=== PATIENT | female | born 1990 | race African-American/Black ===

== ENCOUNTER 2016-10-19 13:44 | Emergency (ER) | payer OTHER ==
[2016-10-19 14:02] VITALS: BP 137/83
--- NOTE | 2016-10-19 14:56 | ERNOTE ---
Time Seen by Provider: 10/19/16 14:39 Stated Complaint: URI,COUGH Presenting Symptoms:: cough Source: patient, RN notes reviewed Exam Limitations: no limitations Immunizations: IMMUNIZATION HX Immunizations Up to Date Yes History of Influenza Vaccine No Hx Pneumococcal Vaccination No Allergies/Adverse Reactions: Allergies benzonatate [From Mercdeez Sharma] Allergy (Verified 10/19/16 14:03) Hives guaifenesin Allergy (Verified 10/19/16 14:03) Anaphylaxis latex Allergy (Verified 10/19/16 14:03) Hives Home Medications: HOME MEDICATIONS Albuterol Sulfate [Albuterol Sulfate 2.5 MG/0.5ML] 1 vial IH Q4H PRN 05/30/16 [ Last Taken Unknown] Albuterol Sulfate [Ventolin Hfa] 2 puff IH Q4H PRN #1 inhaler 07/30/16 [Last Taken Unknown] Amox Tr/Potassium Clavulanate [Augmentin 875-125 Tablet] 875 mg PO Q12H #20 tab 10/19/16 [Last Taken Unknown] Promethazine HCl/Codeine [Prometh-Codein 6.25-10 mg/5 ml] 5 ml PO Q4H PRN #120 ml 10/19/16 [Last Taken Unknown] predniSONE [Prednisone] 2 tab PO DAILY #5 tab 10/19/16 [Last Taken Unknown] - History of Present Ilness Narrative: Oxana is a 26-year-old female ambulatory to the emergency department for upper respiratory symptoms and asthma that began a week ago. She has been taking ykrn-nzm-vqjdhhl cough and cold medications and using her nebulizer and inhalers without any improvement. She also reports nasal congestion and a headache that does not improve with ibuprofen. Her is here being seen with similar symptoms as well. Frequency/Possible Cause: Reports: illness exposure Associated Symptoms: Reports: cough, shortness of breath, wheezing, facial pain , nasal congestion, nasal drainage, dizziness, lightheadedness, earache, headache. Denies: sore throat, muscle aches Prior Treatment: Denies: recently seen Review of Systems - Review of Systems Constitutional: Present: See HPI EYE: Present: no symptoms reported ENT: Present: See HPI Respiratory: Present: See HPI Cardiology: Absent: chest pain, syncope Gastrointestinal/Abdominal: Absent: nausea, vomiting Genitourinary: Present: no symptoms reported Musculoskeletal: Present: See HPI Skin: Present: no symptoms reported Neurological: Present: See HPI Endocrine: Present: no symptoms reported Hematologic/Lymphatic: Present: no symptoms reported Psych: Present: no symptoms reported - Patient's Past Medical History Patient History - Medical: No pertinent hx Patient History - Cardiac/Respiratory: Asthma Patient History - Cancer: No Hx of Cancer Patient History - Surgical Procedures: T & A, Other LMP (females 10-50): now - Family History mom Family History - Medical: No pertinent hx dad Family History - Medical: No pertinent hx - Social History Living Situations: home Smoking Status: Never smoker Alcohol Use: rarely Drug Use: none Physical Exam - Physical Exam General Appearance: Present: wd/wn, alert, no apparent distress Ears, Nose, Throat: Present: hearing grossly normal, nasal congestion, sinus pain/drainage, normal pharynx. Absent: abnormal TM (R), abnormal TM (L) Neck: Present: normal inspection, nontender, supple Respiratory: Present: no respiratory distress, no accessory muscle use, lungs clear, expiration (prolonged) Cardiovascular/Chest: Present: regular rate, rhythm, no murmur Neurological Exam: Present: alert, oriented, normal mood/affect Skin Exam: Present: normal color, warm/dry ED Progress - Vital Signs Patient's Vital Signs:: I have reviewed the patient's vital signs. Vital Signs: Vital Signs 10/19/16 13:59 Temperature 35.8 C L Pulse Rate 79 Respiratory 16 Rate Blood Pressure 137/83 O2 Sat by Pulse 98 Oximetry - Progress/Reassessment Chief Complaint: Upper Respiratory Symptoms Progress:: Unchanged Departure - Departure Clinical Impression: Asthma exacerbation Sinusitis, acute Qualifiers: Sinusitis location: unspecified location Recurrence: non-recurrent Qualified Code(s): J01.90 - Acute sinusitis, unspecified Disposition: Home self-care Condition: Good Instructions: Sinusitis, Adult, Ehbd-ud-Jrus, Asthma, Adult, Xnuq-ql-Epht Prescriptions: Amox Tr/Potassium Clavulanate [Augmentin 875-125 Tablet] 875 mg PO Q12H #20 tab Promethazine HCl/Codeine [Prometh-Codein 6.25-10 mg/5 ml] 5 ml PO Q4H PRN #120 ml PRN Reason: Cough predniSONE [Prednisone] 2 tab PO DAILY #5 tab
== END 2016-10-19 14:59 | disposition home or self-care (01) ==
LOC: ER 13:44
DX: J45.901 Unspecified asthma with (acute) exacerbation (principal); J01.90 Acute sinusitis, unspecified

== ENCOUNTER 2016-11-29 22:00 | Emergency (ER) | payer OTHER ==
[2016-11-29 22:09] VITALS: BP 138/86
--- OUTSIDE RECORDS SUMMARY | 2016-11-29 22:34 | XMS REPORT | Continuity of Care Document ---
:1990 Author Organization [facility] [place] [address] Care Team Providers Name Role Phone Provider, None Per Patient Primary Care Provider Unavailable Source Comments This disclosure is being made pursuant to the [employer] program and maynot contain all information available regarding this patient.[facility] Active Allergies and Adverse Reactions Allergen Noted Date Severity Reactions Comments Latex 03/30/2014 High Hives Current Medications Be aware that medications may not be up to date as of this document. Alwaysverify current medications with the patient. Prescription Sig. Disp. Refills Start Date End Date Status Unclassified (NON Proair, albuterol Active FORMULARY) nebulizer Active Problems Not on file Immunizations Name Dates Previously Given Next Due Tdap 04/13/2014 Social History Tobacco Use Types Packs/Day Years Used Date Never Smoker Alcohol Use Drinks/Week oz/Week Comments No Last Filed Vital Signs Vital Sign Reading Time Taken Blood Pressure 119/69 04/13/2014 6:10 PM CDT Pulse 84 04/13/2014 6:10 PM CDT Temperature 37.1 C (98.8 F) 04/13/2014 6:10 PM CDT Respiratory Rate 16 04/13/2014 6:10 PM CDT Height 1.549 m (5' 1") 04/13/2014 6:10 PM CDT Weight 81.42 kg (179 lb 8 oz) 04/13/2014 6:10 PM CDT Body Mass Index 33.93 04/13/2014 6:10 PM CDT Oxygen Saturation 100% 03/30/2014 6:09 PM CDT Plan of Care Health Maintenance Due Date Last Done Comments HPV Vaccine (9-26YO) (1 of 3 - Female/Unknown 3 Dose 2002 Series) Chlamydia Screening 2007 Pap Smear 2012 Retired-INFLUENZA VACCINE 06/07/2015 Retired-Tetanus Vaccine Adult 04/13/2024 04/13/2014 Retired-Pertussis Vaccine Adult Completed 04/13/2014 Results from Last 3 Months Not on file
--- OUTSIDE RECORDS SUMMARY | 2016-11-29 22:35 | XMS REPORT | CCD ---
:1990 Author Name VEENA CRUZ Address [address] [facility] Unavailable [place], [place] [id number] Care Team Providers Name Role Phone MAURI NGO Attending Physician Unavailable Tab, RHONDA GAMBOA Registered Nurse Unavailable S., LINA Hammer Registered Nurse Unavailable C., NATHAN Registered Nurse Unavailable L., PRAVEEN Nursing Staff Unavailable C., SARAH Hirsch Registered Nurse Unavailable Vital Signs Vital Sign Value Unit Date/Time Recent/Initial? Weight Measured 191.8 lbs 09/10/2015 20:38 Initial VS Height 62 in 09/10/2015 20:38 Initial VS BMI (Body Mass Index) 35.08 kg/m^2 09/10/2015 20:38 Initial VS BSA (Body Surface Area) 1.95 m^2 09/10/2015 20:38 Initial VS BP Systolic 121 mmHg 09/10/2015 20:38 Initial VS BP Diastolic 71 mmHg 09/10/2015 20:38 Initial VS Respiratory Rate 21 bpm 09/10/2015 20:38 Initial VS Heart Rate 76 bpm 09/10/2015 20:38 Initial VS O2 % BldC Oximetry 96 % 09/10/2015 20:38 Initial VS Body Temperature 97.9 degrees 09/10/2015 20:38 Initial VS Weight Measured 192.9 lbs 09/12/2015 06:20 Most Recent VS Height 62 in 09/12/2015 06:20 Most Recent VS BMI (Body Mass Index) 35.28 kg/m^2 09/12/2015 06:20 Most Recent VS BSA (Body Surface Area) 1.96 m^2 09/12/2015 06:20 Most Recent VS O2 % BldC Oximetry 98 % 09/12/2015 07:30 Most Recent VS BP Systolic 133 mmHg 09/12/2015 11:10 Most Recent VS BP Diastolic 84 mmHg 09/12/2015 11:10 Most Recent VS Respiratory Rate 18 bpm 09/12/2015 11:10 Most Recent VS Heart Rate 116 bpm 09/12/2015 11:10 Most Recent VS Body Temperature 98.3 degrees 09/12/2015 11:10 Most Recent VS Allergies Allergy Code Allergy Type Reaction Status LATEX 0 Allergy to substance Active GUAFENESIN 0 Drug allergy RASH Active Procedures Procedure Code Procedure Type Date AEROSOL TREATMENT 09993393 SNOMED CT 09/11/2015 AEROSOL TREATMENT 23352960 SNOMED CT 09/11/2015 AEROSOL TREATMENT 87349952 SNOMED CT 09/11/2015 AEROSOL TREATMENT 31979625 SNOMED CT 09/12/2015 AEROSOL TREATMENT 39814103 SNOMED CT 09/12/2015 AEROSOL -BRONCHO INT 471622559 SNOMED CT 09/10/2015 PRE/POST PFT 943006420 SNOMED CT 09/12/2015 CT CHEST-ANGIO 092683263 SNOMED CT 09/10/2015 NECK SOFT TISSUE 231471167 SNOMED CT 09/10/2015 CHEST [address] 09/10/2015 PROTHROMBIN TIME, PLASMA 667354824 SNOMED CT 09/12/[address] 09/11/2015 PROTHROMBIN TIME, PLASMA 881121141 SNOMED CT 09/10/2015 History of Immunizations Immunization Code Date Tdap 115 04/13/2014 no vaccine administered 998 1991 Problems Problem Code Start Date Resolved Date Status BRONCHITIS 83240933 01/19/2012 Active HEADACHE 89994548 01/19/2012 Active PERS HX OF PULMONARY EMBOLISM V1255 02/23/2012 Active VIRAL INFECTION 50204526 03/15/2012 Active ASTHMA 498150136 03/15/2012 Active COUGH 98441801 11/11/2012 Active ASTHMA WITH EXACERBATION 545236862 02/13/2013 Active VAGINITIS 11815591 05/24/2013 Active LUMP OR MASS IN BREAST 83608142 05/28/2013 Active SOLITARY CYST OF BREAST 106683504 05/28/2013 Active Results BASIC METABOLIC PANEL - Collect Date/Time: 09/11/2015 06:57 Test Name Code Test Result Test Units Test Ref Range GLUCOSE 102 mg/dL L=74 H=106 SODIUM 142 mmol/L L=136 H=145 POTASSIUM 3.8 mmol/L L=3.5 H=5.1 CHLORIDE 102 mmol/L L=98 H=107 CO2 33 mmol/L L=21 H=32 BUN 13.0 mg/dL L=7.0 H=18.0 CREATININE 0.9 mg/dL L=0.6 H=1.0 BUN/CREAT 14.4 L=7.6 H=21.2 CALCIUM 8.3 mg/dL L=8.6 H=10.1 ANION GAP 10.7 mmol/L L=7.0 H=16.0 AGE 25 YEARS GFR 81.76 ml/min COMPREHENSIVE METABOLIC PANEL - Collect Date/Time: 09/10/2015 17:20 Test Name Code Test Result Test Units Test Ref Range GLUCOSE 97 mg/dL L=74 H=106 SODIUM 139 mmol/L L=136 H=145 POTASSIUM 3.4 mmol/L L=3.5 H=5.1 CHLORIDE 101 mmol/L L=98 H=107 CO2 33 mmol/L L=21 H=32 BUN 9.0 mg/dL L=7.0 H=18.0 CREATININE 0.9 mg/dL L=0.6 H=1.0 BUN/CREAT 10.0 L=7.6 H=21.2 CALCIUM 8.0 mg/dL L=8.6 H=10.1 TOTAL BILI 0.4 mg/dL L=0.2 H=1.0 TOTAL PROTEIN 6.6 g/dL L=6.4 H=8.2 ALBUMIN 3.2 g/dL L=3.4 H=5.0 A/G RATIO 0.9 ALKALINE PHOS 71 IU/L L=50 H=136 AST/SGOT 8 IU/L L=15 H=37 ALT/SGPT 10 IU/L L=12 H=78 ANION GAP 8.4 mmol/L L=7.0 H=16.0 AGE 25 YEARS GFR 81.76 ml/min D-DIMER, PLASMA - Collect Date/Time: 09/10/2015 17:20 Test Name Code Test Result Test Units Test Ref Range D-DIMER 1.66 mg/L L=0.00 H=0.50 IRON & IRON BINDING CAPACITY, SERUM - Collect Date/Time: 09/11/2015 07:43 Test Name Code Test Result Test Units Test Ref Range IRON SERUM 31 MCG/DL L=50 H=170 UIBC 272 MCG/DL L=110 H=370 TIBC 303 MCG/DL L=250 H=400 SATURATION 10 % L=14 H=50 TSH - Collect Date/Time: 09/11/2015 07:43 Test Name Code Test Result Test Units Test Ref Range TSH 3016-3 1.380 uIU/ml L=0.360 H=3.740 HEMOGRAM - Collect Date/Time: 09/10/2015 17:20 Test Name Code Test Result Test Units Test Ref Range WBC 6690-2 9.6 K/uL L=3.2 H=10.0 RBC 789-8 3.86 M/uL L=4.00 H=5.20 HEMOGLOBIN 718-7 10.6 g/dL L=12.1 H=15.6 HEMATOCRIT 32.8 % L=35.0 H=47.0 MCV 85.0 fL L=81.0 H=101 MCH 27.5 PG L=26.0 H=38.0 MCHC 32.3 G/DL L=31.0 H=37.0 PLATELETS 222 K/UL L=140 H=380 RDW-SD 39.3 FL L=37.0 H=54.0 RDW-CV 13.2 % L=11.0 H=16.0 MPV 9.5 FL L=9.0 H=13.0 SLIDE REVIEWED? NOT INDICATED N/A PROTHROMBIN TIME, PLASMA - Collect Date/Time: 09/12/2015 06:32 Test Name Code Test [place] [address]-41 11.6 Sec L=9.5 H=13.5 INR 84281-0 1.1 PROTHROMBIN TIME, PLASMA - Collect Date/Time: 09/10/2015 22:40 Test Name Code Test [place] [address]-16 11.6 Sec L=9.5 H=13.5 INR 53797-6 1.1 HCG QUALITATIVE, SERUM OR PLASMA - Collect Date/Time: 09/11/2015 07:45 Test Name Code Test Result Test Units Test Ref Range BHCG QUAL NEGATIVE N/A Active Medications Medication Code Dose Units Frequency Route Modification Start Date/Time Advair Diskus 995481 1 PUFF TWICE INHALED 09/12/2015 250/50 DAILY-RESPIRAT 09:18 0.25MG-0.05MG/1I NH Inhalation Disk Prescription Detail 1 PUFF INHALED TWICE DAILY-RESPIRAT Coumadin 5MG Oral 323283 7.5 MILLIGRAMS DAILY COUMADIN BY MOUTH 2014 09:18 Tablet Prescription Detail TAKE 7.5 MILLIGRAMS BY MOUTH DAILY COUMADIN Lexapro 10MG Oral Tablet 772355 10 MILLIGRAMS DAILY BY MOUTH 2014 09:18 Prescription Detail TAKE 10 MILLIGRAMS BY MOUTH DAILY LORazepam 0.5MG 0.5 MILLIGRAMS 2 x a day, as BY MOUTH 2014 09:18 Oral Tablet needed Prescription Detail TAKE 0.5 MILLIGRAMS BY MOUTH 2 x a day, as needed for anxiety Lovenox 100MG/ML 518246 80 MILLIGRAMS EVERY 12 SUBCUTANEOUSLY 2014 09:18 Injection HOURS Solution Prescription Detail INJECT 80 MILLIGRAMS SUBCUTANEOUSLY EVERY 12 HOURS. DX: Pulmonary embolism Naproxen 250MG 19791009 250 MILLIGRAMS 2 x a day, as BY MOUTH For pain 04/2015 09:18 Oral Tablet needed Prescription Detail TAKE 250 MILLIGRAMS BY MOUTH 2 x a day, as needed For pain ProAir HFA 0.09MG/1 INH 836833 1 EACH NEEDED INHALATION 09/12/2015 09:18 Inhalation Aerosol Powder Prescription Detail 1 EACH INHALATION NEEDED Slow Fe 160 MG Oral 777405 1 TABLET DAILY WITH FOOD BY MOUTH 2014 09:18 Tablet, Extended Release Prescription Detail TAKE 1 TABLET BY MOUTH DAILY WITH FOOD traMADol HCl 809193 50-100 MILLIGRAMS Every 6hr as BY MOUTH For pain 04/2015 09:18 50MG Oral needed Tablet Prescription Detail TAKE 50-100 MILLIGRAMS BY MOUTH Every 6hr as needed For pain Medications Administered During Visit Medication Dose Units Frequency Route Date/Time of Last Dose WARFARIN (COUMADIN) TAB 5 MG DAILY COUMADIN ORAL 09/11/2015 12:26 : 5MG WARFARIN (COUMADIN) TAB 5 MG X1 ORAL 09/10/2015 22:57 : 5MG ENOXAPARIN SOD 80 MG EVERY 12 HOURS SUBCUTANEOUS 09/12/2015 10:19 (LOVENOX) INJ: 100MG TRAMADOL (ULTRAM) TAB : 50 MG PRN Q4 HR ORAL 09/12/2015 08:15 50MG LORazepam (ATIVAN) TAB 0.5 MG PRN Q6 HR ORAL 09/12/2015 10:19 : 0.5MG IPRATROP/ALBU UD 3 ML PRN Q4 HR NEBULIZE 09/11/2015 06:16 NEBULIZER ART : 3ML MORPHINE INJ: 2MG 2 MG PRN Q2 HR IV PUSH 09/11/2015 08:13 CARPUJECT FLUTICASONE (ADVAIR) 1 PUFF TWICE INHALATION 09/12/2015 07:24 DISKUS 250/50MG DAILY-RESPIRAT ESCITALOPRAM 10 MG DAILY ORAL 09/12/2015 08:15 OXALATE(LEXAPRO) TAB : 10MG MORPHINE INJ: 2MG 2 MG PRN Q4 HR IV PUSH 09/12/2015 06:32 CARPUJECT IRON ELEMENTAL (SLOW 45 MG DAILY WITH FOOD ORAL 09/12/2015 08:15 FE) TAB : 45MG IPRATROP/ALBU UD 3 ML FOUR TIMES NEBULIZE 09/12/2015 10:27 NEBULIZER ART : 3ML DAILY-RES PHENOL (CEPASTAT) 1 SUZANNE PRN NEEDED ORAL 09/11/2015 17:22 LOZENGES:18 NAPROXEN (NAPROSYN) TAB 250 MG PRN BID ORAL 09/11/2015 19:17 : 250MG WARFARIN (COUMADIN) TAB 7.5 MG DAILY COUMADIN ORAL 09/12/2015 10:58 : 5MG Encounters Encounter Diagnosis Diagnosis Code Start Date Other pulmonary embolism without acute cor pulmonale I2699 09/10/2015 Social History Smoking Status Code Start Date End Date Never smoker [id number] Patient Decision Aids Patient Decision Aid [facility] Instructions Pulmonary Embolism Discharge Instructions You were admitted to [facility] on 09/10/2015 with a principal diagnosis of Other pulmonary embolism without acute cor pulmonale. You were discharged from [facility] on 09/12/2015. Should you have any questions prior to discharge, please contact a member of your healthcare team. If you have left the hospital and have any questions, please contact your primary care physician.DIET:Regular/Diet as Tolerated, Keep vitamin K diet consistennt- See attachedsheet.Medication Instructions:Patient/Family Verbalizes Understanding, Prescriptions given to patient.Prescriptions phoned to Pharmacy, Discharge med list created by physician.DO NOT DRIVE WHEN USING TRAMADOL OR LARAZEPAMActivityActivity as tolerated.Treatment instructions:USE INCENTIVE SPIROMETER HOURLYTreatment instructions (cont.)USE CONDOMS FOR CONTRACEPTION. DO NOT BECOME WHILE ON WARFARIN(COUMADIN)General Instructions/Notify Physician if:CALL DR PORTILLO IF INCREASED SHORTNESS OF BREATH, CHESP PAIN, FEVER, CHILLS.Home EquipmentNo equipment needed.Follow Up AppointmentAppointment with:_DR PORTILLO THIS Saturday09/14/2015 AT 11:00cOME TO [facility] PRIOR TO APPOINTMENT FOR INR. Chief Complaint and Reason For Visit Chief Complaint Date of Onset PE Function Status Unknown or Not Available. Plan of Care Unknown or Not Available. Referral/Transition of Care Reason for Referral: post hospital -PE Referring Provider: LINDSEY GLOVER Address: [address] [place] [address], [address] [place] [phone] Appointment Date: 09/14/2015 Additional Information: at 11:00
--- OUTSIDE RECORDS SUMMARY | 2016-11-29 22:35 | XMS REPORT | CCD ---
:1990 Author Name TANVI ROMERO Address [address] [facility] Unavailable [place], [place] [id number] Care Team Providers Name Role Phone SALEEM ALVARES Attending Physician Unavailable Vital Signs Unknown or Not Available. Allergies Allergy Code Allergy Type Reaction Status LATEX 0 Allergy to substance Active RX COUGH MED {Clinical monitoring 0 Allergy to substance THROAT SWELLING Active unavailable} Procedures Unknown or Not Available. History of Immunizations Immunization Code Date Tdap 115 04/13/2014 no vaccine administered 998 1991 Problems Problem Code Start Date Resolved Date Status BRONCHITIS 11925616 01/19/2012 Active HEADACHE 10422144 01/19/2012 Active PERS HX OF PULMONARY EMBOLISM V1255 02/23/2012 Active VIRAL INFECTION 21705378 03/15/2012 Active ASTHMA 796698596 03/15/2012 Active COUGH 77866994 11/11/2012 Active ASTHMA WITH EXACERBATION 332724602 02/13/2013 Active VAGINITIS 24474379 05/24/2013 Active LUMP OR MASS IN BREAST 52324162 05/28/2013 Active SOLITARY CYST OF BREAST 899530241 05/28/2013 Active Results Unknown or Not Available. Active Medications Medication Code Dose Units Frequency Route Modification Start Date/Time MEDROL DOSE PACK 0 DIRECTED 10/10/2014 17:07 Prescription Detail DIRECTED Albuterol HFA 0.09MG/Actuation 904383 1 EACH As needed INHALATION 06/06 18:38 Inhalation Aerosol Powder Prescription Detail 1 EACH INHALATION As needed Medications Administered During Visit Unknown or Not Available. Encounters Encounter Diagnosis Diagnosis Code Start Date Acute bronchitis, unspecified J209 07/26/2015 Social History Smoking Status Code Start Date End Date Never smoker [id number] Patient Decision Aids Unknown or Not Available. Discharge Instructions You were admitted to [facility] on 07/26/2015 with a principal diagnosis of Acute bronchitis, unspecified. You were discharged from [facility] on 07/26/2015. Should you have any questions prior to discharge, please contact a member of your healthcare team. If you have left the hospital and have any questions, please contact your primary care physician. Chief Complaint and Reason For Visit Chief Complaint Date of Onset COUGH AND CONGESTED Function Status Unknown or Not Available. Plan of Care Unknown or Not Available. Referral/Transition of Care Unknown or Not Available.
--- OUTSIDE RECORDS SUMMARY | 2016-11-29 22:35 | XMS REPORT | CCD ---
:1990 Author Name TANVI CABRERA Address [address] [facility] Unavailable [place], [place] [id number] Care Team Providers Name Role Phone MICHAEL ARAUJO Attending Physician Unavailable MICHAEL ARAUJO Er Physician 1 Unavailable Vital Signs Vital Sign Value Unit Weight Measured 165 lbs Height 61 in BMI (Body Mass Index) 31.18 kg/m^2 BSA (Body Surface Area) 1.79 m^2 Allergies Allergy Code Allergy Type Reaction Status LATEX 0 Allergy to substance (disorder) Active Procedures Unknown. History of Immunizations Unknown. Problems Problem Code Start Date Resolved Date Status BRONCHITIS 58802347 01/19/2012 Active HEADACHE 72727478 01/19/2012 Active HX PULMONARY EMBOLISM V1255 02/23/2012 Active VIRAL INFECTION 06747436 03/15/2012 Active ASTHMA 847040406 03/15/2012 Active COUGH 64929655 11/11/2012 Active ASTHMA WITH EXACERBATION 589459778 02/13/2013 Active VAGINITIS 74568589 05/24/2013 Active LUMP OR MASS IN BREAST 65461071 05/28/2013 Active SOLITARY CYST OF BREAST 353918850 05/28/2013 Active Results Unknown. Medications Medication Code Dose Units Frequency Route Modification Start Stop Date/Time Date/Time Albuterol 668104 1 EACH As needed INHALATION HFA 0.09MG/Actua tion Inhalation Aerosol Powder Albuterol 044656 1 EACH As needed INHALATION HFA 0.09MG/Actua tion Inhalation Aerosol Powder Medications Administered Unknown. Encounters Encounter Diagnosis Diagnosis Code Start Date BRONCHITIS NOS 490 01/19/2014 Social History Smoking Status Code Start Date End Date Never smoker [id number] Patient Decision Aids Patient Decision Aid [facility]-ED Patient Educational Materials [facility]Patient Portal Instructions Instructions You were admitted to [facility] on 01/19/2014 with a principle diagnosis of BRONCHITIS NOS. You were discharged from [facility] on 01/19/2014. Should you have any questions prior to discharge, please contact a member of your healthcare team. If you have left the hospital and have any questions, please contact your primary care physician. Chief Complaint and Reason For Visit Chief Complaint Date of Onset COUGH Function Status Unknown. Plan of Care Unknown. Referral/Transition of Care Unknown.
--- OUTSIDE RECORDS SUMMARY | 2016-11-29 22:35 | XMS REPORT | CCD ---
:1990 Author Name RENATO KENNY Address [address] [facility] Unavailable [place], [place] [id number] Care Team Providers Name Role Phone SALEEM ALVARES Attending Physician Unavailable Vital Signs Unknown or Not Available. Allergies Allergy Code Allergy Type Reaction Status LATEX 0 Allergy to substance Active GUAFENESIN 0 Drug allergy RASH Active Procedures Procedure Code Procedure Type Date CHEST [address] 10/28/2015 History of Immunizations Immunization Code Date Tdap 115 04/13/2014 no vaccine administered 998 1990 Problems Problem Code Start Date Resolved Date Status BRONCHITIS 62662455 01/19/2012 Active HEADACHE 21381202 01/19/2012 Active PERS HX OF PULMONARY EMBOLISM V1255 02/23/2012 Active VIRAL INFECTION 35617298 03/15/2012 Active ASTHMA 293802152 03/15/2012 Active COUGH 25310791 11/11/2012 Active ASTHMA WITH EXACERBATION 205097760 02/13/2013 Active VAGINITIS 43313542 05/24/2013 Active LUMP OR MASS IN BREAST 06423428 05/28/2013 Active SOLITARY CYST OF BREAST 940832236 05/28/2013 Active Results Unknown or Not Available. Active Medications Medication Code Dose Units Frequency Route Modification Start Date/Time Advair Diskus 876397 1 PUFF TWICE INHALED 09/12/2015 250/50 DAILY-RESPIRAT 09:18 0.25MG-0.05MG/1I [place] Inhalation Disk Prescription Detail 1 PUFF INHALED TWICE DAILY-RESPIRAT Coumadin 5MG Oral 695417 7.5 MILLIGRAMS DAILY COUMADIN BY MOUTH 2014 09:18 Tablet Prescription Detail TAKE 7.5 MILLIGRAMS BY MOUTH DAILY COUMADIN Lexapro 10MG Oral Tablet 249172 10 MILLIGRAMS DAILY BY MOUTH 2014 09:18 Prescription Detail TAKE 10 MILLIGRAMS BY MOUTH DAILY LORazepam 0.5MG 024983 0.5 MILLIGRAMS 2 x a day, as BY MOUTH 2014 09:18 Oral Tablet needed Prescription Detail TAKE 0.5 MILLIGRAMS BY MOUTH 2 x a day, as needed for anxiety Lovenox 100MG/ML 087100 80 MILLIGRAMS EVERY 12 SUBCUTANEOUSLY 2014 09:18 Injection HOURS Solution Prescription Detail INJECT 80 MILLIGRAMS SUBCUTANEOUSLY EVERY 12 HOURS. DX: Pulmonary embolism Naproxen 250MG 576995 250 MILLIGRAMS 2 x a day, as BY MOUTH For pain 04/2015 09:18 Oral Tablet needed Prescription Detail TAKE 250 MILLIGRAMS BY MOUTH 2 x a day, as needed For pain ProAir HFA 0.09MG/1 INH 860668 1 EACH NEEDED INHALATION 09/12/2015 09:18 Inhalation Aerosol Powder Prescription Detail 1 EACH INHALATION NEEDED Slow Fe 160 MG Oral 095683 1 TABLET DAILY WITH FOOD BY MOUTH 2014 09:18 Tablet, Extended Release Prescription Detail TAKE 1 TABLET BY MOUTH DAILY WITH FOOD traMADol HCl 830407 50-100 MILLIGRAMS Every 6hr as BY MOUTH For pain 04/2015 09:18 50MG Oral needed Tablet Prescription Detail TAKE 50-100 MILLIGRAMS BY MOUTH Every 6hr as needed For pain Medications Administered During Visit Unknown or Not Available. Encounters Encounter Diagnosis Diagnosis Code Start Date Acute bronchitis, unspecified J209 10/28/2015 Social History Smoking Status Code Start Date End Date Never smoker [id number] Patient Decision Aids Unknown or Not Available. Chief Complaint and Reason For Visit Chief Complaint Date of Onset COUGH NOT FEELING GOOD Function Status Unknown or Not Available. Plan of Care Unknown or Not Available. Referral/Transition of Care Unknown or Not Available.
--- OUTSIDE RECORDS SUMMARY | 2016-11-29 22:35 | XMS REPORT | CCD ---
:1990 Author Name RENATO KENNY Address [address] [facility] Unavailable [place], [place] [id number] Care Team Providers Name Role Phone CHEVY URBANO, OTF Post Attending Physician Unavailable Vital Signs Unknown or Not Available. Allergies Allergy Code Allergy Type Reaction Status LATEX 0 Allergy to substance Active Procedures Unknown or Not Available. History of Immunizations Immunization Code Date Tdap 115 04/13/2014 no vaccine administered 998 1990 Problems Problem Code Start Date Resolved Date Status BRONCHITIS 12816691 01/19/2012 Active HEADACHE 35590764 01/19/2012 Active PERS HX OF PULMONARY EMBOLISM V1255 02/23/2012 Active VIRAL INFECTION 58311985 03/15/2012 Active ASTHMA 574036118 03/15/2012 Active COUGH 44226970 11/11/2012 Active ASTHMA WITH EXACERBATION 297685857 02/13/2013 Active VAGINITIS 06868648 05/24/2013 Active LUMP OR MASS IN BREAST 56653993 05/28/2013 Active SOLITARY CYST OF BREAST 521651788 05/28/2013 Active Results Unknown or Not Available. Active Medications Medication Code Dose Units Frequency Route Modification Start Date/Time Advair Diskus 730760 1 PUFF TWICE INHALED 09/12/2015 250/50 DAILY-RESPIRAT 09:18 0.25MG-0.05MG/1I NH Inhalation Disk Prescription Detail 1 PUFF INHALED TWICE DAILY-RESPIRAT Coumadin 5MG Oral 383665 7.5 MILLIGRAMS DAILY COUMADIN BY MOUTH 2014 09:18 Tablet Prescription Detail TAKE 7.5 MILLIGRAMS BY MOUTH DAILY COUMADIN Lexapro 10MG Oral Tablet 697881 10 MILLIGRAMS DAILY BY MOUTH 2014 09:18 Prescription Detail TAKE 10 MILLIGRAMS BY MOUTH DAILY LORazepam 0.5MG 132064 0.5 MILLIGRAMS 2 x a day, as BY MOUTH 2014 09:18 Oral Tablet needed Prescription Detail TAKE 0.5 MILLIGRAMS BY MOUTH 2 x a day, as needed for anxiety Lovenox 100MG/ML 589428 80 MILLIGRAMS EVERY 12 SUBCUTANEOUSLY 2014 09:18 Injection HOURS Solution Prescription Detail INJECT 80 MILLIGRAMS SUBCUTANEOUSLY EVERY 12 HOURS. DX: Pulmonary embolism Naproxen 250MG 143911 250 MILLIGRAMS 2 x a day, as BY MOUTH For pain 04/2015 09:18 Oral Tablet needed Prescription Detail TAKE 250 MILLIGRAMS BY MOUTH 2 x a day, as needed For pain ProAir HFA 0.09MG/1 INH 181425 1 EACH NEEDED INHALATION 09/12/2015 09:18 Inhalation Aerosol Powder Prescription Detail 1 EACH INHALATION NEEDED Slow Fe 160 MG Oral 607309 1 TABLET DAILY WITH FOOD BY MOUTH 2014 09:18 Tablet, Extended Release Prescription Detail TAKE 1 TABLET BY MOUTH DAILY WITH FOOD traMADol HCl 520424 50-100 MILLIGRAMS Every 6hr as BY MOUTH For pain 04/2015 09:18 50MG Oral needed Tablet Prescription Detail TAKE 50-100 MILLIGRAMS BY MOUTH Every 6hr as needed For pain Medications Administered During Visit Unknown or Not Available. Encounters Encounter Diagnosis Diagnosis Code Start Date Acute bronchitis due to other specified organisms J208 08/28/2015 Social History Smoking Status Code Start Date End Date Never smoker [id number] Patient Decision Aids Unknown or Not Available. Discharge Instructions You were admitted to [facility] on 08/28/2015 with a principal diagnosis of Acute bronchitis due to other specified organisms. You were discharged from [facility] on 08/28/2015. Should you have any questions prior to discharge, please contact a member of your healthcare team. If you have left the hospital and have any questions, please contact your primary care physician. Chief Complaint and Reason For Visit Chief Complaint Date of Onset CHEST IS TIGHT AND BAD COUGH CAN NOT BREATHE Function Status Unknown or Not Available. Plan of Care Unknown or Not Available. Referral/Transition of Care Unknown or Not Available.
--- OUTSIDE RECORDS SUMMARY | 2016-11-29 22:35 | XMS REPORT | Continuity of Care Document ---
:1990 Author Organization [facility] ([facility]) Address [place] [address] Phone [phone] Care Team Providers Name Role Phone Provider, No-Primary Care Primary Care Provider Unavailable Source Comments This disclosure is being made pursuant to the Care Everywhere program, applicable federal and state laws, and may not contain all informaitonavailable regarding this patient.[facility] ([facility]) Active Allergies and Adverse Reactions Allergen Noted Date Severity Reactions Comments Latex, Natural Rubber Urticaria (Hives),Angioedema Current Medications Prescription Sig. Disp. Refills Start Date End Date Status multivitamin Take 1 tablet by Active with minerals 27-0.8 mouth daily. mg tablet albuterol 90 Use 2 Puffs by Active mcg/Actuation inhaler inhalation every 6 hours as needed. acetaminophen 500 mg Take 500 mg by Active tablet mouth every 6 hours as needed. acetaminophen 325 mg Take 325 mg by Active tablet mouth every 4 hours as needed. ferrous gluconate 325 Take 1 tablet (325 30 tablet 1 07/22/2016 Active mg (37 mg iron) mg total) by mouth tablet daily. ibuprofen 800 mg Take 1 tablet (800 90 tablet 3 07/22/2016 Active tablet mg total) by mouth every 8 hours as needed for Pain. docusate (COLACE) 100 Take 1 capsule (100 60 capsule 1 07/22/2016 Active mg capsule mg total) by mouth 2 times daily. enoxaparin 150 mg/mL Inject 150 mg 45 Syringe 0 07/22/2016 Active injection syringe subcutaneously daily. zolpiDEM 5 mg tablet Take 1 tablet (5 mg 15 tablet 0 07/22/2016 Active total) by mouth at bedtime as needed for Sleep. oxyCODONE 5 mg Take 1 tablet (5 mg 10 tablet 0 07/22/2016 Active immediate release total) by mouth tablet every 4 hours as needed. promethazine 12.5 mg Take 1 tablet (12.5 20 tablet 0 07/22/2016 Active tablet mg total) by mouth every 6 hours as needed. miscellaneous medical Breast pump use as 1 Each 0 07/22/2016 Active supply directed. escitalopram oxalate Take 1 tablet (10 30 tablet 0 07/22/2016 Active 10 mg tablet mg total) by mouth daily. oxyCODONE 5 mg Take 1 tablet (5 mg 20 tablet 0 07/27/2016 Active immediate release total) by mouth tablet every 4 hours as needed. promethazine 25 mg Take 1 tablet (25 30 tablet 0 07/27/2016 Active tablet mg total) by mouth every 6 hours as needed. cyclobenzaprine 10 mg Take 1 tablet (10 30 tablet 0 07/27/2016 Active tablet mg total) by mouth 3 times daily as needed. labetalol 200 mg Take 2 tablets (400 60 tablet 5 08/02/2016 Active tablet mg total) by mouth 3 times daily. labetalol 300 mg Take 2 tablets (600 180 tablet 0 08/06/2016 Active tablet mg total) by mouth every 8 hours. doxycycline hyclate Take 1 capsule (100 28 capsule 0 08/06/2016 Active 100 mg capsule mg total) by mouth 2 times daily. oxyCODONE-acetaminoph Take 1 tablet by 10 tablet 0 08/09/2016 Active en 5-325 mg per mouth every 4 hours tablet as needed. Do NOT exceed 4000 mg of acetaminophen per 24 hours. hydrocortisone 1 % Apply topically 2 28.35 g 11 08/13/2016 Active topical ointment times daily. HYDROcodone-acetamino Take 1 tablet by 20 tablet 0 08/13/2016 Active phen 5-325 mg per mouth every 6 hours tablet as needed for pain. metroNIDAZOLE 500 mg Take 1 tablet (500 14 tablet 0 09/07/2016 Active tablet mg total) by mouth 2 times daily. simethicone (BICARSIM Take 1 tablet (125 30 tablet 3 09/07/2016 Active FORTE) 125 mg tablet mg total) by mouth 4 times daily as needed. Active Problems Problem Noted Date Hypertension in , preeclampsia, delivered 09/07/2016 Lower abdominal pain 09/07/2016 Bacterial vaginosis 08/06/2016 Morbid obesity 07/11/2016 Chronic idiopathic constipation 04/06/2016 Depression 02/15/2016 History of pulmonary embolism 02/14/2016 Resolved Problems Problem Noted Date Resolved Date Headache 08/01/2016 09/07/2016 Preeclampsia in period 07/26/2016 09/07/2016 Dyspnea 07/25/2016 09/07/2016 eclampsia 07/25/2016 08/11/2016 Supervision of other high-risk 07/15/2016 09/07/2016 Headache in 06/28/2016 09/07/2016 Abdominal pain in , antepartum 04/06/2016 09/07/2016 Abdominal pain affecting , antepartum 03/29/2016 04/06/2016 Obesity complicating , childbirth, or the 02/15/2016 09/07/2016 puerperium, unspecified as to episode of care or not applicable(649.10) Depression affecting , antepartum 02/15/2016 09/07/2016 Pain in limb 10/06/2006 02/14/2016 Most Recent Encounters Date Type Specialty Providers Description 09/07/2016 Office Visit Gynecology Lucero Moreira DO Dx: Bacterial vaginosis Jenniffer Milton MD (Primary Dx) 09/07/2016 Telephone Gynecology Jenniffer Milton MD Chief Comp: Medication Question 09/03/2016 Office Visit Gynecology Tate Lockwood MD Chief Comp: Patient Reported Reason For Visit Social History Tobacco Use Types Packs/Day Years Used Date Never Smoker Smokeless Tobacco: Never Used Tobacco Cessation:Counseling Given: Yes Comments: Alcohol Use Drinks/Week oz/Week Comments No 0 Standard drinks or equivalent 0.0 Last Filed Vital Signs Vital Sign Reading Time Taken Blood Pressure 139/65 09/07/2016 10:19 AM HANDLE TURNER Pulse 80 09/07/2016 10:19 AM HANDLE TURNER Temperature 36.3 C (97.3 F) 09/07/2016 10:19 AM HANDLE TURNER Respiratory Rate 17 08/13/2016 3:40 PM HANDLE TURNER Height 1.549 m (5' 0.98") 07/19/2016 3:53 PM CDT Weight 88.2 kg (194 lb 7.1 oz) 09/07/2016 10:19 AM HANDLE TURNER Body Mass Index 36.76 09/07/2016 10:19 AM HANDLE TURNER Oxygen Saturation 100% 08/13/2016 3:40 PM HANDLE TURNER Plan of Care Health Maintenance Due Date Last Done Comments Hepatitis B Vaccine (1 of 3 - Primary Series) 1991 HPV Vaccine (1 of 3 - Female/Unknown 3 Dose Series) 2002 Tdap Vaccine 2002 Lipid Disorder Screening 2009 MMR Vaccine 2009 Td Vaccine 2009 Varicella Vaccine (1 of 2 - Adult - No Evidence of 2009 Immunity) Pneumococcal Vaccine (1 of 1 - PPSV23) 2010 Influenza Vaccine: Seasonal (#1) 05/07/2016 Cervical Cancer Screening 09/07/2019 09/07/2016 Results from Last 3 Months HUMAN PAPILLOMAVIRUS (HPV) HIGH RISK DNA (09/07/2016 11:57 AM) Component Value Range HPV Specimen Source Liquid Cyto HPV High Risk NegativeComment: Negative Test methodology: PCR amplification; Eliza HPV Test ([employer] ) The HPV PCR test detects all of the currently identified high risk HPV genotypes (16, 18, 31, 33, 35, 39, 45, 51, 52, 56, 58, 59, 66, and 68) that cause cancer of the cervix and other mucosal sites.HPV High Risk DNA testing of cytology specimens collected in [facility] and of tissue specimens was developed and the performance characteristics determined by the [facility]. This testing has not been cleared or approved by the US Food and Drug Administration. However, the FDA has determined that such approval is not necessary for this test. This test is for clinical purposes. The laboratory is certified under the Clinical Laboratory Improvement Amendments of 1988 as qualified to perform high complexity clinical laboratory testing. Specimen Ramsay, Liquid-Based PAP - Cervix (Endo/Ecto) CYTOLOGY MATHS TUTOR EXAM - PAP TEST (09/07/2016 11:57 AM) Component Value Range Case Report MATHS TUTOR Cytopathology Report Case: [id number] Authorizing Provider:Jenniffer Milton MD Collected: 09/07/2016 11:57 AM Ordering Location: [facility]: Received: 09/07/2016 03:52 PM Gynecology First Screen:Que Duenas CT(ASCP) Pathologist: Kal Marshall MD Specimen:Cytology Liquid Based PAP , Cervix (Endo/Ecto) Interpretation Atypical squamous cells of undetermined significance(A)Comment : . I have personally reviewed the slides and report for this case. Statement of Adequacy Satisfactory for interpretation. Endocervical component present. Specimen Description SurePath vial LMP 10/09/2015 Hormonal Status History of cancer No Previous abnormal No Education Note Pap tests are subject to both false negative and false positive results as evidenced by published data. Obtaining periodic Pap tests may minimize the consequence of false negatives. Your patient's res ults should be interpreted in this context, together with the patient's history and clinical findings. Specimen Ramsay, Liquid-Based PAP - Cervix (Endo/Ecto) WET MOUNT, POINT OF CARE (09/07/2016) Component Value Range POC MYCELIAL YEAST Absent Absent, Not Done, 3.0, 3.5, 4.0, 4.5, 5.0, 5.5 POC CLUE CELL Present(A) Absent, Not Done, 3.0, 3.5, 4.0, 4.5, 5.0, 5.5 POC WHIFF Positive(A) Negative POC TRICHOMONAS Absent Absent, Not Done, 3.0, 3.5, 4.0, 4.5, 5.0, 5.5 POC PH 5.0 POC WET [place] WBCS Normal POC WET [place] BUDS Absent POC WET [place] RODS Normal POC WET [place] RBC Absent POC WET [place] ARTIFACT Absent
--- NOTE | 2016-11-29 22:37 | ERNOTE ---
Time Seen by Provider: 11/29/16 22:27 Stated Complaint: COLD Presenting Symptoms:: cough Source: patient Exam Limitations: no limitations Immunizations: IMMUNIZATION HX Immunizations Up to Date Yes History of Influenza Vaccine No Hx Pneumococcal Vaccination No Allergies/Adverse Reactions: Allergies benzonatate [From Mercedez Sharma] Allergy (Verified 11/29/16 22:09) Hives guaifenesin Allergy (Verified 11/29/16 22:09) Anaphylaxis latex Allergy (Verified 11/29/16 22:09) Hives Home Medications: HOME MEDICATIONS Albuterol Sulfate [Albuterol Sulfate 2.5 MG/0.5ML] 1 vial IH Q4H PRN 05/30/16 [ Last Taken Unknown] Albuterol Sulfate [Ventolin Hfa] 2 puff IH Q4H PRN #1 inhaler 07/30/16 [Last Taken Unknown] hydrOXYzine PAMOATE [Hydroxyzine Pamoate] 25 mg PO QID PRN #30 capsule 11/29/16 [Last Taken Unknown] - History of Present Ilness Narrative: Pt states that approx 5 days ago she had rapid onset of fever, body aches and cough. This has progressed to fatigue and nasal drainage Timing: getting worse Severity: moderate Frequency/Possible Cause: Reports: no prior episodes Associated Symptoms: Reports: shortness of breath, nasal congestion, nasal drainage Review of Systems - Review of Systems Constitutional: Present: See HPI, fever, chills EYE: Present: no symptoms reported ENT: Present: See HPI. Absent: sore throat, throat swelling Respiratory: Present: See HPI, shortness of breath, cough Cardiology: Present: no symptoms reported Gastrointestinal/Abdominal: Present: no symptoms reported Genitourinary: Present: no symptoms reported Musculoskeletal: Present: muscle pain Skin: Present: no symptoms reported Neurological: Present: no symptoms reported Endocrine: Present: no symptoms reported Hematologic/Lymphatic: Present: no symptoms reported Psych: Present: no symptoms reported - Patient's Past Medical History Patient History - Medical: No pertinent hx Patient History - Cardiac/Respiratory: Asthma Patient History - Cancer: No Hx of Cancer Patient History - Surgical Procedures: T & A, Other Patient History - Other: None - Family History mom Family History - Medical: No pertinent hx dad Family History - Medical: No pertinent hx - Social History Living Situations: home Abuse History: No History of abuse Psych History: No pertinent hx Smoking Status: Never smoker Alcohol Use: rarely Drug Use: none - Immunizations Immunizations Up to Date: Yes Hx Pneumococcal Vaccination: No History of Influenza Vaccine: No Physical Exam - Physical Exam General Appearance: Present: wd/wn, alert, no apparent distress Eye Exam: Normal inspection: bilateral Ears, Nose, Throat: Present: nasal congestion - without erythema Neck: Present: normal inspection, nontender Respiratory: Present: no respiratory distress, wheezing - left lower lobe Cardiovascular/Chest: Present: regular rate, rhythm, no murmur, normal peripheral pulses Extremity Exam: Present: normal inspection Neurological Exam: Present: alert, oriented, normal mood/affect, no motor/ sensory deficits Skin Exam: Present: normal color, warm/dry Lymphatic Exam: Present: no adenopathy ED Progress - Results and Orders Patient's Lab Results:: I have reviewed the patient's lab results. Results and Orders: Laboratory Tests 11/29/16 22:12 Influenza Type A Ag Negative Influenza Type B Ag Negative - Vital Signs Patient's Vital Signs:: I have reviewed the patient's vital signs. Vital Signs: Vital Signs 11/29/16 22:06 Temperature 36 C L Pulse Rate 70 Respiratory 18 Rate Blood Pressure 138/86 O2 Sat by Pulse 98 Oximetry - Progress/Reassessment Chief Complaint: Upper Respiratory Symptoms Progress:: Unchanged Progress Note-Subjective: 11/29/16 23:20 Pt states that she has had something that "starts with a P" for cough since she is allergic to tessalon pearles. Checked with the WEB DEVELOPER PROGRAMMER and it appears that she frequently get promethazine with codeine from multiple providers. The most recent was 120 mL only 9 days ago. pt has not been forthcoming on her visits with other providers while here today. Initially when I suggested CXR she asked if she really needed one. I explained that if her influenza was negative I would like to make sure she does not have a pneumonia. She said okay at that point. When the diagnostic technician went into the room to get her for the CXR she refused the CXR. when she was asked why she didn't want one she stated that she had x-rays a few weeks ago and did not want more. When asked why she had previous x-rays she stated that she had surgery on her knee 3 weeks ago and had x-rays on her knee at that time. When nursing went to discharge her she became upset because I did not give her "what [she is] used to taking". I was busy with a patient just brought in by the ambulance and she did leave before I was finished with that patient. 11/30/16 00:10 Departure - Departure Clinical Impression: Bronchitis Disposition: Home self-care Condition: Good Instructions: Acute Bronchitis Additional Instructions: you may take hydroxyzine as needed for cough and may take 1-2 at bedtime to help you sleep Prescriptions: hydrOXYzine PAMOATE [Hydroxyzine Pamoate] 25 mg PO QID PRN #30 capsule PRN Reason: Cough
[2016-11-29 22:54] LABS: Hematocrit 35.8 % (37.0-47.0); Hemoglobin 11.4 gm/dL (12.5-16.0); Mean Corpuscular Hemoglobin 25.8 pg (27-31); Mean Corpuscular Hgb Conc 31.8 g/dl (32-36); Mean Platelet Volume 9.7 fl (6.0-9.5); Neutrophil # 3.1 K/mm3 (1.3-6.0); Neutrophil % 50.9 % (42-75.0); Platelet Count 243 K/mm3 (150-450); Red Blood Count 4.42 M/mm3 (4.2-5.4); Red Cell Distribution Width 13.5 % (11.5-14.0)
[2016-11-29] MEDS ORDERED: hydrOXYzine PAMOATE 25 MG CAPSULE PO ONE (23:22)
[2016-11-29] MEDS ORDERED: hydrOXYzine PAMOATE 25 MG CAPSULE ONE (23:25)
== END 2016-11-29 23:32 | disposition home or self-care (01) ==
LOC: ER 22:00
DX: J20.8 Acute bronchitis due to other specified organisms (principal)

== ENCOUNTER 2017-01-15 20:13 | Emergency (ER) | payer OTHER ==
[2017-01-15 20:28] VITALS: BP 116/69
--- OUTSIDE RECORDS SUMMARY | 2017-01-15 21:15 | XMS REPORT | Continuity of Care Document ---
:1990 Author Organization [facility] ([facility]) [place] [address] Phone [phone] Care Team Providers Name Role Phone Provider, No-Primary Care Primary Care Provider Unavailable Source Comments This disclosure is being made pursuant to the Care Everywhere program, applicable federal and state laws, and may not contain all informaitonavailable regarding this patient.[facility] ([facility]) Active Allergies and Adverse Reactions Allergen Noted [...] 02/15/2016 09/07/2016 Pain in limb 10/06/2006 02/14/2016 Social History Tobacco Use Types Packs/Day Years Used Date Never Smoker Smokeless Tobacco: Never Used Tobacco Cessation:Counseling Given: Yes Comments: Alcohol Use Drinks/Week oz/Week Comments No 0 Standard drinks or equivalent 0.0 Last Filed Vital Signs Vital Sign Reading Time Taken Blood Pressure 139/65 09/07/2016 10:19 AM VIAL GAUGER Pulse 80 09/07/2016 10:19 AM VIAL GAUGER Temperature 36.3 C (97.3 F) 09/07/2016 10:19 AM VIAL GAUGER Respiratory Rate 17 08/13/2016 3:40 PM VIAL GAUGER Height 1.549 m (5' 0.98") 07/19/2016 3:53 PM CDT Weight 88.2 kg (194 lb 7.1 oz) 09/07/2016 10:19 AM VIAL GAUGER Body Mass Index 36.76 09/07/2016 10:19 AM VIAL GAUGER Oxygen Saturation 100% 08/13/2016 3:40 PM VIAL GAUGER Plan of Care Health Maintenance Due Date [...] 09/07/2019 09/07/2016 Results from Last 3 Months Not on file
--- OUTSIDE RECORDS SUMMARY | 2017-01-15 21:15 | XMS REPORT | Continuity of Care Document ---
:1990 Author Organization [facility] [place] [address] Care Team Providers Name Role Phone Provider, None Per Patient Primary Care Provider Unavailable Source Comments This disclosure is being made pursuant to the [employer] program and maynot contain all information available regarding this patient.[facility] Active Allergies and Adverse Reactions Allergen Noted [...]
[2017-01-15] MEDS ORDERED: METOCLOPRAMIDE HCL 5 MG/ML VIAL IM ONE (21:42)
[2017-01-15] MEDS ORDERED: diphenhydrAMINE HCL 50 MG/ML VIAL IM ONE (21:42)
[2017-01-15] MEDS ORDERED: KETOROLAC TROMETHAMINE 60 MG/2 ML VIAL IM ONE ×2 (21:43→21:45)
[2017-01-15] MEDS ORDERED: METOCLOPRAMIDE HCL 5 MG/ML VIAL ONE (21:46)
[2017-01-15] MEDS ORDERED: diphenhydrAMINE HCL 50 MG/ML VIAL ONE (21:46)
--- NOTE | 2017-01-15 22:06 | ERNOTE ---
Date of Service: 01/15/17 Time Seen by Provider: 01/15/17 21:03 Stated Complaint: COUGH, SINUS PRESSURE Presenting Symptoms:: cough Source: patient Exam Limitations: no limitations Immunizations: IMMUNIZATION HX Immunizations Up to Date Yes History of Influenza Vaccine No Hx Pneumococcal Vaccination No Allergies/Adverse Reactions: Allergies amoxicillin Allergy (Verified 01/15/17 20:24) Hives benzonatate [From [facility]] Allergy (Verified 11/29/16 22:09) Hives guaifenesin Allergy (Verified 11/29/16 22:09) Anaphylaxis latex Allergy (Verified 11/29/16 22:09) Hives Home Medications: HOME MEDICATIONS Albuterol Sulfate [Albuterol Sulfate 2.5 MG/0.5ML] 1 vial IH Q4H PRN 05/30/16 [ Last Taken Unknown] Albuterol Sulfate [Ventolin Hfa] 2 puff IH Q4H PRN #1 inhaler 07/30/16 [Last Taken Unknown] Doxycycline Monohydrate 100 mg PO BID #20 tablet 01/15/17 [Last Taken Unknown] Promethazine HCl [Phenergan Syrup] 6.25 mg PO QID PRN #1 btl 01/15/17 [Last Taken Unknown] - History of Present Ilness Narrative: Pt. comes in with cough, headache, sinus pain and pressure for over a week. Pt. states that her headache is the worst today than it has been but it is not the worst headache that she has ever had. Pt. denies any SOB, CP, NVD, fever, or alleviating factors. Pt. denies any prehospital treatment, but does state that coughing worsens the headache. Review of Systems - Review of Systems Constitutional: Present: no symptoms reported. Absent: recent illness, fever, chills, weakness, fatigue, malaise EYE: Present: no symptoms reported ENT: Present: nose congestion, nasal drainage. Absent: sore throat Respiratory: Present: cough. Absent: shortness of breath, wheezing Cardiology: Present: no symptoms reported. Absent: chest pain Gastrointestinal/Abdominal: Present: no symptoms reported. Absent: nausea, vomiting, diarrhea Genitourinary: Present: no symptoms reported Musculoskeletal: Present: no symptoms reported. Absent: back pain, joint pain Skin: Present: no symptoms reported. Absent: rash Neurological: Present: headache. Absent: dizziness/light-headedness, numbness, tingling All Other Systems: All systems neg except as marked - Patient's Past Medical History Patient History - Medical: No pertinent hx Patient History - Cardiac/Respiratory: Asthma, Bronchitis Patient History - Cancer: No Hx of Cancer Patient History - Surgical Procedures: T & A, Other Patient History - Other: None - Family History mom Family History - Medical: No pertinent hx dad Family History - Medical: No pertinent hx - Social History Living Situations: home Abuse History: No History of abuse Psych History: No pertinent hx Smoking Status: Never smoker Have you smoked in the past 12 months: No Do you dip or chew tobacco: No Alcohol Use: rarely Drug Use: none - Immunizations Immunizations Up to Date: Yes Hx Pneumococcal Vaccination: No History of Influenza Vaccine: No Physical Exam - Physical Exam General Appearance: Present: wd/wn, alert, no apparent distress Eye Exam: Normal inspection: bilateral, PERRL: bilateral, EOMI: bilateral Ears, Nose, Throat: Present: nasal congestion, sinus pain/drainage - frontal and maxillary, normal pharynx, tonsillar exudate - clear Neck: Present: normal inspection, nontender. Absent: lymphadenopathy (R), lymphadenopathy (L) Respiratory: Present: no respiratory distress, normal breath sounds, no accessory muscle use, chest nontender, lungs clear Cardiovascular/Chest: Present: regular rate, rhythm, no murmur, normal peripheral pulses Gastrointestinal/Abdominal: Present: normal bowel sounds, nontender Back Exam: Present: normal inspection Extremity Exam: Present: normal inspection Neurological Exam: Present: alert, oriented, normal mood/affect, no motor/ sensory deficits, hand tier II-XII nml as tested, normal cerebellar test Skin Exam: Present: normal color, warm/dry. Absent: pallor, skin rash ED Progress - Date and Time Seen: Date and Time: 01/15/17 22:02 Pt. refused medication for headache - Vital Signs Patient's Vital Signs:: I have reviewed the patient's vital signs. Vital Signs: Vital Signs 01/15/17 20:13 Temperature 36.7 C Pulse Rate 87 Respiratory 14 Rate Blood Pressure 116/69 O2 Sat by Pulse 99 Oximetry - Progress/Reassessment Chief Complaint: Cough Departure - Departure Clinical Impression: Bronchitis Sinusitis, acute Qualifiers: Sinusitis location: frontal Recurrence: recurrent Qualified Code(s): J01.11 - Acute recurrent frontal sinusitis Disposition: Home self-care Condition: Good Instructions: Sinusitis, Adult, [id number], Sinus Headache, Acute Bronchitis Additional Instructions: Please follow up with primary provider in 2-3 days. Prescriptions: Doxycycline Monohydrate 100 mg PO BID #20 tablet Promethazine HCl [Phenergan Syrup] 6.25 mg PO QID PRN #1 btl PRN Reason: Cough
== END 2017-01-15 22:06 | disposition home or self-care (01) ==
LOC: ER 20:13
DX: J20.9 Acute bronchitis, unspecified (principal); J01.11 Acute recurrent frontal sinusitis

== ENCOUNTER 2017-05-20 15:24 | Emergency (ER) | payer OTHER ==
[2017-05-20 15:46] VITALS: BP 145/50
--- NOTE | 2017-05-20 16:09 | ERNOTE ---
Date of Service: 05/20/17 Time Seen by Provider: 05/20/17 16:03 Stated Complaint: URI SYMPTOMS Presenting Symptoms:: cough Source: patient, RN notes reviewed, other - [facility] Exam Limitations: no limitations Immunizations: IMMUNIZATION HX Immunizations Up to Date Yes History of Influenza Vaccine Yes Hx Pneumococcal Vaccination Yes Allergies/Adverse Reactions: Allergies amoxicillin Allergy (Verified 05/20/17 15:45) Hives benzonatate [From [facility]] Allergy (Verified 05/20/17 15:45) Hives guaifenesin Allergy (Verified 05/20/17 15:45) Anaphylaxis latex Allergy (Verified 05/20/17 15:45) Hives Home Medications: HOME MEDICATIONS Albuterol Sulfate [Ventolin Hfa] 2 puff IH Q4H PRN #1 inhaler 07/30/16 [Last Taken Unknown] - History of Present Ilness Narrative: 27 y/o female ambulatory to the ED for a URI that began a week ago. She reports taking OTC cold and cough medications without improvement. She denies any sick contacts. She denies fevers. She has a 10 month old and reports being unable to sleep d/t her cough. She is also allergic to guaifenesin and benzonatate. Her [facility] record shows that she filled prescriptions for phenergan with codeine cough syrup on May.09 and May 01. She has been prescribed nearly 1 liter of this over the past year by various prescribers. Frequency/Possible Cause: Reports: unknown cause Modifying Factors - Improves: Reports: nothing Modifying Factors - Worsens: Reports: nothing Associated Symptoms: Reports: cough, nasal congestion, nasal drainage, sore throat. Denies: chest pain/soreness, shortness of breath, wheezing, facial pain , dizziness, lightheadedness, earache, headache, muscle aches, fever/chills Prior Treatment: Reports: recently seen Review of Systems - Review of Systems Constitutional: Present: fatigue, malaise. Absent: fever, chills EYE: Present: no symptoms reported ENT: Present: nose congestion, nasal drainage, sore throat. Absent: ear pain Respiratory: Present: cough. Absent: shortness of breath, wheezing Cardiology: Absent: chest pain, syncope Gastrointestinal/Abdominal: Absent: nausea, abdominal pain Genitourinary: Present: no symptoms reported Musculoskeletal: Absent: muscle pain, joint pain Skin: Absent: rash, lesions Neurological: Absent: headache, dizziness/light-headedness Endocrine: Present: no symptoms reported Hematologic/Lymphatic: Present: no symptoms reported Psych: Present: no symptoms reported - Patient's Past Medical History Patient History - Medical: No pertinent hx Patient History - Cardiac/Respiratory: Asthma, Bronchitis Patient History - Cancer: No Hx of Cancer Patient History - Surgical Procedures: T & A, Other Patient History - Other: None LMP (females 10-50): 1 month - Family History mom Family History - Medical: No pertinent hx dad Family History - Medical: No pertinent hx - Social History Living Situations: home Abuse History: No History of abuse Psych History: No pertinent hx Smoking Status: Never smoker Alcohol Use: rarely Drug Use: none - Immunizations Immunizations Up to Date: Yes Hx Pneumococcal Vaccination: Yes History of Influenza Vaccine: Yes Physical Exam - Physical Exam General Appearance: Present: wd/wn, alert, no apparent distress, obese, other - somewhat disheveled Head Exam: Present: normal inspection Eye Exam: Normal inspection: bilateral Ears, Nose, Throat: Present: normal ENT inspection. Absent: abnormal TM (R), abnormal TM (L), nasal congestion, sinus pain/drainage, pharyngeal erythema Neck: Present: normal inspection, nontender, supple. Absent: lymphadenopathy (R ), lymphadenopathy (L) Respiratory: Present: no respiratory distress, normal breath sounds, no accessory muscle use, lungs clear Cardiovascular/Chest: Present: regular rate, rhythm, no murmur, normal peripheral pulses Extremity Exam: Present: normal inspection, normal range of motion Neurological Exam: Present: alert, oriented, normal mood/affect, no motor/ sensory deficits Skin Exam: Present: normal color, warm/dry ED Progress - Vital Signs Patient's Vital Signs:: I have reviewed the patient's vital signs. Vital Signs: Vital Signs 05/20/17 15:39 Temperature 36.9 C Pulse Rate 83 Respiratory 16 Rate Blood Pressure 145/50 O2 Sat by Pulse 97 Oximetry - Progress/Reassessment Chief Complaint: Cough Progress:: Unchanged Plan - Plan Plan: Physical exam is completely without abnormal findings r/t her complaints. She reports that OTC medications are not working and she just needs something so she can rest. Confronted regarding findings from [facility]. Patient tries to say that the record is inaccurate but does not become argumentative when informed she will not be given rx cough medication. Departure - Departure Clinical Impression: Drug-seeking behavior Upper respiratory infection Qualifiers: URI type: unspecified viral URI Qualified Code(s): J06.9 - Acute upper respiratory infection, unspecified Disposition: Home self-care Condition: Stable Instructions: Upper Respiratory Infection, Adult, [id number]
--- OUTSIDE RECORDS SUMMARY | 2017-05-20 16:09 | XMS REPORT | Clinical Summary ---
:1990 Author Organization [facility] [place] [address] Care Team Providers Name Role Phone Unavailable Primary Care Provider Unavailable Source Comments This disclosure is being made pursuant to the [employer] program and maynot contain all information available regarding this patient.[facility] Allergies Active Allergy Reactions Severity Noted Date Comments Latex Hives High 03/30/2014 Current Medications Be aware that medications may [...] Smoker Alcohol Use Drinks/Week oz/Week Comments No Sex Assigned at Date Recorded Not on file Last Filed Vital Signs Vital Sign Reading Time Taken Blood Pressure 119/69 04/13/2014 6:10 PM CDT Pulse 84 04/13/2014 6:10 PM CDT Temperature 37.1 C (98.8 F) 04/13/2014 6:10 PM CDT Respiratory Rate 16 04/13/2014 6:10 PM CDT Oxygen Saturation 100% 03/30/2014 6:09 PM CDT Inhaled Oxygen Concentration - - Weight 81.4 kg (179 lb 8 oz) 04/13/2014 6:10 PM CDT Height 154.9 cm (5' 1") 04/13/2014 6:10 PM CDT Body Mass Index 33.92 04/13/2014 6:10 PM CDT Plan of Treatment Health Maintenance Due Date Last Done Comments Pap Smear 2012 INFLUENZA IMMUNIZATION (#1) 2017 Tetanus/Pertussis (2 - Td) 04/13/2024 04/13/2014 Results Not on filefrom Last 3 Months
--- OUTSIDE RECORDS SUMMARY | 2017-05-20 16:10 | XMS REPORT | Summary of Care ---
:[address] [facility] Address [address] [place] [address] Care Team Providers Name Role Phone Elkin Anderson Primary Care Physician Physician, Primary Care Primary Care Physician Unavailable Encounter Date(s): 10/19/16 - 10/19/16 [facility], [address] [place] [address]- [facility] Discharge Disposition: 01 Discharged to Home or Self Care Attending Physician: Matt Simpson MD Vital Signs No data available for this section Problem List Condition Effective Dates Status Health Status Informant Acute sinusitis(Confirmed) Active Anemia(Confirmed) Active CHEST PAIN(Confirmed) Active Rhinitis NOS(Confirmed) Active Functional ovarian Active cysts(Confirmed) Anxiety(Confirmed) Active ASTHMA(Confirmed) Active preeclampsia in 2016 Active period(Confirmed) Bipolar disorder NOS(Confirmed) Active Depressive disorder NEC(Confirmed) Active (Confirmed) 10/14/15 - 07/20/16 Resolved Pulmonary embolism(Confirmed)1 Active Rathke's cleft cyst(Confirmed) 2015 Active Acute upper respiratory Active infection(Confirmed) 1while on nuva ring Allergies, Adverse Reactions, Alerts Substance Reaction Severity Status guaiFENesin hives Active Latex Active Tessalon Perles itching Active Medications Advair Diskus 250 mcg-50 mcg inhalation powder 1 puff(s), Inhale, BID, # 28 EA, 0 Refill(s), Start Date: 09/15/15 10:13:00 [employer] Start Date: 09/15/15 Stop Date: 12/24/15 Status: CompletedAfrin 0.05% nasal spray 2 spray(s), Nasal, BID, # 15 mL, 0 Refill(s), Start Date: 08/15/16 11:50:00 [employer] Start Date: 08/15/16 Stop Date: 08/16/16 Status: CompletedAfrin 0.05% nasal spray 2 spray(s), Nasal, BID, X 3 days, # 15 mL, 0 Refill(s), Start Date: 09/14/16 12: 50:00 [employer] Start Date: 09/14/16 Stop Date: 09/17/16 Status: CompletedAfrin 0.05% nasal spray 2 spray(s), Nasal, BID, # 15 mL, 0 Refill(s), Start Date: 12/24/15 13:11:00 CDT Start Date: 12/24/15 Stop Date: 12/25/15 Status: CompletedAfrin No Drip Sinus 0.05% nasal spray 2 spray(s), Nasal, BID, X 5 days, # 30 mL, 0 Refill(s), Start Date: 05/05/16 13: 02:00 CDT Start Date: 05/05/16 Stop Date: 05/10/16 Status: Completedalbuterol 90 mcg/inh inhalation powder 2 puff(s), Inhale, q4hr interval, # 1 cartridge(s), 0 Refill(s), Start Date: 13:03:00 CDT Start Date: 07/30/15 Status: Orderedalbuterol HFA 0 Refill(s), Start Date: 11/11/14 11:01:00 [employer] Start Date: 11/11/14 Stop Date: 09/05/15 Status: DiscontinuedALPRAZolam 1 mg oral tablet 1 tab(s), Oral, TID, PRN for anxiety, # 90 tab(s), 0 Refill(s), Start Date: 10/22 11:45:00 [employer] Start Date: 09/06/16 Stop Date: 10/04/16 Status: CompletedALPRAZolam 1 mg oral tablet 1 tab(s), Oral, TID, PRN for anxiety, 0 Refill(s), Start Date: 09/06/16 11:44: 00 [employer] Start Date: 09/06/16 Stop Date: 09/06/16 Status: DiscontinuedALPRAZolam 1 mg oral tablet 1 tab(s), Oral, TID, PRN for anxiety, # 90 tab(s), 0 Refill(s), Start Date: 10:33:00 [employer], Pharmacy: [id number] Start Date: 10/04/16 Status: OrderedAmbien 5 mg oral tablet 1 tab(s), Oral, HS, PRN for sleep, # 30 tab(s), 0 Refill(s), Start Date: 14:50:00 [employer], Pharmacy: [facility] [id number] Start Date: 09/27/16 Status: Orderedamoxicillin 875 mg oral tablet 1 tab(s), Oral, BID, # 20 tab(s), 0 Refill(s), Start Date: 09/28/15 11:23:00 [employer] , Pharmacy: [id number] Start Date: 09/28/15 Stop Date: 10/14/15 Status: Discontinuedamoxicillin-clavulanate 875 mg-125 mg oral tablet 1 tab(s), Oral, q12hr interval, X 10 days, # 20 tab(s), 0 Refill(s), Start Date : 08/29/16 23:25:00 [employer] Start Date: 08/29/16 Stop Date: 09/06/16 Status: CompletedAtivan 0.5 mg oral tablet 1 tab(s), Oral, HS, # 15 tab(s), 0 Refill(s), Start Date: 09/15/15 11:13:00 [employer] Start Date: 09/15/15 Stop Date: 09/23/15 Status: DiscontinuedAtivan 1 mg oral tablet 1 tab(s), Oral, TID, PRN for anxiety, # 15 tab(s), 0 Refill(s), Start Date: 1:43:00 [employer] Start Date: 09/04/15 Stop Date: 09/23/15 Status: DiscontinuedAtivan 1 mg oral tablet 1 tab(s), Oral, BID, # 60 tab(s), 2 Refill(s), Start Date: 09/23/15 14:08:00 [employer] , Pharmacy: [id number] Start Date: 09/23/15 Stop Date: 01/12/16 Status: CompletedAugmentin 875 mg-125 mg oral tablet 1 tab(s), Oral, q12hr, # 20 tab(s), 0 Refill(s), Start Date: 10/10/14 19:03:00 [employer] Start Date: 10/10/14 Stop Date: 11/11/14 Status: CompletedAugmentin 875 mg-125 mg oral tablet 1 tab(s), Oral, q12hr, # 20 tab(s), 0 Refill(s), Start Date: 10/10/14 18:50:00 [employer] Start Date: 10/10/14 Stop Date: 11/11/14 Status: CompletedAzithromycin 5 Day Dose Pack 250 mg oral tablet 1 packet(s), Oral, Per Package Label, as directed on package labeling, X 5 days , # 6 tab(s), 0 Refill(s), Start Date: 07/30/15 13:03:00 CDT Start Date: 07/30/15 Stop Date: 08/04/15 Status: CompletedAzithromycin 5 Day Dose Pack 250 mg oral tablet 1 packet(s), Oral, Per Package Label, as directed on package labeling, # 6 tab(s ), 0 Refill(s), Start Date: 02/03/16 21:27:00 CDT Start Date: 02/03/16 Stop Date: 05/05/16 Status: Completedazithromycin 500 mg oral tablet 1 tab(s), Oral, Daily, Start taking this medicine tomorrow (09/06/15), X 2 days, # 2 tab(s), 0 Refill(s), Start Date: 09/05/15 13:14:00 [employer] Start Date: 09/05/15 Stop Date: 09/07/15 Status: Completedcefdinir 300 mg oral capsule 1 cap(s), Oral, q12hr, # 20 cap(s), 0 Refill(s), Start Date: 11/08/15 10:04:00 [employer], Pharmacy: [id number] Start Date: 11/08/15 Stop Date: 11/27/15 Status: CompletedCodeine Phosphate-Promethazine HCl 10 mg-6.25 mg/5 mL oral syrup 5 mL, Oral, q4hr, PRN for cough, X 5 days, # 150 mL, 0 Refill(s), Start Date: 15:43:00 CDT Start Date: 12/26/15 Stop Date: 12/31/15 Status: CompletedCodeine Phosphate-Promethazine HCl 10 mg-6.25 mg/5 mL oral syrup 5 mL, Oral, q4hr, PRN for cough, # 60 mL, 0 Refill(s), Start Date: 05/05/16 13: 21:00 CDT Start Date: 05/05/16 Stop Date: 05/09/16 Status: Completedcodeine-brompheniramine 10 mg-2 mg/5 mL oral syrup 5 mL, Oral, q4hr, PRN for cough and congestion, # 120 mL, 0 Refill(s), Start Date: 10/05/16 16:12:00 [employer] Start Date: 10/05/16 Stop Date: 10/11/16 Status: CompletedCoumadin 5 mg oral tablet 1 tab(s), Oral, Daily, # 60 tab(s), 2 Refill(s), Start Date: 09/22/15 11:43:00 [employer], Pharmacy: [id number] Start Date: 09/22/15 Stop Date: 09/27/15 Status: CompletedCoumadin 5 mg oral tablet See Instructions, 3 tabs every Saturday, Saturday, 1.5 tabs every Saturday and 2 tablets every Saturday, , Saturday and Saturday, # 60 tab(s), 2 Refill(s), Start Date: 09/27/15 14:06:08 [employer], Pharmacy: [id number] Start Date: 09/27/15 Stop Date: 10/26/15 Status: CompletedCoumadin 7.5 mg oral tablet 1 tab(s), Oral, Daily, # 30 tab(s), 0 Refill(s), Start Date: 09/15/15 10:14:00 [employer] Start Date: 09/15/15 Stop Date: 09/22/15 Status: Discontinueddextromethorphan 15 mg oral capsule 1 cap(s), Oral, q4hr interval, # 180 cap(s), 0 Refill(s), Start Date: 08/29/16 14:44:00 [employer], Pharmacy: [facility] Start Date: 08/29/16 Stop Date: 09/27/16 Status: Completeddibucaine 1% topical ointment 1 mckinley, Topical, QID, PRN for itching, # 30 gm, 0 Refill(s), Start Date: 9:41:00 [employer], Pharmacy: [facility] [id number] Start Date: 09/24/16 Status: OrdereddiphenhydrAMINE 50 mg oral capsule 1 cap(s), Oral, QID, PRN for allergy symptoms, # 40 cap(s), 0 Refill(s), Start Date: 10/10/14 18:50:00 [employer] Start Date: 10/10/14 Stop Date: 11/11/14 Status: DiscontinuedFlagyl 500 mg oral tablet 1 tab(s), Oral, q12hr, X 7 days, # 14 tab(s), 0 Refill(s), Start Date: 10/21/15 12:49:00 [employer] Start Date: 10/21/15 Stop Date: 10/28/15 Status: CompletedFlonase 50 mcg/inh nasal spray 1 spray(s), Nasal, BID, # 1 EA, 0 Refill(s), Start Date: 04/22/16 15:42:00 CDT Start Date: 04/22/16 Stop Date: 08/15/16 Status: CompletedFlonase 50 mcg/inh nasal spray 2 spray(s), Nasal, BID, # 16 gm, 0 Refill(s), Start Date: 05/05/16 13:01:00 CDT Start Date: 05/05/16 Stop Date: 08/15/16 Status: CompletedGlycoLax oral powder for reconstitution 0 Refill(s), Start Date: 08/22/16 10:40:00 [employer] Start Date: 08/22/16 Status: Orderedibuprofen 800 mg oral tablet 1 tab(s), Oral, q6hr, # 40 tab(s), 0 Refill(s), Start Date: 08/21/16 13:04:00 [employer] Start Date: 08/21/16 Status: Orderedlabetalol 300 mg oral tablet 2 tab(s), BID, 0 Refill(s), Start Date: 08/21/16 13:04:00 [employer] Start Date: 08/21/16 Status: OrderedLexapro 10 mg oral tablet 1 tab(s), Oral, Daily, # 30 tab(s), 0 Refill(s), Start Date: 11/03/15 11:16:00 [employer], Pharmacy: [id number] Start Date: 11/03/15 Stop Date: 12/24/15 Status: CompletedLexapro 10 mg oral tablet 1 tab(s), Oral, Daily, # 30 tab(s), 0 Refill(s), Start Date: 09/15/15 10:13:00 [employer] Start Date: 09/15/15 Stop Date: 11/03/15 Status: DiscontinuedLexapro 20 mg oral tablet 1 tab(s), Oral, Daily, # 30 tab(s), 0 Refill(s), Start Date: 09/27/16 14:50:28 [employer], Pharmacy: [facility] [id number] Start Date: 09/27/16 Status: OrderedLexapro 20 mg oral tablet 1 tab(s), Oral, Daily, # 30 tab(s), 0 Refill(s), Start Date: 09/06/16 11:23:00 [employer], Pharmacy: [facility], [place], [place] Start Date: 09/06/16 Stop Date: 09/27/16 Status: Completedloratadine 10 mg oral tablet 1 tab(s), Oral, Daily, # 30 tab(s), 0 Refill(s), Start Date: 10/14/15 16:32:00 [employer], Pharmacy: [place] [id number] Start Date: 10/14/15 Stop Date: 11/08/15 Status: DiscontinuedLovenox 0 Refill(s), Start Date: 08/21/16 13:05:00 [employer] Start Date: 08/21/16 Stop Date: 08/21/16 Status: DiscontinuedLovenox 150 mg/mL injectable solution 1 mL, Subcutaneous, Daily, # 10 syringe(s), 0 Refill(s), Start Date: 08/21/16 13 :06:00 [employer] Start Date: 08/21/16 Status: OrderedLovenox 80 mg/0.8 mL injectable solution 0.8 mL, Subcutaneous, q12hr interval, # 8 EA, 0 Refill(s), Start Date: 09/16/15 15:35:00 [employer], Pharmacy: [id number] Start Date: 09/16/15 Stop Date: 09/27/15 Status: CompletedLovenox 80 mg/0.8 mL injectable solution 80 mg, Subcutaneous, q12hr interval, 0 Refill(s), Start Date: 09/15/15 10:17:00 [employer] Start Date: 09/15/15 Stop Date: 09/16/15 Status: DiscontinuedLovenox 80 mg/0.8 mL injectable solution 0.8 mL, Subcutaneous, q12hr interval, X 5 days, # 8 mL, 0 Refill(s), Start Date : 11/08/15 9:55:57 [employer], Pharmacy: [place] [id number] Start Date: 11/08/15 Stop Date: 11/08/15 Status: CompletedLovenox 80 mg/0.8 mL injectable solution 0.8 mL, Subcutaneous, q12hr interval, # 10 syringe(s), 0 Refill(s), Start Date: 11/08/15 11:24:16 [employer], Pharmacy: [place] [id number] Start Date: 11/08/15 Stop Date: 08/15/16 Status: CompletedLovenox 80 mg/0.8 mL injectable solution 0.8 mL, Subcutaneous, q12hr interval, # 14 EA, 0 Refill(s), Start Date: 14:03:25 [employer], Pharmacy: [place] [id number] Start Date: 09/27/15 Stop Date: 10/21/15 Status: CompletedMedrol Dosepak 4 mg oral tablet 1 packet(s), Oral, Per Package Label, Take full line each am, # 21 tab(s), 0 Refill(s), Start Date: 09/06/16 11:55:00 [employer], Pharmacy: [facility], [place], [place] Start Date: 09/06/16 Stop Date: 09/14/16 Status: Completedmetaxalone 800 mg oral tablet 1 tab(s), Oral, TID, # 42 tab(s), 1 Refill(s), Start Date: 09/23/15 14:15:00 [employer] , Pharmacy: [place] [id number] Start Date: 09/23/15 Stop Date: 11/27/15 Status: CompletedMucinex DM Maximum Strength 60 mg-1200 mg oral tablet, extended release 1 tab(s), Oral, BID, X 10 days, # 20 tab(s), 0 Refill(s), Start Date: 10/10/14 19:04:00 [employer] Start Date: 10/10/14 Stop Date: 10/20/14 Status: CompletedMucinex DM Maximum Strength 60 mg-1200 mg oral tablet, extended release 1 tab(s), Oral, BID, X 10 days, # 20 tab(s), 0 Refill(s), Start Date: 10/10/14 18:50:00 [employer] Start Date: 10/10/14 Stop Date: 10/20/14 Status: CompletedMucinex DM Maximum Strength 60 mg-1200 mg oral tablet, extended release 1 tab(s), Oral, BID, X 10 days, # 20 tab(s), 0 Refill(s), Start Date: 10/14/15 15:53:41 [employer] Start Date: 10/14/15 Stop Date: 10/14/15 Status: Discontinuedmultivitamin 1 tab(s), Oral, Daily, 0 Refill(s), Start Date: 11/27/15 14:20:00 [employer] Start Date: 11/27/15 Status: OrderedNorco 5 mg-325 mg oral tablet 1 tab(s), Oral, q4hr, PRN for pain, # 12 tab(s), 0 Refill(s), Start Date: 16:09:00 [employer] Start Date: 10/05/16 Stop Date: 10/08/16 Status: CompletedpredniSONE 20 mg oral tablet 2 tab(s), Oral, Daily, # 10 tab(s), 0 Refill(s), Start Date: 09/14/16 12:53:00 [employer] Start Date: 09/14/16 Stop Date: 09/27/16 Status: CompletedpredniSONE 20 mg oral tablet 1 tab(s), Oral, Daily, # 5 tab(s), 0 Refill(s), Start Date: 02/03/16 21:18:00 CDT Start Date: 02/03/16 Stop Date: 05/05/16 Status: CompletedpredniSONE 20 mg oral tablet 1 tab(s), Oral, Daily, # 10 tab(s), 0 Refill(s), Start Date: 10/02/16 15:09:00 [employer] Start Date: 10/02/16 Stop Date: 10/07/16 Status: OrderedpredniSONE 50 mg oral tablet 1 tab(s), Oral, Daily, # 5 tab(s), 0 Refill(s), Start Date: 12/26/15 15:42:00 CDT Start Date: 12/26/15 Stop Date: 01/12/16 Status: CompletedpredniSONE 50 mg oral tablet 1 tab(s), Oral, Daily, # 5 tab(s), 0 Refill(s), Start Date: 09/04/15 1:42:00 [employer] Start Date: 09/04/15 Stop Date: 09/15/15 Status: CompletedProAir HFA 90 mcg/inh inhalation aerosol 1 puff(s), Inhale, q4hr, PRN as needed for wheezing, # 9 gm, 0 Refill(s), Start Date: 03/15/16 22:22:00 CDT Start Date: 03/15/16 Stop Date: 08/15/16 Status: Completedpromethazine 12.5 mg oral tablet 1 tab(s), Oral, q6hr interval, PRN nausea, 0 Refill(s), Start Date: 08/21/16 15: 26:00 [employer] Start Date: 08/21/16 Stop Date: 08/21/16 Status: Discontinuedpromethazine 12.5 mg oral tablet 1 tab(s), Oral, q6hr interval, PRN nausea, # 30 tab(s), 0 Refill(s), Start Date : 08/21/16 15:33:00 [employer] Start Date: 08/21/16 Stop Date: 09/14/16 Status: Completedpromethazine 25 mg oral tablet 1 tab(s), Oral, q4hr, PRN cough and congestion, # 30 tab(s), 0 Refill(s), Start Date: 10/10/14 19:03:00 [employer] Start Date: 10/10/14 Stop Date: 11/11/14 Status: DiscontinuedPromethazine VC with Codeine 5 mL, Oral, HS, 0 Refill(s), Start Date: 09/06/16 11:46:00 [employer] Start Date: 09/06/16 Stop Date: 09/06/16 Status: DiscontinuedPromethazine VC with Codeine oral syrup 5 mL, Oral, q4hr, PRN for cough, X 10 days, # 240 mL, 0 Refill(s), Start Date: 09/14/16 13:07:00 [employer] Start Date: 09/14/16 Stop Date: 09/24/16 Status: CompletedPromethazine VC with Codeine oral syrup 5 mL, Oral, HS, # 60 mL, 0 Refill(s), Start Date: 09/06/16 11:46:00 [employer] Start Date: 09/06/16 Stop Date: 09/27/16 Status: CompletedPromethazine with Codeine 6.25 mg-10 mg/5 mL oral syrup 5 mL, Oral, q4hr, PRN for cough, X 5 days, # 150 mL, 0 Refill(s), Start Date: 13:03:00 CDT Start Date: 07/30/15 Stop Date: 08/04/15 Status: CompletedPromethazine with Codeine 6.25 mg-10 mg/5 mL oral syrup 5 mL, Oral, q4hr, PRN for cough, X 7 days, # 210 mL, 0 Refill(s), Start Date: 15:13:00 [employer] Start Date: 11/27/15 Stop Date: 12/04/15 Status: CompletedPromethazine with Codeine 6.25 mg-10 mg/5 mL oral syrup 5 mL, Oral, q4hr, PRN for cough, # 180 mL, 0 Refill(s), Start Date: 10/14/15 15: 56:23 [employer] Start Date: 10/14/15 Stop Date: 10/28/15 Status: CompletedPromethazine with Codeine 6.25 mg-10 mg/5 mL oral syrup 5 mL, Oral, q4hr, PRN for cough, X 7 days, # 210 mL, 0 Refill(s), Start Date: 17:18:00 [employer] Start Date: 10/26/15 Stop Date: 11/02/15 Status: CompletedPromethazine with Codeine 6.25 mg-10 mg/5 mL oral syrup 5 mL, Oral, q4hr, PRN for cough, # 180 mL, 0 Refill(s), Start Date: 11/08/15 10: 00:51 [employer] Start Date: 11/08/15 Stop Date: 11/22/15 Status: Completedpromethazine-codeine mL, Oral, q4hr interval, 0 Refill(s), Start Date: 09/28/15 11:22:00 [employer] Start Date: 09/28/15 Stop Date: 09/28/15 Status: Discontinuedpromethazine-codeine 6.25 mg-10 mg/5 mL oral syrup 5 mL, Oral, QID, X 14 days, # 180 mL, 0 Refill(s), Start Date: 09/28/15 11:23: 00 [employer] Start Date: 09/28/15 Stop Date: 10/12/15 Status: Completedpromethazine-codeine 6.25 mg-10 mg/5 mL oral syrup 5 mL, Oral, q4hr, PRN for cough, X 5 days, # 150 mL, 0 Refill(s), Start Date: 21:19:00 CDT Start Date: 02/03/16 Stop Date: 02/08/16 Status: Completedpromethazine-codeine 6.25 mg-10 mg/5 mL oral syrup 5 mL, Oral, q4hr, X 5 days, # 150 mL, 0 Refill(s), Start Date: 04/22/16 15:42: 00 CDT Start Date: 04/22/16 Stop Date: 04/27/16 Status: Completedpromethazine-codeine 6.25 mg-10 mg/5 mL oral syrup 5 mL, Oral, q4hr, PRN as needed for cough, Do not work or drive with this medication, X 7 days, # 10 mL, 0 Refill(s), Start Date: 03/15/16 22:23:00 CDT Start Date: 03/15/16 Stop Date: 03/22/16 Status: Completedpromethazine-codeine 6.25 mg-10 mg/5 mL oral syrup 5 mL, Oral, q4hr, PRN cough and congestion, Do not work or drive with this medication, X 7 days, # 120 mL, 0 Refill(s), Start Date: 03/15/16 22:22:00 CDT Start Date: 03/15/16 Stop Date: 03/22/16 Status: Completedpromethazine-codeine 6.25 mg-10 mg/5 mL oral syrup 5 mL, Oral, q4hr, PRN cough and congestion, Do not work or drive with this medication, X 7 days, # 90 mL, 0 Refill(s), Start Date: 01/22/16 18:22:00 CDT Start Date: 01/22/16 Stop Date: 01/29/16 Status: Completedpromethazine-codeine 6.25 mg-10 mg/5 mL oral syrup 5 mL, Oral, q6hr interval, PRN for cough, X 5 days, # 100 mL, 0 Refill(s), Start Date: 08/29/16 23:26:00 [employer] Start Date: 08/29/16 Stop Date: 09/03/16 Status: CompletedRoxicodone 5 mg oral tablet 1 tab(s), Oral, q6hr, PRN for pain, # 15 tab(s), 0 Refill(s), Start Date: 8:00:00 [employer], Earliest Fill Date: 09/20/16, Pharmacy: [facility], [place], [place] Start Date: 09/20/16 Stop Date: 09/27/16 Status: CompletedRoxicodone 5 mg oral tablet 1 tab(s), Oral, q6hr, PRN for pain, # 120 tab(s), 0 Refill(s), Start Date: 08/21 15:30:00 [employer] Start Date: 08/21/16 Stop Date: 09/18/16 Status: CompletedSkelaxin 800 mg oral tablet 1 tab(s), Oral, BID, # 10 tab(s), 0 Refill(s), Start Date: 09/06/15 13:50:00 [employer] , [place] Start Date: 09/06/15 Stop Date: 09/15/15 Status: CompletedTessalon 200 mg oral capsule 1 cap(s), Oral, TID, # 21 cap(s), 0 Refill(s), Start Date: 12/24/15 13:11:00 CDT Start Date: 12/24/15 Stop Date: 01/12/16 Status: CompletedTussionex PennKinetic 10 mg-8 mg/5 mL oral suspension, extended release 5 mL, Oral, q12hr, PRN for cold symptoms, # 50 mL, 0 Refill(s), Start Date: 04/21 15:42:00 CDT Start Date: 01/12/16 Stop Date: 01/16/16 Status: Completedwarfarin 5 mg oral tablet 2 tab(s), Oral, Daily, INR DUE, 0 Refill(s), Start Date: 10/26/15 17:13:00 [employer] Start Date: 10/26/15 Stop Date: 11/08/15 Status: Discontinuedwarfarin 5 mg oral tablet 2 tab(s), Oral, Daily, # 60 tab(s), 0 Refill(s), Start Date: 11/08/15 9:58:00 [employer], Pharmacy: [id number] Start Date: 11/08/15 Stop Date: 11/27/15 Status: CompletedWellbutrin SR 100 mg/12 hours oral tablet, extended release 1 tab(s), Oral, BID, # 60 tab(s), 0 Refill(s), Start Date: 10/05/16 16:00:00 [employer] Start Date: 10/05/16 Status: OrderedWellbutrin SR 100 mg/12 hours oral tablet, extended release See Instructions, Take 1 tab(s) Oral Qdaily for one week, then one tablet Oral BID, # 60 tab(s), 0 Refill(s), Start Date: 09/27/16 14:51:00 [employer], Pharmacy: [facility] [id number] Start Date: 09/27/16 Stop Date: 10/05/16 Status: CompletedXanax 0.5 mg oral tablet 1 tab(s), Oral, TID, PRN as needed for anxiety, # 90 tab(s), 0 Refill(s), Start Date: 08/21/16 15:36:00 [employer] Start Date: 08/21/16 Stop Date: 09/27/16 Status: CompletedZithromax Z-Juan C 250 mg oral tablet 1 packet(s), Oral, Per Package Label, as directed on package labeling, # 6 tab(s ), 0 Refill(s), Start Date: 10/05/16 16:09:00 [employer] Start Date: 10/05/16 Stop Date: 10/10/16 Status: OrderedZithromax Z-Juan C 250 mg oral tablet 1 packet(s), Oral, Per Package Label, as directed on package labeling, # 6 tab(s ), 0 Refill(s), Start Date: 01/22/16 18:21:00 CDT Start Date: 01/22/16 Stop Date: 05/05/16 Status: CompletedZyPREXA 10 mg oral tablet 1 tab(s), Oral, Daily, # 30 tab(s), 0 Refill(s), Start Date: 08/21/16 15:29:00 [employer] Start Date: 08/21/16 Stop Date: 09/06/16 Status: DiscontinuedZyrTEC-D 5 mg-120 mg oral tablet, extended release 1 tab(s), Oral, BID, X 15 days, # 30 tab(s), 0 Refill(s), Start Date: 11/27/15 15:13:00 [employer] Start Date: 11/27/15 Stop Date: 12/12/15 Status: Completed Results No data available for this section Immunizations No data available for this section Procedures Procedure Date Related Diagnosis Body Site Extraction of wisdom tooth 2009 Surgical procedure1 2008 Tonsillectomy 2002 1left knee surg. due to torn cartilage Social History No data available for this section Assessment and Plan No data available for this section
--- OUTSIDE RECORDS SUMMARY | 2017-05-20 16:10 | XMS REPORT | Summary of Care ---
:1990 Author Organization [facility] Care Team Providers Name Role Phone Elkin Anderson Primary Care Physician Physician, Primary Care Primary Care Physician Unavailable Encounter Date(s): 02/20/17 - 02/20/[address] [id number] Discharge Diagnosis: URTI (infection of the upper respiratory tract) Discharge Disposition: 01 Discharged to Home or Self Care Attending Physician: MARGARETH Landaverde Admitting Physician: MARGARETH Landaverde Vital Signs Most recent to oldest [Reference Range]: 1 Temperature Temporal Artery [36.0-38.0 DegC] 36.9 DegC (02/20/17 6:08 PM) Heart Rate Monitored [60-100 bpm] 82 bpm (02/20/17 6:08 PM) Respiratory Rate [12-20 br/min] 16 br/min (02/20/17 6:08 PM) SpO2 [90-100 %] 97 % (02/20/17 6:08 PM) Blood Pressure [90-130/60-90 mmHg] 103/69mmHg (02/20/17 6:08 PM) Most recent to oldest [Reference Range]: 1 Weight Estimated 87 kg (02/20/17 6:08 PM) Weight Dosing 87.00 kg1 (02/20/17 6:11 PM) 1Result Comment: This result was because the dosing weight was either not entered or it is>30 days old. This result is based off: Weight Estimated February 20, 2017 18:08:00 CDT by Christa Iraheta RN Problem List Condition Effective Dates Status Health Status Informant Acute sinusitis(Confirmed) Active Acute maxillary Active sinusitis(Confirmed) Anemia(Confirmed) Active CHEST PAIN(Confirmed) Active Rhinitis NOS(Confirmed) [...] EA, 0 Refill(s), Start Date: 09/15/15 10:13:00 LOSS PREVENTION ANALYST Start Date: 09/15/15 Stop Date: 12/24/15 Status: CompletedAfrin 0.05% nasal spray 2 spray(s), Nasal, BID, # 15 mL, 0 Refill(s), Start Date: 08/15/16 11:50:00 LOSS PREVENTION ANALYST Start Date: 08/15/16 Stop Date: 08/16/16 Status: CompletedAfrin 0.05% nasal spray 2 spray(s), Nasal, BID, X 3 days, # 15 mL, 0 Refill(s), Start Date: 09/14/16 12: 50:00 LOSS PREVENTION ANALYST Start Date: 09/14/16 Stop Date: 09/17/16 Status: CompletedAfrin 0.05% nasal spray 2 spray(s), Nasal, BID, X 3 days, # 15 mL, 0 Refill(s), Start Date: 12/27/16 11: 29:00 CDT Start Date: 12/27/16 Stop Date: 12/30/16 Status: CompletedAfrin 0.05% nasal spray 2 spray(s), Nasal, BID, # 15 mL, 0 Refill(s), Start Date: 12/24/15 13:11:00 CDT Start Date: 12/24/15 Stop Date: 12/25/15 Status: CompletedAfrin No Drip Sinus 0.05% nasal spray 2 spray(s), Nasal, BID, X 5 days, # 30 mL, 0 Refill(s), Start Date: 05/05/16 13: 02:00 CDT Start Date: 05/05/16 Stop Date: 05/10/16 Status: Completedalbuterol 90 mcg/inh inhalation aerosol 2 puff(s), Inhale, q4hr, PRN for wheezing, X 14 days, # 18 gm, 0 Refill(s), Start Date: 02/13/17 9:43:00 CDT Start Date: 02/13/17 Stop Date: 02/27/17 Status: Orderedalbuterol 90 mcg/inh inhalation powder 2 puff(s), Inhale, q4hr interval, # 1 cartridge(s), 0 Refill(s), Start Date: 13:03:00 CDT Start Date: 07/30/15 Status: Orderedalbuterol HFA 0 Refill(s), Start Date: 11/11/14 11:01:00 LOSS PREVENTION ANALYST Start Date: 11/11/14 Stop Date: 09/05/15 Status: DiscontinuedALPRAZolam 1 mg oral tablet 1 tab(s), Oral, TID, PRN for anxiety, # 90 tab(s), 1 Refill(s), Start Date: 11:46:18 CDT, Pharmacy: [facility] Start Date: 12/24/16 Status: OrderedALPRAZolam 1 mg oral tablet 1 tab(s), Oral, TID, PRN for anxiety, # 90 tab(s), 0 Refill(s), Start Date: 10/22 11:45:00 LOSS PREVENTION ANALYST Start Date: 09/06/16 Stop Date: 10/04/16 Status: CompletedALPRAZolam 1 mg oral tablet 1 tab(s), Oral, TID, PRN for anxiety, 0 Refill(s), Start Date: 09/06/16 11:44: 00 LOSS PREVENTION ANALYST Start Date: 09/06/16 Stop Date: 09/06/16 Status: DiscontinuedALPRAZolam 1 mg oral tablet 1 tab(s), Oral, TID, PRN for anxiety, # 90 tab(s), 0 Refill(s), Start Date: 13:28:00 LOSS PREVENTION ANALYST, Pharmacy: [facility] Start Date: 10/25/16 Stop Date: 11/26/16 Status: CompletedALPRAZolam 1 mg oral tablet 1 tab(s), Oral, TID, PRN for anxiety, # 90 tab(s), 0 Refill(s), Start Date: 10:33:00 LOSS PREVENTION ANALYST, Pharmacy: [id number] Start Date: 10/04/16 Stop Date: 10/25/16 Status: CompletedALPRAZolam 1 mg oral tablet 1 tab(s), Oral, TID, PRN for anxiety, # 90 tab(s), 0 Refill(s), Start Date: 13:19:09 LOSS PREVENTION ANALYST, Pharmacy: [facility] Start Date: 11/26/16 Stop Date: 12/24/16 Status: CompletedAmbien 5 mg oral tablet 1 tab(s), Oral, HS, PRN for sleep, # 30 tab(s), 0 Refill(s), Start Date: 14:50:00 LOSS PREVENTION ANALYST, Pharmacy: [facility] [id number] Start Date: 09/27/16 Stop Date: 10/24/16 Status: Discontinuedamoxicillin 875 mg oral tablet 1 tab(s), Oral, BID, # 20 tab(s), 0 Refill(s), Start Date: 09/28/15 11:23:00 LOSS PREVENTION ANALYST , Pharmacy: [id number] Start Date: 09/28/15 Stop Date: 10/14/15 Status: Discontinuedamoxicillin-clavulanate 875 mg-125 mg oral tablet 1 tab(s), Oral, q12hr interval, X 10 days, # 20 tab(s), 0 Refill(s), Start Date : 08/29/16 23:25:00 LOSS PREVENTION ANALYST Start Date: 08/29/16 Stop Date: 09/06/16 Status: CompletedAtivan 0.5 mg oral tablet 1 tab(s), Oral, HS, # 15 tab(s), 0 Refill(s), Start Date: 09/15/15 11:13:00 LOSS PREVENTION ANALYST Start Date: 09/15/15 Stop Date: 09/23/15 Status: DiscontinuedAtivan 1 mg oral tablet 1 tab(s), Oral, TID, PRN for anxiety, # 15 tab(s), 0 Refill(s), Start Date: 1:43:00 LOSS PREVENTION ANALYST Start Date: 09/04/15 Stop Date: 09/23/15 Status: DiscontinuedAtivan 1 mg oral tablet 1 tab(s), Oral, BID, # 60 tab(s), 2 Refill(s), Start Date: 09/23/15 14:08:00 LOSS PREVENTION ANALYST , Pharmacy: [facility] Start Date: 09/23/15 Stop Date: 01/12/16 Status: CompletedAugmentin 875 mg-125 mg oral tablet 1 tab(s), Oral, q12hr, # 20 tab(s), 0 Refill(s), Start Date: 10/10/14 19:03:00 LOSS PREVENTION ANALYST Start Date: 10/10/14 Stop Date: 11/11/14 Status: CompletedAugmentin 875 mg-125 mg oral tablet 1 tab(s), Oral, q12hr, # 20 tab(s), 0 Refill(s), Start Date: 10/10/14 18:50:00 LOSS PREVENTION ANALYST Start Date: 10/10/14 Stop Date: 11/11/14 Status: Completedazithromycin 250 mg oral tablet 1 packet(s), Oral, Daily, # 1 packet(s), 0 Refill(s), Start Date: 11/19/16 16:24 :00 LOSS PREVENTION ANALYST Start Date: 11/19/16 Stop Date: 11/26/16 Status: CompletedAzithromycin 5 Day Dose Pack 250 mg oral tablet 1 packet(s), Oral, Per Package Label, as directed on package labeling, X 5 days , # 6 tab(s), 0 Refill(s), Start Date: 07/30/15 13:03:00 CDT Special Instructions: as directed on package labeling Start Date: 07/30/15 Stop Date: 08/04/15 Status: CompletedAzithromycin 5 Day Dose Pack 250 mg oral tablet 1 packet(s), Oral, Per Package Label, as directed on package labeling, # 6 tab(s ), 0 Refill(s), Start Date: 02/03/16 21:27:00 CDT Special Instructions: as directed on package labeling Start Date: 02/03/16 Stop Date: 05/05/16 Status: Completedazithromycin 500 mg oral tablet 1 tab(s), Oral, Daily, Start taking this medicine tomorrow (09/06/15), X 2 days, # 2 tab(s), 0 Refill(s), Start Date: 09/05/15 13:14:00 LOSS PREVENTION ANALYST Special Instructions: Start taking this medicine tomorrow (09/06/15) Start Date: 09/05/15 Stop Date: 09/07/15 Status: CompletedbuPROPion 300 mg/24 hours (XL) oral tablet, extended release 1 tab(s), Oral, Daily, # 30 tab(s), 0 Refill(s), Start Date: 10/24/16 15:29:00 LOSS PREVENTION ANALYST, Pharmacy: [facility] [id number] Start Date: 10/24/16 Stop Date: 11/26/16 Status: CompletedbuPROPion 300 mg/24 hours (XL) oral tablet, extended release 1 tab(s), Oral, Daily, # 30 tab(s), 1 Refill(s), Start Date: 12/24/16 11:45:32 CDT, Pharmacy: [facility] [id number] Start Date: 12/24/16 Status: OrderedbuPROPion 300 mg/24 hours (XL) oral tablet, extended release 1 tab(s), Oral, Daily, # 30 tab(s), 0 Refill(s), Start Date: 11/26/16 13:19:29 LOSS PREVENTION ANALYST, Pharmacy: [facility] [id number] Start Date: 11/26/16 Stop Date: 12/24/16 Status: Completedcefdinir 300 mg oral capsule 1 cap(s), Oral, q12hr, # 20 cap(s), 0 Refill(s), Start Date: 11/08/15 10:04:00 LOSS PREVENTION ANALYST, Pharmacy: [facility] [id number] Start Date: 11/08/15 Stop Date: 11/27/15 Status: [...] mL, 0 Refill(s), Start Date: 10/05/16 16:12:00 LOSS PREVENTION ANALYST Start Date: 10/05/16 Stop Date: 10/11/16 Status: CompletedCoumadin 5 mg oral tablet 1 tab(s), Oral, Daily, # 60 tab(s), 2 Refill(s), Start Date: 09/22/15 11:43:00 LOSS PREVENTION ANALYST, [facility]: [email or web address] Start Date: 09/22/15 Stop Date: 09/27/15 Status: CompletedCoumadin 5 mg oral tablet See Instructions, 3 tabs every Saturday, Saturday, 1.5 tabs every Saturday and 2 tablets every Saturday, , Saturday and Saturday, # 60 tab(s), 2 Refill(s), Start Date: 09/27/15 14:06:08 LOSS PREVENTION ANALYST, Pharmacy: [email or web address] Special Instructions: 3 tabs every Saturday, Saturday, 1.5 tabs every Saturday and 2 tablets every Saturday, , Saturday and Saturday Start Date: 09/27/15 Stop Date: 10/26/15 Status: CompletedCoumadin 7.5 mg oral tablet 1 tab(s), Oral, Daily, # 30 tab(s), 0 Refill(s), Start Date: 09/15/15 10:14:00 LOSS PREVENTION ANALYST Start Date: 09/15/15 Stop Date: 09/22/15 Status: Discontinuedcyclobenzaprine 10 mg oral tablet 1 tab(s), Oral, TID, PRN for spasm, Start Date: 02/13/17 8:50:00 CDT Start Date: 02/13/17 Status: Ordereddextromethorphan 10 mg/5 mL oral syrup 10 mL, Oral, q4hr, PRN for cough, # 120 mL, 0 Refill(s), Start Date: 01/14/17 21 :48:00 CDT Start Date: 01/14/17 Stop Date: 02/13/17 Status: Completeddextromethorphan 15 mg oral capsule 1 cap(s), Oral, q4hr interval, # 180 cap(s), 0 Refill(s), Start Date: 08/29/16 14:44:00 LOSS PREVENTION ANALYST, [facility] [place] [place] Start Date: 08/29/16 Stop Date: 09/27/16 Status: Completeddibucaine 1% topical ointment 1 mckinley, Topical, QID, PRN for itching, # 30 gm, 0 Refill(s), Start Date: 9:41:00 LOSS PREVENTION ANALYST, Pharmacy: [email or web address] [id number] Start Date: 09/24/16 Stop Date: 12/27/16 Status: CompleteddiphenhydrAMINE 50 mg oral capsule 1 cap(s), Oral, QID, PRN for allergy symptoms, # 40 cap(s), 0 Refill(s), Start Date: 10/10/14 18:50:00 LOSS PREVENTION ANALYST Start Date: 10/10/14 Stop Date: 11/11/14 Status: DiscontinuedFlagyl 500 mg oral tablet 1 tab(s), Oral, q12hr, X 7 days, # 14 tab(s), 0 Refill(s), Start Date: 10/21/15 12:49:00 LOSS PREVENTION ANALYST Start Date: 10/21/15 Stop Date: 10/28/15 Status: CompletedFlonase 50 mcg/inh nasal spray 1 spray(s), Nasal, BID, # 1 EA, 0 Refill(s), Start Date: 04/22/16 15:42:00 CDT Start Date: 04/22/16 Stop Date: 08/15/16 Status: CompletedFlonase 50 mcg/inh nasal spray 2 spray(s), Nasal, BID, # 16 gm, 0 Refill(s), Start Date: 05/05/16 13:01:00 CDT Start Date: 05/05/16 Stop Date: 08/15/16 Status: Completedgabapentin 100 mg oral capsule 1 cap(s), Oral, TID, Start Date: 02/13/17 8:49:00 CDT Start Date: 02/13/17 Status: OrderedGlycoLax oral powder for reconstitution 0 Refill(s), Start Date: 08/22/16 10:40:00 LOSS PREVENTION ANALYST Start Date: 08/22/16 Stop Date: 11/19/16 Status: CompletedHYDROcodone-acetaminophen 5 mg-325 mg oral tablet 1 tab(s), Oral, TID, PRN pain moderate 4-7, 0 Refill(s), Start Date: 02/13/17 8: 50:00 CDT Start Date: 02/13/17 Status: OrderedhydrOXYzine pamoate 25 mg oral capsule 1 cap(s), Oral, TID, PRN anxiety, # 90 cap(s), 0 Refill(s), Start Date: 15:57:00 LOSS PREVENTION ANALYST, Pharmacy: [facility] Start Date: 10/24/16 Stop Date: 11/26/16 Status: CompletedhydrOXYzine pamoate 25 mg oral capsule 1 cap(s), Oral, QID, PRN anxiety, # 120 cap(s), 1 Refill(s), Start Date: 11:46:45 CDT, Pharmacy: [facility] Start Date: 12/24/16 Status: OrderedhydrOXYzine pamoate 25 mg oral capsule 1 cap(s), Oral, QID, PRN anxiety, # 120 cap(s), 0 Refill(s), Start Date: 13:18:45 LOSS PREVENTION ANALYST, Pharmacy: [facility] Start Date: 11/26/16 Stop Date: 12/24/16 Status: Completedibuprofen 800 mg oral tablet 1 tab(s), Oral, TID, PRN for pain, # 30 tab(s), 0 Refill(s), Start Date: 16:25:00 LOSS PREVENTION ANALYST Start Date: 11/19/16 Stop Date: 02/13/17 Status: Completedibuprofen 800 mg oral tablet 1 tab(s), Oral, q6hr, # 40 tab(s), 0 Refill(s), Start Date: 08/21/16 13:04:00 LOSS PREVENTION ANALYST Start Date: 08/21/16 Stop Date: 11/19/16 Status: Completedlabetalol 300 mg oral tablet 2 tab(s), BID, 0 Refill(s), Start Date: 08/21/16 13:04:00 LOSS PREVENTION ANALYST Start Date: 08/21/16 Stop Date: 12/27/16 Status: CompletedLexapro 10 mg oral tablet 1 tab(s), Oral, Daily, # 30 tab(s), 0 Refill(s), Start Date: 11/03/15 11:16:00 LOSS PREVENTION ANALYST, Pharmacy: [id number] Start Date: 11/03/15 Stop Date: 12/24/15 Status: CompletedLexapro 10 mg oral tablet 1 tab(s), Oral, Daily, # 30 tab(s), 0 Refill(s), Start Date: 09/15/15 10:13:00 LOSS PREVENTION ANALYST Start Date: 09/15/15 Stop Date: 11/03/15 Status: DiscontinuedLexapro 20 mg oral tablet 1 tab(s), Oral, Daily, # 30 tab(s), 0 Refill(s), Start Date: 10/24/16 15:30:09 LOSS PREVENTION ANALYST, Pharmacy: [id number] Start Date: 10/24/16 Stop Date: 11/26/16 Status: CompletedLexapro 20 mg oral tablet 1 tab(s), Oral, Daily, # 30 tab(s), 0 Refill(s), Start Date: 09/27/16 14:50:28 LOSS PREVENTION ANALYST, Pharmacy: [facility] [id number] Start Date: 09/27/16 Stop Date: 10/24/16 Status: CompletedLexapro 20 mg oral tablet 1 tab(s), Oral, Daily, # 30 tab(s), 0 Refill(s), Start Date: 09/06/16 11:23:00 LOSS PREVENTION ANALYST, Pharmacy: [facility], [place], [place] Start Date: 09/06/16 Stop Date: 09/27/16 Status: CompletedLexapro 20 mg oral tablet 1 tab(s), Oral, Daily, # 30 tab(s), 1 Refill(s), Start Date: 12/24/16 11:46:00 CDT, Pharmacy: [id number] Start Date: 12/24/16 Status: OrderedLexapro 20 mg oral tablet 1 tab(s), Oral, Daily, # 30 tab(s), 0 Refill(s), Start Date: 11/26/16 13:19:16 LOSS PREVENTION ANALYST, [facility] Start Date: 11/26/16 Stop Date: 12/24/16 Status: Completedloratadine 10 mg oral tablet 1 tab(s), Oral, Daily, # 30 tab(s), 0 Refill(s), Start Date: 10/14/15 16:32:00 LOSS PREVENTION ANALYST, [facility] Start Date: 10/14/15 Stop Date: 11/08/15 Status: DiscontinuedLovenox 0 Refill(s), Start Date: 08/21/16 13:05:00 LOSS PREVENTION ANALYST Start Date: 08/21/16 Stop Date: 08/21/16 Status: DiscontinuedLovenox 150 mg/mL injectable solution 1 mL, Subcutaneous, Daily, # 10 syringe(s), 0 Refill(s), Start Date: 08/21/16 13 :06:00 LOSS PREVENTION ANALYST Start Date: 08/21/16 Status: OrderedLovenox 80 mg/0.8 mL injectable solution 0.8 mL, Subcutaneous, q12hr interval, # 8 EA, 0 Refill(s), Start Date: 09/16/15 15:35:00 LOSS PREVENTION ANALYST, Pharmacy: [facility] Start Date: 09/16/15 Stop Date: 09/27/15 Status: CompletedLovenox 80 mg/0.8 mL injectable solution 80 mg, Subcutaneous, q12hr interval, 0 Refill(s), Start Date: 09/15/15 10:17:00 LOSS PREVENTION ANALYST Start Date: 09/15/15 Stop Date: 09/16/15 Status: DiscontinuedLovenox 80 mg/0.8 mL injectable solution 0.8 mL, Subcutaneous, q12hr interval, X 5 days, # 8 mL, 0 Refill(s), Start Date : 11/08/15 9:55:57 LOSS PREVENTION ANALYST, [facility] Start Date: 11/08/15 Stop Date: 11/08/15 Status: CompletedLovenox 80 mg/0.8 mL injectable solution 0.8 mL, Subcutaneous, q12hr interval, # 10 syringe(s), 0 Refill(s), Start Date: 11/08/15 11:24:16 LOSS PREVENTION ANALYST, Pharmacy: [id number] Start Date: 11/08/15 Stop Date: 08/15/16 Status: CompletedLovenox 80 mg/0.8 mL injectable solution 0.8 mL, Subcutaneous, q12hr interval, # 14 EA, 0 Refill(s), Start Date: 14:03:25 LOSS PREVENTION ANALYST, Pharmacy: [id number] Start Date: 09/27/15 Stop Date: 10/21/15 Status: CompletedMedrol Dosepak 4 mg oral tablet 1 packet(s), Oral, Per Package Label, Take full line each am, # 21 tab(s), 0 Refill(s), Start Date: 09/06/16 11:55:00 LOSS PREVENTION ANALYST, Pharmacy: [facility], [place] Special Instructions: Take full line each am Start Date: 09/06/16 Stop Date: 09/14/16 Status: Completedmeloxicam 15 mg oral tablet 1 tab(s), Oral, Daily, # 30 tab(s), 1 Refill(s), Start Date: 11/02/16 14:58:00 LOSS PREVENTION ANALYST, Pharmacy: [facility] Start Date: 11/02/16 Stop Date: 12/27/16 Status: Completedmetaxalone 800 mg oral tablet 1 tab(s), Oral, TID, # 42 tab(s), 1 Refill(s), Start Date: 09/23/15 14:15:00 LOSS PREVENTION ANALYST , Pharmacy: [id number] Start Date: 09/23/15 Stop Date: 11/27/15 Status: CompletedMucinex DM Maximum Strength 60 mg-1200 mg oral tablet, extended release 1 tab(s), Oral, BID, X 10 days, # 20 tab(s), 0 Refill(s), Start Date: 10/10/14 19:04:00 LOSS PREVENTION ANALYST Start Date: 10/10/14 Stop Date: 10/20/14 Status: CompletedMucinex DM Maximum Strength 60 mg-1200 mg oral tablet, extended release 1 tab(s), Oral, BID, X 10 days, # 20 tab(s), 0 Refill(s), Start Date: 10/10/14 18:50:00 LOSS PREVENTION ANALYST Start Date: 10/10/14 Stop Date: 10/20/14 Status: CompletedMucinex DM Maximum Strength 60 mg-1200 mg oral tablet, extended release 1 tab(s), Oral, BID, X 10 days, # 20 tab(s), 0 Refill(s), Start Date: 10/14/15 15:53:41 LOSS PREVENTION ANALYST Start Date: 10/14/15 Stop Date: 10/14/15 Status: Discontinuedmultivitamin 1 tab(s), Oral, Daily, 0 Refill(s), Start Date: 11/27/15 14:20:00 LOSS PREVENTION ANALYST Start Date: 11/27/15 Status: OrderedNorco 5 mg-325 mg oral tablet 1 tab(s), Oral, q4hr, PRN for pain, # 12 tab(s), 0 Refill(s), Start Date: 16:09:00 LOSS PREVENTION ANALYST Start Date: 10/05/16 Stop Date: 10/08/16 Status: Completedoxycodone-acetaminophen 5mg-325mg oral tablet 1 tab(s), Oral, BID, PRN pain moderate 4-7, 0 Refill(s), Start Date: 02/13/17 8: 51:00 CDT Start Date: 02/13/17 Status: OrderedpredniSONE 20 mg oral tablet 2 tab(s), Oral, Daily, X 5 days, # 10 tab(s), 0 Refill(s), Start Date: 02/13/17 9:43:00 CDT Start Date: 02/13/17 Stop Date: 02/18/17 Status: CompletedpredniSONE 20 mg oral tablet 2 tab(s), Oral, Daily, # 10 tab(s), 0 Refill(s), Start Date: 09/14/16 12:53:00 LOSS PREVENTION ANALYST Start Date: 09/14/16 Stop Date: 09/27/16 Status: CompletedpredniSONE 20 mg oral tablet 1 tab(s), Oral, Daily, # 5 tab(s), 0 Refill(s), Start Date: 02/03/16 21:18:00 CDT Start Date: 02/03/16 Stop Date: 05/05/16 Status: CompletedpredniSONE 20 mg oral tablet 3 tab(s), Oral, Daily, # 15 tab(s), 0 Refill(s), Start Date: 10/27/16 1:39:00 LOSS PREVENTION ANALYST Start Date: 10/27/16 Stop Date: 11/26/16 Status: CompletedpredniSONE 20 mg oral tablet 1 tab(s), Oral, Daily, # 10 tab(s), 0 Refill(s), Start Date: 10/02/16 15:09:00 LOSS PREVENTION ANALYST Start Date: 10/02/16 Stop Date: 10/23/16 Status: CompletedpredniSONE 50 mg oral tablet 1 tab(s), Oral, Daily, # 5 tab(s), 0 Refill(s), Start Date: 12/26/15 15:42:00 CDT Start Date: 12/26/15 Stop Date: 01/12/16 Status: CompletedpredniSONE 50 mg oral tablet 1 tab(s), Oral, Daily, # 5 tab(s), 0 Refill(s), Start Date: 09/04/15 1:42:00 LOSS PREVENTION ANALYST Start Date: 09/04/15 Stop Date: 09/15/15 Status: CompletedProAir HFA 90 mcg/inh inhalation aerosol 1 puff(s), Inhale, q4hr, PRN as needed for wheezing, # 9 gm, 0 Refill(s), Start Date: 03/15/16 22:22:00 CDT Start Date: 03/15/16 Stop Date: 08/15/16 Status: Completedpromethazine 12.5 mg oral tablet 1 tab(s), Oral, q6hr interval, PRN nausea, 0 Refill(s), Start Date: 08/21/16 15: 26:00 LOSS PREVENTION ANALYST Start Date: 08/21/16 Stop Date: 08/21/16 Status: Discontinuedpromethazine 12.5 mg oral tablet 1 tab(s), Oral, q6hr interval, PRN nausea, # 30 tab(s), 0 Refill(s), Start Date : 08/21/16 15:33:00 LOSS PREVENTION ANALYST Start Date: 08/21/16 Stop Date: 09/14/16 Status: Completedpromethazine 25 mg oral tablet 1 tab(s), Oral, q4hr, PRN cough and congestion, # 30 tab(s), 0 Refill(s), Start Date: 10/10/14 19:03:00 LOSS PREVENTION ANALYST Start Date: 10/10/14 Stop Date: 11/11/14 Status: Discontinuedpromethazine 6.25 mg/5 mL oral syrup 5 mL, Oral, BID, PRN for nausea/vomiting, Start Date: 02/13/17 8:50:00 CDT Start Date: 02/13/17 Status: OrderedPromethazine VC with Codeine 5 mL, Oral, HS, 0 Refill(s), Start Date: 09/06/16 11:46:00 LOSS PREVENTION ANALYST Start Date: 09/06/16 Stop Date: 09/06/16 Status: DiscontinuedPromethazine VC with Codeine oral syrup 5 mL, Oral, q4hr, PRN for cough, X 10 days, # 240 mL, 0 Refill(s), Start Date: 09/14/16 13:07:00 LOSS PREVENTION ANALYST Start Date: 09/14/16 Stop Date: 09/24/16 Status: CompletedPromethazine VC with Codeine oral syrup 5 mL, Oral, HS, # 60 mL, 0 Refill(s), Start Date: 09/06/16 11:46:00 LOSS PREVENTION ANALYST Start Date: 09/06/16 Stop Date: 09/27/16 Status: CompletedPromethazine VC with Codeine oral syrup 5 mL, Oral, q4hr, PRN for cough, X 5 days, # 150 mL, 0 Refill(s), Start Date: 11:30:00 CDT Start Date: 12/27/16 Stop Date: 01/01/17 Status: CompletedPromethazine with Codeine 6.25 mg-10 mg/5 mL oral syrup 5 mL, Oral, q4hr, PRN for cough, X 5 days, # 150 mL, 0 Refill(s), Start Date: 13:03:00 CDT Start Date: 07/30/15 Stop Date: 08/04/15 Status: CompletedPromethazine with Codeine 6.25 mg-10 mg/5 mL oral syrup 5 mL, Oral, q4hr, PRN for cough, X 7 days, # 210 mL, 0 Refill(s), Start Date: 15:13:00 LOSS PREVENTION ANALYST Start Date: 11/27/15 Stop Date: 12/04/15 Status: CompletedPromethazine with Codeine 6.25 mg-10 mg/5 mL oral syrup 5 mL, Oral, q4hr, PRN for cough, X 3 days, # 60 mL, 0 Refill(s), Start Date: 07/23 9:56:00 CDT Start Date: 02/13/17 Stop Date: 02/16/17 Status: CompletedPromethazine with Codeine 6.25 mg-10 mg/5 mL oral syrup 5 mL, Oral, q4hr, X 4 days, # 120 mL, 0 Refill(s), Start Date: 11/19/16 16:24: 00 LOSS PREVENTION ANALYST Start Date: 11/19/16 Stop Date: 11/23/16 Status: CompletedPromethazine with Codeine 6.25 mg-10 mg/5 mL oral syrup 5 mL, Oral, q4hr, PRN for cough, # 180 mL, 0 Refill(s), Start Date: 10/14/15 15: 56:23 LOSS PREVENTION ANALYST Start Date: 10/14/15 Stop Date: 10/28/15 Status: CompletedPromethazine with Codeine 6.25 mg-10 mg/5 mL oral syrup 5 mL, Oral, q4hr, PRN for cough, X 7 days, # 210 mL, 0 Refill(s), Start Date: 17:18:00 LOSS PREVENTION ANALYST Start Date: 10/26/15 Stop Date: 11/02/15 Status: CompletedPromethazine with Codeine 6.25 mg-10 mg/5 mL oral syrup 5 mL, Oral, q4hr, PRN for cough, # 180 mL, 0 Refill(s), Start Date: 11/08/15 10: 00:51 LOSS PREVENTION ANALYST Start Date: 11/08/15 Stop Date: 11/22/15 Status: Completedpromethazine-codeine mL, Oral, q4hr interval, 0 Refill(s), Start Date: 09/28/15 11:22:00 LOSS PREVENTION ANALYST Start Date: 09/28/15 Stop Date: 09/28/15 Status: Discontinuedpromethazine-codeine 6.25 mg-10 mg/5 mL oral syrup 5 mL, Oral, QID, X 14 days, # 180 mL, 0 Refill(s), Start Date: 09/28/15 11:23: 00 LOSS PREVENTION ANALYST Start Date: 09/28/15 Stop Date: 10/12/15 Status: Completedpromethazine-codeine 6.25 mg-10 mg/5 mL oral syrup 5 mL, Oral, q4hr, Do not work or drive with this medication, X 7 days, # 90 mL, 0 Refill(s), Start Date: 02/20/17 19:05:00 CDT Special Instructions: Do not work or drive with this medication Start Date: 02/20/17 Stop Date: 02/27/17 Status: Orderedpromethazine-codeine 6.25 mg-10 mg/5 mL oral syrup 5 [...] mL, Oral, q4hr, PRN for cough, X 3 days, # 90 mL, 0 Refill(s), Start Date: 1:39:00 [employer]ION ANALYST Start Date: 10/27/16 Stop Date: 10/30/16 Status: Completedpromethazine-codeine 6.25 mg-10 mg/5 mL oral syrup 5 mL, Oral, q4hr, PRN as needed for cough, Do not work or drive with this medication, X 7 days, # 10 mL, 0 Refill(s), Start Date: 03/15/16 22:23:00 CDT Special Instructions: Do not work or drive with this medication Start Date: 03/15/16 Stop Date: 03/22/16 Status: Completedpromethazine-codeine 6.25 mg-10 mg/5 mL oral syrup 5 mL, Oral, q4hr, PRN cough and congestion, Do not work or drive with this medication, X 7 days, # 120 mL, 0 Refill(s), Start Date: 03/15/16 22:22:00 CDT Special Instructions: Do not work or drive with this medication Start Date: 03/15/16 Stop Date: 03/22/16 Status: Completedpromethazine-codeine 6.25 mg-10 mg/5 mL oral syrup 5 mL, Oral, q4hr, PRN cough and congestion, Do not work or drive with this medication, X 7 days, # 90 mL, 0 Refill(s), Start Date: 01/22/16 18:22:00 CDT Special Instructions: Do not work or drive with this medication Start Date: 01/22/16 Stop Date: 01/29/16 Status: Completedpromethazine-codeine 6.25 mg-10 mg/5 mL oral syrup 5 mL, Oral, q6hr interval, PRN for cough, X 5 days, # 100 mL, 0 Refill(s), Start Date: 08/29/16 23:26:00 [employer]NALYST Start Date: 08/29/16 Stop Date: 09/03/16 Status: CompletedRestoril 15 mg oral capsule 1 cap(s), Oral, HS, # 30 cap(s), 0 Refill(s), Start Date: 10/24/16 15:30:00 LOSS PREVENTION ANALYST , Pharmacy: [id number] Start Date: 10/24/16 Stop Date: 11/26/16 Status: CompletedRestoril 15 mg oral capsule 1 cap(s), Oral, HS, # 30 cap(s), 1 Refill(s), Start Date: 12/24/16 11:45:42 CDT , Pharmacy: [id number] Start Date: 12/24/16 Status: OrderedRestoril 15 mg oral capsule 1 cap(s), Oral, HS, # 30 cap(s), 0 Refill(s), Start Date: 11/26/16 13:19:22 LOSS PREVENTION ANALYST , Pharmacy: [id number] Start Date: 11/26/16 Stop Date: 12/24/16 Status: CompletedRoxicodone 5 mg oral tablet 1 tab(s), Oral, q6hr, PRN for pain, # 15 tab(s), 0 Refill(s), Start Date: 8:00:00 LOSS PREVENTION ANALYST, Earliest Fill Date: 09/20/16, Pharmacy: [facility] [place] Start Date: 09/20/16 Stop Date: 09/27/16 Status: CompletedRoxicodone 5 mg oral tablet 1 tab(s), Oral, q6hr, PRN for pain, # 120 tab(s), 0 Refill(s), Start Date: 08/21 15:30:00 [employer]ION ANALYST Start Date: 08/21/16 Stop Date: 09/18/16 Status: CompletedSkelaxin 800 mg oral tablet 1 tab(s), Oral, BID, # 10 tab(s), 0 Refill(s), Start Date: 09/06/15 13:50:00 LOSS PRE[employer]ION ANALYST , [place] [facility] [place] [place] Start Date: 09/06/15 Stop Date: 09/15/15 Status: CompletedTessalon 200 mg oral capsule 1 cap(s), Oral, TID, # 21 cap(s), 0 Refill(s), Start Date: 12/24/15 13:11:00 CDT Start Date: 12/24/15 Stop Date: 01/12/16 Status: CompletedtraMADol 50 mg oral tablet 1 tab(s), Oral, q4hr, PRN for pain, # 4 tab(s), 0 Refill(s), Start Date: 16:25:00 [employer]ION ANALYST Start Date: 11/19/16 Stop Date: 11/26/16 Status: CompletedTussionex Penn[employer]etic 10 mg-8 mg/5 mL oral suspension, extended release 5 mL, Oral, q12hr, PRN for cold symptoms, # 50 mL, 0 Refill(s), Start Date: 04/21 15:42:00 CDT Start Date: 01/12/16 Stop Date: 01/16/16 Status: Completedwarfarin 5 mg oral tablet 2 tab(s), Oral, Daily, INR DUE, 0 Refill(s), Start Date: 10/26/15 17:13:00 [employer]ION ANALYST Special Instructions: INR DUE Start Date: 10/26/15 Stop Date: 11/08/15 Status: Discontinuedwarfarin 5 mg oral tablet 2 tab(s), Oral, Daily, # 60 tab(s), 0 Refill(s), Start Date: 11/08/15 9:58:00 LOSS PRE[employer]ION ANALYST, Pharmacy: [id number] Start Date: 11/08/15 Stop Date: 11/27/15 Status: CompletedWellbutrin SR 100 mg/12 hours oral tablet, extended release 1 tab(s), Oral, BID, # 60 tab(s), 0 Refill(s), Start Date: 10/05/16 16:00:00 [employer]ION ANALYST Start Date: 10/05/16 Stop Date: 10/24/16 Status: DiscontinuedWellbutrin SR 100 mg/12 hours oral tablet, extended release See Instructions, Take 1 tab(s) Oral Qdaily for one week, then one tablet Oral BID, # 60 tab(s), 0 Refill(s), Start Date: 09/27/16 14:51:00 LOSS PREVENTION ANALYST, Pharmacy: [facility] [id number] Special Instructions: Take 1 tab(s) Oral Qdaily for one week, then one tablet Oral BID Start Date: 09/27/16 Stop Date: 10/05/16 Status: CompletedXanax 0.5 mg oral tablet 1 tab(s), Oral, TID, PRN as needed for anxiety, # 90 tab(s), 0 Refill(s), Start Date: 08/21/16 15:36:00 [employer]ION ANALYST Start Date: 08/21/16 Stop Date: 09/27/16 Status: CompletedZithromax Z-Juan C 250 mg oral tablet 1 packet(s), Oral, Per Package Label, as directed on package labeling, # 6 tab(s ), 0 Refill(s), Start Date: 10/05/16 16:09:00 [employer]ION ANALYST Special Instructions: as directed on package labeling Start Date: 10/05/16 Stop Date: 10/23/16 Status: CompletedZithromax Z-Juan C 250 mg oral tablet 1 packet(s), Oral, Per Package Label, as directed on package labeling, # 6 tab(s ), 0 Refill(s), Start Date: 01/22/16 18:21:00 CDT Special Instructions: as directed on package labeling Start Date: 01/22/16 Stop Date: 05/05/16 Status: CompletedZyPREXA 10 mg oral tablet 1 tab(s), Oral, Daily, # 30 tab(s), 0 Refill(s), Start Date: 08/21/16 15:29:00 LOSS [employer]ION ANALYST Start Date: 08/21/16 Stop Date: 09/06/16 Status: DiscontinuedZyrTEC-D 5 mg-120 mg oral tablet, extended release 1 tab(s), Oral, BID, X 15 days, # 30 tab(s), 0 Refill(s), Start Date: 11/27/15 15:13:00 LOSS [employer]ION ANALYST Start Date: 11/27/15 Stop Date: 12/12/15 Status: Completed Results Patient Viewable Results Most recent to oldest [Reference Range]: 1 Estimated Creatinine Clearance 165.74 mL/min (02/20/17 6:11 PM) Immunizations No data available for this section Procedures Procedure Date Related Diagnosis Body Site Extraction of wisdom tooth 2009 Surgical procedure1 2008 Tonsillectomy 2002 1left knee surg. due to torn cartilage Social History No data available for this section Assessment and Plan No data available for this section
--- OUTSIDE RECORDS SUMMARY | 2017-05-20 16:10 | XMS REPORT | Summary of Care ---
:1990 Author Organization [facility] Address [facility] [place] [address]- Care Team Providers Name Role Phone Elkin Anderson Primary Care Physician Physician, Primary Care Primary Care Physician Unavailable Encounter Date(s): 10/27/16 - 10/27/[address] [address]- [facility] Discharge Diagnosis: Acute upper respiratory infection Discharge Disposition: Discharged to Home or Self Care Attending Physician: Judith Gonzalez MD Admitting Physician: Judith Gonzalez MD Vital Signs Most recent to oldest [Reference Range]: 1 Temperature Temporal Artery [36.0-38.0 DegC] 36.1 DegC (10/27/16 1:24 AM) Heart Rate Monitored [60-100 bpm] 80 bpm (10/27/16 1:24 AM) Respiratory Rate [12-20 br/min] 18 br/min (10/27/16 1:24 AM) SpO2 94 % (10/27/16 1:24 AM) Blood Pressure [90-130/60-90 mmHg] 110/66mmHg (10/27/16 1:24 AM) Weight Estimated 86 kg (10/27/16 1:24 AM) Weight Dosing 86.00 kg1 (10/27/16 1:26 AM) 1Result Comment: This result was because the dosing weight was either not entered or it is>30 days old. This result is based off: Weight Estimated October 27, 2016 01:24:00 [employer] by Ashleigh Beck RN Problem List Condition Effective Dates Status [...] EA, 0 Refill(s), Start Date: 09/15/15 10:13:00 [employer] Start Date: 09/15/15 Stop Date: 12/24/15 Status: CompletedAfrin 0.05% nasal spray 2 spray(s), Nasal, BID, # 15 mL, 0 Refill(s), Start Date: 08/15/16 11:50:00 [employer] Start Date: 08/15/16 Stop Date: 08/16/16 Status: CompletedAfrin 0.05% nasal spray 2 spray(s), Nasal, BID, X 3 days, # 15 mL, 0 Refill(s), Start Date: 09/14/16 12: 50:00 [employer] Start Date: 09/14/16 Stop Date: 09/17/16 Status: [...] HFA 0 Refill(s), Start Date: 11/11/14 11:01:00 [employer] Start Date: 11/11/14 Stop Date: 09/05/15 Status: DiscontinuedALPRAZolam 1 mg oral tablet 1 tab(s), Oral, TID, PRN for anxiety, # 90 tab(s), 0 Refill(s), Start Date: 10/22 11:45:00 [employer] Start Date: 09/06/16 Stop Date: 10/04/16 Status: CompletedALPRAZolam 1 mg oral tablet 1 tab(s), Oral, TID, PRN for anxiety, 0 Refill(s), Start Date: 09/06/16 11:44: 00 [employer] Start Date: 09/06/16 Stop Date: 09/06/16 Status: DiscontinuedALPRAZolam 1 mg oral tablet 1 tab(s), Oral, TID, PRN for anxiety, # 90 tab(s), 0 Refill(s), Start Date: 13:28:00 [employer], Pharmacy: [id number] Start Date: 10/25/16 Status: OrderedALPRAZolam 1 mg oral tablet 1 tab(s), Oral, TID, PRN for anxiety, # 90 tab(s), 0 Refill(s), Start Date: 10:33:00 [employer], Pharmacy: [facility] Start Date: 10/04/16 Stop Date: 10/25/16 Status: CompletedAmbien 5 mg oral tablet 1 tab(s), Oral, HS, PRN for sleep, # 30 tab(s), 0 Refill(s), Start Date: 14:50:00 [employer], Pharmacy: [facility] [id number] Start Date: 09/27/16 Stop Date: 10/24/16 Status: Discontinuedamoxicillin 875 mg oral tablet 1 tab(s), Oral, BID, # 20 tab(s), 0 Refill(s), Start Date: 09/28/15 11:23:00 [employer] , Pharmacy: [id number] Start Date: 09/28/15 Stop Date: 10/14/15 Status: Discontinuedamoxicillin-clavulanate 875 mg-125 mg oral tablet 1 tab(s), Oral, q12hr interval, X 10 days, # 20 tab(s), 0 Refill(s), Start Date : 08/29/16 23:25:00 [employer] Start Date: 08/29/16 Stop Date: 09/06/16 Status: CompletedAtivan 0.5 mg oral tablet 1 tab(s), Oral, HS, # 15 tab(s), 0 Refill(s), Start Date: 09/15/15 11:13:00 [employer] Start Date: 09/15/15 Stop Date: 09/23/15 Status: DiscontinuedAtivan 1 mg oral tablet 1 tab(s), Oral, TID, PRN for anxiety, # 15 tab(s), 0 Refill(s), Start Date: 1:43:00 [employer] Start Date: 09/04/15 Stop Date: 09/23/15 Status: DiscontinuedAtivan 1 mg oral tablet 1 tab(s), Oral, BID, # 60 tab(s), 2 Refill(s), Start Date: 09/23/15 14:08:00 [employer] , Pharmacy: [facility] Start Date: 09/23/15 Stop Date: 01/12/16 Status: CompletedAugmentin 875 mg-125 mg oral tablet 1 tab(s), Oral, q12hr, # 20 tab(s), 0 Refill(s), Start Date: 10/10/14 19:03:00 [employer] Start Date: 10/10/14 Stop Date: 11/11/14 Status: CompletedAugmentin 875 mg-125 mg oral tablet 1 tab(s), Oral, q12hr, # 20 tab(s), 0 Refill(s), Start Date: 10/10/14 18:50:00 [employer] Start Date: 10/10/14 Stop Date: 11/11/14 Status: [...] tab(s), 0 Refill(s), Start Date: 09/05/15 13:14:00 [employer] Start Date: 09/05/15 Stop Date: 09/07/15 Status: CompletedbuPROPion 300 mg/24 hours (XL) oral tablet, extended release 1 tab(s), Oral, Daily, # 30 tab(s), 0 Refill(s), Start Date: 10/24/16 15:29:00 [employer], Pharmacy: [facility] Start Date: 10/24/16 Status: Orderedcefdinir 300 mg oral capsule 1 cap(s), Oral, q12hr, # 20 cap(s), 0 Refill(s), Start Date: 11/08/15 10:04:00 [employer], Pharmacy: [facility] Start Date: 11/08/15 Stop Date: [...] mL, 0 Refill(s), Start Date: 10/05/16 16:12:00 [employer] Start Date: 10/05/16 Stop Date: 10/11/16 Status: CompletedCoumadin 5 mg oral tablet 1 tab(s), Oral, Daily, # 60 tab(s), 2 Refill(s), Start Date: 09/22/15 11:43:00 [employer], Pharmacy: [facility] Start Date: 09/22/15 Stop Date: 09/27/15 Status: CompletedCoumadin 5 mg oral tablet See Instructions, 3 tabs every Saturday, Saturday, 1.5 tabs every Saturday and 2 tablets every Saturday, , Saturday and Saturday, # 60 tab(s), 2 Refill(s), Start Date: 09/27/15 14:06:08 [employer], Pharmacy: [facility] Start Date: 09/27/15 Stop Date: 10/26/15 Status: CompletedCoumadin 7.5 mg oral tablet 1 tab(s), Oral, Daily, # 30 tab(s), 0 Refill(s), Start Date: 09/15/15 10:14:00 [employer] Start Date: 09/15/15 Stop Date: 09/22/15 Status: Discontinueddextromethorphan 15 mg oral capsule 1 cap(s), Oral, q4hr interval, # 180 cap(s), 0 Refill(s), Start Date: 08/29/16 14:44:00 [employer], Pharmacy: [facility], [place], [place] Start Date: 08/29/16 Stop Date: 09/27/16 Status: Completeddibucaine 1% topical ointment 1 mckinley, Topical, QID, PRN for itching, # 30 gm, 0 Refill(s), Start Date: 9:41:00 [employer], Pharmacy: [facility] [id number] Start Date: 09/24/16 Status: OrdereddiphenhydrAMINE 50 mg oral capsule 1 cap(s), Oral, QID, PRN for allergy symptoms, # 40 cap(s), 0 Refill(s), Start Date: 10/10/14 18:50:00 [employer] Start Date: 10/10/14 Stop Date: 11/11/14 Status: DiscontinuedFlagyl 500 mg oral tablet 1 tab(s), Oral, q12hr, X 7 days, # 14 tab(s), 0 Refill(s), Start Date: 10/21/15 12:49:00 [employer] Start Date: 10/21/15 Stop Date: 10/28/15 Status: [...] reconstitution 0 Refill(s), Start Date: 08/22/16 10:40:00 [employer] Start Date: 08/22/16 Status: OrderedhydrOXYzine pamoate 25 mg oral capsule 1 cap(s), Oral, TID, PRN anxiety, # 90 cap(s), 0 Refill(s), Start Date: 15:57:00 [employer], Pharmacy: [facility] Start Date: 10/24/16 Status: Orderedibuprofen 800 mg oral tablet 1 tab(s), Oral, q6hr, # 40 tab(s), 0 Refill(s), Start Date: 08/21/16 13:04:00 [employer] Start Date: 08/21/16 Status: Orderedlabetalol 300 mg oral tablet 2 tab(s), BID, 0 Refill(s), Start Date: 08/21/16 13:04:00 [employer] Start Date: 08/21/16 Status: OrderedLexapro 10 mg oral tablet 1 tab(s), Oral, Daily, # 30 tab(s), 0 Refill(s), Start Date: 11/03/15 11:16:00 [employer], Pharmacy: [facility] Start Date: 11/03/15 Stop Date: 12/24/15 Status: CompletedLexapro 10 mg oral tablet 1 tab(s), Oral, Daily, # 30 tab(s), 0 Refill(s), Start Date: 09/15/15 10:13:00 [employer] Start Date: 09/15/15 Stop Date: 11/03/15 Status: DiscontinuedLexapro 20 mg oral tablet 1 tab(s), Oral, Daily, # 30 tab(s), 0 Refill(s), Start Date: 10/24/16 15:30:09 [employer], Pharmacy: [facility] Start Date: 10/24/16 Status: OrderedLexapro 20 mg oral tablet 1 tab(s), Oral, Daily, # 30 tab(s), 0 Refill(s), Start Date: 09/27/16 14:50:28 [employer], Pharmacy: [facility] [id number] Start Date: 09/27/16 Stop Date: 10/24/16 Status: CompletedLexapro 20 mg oral tablet 1 tab(s), Oral, Daily, # 30 tab(s), 0 Refill(s), Start Date: 09/06/16 11:23:00 [employer], Pharmacy: [facility], [place], [place] Start Date: 09/06/16 Stop Date: 09/27/16 Status: Completedloratadine 10 mg oral tablet 1 tab(s), Oral, Daily, # 30 tab(s), 0 Refill(s), Start Date: 10/14/15 16:32:00 [employer], Pharmacy: [facility] Start Date: 10/14/15 Stop Date: 11/08/15 Status: DiscontinuedLovenox 0 Refill(s), Start Date: 08/21/16 13:05:00 [employer] Start Date: 08/21/16 Stop Date: 08/21/16 Status: DiscontinuedLovenox 150 mg/mL injectable solution 1 mL, Subcutaneous, Daily, # 10 syringe(s), 0 Refill(s), Start Date: 08/21/16 13 :06:00 [employer] Start Date: 08/21/16 Status: OrderedLovenox 80 mg/0.8 mL injectable solution 0.8 mL, Subcutaneous, q12hr interval, # 8 EA, 0 Refill(s), Start Date: 09/16/15 15:35:00 [employer], Pharmacy: [facility] Start Date: 09/16/15 Stop Date: 09/27/15 Status: CompletedLovenox 80 mg/0.8 mL injectable solution 80 mg, Subcutaneous, q12hr interval, 0 Refill(s), Start Date: 09/15/15 10:17:00 [employer] Start Date: 09/15/15 Stop Date: 09/16/15 Status: DiscontinuedLovenox 80 mg/0.8 mL injectable solution 0.8 mL, Subcutaneous, q12hr interval, X 5 days, # 8 mL, 0 Refill(s), Start Date : 11/08/15 9:55:57 [employer], Pharmacy: [place] [id number] Start Date: 11/08/15 Stop Date: 11/08/15 Status: CompletedLovenox 80 mg/0.8 mL injectable solution 0.8 mL, Subcutaneous, q12hr interval, # 10 syringe(s), 0 Refill(s), Start Date: 11/08/15 11:24:16 [employer], Pharmacy: [place] [address] Start Date: 11/08/15 Stop Date: 08/15/16 Status: CompletedLovenox 80 mg/0.8 mL injectable solution 0.8 mL, Subcutaneous, q12hr interval, # 14 EA, 0 Refill(s), Start Date: 14:03:25 [employer], Pharmacy: [place] [id number] Start Date: 09/27/15 Stop Date: 10/21/15 Status: CompletedMedrol Dosepak 4 mg oral tablet 1 packet(s), Oral, Per Package Label, Take full line each am, # 21 tab(s), 0 Refill(s), Start Date: 09/06/16 11:55:00 [employer], Pharmacy: [facility], [place] Start Date: 09/06/16 Stop Date: 09/14/16 Status: Completedmetaxalone 800 mg oral tablet 1 tab(s), Oral, TID, # 42 tab(s), 1 Refill(s), Start Date: 09/23/15 14:15:00 [employer] , Pharmacy: [place] [id number] Start Date: 09/23/15 Stop Date: 11/27/15 Status: CompletedMucinex DM Maximum Strength 60 mg-1200 mg oral tablet, extended release 1 tab(s), Oral, BID, X 10 days, # 20 tab(s), 0 Refill(s), Start Date: 10/10/14 19:04:00 [employer] Start Date: 10/10/14 Stop Date: 10/20/14 Status: CompletedMucinex DM Maximum Strength 60 mg-1200 mg oral tablet, extended release 1 tab(s), Oral, BID, X 10 days, # 20 tab(s), 0 Refill(s), Start Date: 10/10/14 18:50:00 [employer] Start Date: 10/10/14 Stop Date: 10/20/14 Status: CompletedMucinex DM Maximum Strength 60 mg-1200 mg oral tablet, extended release 1 tab(s), Oral, BID, X 10 days, # 20 tab(s), 0 Refill(s), Start Date: 10/14/15 15:53:41 [employer] Start Date: 10/14/15 Stop Date: 10/14/15 Status: Discontinuedmultivitamin 1 tab(s), Oral, Daily, 0 Refill(s), Start Date: 11/27/15 14:20:00 [employer] Start Date: 11/27/15 Status: OrderedNorco 5 mg-325 mg oral tablet 1 tab(s), Oral, q4hr, PRN for pain, # 12 tab(s), 0 Refill(s), Start Date: 16:09:00 [employer] Start Date: 10/05/16 Stop Date: 10/08/16 Status: CompletedpredniSONE 20 mg oral tablet 2 tab(s), Oral, Daily, # 10 tab(s), 0 Refill(s), Start Date: 09/14/16 12:53:00 [employer] Start Date: 09/14/16 Stop Date: 09/27/16 Status: CompletedpredniSONE 20 mg oral tablet 1 tab(s), Oral, Daily, # 5 tab(s), 0 Refill(s), Start Date: 02/03/16 21:18:00 CDT Start Date: 02/03/16 Stop Date: 05/05/16 Status: CompletedpredniSONE 20 mg oral tablet 3 tab(s), Oral, Daily, # 15 tab(s), 0 Refill(s), Start Date: 10/27/16 1:39:00 [employer] Start Date: 10/27/16 Stop Date: 11/01/16 Status: OrderedpredniSONE 20 mg oral tablet 1 tab(s), Oral, Daily, # 10 tab(s), 0 Refill(s), Start Date: 10/02/16 15:09:00 [employer] Start Date: 10/02/16 Stop Date: 10/23/16 Status: CompletedpredniSONE 50 mg oral tablet 1 tab(s), Oral, Daily, # 5 tab(s), 0 Refill(s), Start Date: 12/26/15 15:42:00 CDT Start Date: 12/26/15 Stop Date: 01/12/16 Status: CompletedpredniSONE 50 mg oral tablet 1 tab(s), Oral, Daily, # 5 tab(s), 0 Refill(s), Start Date: 09/04/15 1:42:00 [employer] Start Date: 09/04/15 Stop Date: 09/15/15 Status: CompletedProAir HFA 90 mcg/inh inhalation aerosol 1 puff(s), Inhale, q4hr, PRN as needed for wheezing, # 9 gm, 0 Refill(s), Start Date: 03/15/16 22:22:00 CDT Start Date: 03/15/16 Stop Date: 08/15/16 Status: Completedpromethazine 12.5 mg oral tablet 1 tab(s), Oral, q6hr interval, PRN nausea, 0 Refill(s), Start Date: 08/21/16 15: 26:00 [employer] Start Date: 08/21/16 Stop Date: 08/21/16 Status: Discontinuedpromethazine 12.5 mg oral tablet 1 tab(s), Oral, q6hr interval, PRN nausea, # 30 tab(s), 0 Refill(s), Start Date : 08/21/16 15:33:00 [employer] Start Date: 08/21/16 Stop Date: 09/14/16 Status: Completedpromethazine 25 mg oral tablet 1 tab(s), Oral, q4hr, PRN cough and congestion, # 30 tab(s), 0 Refill(s), Start Date: 10/10/14 19:03:00 [employer] Start Date: 10/10/14 Stop Date: 11/11/14 Status: DiscontinuedPromethazine VC with Codeine 5 mL, Oral, HS, 0 Refill(s), Start Date: 09/06/16 11:46:00 [employer] Start Date: 09/06/16 Stop Date: 09/06/16 Status: DiscontinuedPromethazine VC with Codeine oral syrup 5 mL, Oral, q4hr, PRN for cough, X 10 days, # 240 mL, 0 Refill(s), Start Date: 09/14/16 13:07:00 [employer] Start Date: 09/14/16 Stop Date: 09/24/16 Status: CompletedPromethazine VC with Codeine oral syrup 5 mL, Oral, HS, # 60 mL, 0 Refill(s), Start Date: 09/06/16 11:46:00 [employer] Start Date: 09/06/16 Stop Date: 09/27/16 Status: [...] 210 mL, 0 Refill(s), Start Date: 15:13:00 [employer] Start Date: 11/27/15 Stop Date: 12/04/15 Status: CompletedPromethazine with Codeine 6.25 mg-10 mg/5 mL oral syrup 5 mL, Oral, q4hr, PRN for cough, # 180 mL, 0 Refill(s), Start Date: 10/14/15 15: 56:23 [employer] Start Date: 10/14/15 Stop Date: 10/28/15 Status: CompletedPromethazine with Codeine 6.25 mg-10 mg/5 mL oral syrup 5 mL, Oral, q4hr, PRN for cough, X 7 days, # 210 mL, 0 Refill(s), Start Date: 17:18:00 [employer] Start Date: 10/26/15 Stop Date: 11/02/15 Status: CompletedPromethazine with Codeine 6.25 mg-10 mg/5 mL oral syrup 5 mL, Oral, q4hr, PRN for cough, # 180 mL, 0 Refill(s), Start Date: 11/08/15 10: 00:51 [employer] Start Date: 11/08/15 Stop Date: 11/22/15 Status: Completedpromethazine-codeine mL, Oral, q4hr interval, 0 Refill(s), Start Date: 09/28/15 11:22:00 [employer] Start Date: 09/28/15 Stop Date: 09/28/15 Status: Discontinuedpromethazine-codeine 6.25 mg-10 mg/5 mL oral syrup 5 mL, Oral, QID, X 14 days, # 180 mL, 0 Refill(s), Start Date: 09/28/15 11:23: 00 [employer] Start Date: 09/28/15 Stop Date: 10/12/15 Status: [...] 90 mL, 0 Refill(s), Start Date: 1:39:00 [employer] Start Date: 10/27/16 Stop Date: 10/30/16 Status: Orderedpromethazine-codeine 6.25 mg-10 mg/5 mL oral [...] mL, 0 Refill(s), Start Date: 08/29/16 23:26:00 [employer] Start Date: 08/29/16 Stop Date: 09/03/16 Status: CompletedRestoril 15 mg oral capsule 1 cap(s), Oral, HS, # 30 cap(s), 0 Refill(s), Start Date: 10/24/16 15:30:00 [employer] , Pharmacy: [facility] Start Date: 10/24/16 Status: OrderedRoxicodone 5 mg oral tablet 1 tab(s), Oral, q6hr, PRN for pain, # 15 tab(s), 0 Refill(s), Start Date: 8:00:00 [employer], Earliest Fill Date: 09/20/16, Pharmacy: [facility], [place], [place] Start Date: 09/20/16 Stop Date: 09/27/16 Status: CompletedRoxicodone 5 mg oral tablet 1 tab(s), Oral, q6hr, PRN for pain, # 120 tab(s), 0 Refill(s), Start Date: 08/21 15:30:00 [employer] Start Date: 08/21/16 Stop Date: 09/18/16 Status: CompletedSkelaxin 800 mg oral tablet 1 tab(s), Oral, BID, # 10 tab(s), 0 Refill(s), Start Date: 09/06/15 13:50:00 [employer] , [place] Start Date: 09/06/15 Stop Date: 09/15/15 [...] DUE, 0 Refill(s), Start Date: 10/26/15 17:13:00 [employer] Start Date: 10/26/15 Stop Date: 11/08/15 Status: Discontinuedwarfarin 5 mg oral tablet 2 tab(s), Oral, Daily, # 60 tab(s), 0 Refill(s), Start Date: 11/08/15 9:58:00 [employer], Pharmacy: [facility] Start Date: 11/08/15 Stop Date: 11/27/15 Status: CompletedWellbutrin SR 100 mg/12 hours oral tablet, extended release 1 tab(s), Oral, BID, # 60 tab(s), 0 Refill(s), Start Date: 10/05/16 16:00:00 [employer] Start Date: 10/05/16 Stop Date: 10/24/16 Status: DiscontinuedWellbutrin SR 100 mg/12 hours oral tablet, extended release See Instructions, Take 1 tab(s) Oral Qdaily for one week, then one tablet Oral BID, # 60 tab(s), 0 Refill(s), Start Date: 09/27/16 14:51:00 [employer], Pharmacy: [facility] [id number] Start Date: 09/27/16 Stop Date: 10/05/16 Status: CompletedXanax 0.5 mg oral tablet 1 tab(s), Oral, TID, PRN as needed for anxiety, # 90 tab(s), 0 Refill(s), Start Date: 08/21/16 15:36:00 [employer] Start Date: 08/21/16 Stop Date: 09/27/16 Status: CompletedZithromax Z-Juan C 250 mg oral tablet 1 packet(s), Oral, Per Package Label, as directed on package labeling, # 6 tab(s ), 0 Refill(s), Start Date: 10/05/16 16:09:00 [employer] Start Date: 10/05/16 Stop Date: 10/23/16 Status: CompletedZithromax Z-Juan C 250 mg oral tablet 1 packet(s), Oral, Per Package Label, as directed on package labeling, # 6 tab(s ), 0 Refill(s), Start Date: 01/22/16 18:21:00 CDT Start Date: 01/22/16 Stop Date: 05/05/16 Status: CompletedZyPREXA 10 mg oral tablet 1 tab(s), Oral, Daily, # 30 tab(s), 0 Refill(s), Start Date: 08/21/16 15:29:00 [employer] Start Date: 08/21/16 Stop Date: 09/06/16 Status: DiscontinuedZyrTEC-D 5 mg-120 mg oral tablet, extended release 1 tab(s), Oral, BID, X 15 days, # 30 tab(s), 0 Refill(s), Start Date: 11/27/15 15:13:00 [employer] Start Date: 11/27/15 Stop Date: 12/12/15 Status: Completed Results Patient Viewable Results Most recent to oldest [Reference Range]: 1 Estimated Creatinine Clearance 112.68 mL/min (10/27/16 1:26 AM) Immunizations No data available for this section Procedures Procedure Date Related Diagnosis Body Site Extraction of wisdom tooth 2009 Surgical procedure1 2008 Tonsillectomy 2002 1left knee surg. due to torn cartilage Social History No data available for this section Assessment and Plan No data available for this section
--- OUTSIDE RECORDS SUMMARY | 2017-05-20 16:10 | XMS REPORT | Summary of Care ---
:1990 Author Organization [facility] Address [facility] [place] [address]- Care Team Providers Name Role Phone Elkin Anderson Primary Care Physician Physician, Primary Care Primary Care Physician Unavailable Encounter Date(s): 12/27/16 - 12/27/[address] [address]- [facility] Discharge Diagnosis: Acute maxillary sinusitis Discharge Disposition: Discharged to Home or Self Care Attending Physician: King Hunter MD Admitting Physician: King Hunter MD Vital Signs Most recent to oldest [Reference Range]: 1 Temperature Temporal Artery [36.0-38.0 DegC] 36.0 DegC (12/27/16 10:58 AM) Heart Rate Monitored [60-100 bpm] 65 bpm (12/27/16 10:58 AM) Respiratory Rate [12-20 br/min] 20 br/min (12/27/16 10:58 AM) SpO2 [90-100 %] 100 % (12/27/16 10:58 AM) Blood Pressure [90-130/60-90 mmHg] 129/77mmHg (12/27/16 10:58 AM) Most recent to oldest [Reference Range]: 1 Weight Estimated 86.3 kg (12/27/16 10:58 AM) Weight Dosing 86.30 kg1 (12/27/16 11:01 AM) 1Result Comment: This result was because the dosing weight was either not entered or it is>30 days old. This result is based off: Weight Estimated December 27, 2016 10:58:00 CDT by Brigitte Oreilly RN Problem List Condition Effective Dates Status [...] EA, 0 Refill(s), Start Date: 09/15/15 10:13:00 [employer] Start Date: 09/15/15 Stop Date: 12/24/15 Status: CompletedAfrin 0.05% nasal spray 2 spray(s), Nasal, BID, # 15 mL, 0 Refill(s), Start Date: 08/15/16 11:50:00 [employer] Start Date: 08/15/16 Stop Date: 08/16/16 Status: CompletedAfrin 0.05% nasal spray 2 spray(s), Nasal, BID, X 3 days, # 15 mL, 0 Refill(s), Start Date: 09/14/16 12: 50:00 [employer] Start Date: 09/14/16 Stop Date: 09/17/16 Status: CompletedAfrin 0.05% nasal spray 2 spray(s), Nasal, BID, X 3 days, # 15 mL, 0 Refill(s), Start Date: 12/27/16 11: 29:00 CDT Start Date: 12/27/16 Stop Date: 12/30/16 Status: OrderedAfrin 0.05% nasal spray 2 spray(s), Nasal, BID, [...] HFA 0 Refill(s), Start Date: 11/11/14 11:01:00 [employer] Start Date: 11/11/14 Stop Date: 09/05/15 Status: DiscontinuedALPRAZolam 1 mg oral tablet 1 tab(s), Oral, TID, PRN for anxiety, # 90 tab(s), 1 Refill(s), Start Date: 11:46:18 CDT, Pharmacy: [facility]84 Start Date: 12/24/16 Status: OrderedALPRAZolam 1 mg oral tablet 1 tab(s), Oral, TID, PRN for anxiety, # 90 tab(s), 0 Refill(s), Start Date: 10/22 11:45:00 [employer] Start Date: 09/06/16 Stop Date: 10/04/16 Status: CompletedALPRAZolam 1 mg oral tablet 1 tab(s), Oral, TID, PRN for anxiety, 0 Refill(s), Start Date: 09/06/16 11:44: 00 [employer] Start Date: 09/06/16 Stop Date: 09/06/16 Status: DiscontinuedALPRAZolam 1 mg oral tablet 1 tab(s), Oral, TID, PRN for anxiety, # 90 tab(s), 0 Refill(s), Start Date: 13:28:00 [employer], Pharmacy: [id number] Start Date: 10/25/16 Stop Date: 11/26/16 Status: CompletedALPRAZolam 1 mg oral tablet 1 tab(s), Oral, TID, PRN for anxiety, # 90 tab(s), 0 Refill(s), Start Date: 10:33:00 [employer], Pharmacy: [id number] Start Date: 10/04/16 Stop Date: 10/25/16 Status: CompletedALPRAZolam 1 mg oral tablet 1 tab(s), Oral, TID, PRN for anxiety, # 90 tab(s), 0 Refill(s), Start Date: 13:19:09 [employer], Pharmacy: [id number] Start Date: 11/26/16 Stop Date: 12/24/16 Status: CompletedAmbien 5 mg oral tablet 1 tab(s), Oral, HS, PRN for sleep, # 30 tab(s), 0 Refill(s), Start Date: 14:50:00 [employer], Pharmacy: [facility] [id number] Start Date: 09/27/16 Stop Date: 10/24/16 Status: Discontinuedamoxicillin 875 mg oral tablet 1 tab(s), Oral, BID, # 20 tab(s), 0 Refill(s), Start Date: 09/28/15 11:23:00 [employer] , Pharmacy: [id number] Start Date: 09/28/15 Stop Date: 10/14/15 Status: Discontinuedamoxicillin-clavulanate 875 mg-125 mg oral tablet 1 tab(s), Oral, q12hr interval, X 10 days, # 20 tab(s), 0 Refill(s), Start Date : 08/29/16 23:25:00 [employer] Start Date: 08/29/16 Stop Date: 09/06/16 Status: CompletedAtivan 0.5 mg oral tablet 1 tab(s), Oral, HS, # 15 tab(s), 0 Refill(s), Start Date: 09/15/15 11:13:00 [employer] Start Date: 09/15/15 Stop Date: 09/23/15 Status: DiscontinuedAtivan 1 mg oral tablet 1 tab(s), Oral, TID, PRN for anxiety, # 15 tab(s), 0 Refill(s), Start Date: 1:43:00 [employer] Start Date: 09/04/15 Stop Date: 09/23/15 Status: DiscontinuedAtivan 1 mg oral tablet 1 tab(s), Oral, BID, # 60 tab(s), 2 Refill(s), Start Date: 09/23/15 14:08:00 [employer] , Pharmacy: [id number] Start Date: 09/23/15 Stop Date: 01/12/16 Status: CompletedAugmentin 875 mg-125 mg oral tablet 1 tab(s), Oral, q12hr, # 20 tab(s), 0 Refill(s), Start Date: 10/10/14 19:03:00 [employer] Start Date: 10/10/14 Stop Date: 11/11/14 Status: CompletedAugmentin 875 mg-125 mg oral tablet 1 tab(s), Oral, q12hr, # 20 tab(s), 0 Refill(s), Start Date: 10/10/14 18:50:00 [employer] Start Date: 10/10/14 Stop Date: 11/11/14 Status: Completedazithromycin 250 mg oral tablet 1 packet(s), Oral, Daily, # 1 packet(s), 0 Refill(s), Start Date: 11/19/16 16:24 :00 [employer] Start Date: 11/19/16 Stop Date: 11/26/16 Status: [...] tab(s), 0 Refill(s), Start Date: 09/05/15 13:14:00 [employer] Special Instructions: Start taking this medicine tomorrow (09/06/15) Start Date: 09/05/15 Stop Date: 09/07/15 Status: CompletedbuPROPion 300 mg/24 hours (XL) oral tablet, extended release 1 tab(s), Oral, Daily, # 30 tab(s), 0 Refill(s), Start Date: 10/24/16 15:29:00 [employer], Pharmacy: [place] [facility] [id number] Start Date: 10/24/16 Stop Date: 11/26/16 Status: CompletedbuPROPion 300 mg/24 hours (XL) oral tablet, extended release 1 tab(s), Oral, Daily, # 30 tab(s), 1 Refill(s), Start Date: 12/24/16 11:45:32 CDT, Pharmacy: [place] [id number] Start Date: 12/24/16 Status: OrderedbuPROPion 300 mg/24 hours (XL) oral tablet, extended release 1 tab(s), Oral, Daily, # 30 tab(s), 0 Refill(s), Start Date: 11/26/16 13:19:29 [employer], Pharmacy: [place] [id number] Start Date: 11/26/16 Stop Date: 12/24/16 Status: Completedcefdinir 300 mg oral capsule 1 cap(s), Oral, q12hr, # 20 cap(s), 0 Refill(s), Start Date: 11/08/15 10:04:00 [employer], Pharmacy: [place] [id number] Start Date: 11/08/15 Stop Date: 11/27/15 Status: [...] mL, 0 Refill(s), Start Date: 10/05/16 16:12:00 [employer] Start Date: 10/05/16 Stop Date: 10/11/16 Status: CompletedCoumadin 5 mg oral tablet 1 tab(s), Oral, Daily, # 60 tab(s), 2 Refill(s), Start Date: 09/22/15 11:43:00 [employer], Pharmacy: [id number] Start Date: 09/22/15 Stop Date: 09/27/15 Status: CompletedCoumadin 5 mg oral tablet See Instructions, 3 tabs every Saturday, Saturday, 1.5 tabs every Saturday and 2 tablets every Saturday, , Saturday and Saturday, # 60 tab(s), 2 Refill(s), Start Date: 09/27/15 14:06:08 [employer], Pharmacy: [facility] Special Instructions: 3 tabs every Saturday, Saturday, 1.5 tabs every Saturday and 2 tablets every Saturday, , Saturday and Saturday Start Date: 09/27/15 Stop Date: 10/26/15 Status: CompletedCoumadin 7.5 mg oral tablet 1 tab(s), Oral, Daily, # 30 tab(s), 0 Refill(s), Start Date: 09/15/15 10:14:00 [employer] Start Date: 09/15/15 Stop Date: 09/22/15 Status: Discontinueddextromethorphan 15 mg oral capsule 1 cap(s), Oral, q4hr interval, # 180 cap(s), 0 Refill(s), Start Date: 08/29/16 14:44:00 [employer], Pharmacy: [facility] [place], [place] Start Date: 08/29/16 Stop Date: 09/27/16 Status: Completeddibucaine 1% topical ointment 1 m[place]inley, Topical, QID, PRN for itching, # 30 gm, 0 Refill(s), Start Date: 9:41:00 [employer], Pharmacy: [facility] [id number] Start Date: 09/24/16 Stop Date: 12/27/16 Status: CompleteddiphenhydrAMINE 50 mg oral capsule 1 cap(s), Oral, QID, PRN for allergy symptoms, # 40 cap(s), 0 Refill(s), Start Date: 10/10/14 18:50:00 [employer] Start Date: 10/10/14 Stop Date: 11/11/14 Status: DiscontinuedFlagyl 500 mg oral tablet 1 tab(s), Oral, q12hr, X 7 days, # 14 tab(s), 0 Refill(s), Start Date: 10/21/15 12:49:00 [employer] Start Date: 10/21/15 Stop Date: 10/28/15 Status: [...] reconstitution 0 Refill(s), Start Date: 08/22/16 10:40:00 [employer] Start Date: 08/22/16 Stop Date: 11/19/16 Status: CompletedhydrOXYzine pamoate 25 mg oral capsule 1 cap(s), Oral, TID, PRN anxiety, # 90 cap(s), 0 Refill(s), Start Date: 15:57:00 [employer], Pharmacy: [facility] Start Date: 10/24/16 Stop Date: 11/26/16 Status: CompletedhydrOXYzine pamoate 25 mg oral capsule 1 cap(s), Oral, QID, PRN anxiety, # 120 cap(s), 1 Refill(s), Start Date: 11:46:45 CDT, Pharmacy: [facility] Start Date: 12/24/16 Status: OrderedhydrOXYzine pamoate 25 mg oral capsule 1 cap(s), Oral, QID, PRN anxiety, # 120 cap(s), 0 Refill(s), Start Date: 13:18:45 [employer], Pharmacy: [id number] Start Date: 11/26/16 Stop Date: 12/24/16 Status: Completedibuprofen 800 mg oral tablet 1 tab(s), Oral, TID, PRN for pain, # 30 tab(s), 0 Refill(s), Start Date: 16:25:00 [employer] Start Date: 11/19/16 Status: Orderedibuprofen 800 mg oral tablet 1 tab(s), Oral, q6hr, # 40 tab(s), 0 Refill(s), Start Date: 08/21/16 13:04:00 [employer] Start Date: 08/21/16 Stop Date: 11/19/16 Status: Completedlabetalol 300 mg oral tablet 2 tab(s), BID, 0 Refill(s), Start Date: 08/21/16 13:04:00 [employer] Start Date: 08/21/16 Stop Date: 12/27/16 Status: CompletedLexapro 10 mg oral tablet 1 tab(s), Oral, Daily, # 30 tab(s), 0 Refill(s), Start Date: 11/03/15 11:16:00 [employer], Pharmacy: [id number] Start Date: 11/03/15 Stop Date: 12/24/15 Status: CompletedLexapro 10 mg oral tablet 1 tab(s), Oral, Daily, # 30 tab(s), 0 Refill(s), Start Date: 09/15/15 10:13:00 [employer] Start Date: 09/15/15 Stop Date: 11/03/15 Status: DiscontinuedLexapro 20 mg oral tablet 1 tab(s), Oral, Daily, # 30 tab(s), 0 Refill(s), Start Date: 10/24/16 15:30:09 [employer], Pharmacy: [id number] Start Date: 10/24/16 Stop Date: 11/26/16 Status: CompletedLexapro 20 mg oral tablet 1 tab(s), Oral, Daily, # 30 tab(s), 0 Refill(s), Start Date: 09/27/16 14:50:28 [employer]OR, Pharmacy: [facility] [id number] Start Date: 09/27/16 Stop Date: 10/24/16 Status: CompletedLexapro 20 mg oral tablet 1 tab(s), Oral, Daily, # 30 tab(s), 0 Refill(s), Start Date: 09/06/16 11:23:00 [employer], Pharmacy: [facility] [place] Start Date: 09/06/16 Stop Date: 09/27/16 Status: CompletedLexapro 20 mg oral tablet 1 tab(s), Oral, Daily, # 30 tab(s), 1 Refill(s), Start Date: 12/24/16 11:46:00 CDT, Pharmacy: [id number] Start Date: 12/24/16 Status: OrderedLexapro 20 mg oral tablet 1 tab(s), Oral, Daily, # 30 tab(s), 0 Refill(s), Start Date: 11/26/16 13:19:16 [employer], Pharmacy: [id number] Start Date: 11/26/16 Stop Date: 12/24/16 Status: Completedloratadine 10 mg oral tablet 1 tab(s), Oral, Daily, # 30 tab(s), 0 Refill(s), Start Date: 10/14/15 16:32:00 [employer], Pharmacy: [id number] Start Date: 10/14/15 Stop Date: 11/08/15 Status: DiscontinuedLovenox 0 Refill(s), Start Date: 08/21/16 13:05:00 [employer] Start Date: 08/21/16 Stop Date: 08/21/16 Status: DiscontinuedLovenox 150 mg/mL injectable solution 1 mL, Subcutaneous, Daily, # 10 syringe(s), 0 Refill(s), Start Date: 08/21/16 13 :06:00 [employer] Start Date: 08/21/16 Status: OrderedLovenox 80 mg/0.8 mL injectable solution 0.8 mL, Subcutaneous, q12hr interval, # 8 EA, 0 Refill(s), Start Date: 09/16/15 15:35:00 [employer], Pharmacy: [id number] Start Date: 09/16/15 Stop Date: 09/27/15 Status: CompletedLovenox 80 mg/0.8 mL injectable solution 80 mg, Subcutaneous, q12hr interval, 0 Refill(s), Start Date: 09/15/15 10:17:00 [employer] Start Date: 09/15/15 Stop Date: 09/16/15 Status: DiscontinuedLovenox 80 mg/0.8 mL injectable solution 0.8 mL, Subcutaneous, q12hr interval, X 5 days, # 8 mL, 0 Refill(s), Start Date : 11/08/15 9:55:57 [employer], Pharmacy: [id number] Start Date: 11/08/15 Stop Date: 11/08/15 Status: CompletedLovenox 80 mg/0.8 mL injectable solution 0.8 mL, Subcutaneous, q12hr interval, # 10 syringe(s), 0 Refill(s), Start Date: 11/08/15 11:24:16 [employer], Pharmacy: [id number] Start Date: 11/08/15 Stop Date: 08/15/16 Status: CompletedLovenox 80 mg/0.8 mL injectable solution 0.8 mL, Subcutaneous, q12hr interval, # 14 EA, 0 Refill(s), Start Date: 14:03:25 [employer], Pharmacy: [id number] Start Date: 09/27/15 Stop Date: 10/21/15 Status: CompletedMedrol Dosepak 4 mg oral tablet 1 packet(s), Oral, Per Package Label, Take full line each am, # 21 tab(s), 0 Refill(s), Start Date: 09/06/16 11:55:00 [employer], Pharmacy: [facility], [place], [place] Special Instructions: Take full line each am Start Date: 09/06/16 Stop Date: 09/14/16 Status: Completedmeloxicam 15 mg oral tablet 1 tab(s), Oral, Daily, # 30 tab(s), 1 Refill(s), Start Date: 11/02/16 14:58:00 [employer], Pharmacy: [id number] Start Date: 11/02/16 Stop Date: 12/27/16 Status: Completedmetaxalone 800 mg oral tablet 1 tab(s), Oral, TID, # 42 tab(s), 1 Refill(s), Start Date: 09/23/15 14:15:00 [employer] , Pharmacy: [id number] Start Date: 09/23/15 Stop Date: 11/27/15 Status: CompletedMucinex DM Maximum Strength 60 mg-1200 mg oral tablet, extended release 1 tab(s), Oral, BID, X 10 days, # 20 tab(s), 0 Refill(s), Start Date: 10/10/14 19:04:00 [employer] Start Date: 10/10/14 Stop Date: 10/20/14 Status: CompletedMucinex DM Maximum Strength 60 mg-1200 mg oral tablet, extended release 1 tab(s), Oral, BID, X 10 days, # 20 tab(s), 0 Refill(s), Start Date: 10/10/14 18:50:00 [employer] Start Date: 10/10/14 Stop Date: 10/20/14 Status: CompletedMucinex DM Maximum Strength 60 mg-1200 mg oral tablet, extended release 1 tab(s), Oral, BID, X 10 days, # 20 tab(s), 0 Refill(s), Start Date: 10/14/15 15:53:41 [employer] Start Date: 10/14/15 Stop Date: 10/14/15 Status: Discontinuedmultivitamin 1 tab(s), Oral, Daily, 0 Refill(s), Start Date: 11/27/15 14:20:00 [employer] Start Date: 11/27/15 Status: OrderedNorco 5 mg-325 mg oral tablet 1 tab(s), Oral, q4hr, PRN for pain, # 12 tab(s), 0 Refill(s), Start Date: 16:09:00 [employer] Start Date: 10/05/16 Stop Date: 10/08/16 Status: CompletedpredniSONE 20 mg oral tablet 2 tab(s), Oral, Daily, # 10 tab(s), 0 Refill(s), Start Date: 09/14/16 12:53:00 [employer] Start Date: 09/14/16 Stop Date: 09/27/16 Status: CompletedpredniSONE 20 mg oral tablet 1 tab(s), Oral, Daily, # 5 tab(s), 0 Refill(s), Start Date: 02/03/16 21:18:00 CDT Start Date: 02/03/16 Stop Date: 05/05/16 Status: CompletedpredniSONE 20 mg oral tablet 3 tab(s), Oral, Daily, # 15 tab(s), 0 Refill(s), Start Date: 10/27/16 1:39:00 [employer] Start Date: 10/27/16 Stop Date: 11/26/16 Status: CompletedpredniSONE 20 mg oral tablet 1 tab(s), Oral, Daily, # 10 tab(s), 0 Refill(s), Start Date: 10/02/16 15:09:00 [employer] Start Date: 10/02/16 Stop Date: 10/23/16 Status: CompletedpredniSONE 50 mg oral tablet 1 tab(s), Oral, Daily, # 5 tab(s), 0 Refill(s), Start Date: 12/26/15 15:42:00 CDT Start Date: 12/26/15 Stop Date: 01/12/16 Status: CompletedpredniSONE 50 mg oral tablet 1 tab(s), Oral, Daily, # 5 tab(s), 0 Refill(s), Start Date: 09/04/15 1:42:00 [employer] Start Date: 09/04/15 Stop Date: 09/15/15 Status: CompletedProAir HFA 90 mcg/inh inhalation aerosol 1 puff(s), Inhale, q4hr, PRN as needed for wheezing, # 9 gm, 0 Refill(s), Start Date: 03/15/16 22:22:00 CDT Start Date: 03/15/16 Stop Date: 08/15/16 Status: Completedpromethazine 12.5 mg oral tablet 1 tab(s), Oral, q6hr interval, PRN nausea, 0 Refill(s), Start Date: 08/21/16 15: 26:00 [employer] Start Date: 08/21/16 Stop Date: 08/21/16 Status: Discontinuedpromethazine 12.5 mg oral tablet 1 tab(s), Oral, q6hr interval, PRN nausea, # 30 tab(s), 0 Refill(s), Start Date : 08/21/16 15:33:00 [employer] Start Date: 08/21/16 Stop Date: 09/14/16 Status: Completedpromethazine 25 mg oral tablet 1 tab(s), Oral, q4hr, PRN cough and congestion, # 30 tab(s), 0 Refill(s), Start Date: 10/10/14 19:03:00 [employer] Start Date: 10/10/14 Stop Date: 11/11/14 Status: DiscontinuedPromethazine VC with Codeine 5 mL, Oral, HS, 0 Refill(s), Start Date: 09/06/16 11:46:00 [employer] Start Date: 09/06/16 Stop Date: 09/06/16 Status: DiscontinuedPromethazine VC with Codeine oral syrup 5 mL, Oral, q4hr, PRN for cough, X 10 days, # 240 mL, 0 Refill(s), Start Date: 09/14/16 13:07:00 [employer] Start Date: 09/14/16 Stop Date: 09/24/16 Status: CompletedPromethazine VC with Codeine oral syrup 5 mL, Oral, HS, # 60 mL, 0 Refill(s), Start Date: 09/06/16 11:46:00 [employer] Start Date: 09/06/16 Stop Date: 09/27/16 Status: CompletedPromethazine VC with Codeine oral syrup 5 mL, Oral, q4hr, PRN for cough, X 5 days, # 150 mL, 0 Refill(s), Start Date: 11:30:00 CDT Start Date: 12/27/16 Stop Date: 01/01/17 Status: OrderedPromethazine with Codeine 6.25 mg-10 mg/5 mL oral syrup 5 mL, Oral, q4hr, PRN for cough, X 5 days, # 150 mL, 0 Refill(s), Start Date: 13:03:00 CDT Start Date: 07/30/15 Stop Date: 08/04/15 Status: CompletedPromethazine with Codeine 6.25 mg-10 mg/5 mL oral syrup 5 mL, Oral, q4hr, PRN for cough, X 7 days, # 210 mL, 0 Refill(s), Start Date: 15:13:00 [employer] Start Date: 11/27/15 Stop Date: 12/04/15 Status: CompletedPromethazine with Codeine 6.25 mg-10 mg/5 mL oral syrup 5 mL, Oral, q4hr, X 4 days, # 120 mL, 0 Refill(s), Start Date: 11/19/16 16:24: 00 [employer] Start Date: 11/19/16 Stop Date: 11/23/16 Status: CompletedPromethazine with Codeine 6.25 mg-10 mg/5 mL oral syrup 5 mL, Oral, q4hr, PRN for cough, # 180 mL, 0 Refill(s), Start Date: 10/14/15 15: 56:23 [employer] Start Date: 10/14/15 Stop Date: 10/28/15 Status: CompletedPromethazine with Codeine 6.25 mg-10 mg/5 mL oral syrup 5 mL, Oral, q4hr, PRN for cough, X 7 days, # 210 mL, 0 Refill(s), Start Date: 17:18:00 [employer] Start Date: 10/26/15 Stop Date: 11/02/15 Status: CompletedPromethazine with Codeine 6.25 mg-10 mg/5 mL oral syrup 5 mL, Oral, q4hr, PRN for cough, # 180 mL, 0 Refill(s), Start Date: 11/08/15 10: 00:51 [employer] Start Date: 11/08/15 Stop Date: 11/22/15 Status: Completedpromethazine-codeine mL, Oral, q4hr interval, 0 Refill(s), Start Date: 09/28/15 11:22:00 [employer] Start Date: 09/28/15 Stop Date: 09/28/15 Status: Discontinuedpromethazine-codeine 6.25 mg-10 mg/5 mL oral syrup 5 mL, Oral, QID, X 14 days, # 180 mL, 0 Refill(s), Start Date: 09/28/15 11:23: 00 [employer] Start Date: 09/28/15 Stop Date: 10/12/15 Status: [...] 90 mL, 0 Refill(s), Start Date: 1:39:00 [employer] Start Date: 10/27/16 Stop Date: 10/30/16 Status: [...] mL, 0 Refill(s), Start Date: 08/29/16 23:26:00 [employer] Start Date: 08/29/16 Stop Date: 09/03/16 Status: CompletedRestoril 15 mg oral capsule 1 cap(s), Oral, HS, # 30 cap(s), 0 Refill(s), Start Date: 10/24/16 15:30:00 [employer]OR , [facility]: [id number] Start Date: 10/24/16 Stop Date: 11/26/16 Status: CompletedRestoril 15 mg oral capsule 1 cap(s), Oral, HS, # 30 cap(s), 1 Refill(s), Start Date: 12/24/16 11:45:42 CDT , [facility]: [id number] Start Date: 12/24/16 Status: OrderedRestoril 15 mg oral capsule 1 cap(s), Oral, HS, # 30 cap(s), 0 Refill(s), Start Date: 11/26/16 13:19:22 [employer] SUPER[employer]OR , [facility] Start Date: 11/26/16 Stop Date: 12/24/16 Status: CompletedRoxicodone 5 mg oral tablet 1 tab(s), Oral, q6hr, PRN for pain, # 15 tab(s), 0 Refill(s), Start Date: 8:00:00 [employer], Earliest Fill Date: 09/20/16, Pharmacy: [facility] [place], [place] Start Date: 09/20/16 Stop Date: 09/27/16 Status: CompletedRoxicodone 5 mg oral tablet 1 tab(s), Oral, q6hr, PRN for pain, # 120 tab(s), 0 Refill(s), Start Date: 08/21 15:30:00 [employer] Start Date: 08/21/16 Stop Date: 09/18/16 Status: CompletedSkelaxin 800 mg oral tablet 1 tab(s), Oral, BID, # 10 tab(s), 0 Refill(s), Start Date: 09/06/15 13:50:00 [employer] SUPER[employer]OR , [place] Start Date: 09/06/15 Stop Date: 09/15/15 Status: CompletedTessalon 200 mg oral capsule 1 cap(s), Oral, TID, # 21 cap(s), 0 Refill(s), Start Date: 12/24/15 13:11:00 CDT Start Date: 12/24/15 Stop Date: 01/12/16 Status: CompletedtraMADol 50 mg oral tablet 1 tab(s), Oral, q4hr, PRN for pain, # 4 tab(s), 0 Refill(s), Start Date: 16:25:00 [employer] Start Date: 11/19/16 Stop Date: 11/26/16 Status: CompletedTussionex PennKinetic 10 mg-8 mg/5 mL oral suspension, extended release 5 mL, Oral, q12hr, PRN for cold symptoms, # 50 mL, 0 Refill(s), Start Date: 04/21 15:42:00 CDT Start Date: 01/12/16 Stop Date: 01/16/16 Status: Completedwarfarin 5 mg oral tablet 2 tab(s), Oral, Daily, INR DUE, 0 Refill(s), Start Date: 10/26/15 17:13:00 [employer] Special Instructions: INR DUE Start Date: 10/26/15 Stop Date: 11/08/15 Status: Discontinuedwarfarin 5 mg oral tablet 2 tab(s), Oral, Daily, # 60 tab(s), 0 Refill(s), Start Date: 11/08/15 9:58:00 [employer], Pharmacy: [id number] Start Date: 11/08/15 Stop Date: 11/27/15 Status: CompletedWellbutrin SR 100 mg/12 hours oral tablet, extended release 1 tab(s), Oral, BID, # 60 tab(s), 0 Refill(s), Start Date: 10/05/16 16:00:00 [employer] Start Date: 10/05/16 Stop Date: 10/24/16 Status: DiscontinuedWellbutrin SR 100 mg/12 hours oral tablet, extended release See Instructions, Take 1 tab(s) Oral Qdaily for one week, then one tablet Oral BID, # 60 tab(s), 0 Refill(s), Start Date: 09/27/16 14:51:00 [employer], Pharmacy: [facility] [id number] Special Instructions: Take 1 tab(s) Oral Qdaily for one week, then one tablet Oral BID Start Date: 09/27/16 Stop Date: 10/05/16 Status: CompletedXanax 0.5 mg oral tablet 1 tab(s), Oral, TID, PRN as needed for anxiety, # 90 tab(s), 0 Refill(s), Start Date: 08/21/16 15:36:00 [employer] Start Date: 08/21/16 Stop Date: 09/27/16 Status: CompletedZithromax Z-Juan C 250 mg oral tablet 1 packet(s), Oral, Per Package Label, as directed on package labeling, # 6 tab(s ), 0 Refill(s), Start Date: 10/05/16 16:09:00 [employer] Special Instructions: as directed on package labeling [...] tab(s), 0 Refill(s), Start Date: 08/21/16 15:29:00 [employer] Start Date: 08/21/16 Stop Date: 09/06/16 Status: DiscontinuedZyrTEC-D 5 mg-120 mg oral tablet, extended release 1 tab(s), Oral, BID, X 15 days, # 30 tab(s), 0 Refill(s), Start Date: 11/27/15 15:13:00 [employer] Start Date: 11/27/15 Stop Date: 12/12/15 Status: Completed Results Patient Viewable Results Most recent to oldest [Reference Range]: 1 Estimated Creatinine Clearance 112.90 mL/min (12/27/16 11:01 AM) Immunizations No data available for this section Procedures Procedure Date Related Diagnosis Body Site Extraction of wisdom tooth 2009 Surgical procedure1 2008 Tonsillectomy 2002 1left knee surg. due to torn cartilage Social History No data available for this section Assessment and Plan No data available for this section
--- OUTSIDE RECORDS SUMMARY | 2017-05-20 16:11 | XMS REPORT | Summary of Care ---
:1990 Author Organization [facility] Care Team Providers Name Role Phone Elkin Anderson Primary Care Physician Physician, Primary Care Primary Care Physician Unavailable Encounter Date(s): 01/14/17 - 01/14/[address] [id number] Discharge Diagnosis: Viral URI with cough Discharge Disposition: Discharged to Home or Self Care Attending Physician: Tom Shepard MD Admitting Physician: oTm Shepard MD Vital Signs Most recent to oldest [Reference Range]: 1 Temperature Temporal Artery [36.0-38.0 DegC] 36.0 DegC (01/14/17 8:44 PM) Heart Rate Monitored [60-100 bpm] 81 bpm (01/14/17 8:44 PM) Respiratory Rate [12-20 br/min] 18 br/min (01/14/17 8:44 PM) SpO2 [90-100 %] 100 % (01/14/17 8:44 PM) Blood Pressure [90-130/60-90 mmHg] 114/67mmHg (01/14/17 8:44 PM) Most recent to oldest [Reference Range]: 1 Weight Estimated 86.4 kg (01/14/17 8:44 PM) Weight Dosing 86.40 kg1 (01/14/17 8:46 PM) 1Result Comment: This result was because the dosing weight was either not entered or it is>30 days old. This result is based off: Weight Estimated January 14, 2017 20:44:00 CDT by Kala Jean-Baptiste RN Problem List Condition Effective Dates Status [...] EA, 0 Refill(s), Start Date: 09/15/15 10:13:00 GIS INSTRUCTOR Start Date: 09/15/15 Stop Date: 12/24/15 Status: CompletedAfrin 0.05% nasal spray 2 spray(s), Nasal, BID, # 15 mL, 0 Refill(s), Start Date: 08/15/16 11:50:00 GIS INSTRUCTOR Start Date: 08/15/16 Stop Date: 08/16/16 Status: CompletedAfrin 0.05% nasal spray 2 spray(s), Nasal, BID, X 3 days, # 15 mL, 0 Refill(s), Start Date: 09/14/16 12: 50:00 GIS INSTRUCTOR Start Date: 09/14/16 Stop Date: 09/17/16 Status: [...] HFA 0 Refill(s), Start Date: 11/11/14 11:01:00 GIS INSTRUCTOR Start Date: 11/11/14 Stop Date: 09/05/15 Status: DiscontinuedALPRAZolam 1 mg oral tablet 1 tab(s), Oral, TID, PRN for anxiety, # 90 tab(s), 1 Refill(s), Start Date: 11:46:18 CDT, Pharmacy: [id number] Start Date: 12/24/16 Status: OrderedALPRAZolam 1 mg oral tablet 1 tab(s), Oral, TID, PRN for anxiety, # 90 tab(s), 0 Refill(s), Start Date: 10/22 11:45:00 GIS INSTRUCTOR Start Date: 09/06/16 Stop Date: 10/04/16 Status: CompletedALPRAZolam 1 mg oral tablet 1 tab(s), Oral, TID, PRN for anxiety, 0 Refill(s), Start Date: 09/06/16 11:44: 00 GIS INSTRUCTOR Start Date: 09/06/16 Stop Date: 09/06/16 Status: DiscontinuedALPRAZolam 1 mg oral tablet 1 tab(s), Oral, TID, PRN for anxiety, # 90 tab(s), 0 Refill(s), Start Date: 13:28:00 GIS INSTRUCTOR, Pharmacy: [id number] Start Date: 10/25/16 Stop Date: 11/26/16 Status: CompletedALPRAZolam 1 mg oral tablet 1 tab(s), Oral, TID, PRN for anxiety, # 90 tab(s), 0 Refill(s), Start Date: 10:33:00 GIS INSTRUCTOR, Pharmacy: [id number] Start Date: 10/04/16 Stop Date: 10/25/16 Status: CompletedALPRAZolam 1 mg oral tablet 1 tab(s), Oral, TID, PRN for anxiety, # 90 tab(s), 0 Refill(s), Start Date: 13:19:09 GIS INSTRUCTOR, Pharmacy: [id number] Start Date: 11/26/16 Stop Date: 12/24/16 Status: CompletedAmbien 5 mg oral tablet 1 tab(s), Oral, HS, PRN for sleep, # 30 tab(s), 0 Refill(s), Start Date: 14:50:00 GIS INSTRUCTOR, Pharmacy: [facility] [id number] Start Date: 09/27/16 Stop Date: 10/24/16 Status: Discontinuedamoxicillin 875 mg oral tablet 1 tab(s), Oral, BID, # 20 tab(s), 0 Refill(s), Start Date: 09/28/15 11:23:00 GIS INSTRUCTOR , Pharmacy: [id number] Start Date: 09/28/15 Stop Date: 10/14/15 Status: Discontinuedamoxicillin-clavulanate 875 mg-125 mg oral tablet 1 tab(s), Oral, q12hr interval, X 10 days, # 20 tab(s), 0 Refill(s), Start Date : 08/29/16 23:25:00 GIS INSTRUCTOR Start Date: 08/29/16 Stop Date: 09/06/16 Status: CompletedAtivan 0.5 mg oral tablet 1 tab(s), Oral, HS, # 15 tab(s), 0 Refill(s), Start Date: 09/15/15 11:13:00 GIS INSTRUCTOR Start Date: 09/15/15 Stop Date: 09/23/15 Status: DiscontinuedAtivan 1 mg oral tablet 1 tab(s), Oral, TID, PRN for anxiety, # 15 tab(s), 0 Refill(s), Start Date: 1:43:00 GIS INSTRUCTOR Start Date: 09/04/15 Stop Date: 09/23/15 Status: DiscontinuedAtivan 1 mg oral tablet 1 tab(s), Oral, BID, # 60 tab(s), 2 Refill(s), Start Date: 09/23/15 14:08:00 GIS INSTRUCTOR , Pharmacy: [id number] Start Date: 09/23/15 Stop Date: 01/12/16 Status: CompletedAugmentin 875 mg-125 mg oral tablet 1 tab(s), Oral, q12hr, # 20 tab(s), 0 Refill(s), Start Date: 10/10/14 19:03:00 GIS INSTRUCTOR Start Date: 10/10/14 Stop Date: 11/11/14 Status: CompletedAugmentin 875 mg-125 mg oral tablet 1 tab(s), Oral, q12hr, # 20 tab(s), 0 Refill(s), Start Date: 10/10/14 18:50:00 GIS INSTRUCTOR Start Date: 10/10/14 Stop Date: 11/11/14 Status: Completedazithromycin 250 mg oral tablet 1 packet(s), Oral, Daily, # 1 packet(s), 0 Refill(s), Start Date: 11/19/16 16:24 :00 GIS INSTRUCTOR Start Date: 11/19/16 Stop Date: 11/26/16 Status: [...] tab(s), 0 Refill(s), Start Date: 09/05/15 13:14:00 GIS INSTRUCTOR Special Instructions: Start taking this medicine tomorrow (09/06/15) Start Date: 09/05/15 Stop Date: 09/07/15 Status: CompletedbuPROPion 300 mg/24 hours (XL) oral tablet, extended release 1 tab(s), Oral, Daily, # 30 tab(s), 0 Refill(s), Start Date: 10/24/16 15:29:00 GIS INSTRUCTOR, Pharmacy: [place] [id number] Start Date: 10/24/16 Stop Date: 11/26/16 Status: CompletedbuPROPion 300 mg/24 hours (XL) oral tablet, extended release 1 tab(s), Oral, Daily, # 30 tab(s), 1 Refill(s), Start Date: 12/24/16 11:45:32 CDT, Pharmacy: [place] [id number] Start Date: 12/24/16 Status: OrderedbuPROPion 300 mg/24 hours (XL) oral tablet, extended release 1 tab(s), Oral, Daily, # 30 tab(s), 0 Refill(s), Start Date: 11/26/16 13:19:29 GIS INSTRUCTOR, Pharmacy: [place] [id number] Start Date: 11/26/16 Stop Date: 12/24/16 Status: Completedcefdinir 300 mg oral capsule 1 cap(s), Oral, q12hr, # 20 cap(s), 0 Refill(s), Start Date: 11/08/15 10:04:00 GIS INSTRUCTOR, Pharmacy: [place] [id number] Start Date: 11/08/15 Stop Date: 11/27/15 Status: [...] mL, 0 Refill(s), Start Date: 10/05/16 16:12:00 GIS INSTRUCTOR Start Date: 10/05/16 Stop Date: 10/11/16 Status: CompletedCoumadin 5 mg oral tablet 1 tab(s), Oral, Daily, # 60 tab(s), 2 Refill(s), Start Date: 09/22/15 11:43:00 GIS INSTRUCTOR, Pharmacy: [id number] Start Date: 09/22/15 Stop Date: 09/27/15 Status: CompletedCoumadin 5 mg oral tablet See Instructions, 3 tabs every Saturday, Saturday, 1.5 tabs every Saturday and 2 tablets every Saturday, , Saturday and Saturday, # 60 tab(s), 2 Refill(s), Start Date: 09/27/15 14:06:08 GIS INSTRUCTOR, [email or web address] Special Instructions: 3 tabs every Saturday, Saturday, 1.5 tabs every Saturday and 2 tablets every Saturday, , Saturday and Saturday Start Date: 09/27/15 Stop Date: 10/26/15 Status: CompletedCoumadin 7.5 mg oral tablet 1 tab(s), Oral, Daily, # 30 tab(s), 0 Refill(s), Start Date: 09/15/15 10:14:00 GIS INSTRUCTOR Start Date: 09/15/15 Stop Date: 09/22/15 Status: Discontinueddextromethorphan 10 mg/5 mL oral syrup 10 mL, Oral, q4hr, PRN for cough, # 120 mL, 0 Refill(s), Start Date: 01/14/17 21 :48:00 CDT Start Date: 01/14/17 Stop Date: 01/18/17 Status: Ordereddextromethorphan 15 mg oral capsule 1 cap(s), Oral, q4hr interval, # 180 cap(s), 0 Refill(s), Start Date: 08/29/16 14:44:00 GIS INSTRUCTOR, Pharmacy: [facility] [place] [place] Start Date: 08/29/16 Stop Date: 09/27/16 Status: Completeddibucaine 1% topical ointment 1 mckinley, Topical, QID, PRN for itching, # 30 gm, 0 Refill(s), Start Date: 9:41:00 GIS INSTRUCTOR, [facility] [id number] Start Date: 09/24/16 Stop Date: 12/27/16 Status: CompleteddiphenhydrAMINE 50 mg oral capsule 1 cap(s), Oral, QID, PRN for allergy symptoms, # 40 cap(s), 0 Refill(s), Start Date: 10/10/14 18:50:00 GIS INSTRUCTOR Start Date: 10/10/14 Stop Date: 11/11/14 Status: DiscontinuedFlagyl 500 mg oral tablet 1 tab(s), Oral, q12hr, X 7 days, # 14 tab(s), 0 Refill(s), Start Date: 10/21/15 12:49:00 GIS INSTRUCTOR Start Date: 10/21/15 Stop Date: 10/28/15 Status: [...] reconstitution 0 Refill(s), Start Date: 08/22/16 10:40:00 GIS INSTRUCTOR Start Date: 08/22/16 Stop Date: 11/19/16 Status: CompletedhydrOXYzine pamoate 25 mg oral capsule 1 cap(s), Oral, TID, PRN anxiety, # 90 cap(s), 0 Refill(s), Start Date: 15:57:00 GIS INSTRUCTOR, Pharmacy: [id number] Start Date: 10/24/16 Stop Date: 11/26/16 Status: CompletedhydrOXYzine pamoate 25 mg oral capsule 1 cap(s), Oral, QID, PRN anxiety, # 120 cap(s), 1 Refill(s), Start Date: 11:46:45 CDT, Pharmacy: [id number] Start Date: 12/24/16 Status: OrderedhydrOXYzine pamoate 25 mg oral capsule 1 cap(s), Oral, QID, PRN anxiety, # 120 cap(s), 0 Refill(s), Start Date: 13:18:45 GIS INSTRUCTOR, Pharmacy: [id number] Start Date: 11/26/16 Stop Date: 12/24/16 Status: Completedibuprofen 800 mg oral tablet 1 tab(s), Oral, TID, PRN for pain, # 30 tab(s), 0 Refill(s), Start Date: 16:25:00 GIS INSTRUCTOR Start Date: 11/19/16 Status: Orderedibuprofen 800 mg oral tablet 1 tab(s), Oral, q6hr, # 40 tab(s), 0 Refill(s), Start Date: 08/21/16 13:04:00 GIS INSTRUCTOR Start Date: 08/21/16 Stop Date: 11/19/16 Status: Completedlabetalol 300 mg oral tablet 2 tab(s), BID, 0 Refill(s), Start Date: 08/21/16 13:04:00 GIS INSTRUCTOR Start Date: 08/21/16 Stop Date: 12/27/16 Status: CompletedLexapro 10 mg oral tablet 1 tab(s), Oral, Daily, # 30 tab(s), 0 Refill(s), Start Date: 11/03/15 11:16:00 GIS INSTRUCTOR, Pharmacy: [id number] Start Date: 11/03/15 Stop Date: 12/24/15 Status: CompletedLexapro 10 mg oral tablet 1 tab(s), Oral, Daily, # 30 tab(s), 0 Refill(s), Start Date: 09/15/15 10:13:00 GIS INSTRUCTOR Start Date: 09/15/15 Stop Date: 11/03/15 Status: DiscontinuedLexapro 20 mg oral tablet 1 tab(s), Oral, Daily, # 30 tab(s), 0 Refill(s), Start Date: 10/24/16 15:30:09 GIS INSTRUCTOR, Pharmacy: [facility] Start Date: 10/24/16 Stop Date: 11/26/16 Status: CompletedLexapro 20 mg oral tablet 1 tab(s), Oral, Daily, # 30 tab(s), 0 Refill(s), Start Date: 09/27/16 14:50:28 GIS INSTRUCTOR, Pharmacy: [facility] [id number] Start Date: 09/27/16 Stop Date: 10/24/16 Status: CompletedLexapro 20 mg oral tablet 1 tab(s), Oral, Daily, # 30 tab(s), 0 Refill(s), Start Date: 09/06/16 11:23:00 GIS INSTRUCTOR, Pharmacy: [facility], [place], [place] Start Date: 09/06/16 Stop Date: 09/27/16 Status: CompletedLexapro 20 mg oral tablet 1 tab(s), Oral, Daily, # 30 tab(s), 1 Refill(s), Start Date: 12/24/16 11:46:00 CDT, Pharmacy: [id number] Start Date: 12/24/16 Status: OrderedLexapro 20 mg oral tablet 1 tab(s), Oral, Daily, # 30 tab(s), 0 Refill(s), Start Date: 11/26/16 13:19:16 GIS INSTRUCTOR, Pharmacy: [id number] Start Date: 11/26/16 Stop Date: 12/24/16 Status: Completedloratadine 10 mg oral tablet 1 tab(s), Oral, Daily, # 30 tab(s), 0 Refill(s), Start Date: 10/14/15 16:32:00 GIS INSTRUCTOR, Pharmacy: [id number] Start Date: 10/14/15 Stop Date: 11/08/15 Status: DiscontinuedLovenox 0 Refill(s), Start Date: 08/21/16 13:05:00 GIS INSTRUCTOR Start Date: 08/21/16 Stop Date: 08/21/16 Status: DiscontinuedLovenox 150 mg/mL injectable solution 1 mL, Subcutaneous, Daily, # 10 syringe(s), 0 Refill(s), Start Date: 08/21/16 13 :06:00 GIS INSTRUCTOR Start Date: 08/21/16 Status: OrderedLovenox 80 mg/0.8 mL injectable solution 0.8 mL, Subcutaneous, q12hr interval, # 8 EA, 0 Refill(s), Start Date: 09/16/15 15:35:00 GIS INSTRUCTOR, Pharmacy: [facility] Start Date: 09/16/15 Stop Date: 09/27/15 Status: CompletedLovenox 80 mg/0.8 mL injectable solution 80 mg, Subcutaneous, q12hr interval, 0 Refill(s), Start Date: 09/15/15 10:17:00 GIS INSTRUCTOR Start Date: 09/15/15 Stop Date: 09/16/15 Status: DiscontinuedLovenox 80 mg/0.8 mL injectable solution 0.8 mL, Subcutaneous, q12hr interval, X 5 days, # 8 mL, 0 Refill(s), Start Date : 11/08/15 9:55:57 GIS INSTRUCTOR, Pharmacy: [place] [id number] Start Date: 11/08/15 Stop Date: 11/08/15 Status: CompletedLovenox 80 mg/0.8 mL injectable solution 0.8 mL, Subcutaneous, q12hr interval, # 10 syringe(s), 0 Refill(s), Start Date: 11/08/15 11:24:16 GIS INSTRUCTOR, Pharmacy: [place] [id number] Start Date: 11/08/15 Stop Date: 08/15/16 Status: CompletedLovenox 80 mg/0.8 mL injectable solution 0.8 mL, Subcutaneous, q12hr interval, # 14 EA, 0 Refill(s), Start Date: 14:03:25 GIS INSTRUCTOR, Pharmacy: [place] [id number] Start Date: 09/27/15 Stop Date: 10/21/15 Status: CompletedMedrol Dosepak 4 mg oral tablet 1 packet(s), Oral, Per Package Label, Take full line each am, # 21 tab(s), 0 Refill(s), Start Date: 09/06/16 11:55:00 GIS INSTRUCTOR, Pharmacy: [facility] [place] Special Instructions: Take full line each am Start Date: 09/06/16 Stop Date: 09/14/16 Status: Completedmeloxicam 15 mg oral tablet 1 tab(s), Oral, Daily, # 30 tab(s), 1 Refill(s), Start Date: 11/02/16 14:58:00 GIS INSTRUCTOR, Pharmacy: [place] [id number] Start Date: 11/02/16 Stop Date: 12/27/16 Status: Completedmetaxalone 800 mg oral tablet 1 tab(s), Oral, TID, # 42 tab(s), 1 Refill(s), Start Date: 09/23/15 14:15:00 GIS INSTRUCTOR , Pharmacy: [facility] Start Date: 09/23/15 Stop Date: 11/27/15 Status: CompletedMucinex DM Maximum Strength 60 mg-1200 mg oral tablet, extended release 1 tab(s), Oral, BID, X 10 days, # 20 tab(s), 0 Refill(s), Start Date: 10/10/14 19:04:00 GIS INSTRUCTOR Start Date: 10/10/14 Stop Date: 10/20/14 Status: CompletedMucinex DM Maximum Strength 60 mg-1200 mg oral tablet, extended release 1 tab(s), Oral, BID, X 10 days, # 20 tab(s), 0 Refill(s), Start Date: 10/10/14 18:50:00 GIS INSTRUCTOR Start Date: 10/10/14 Stop Date: 10/20/14 Status: CompletedMucinex DM Maximum Strength 60 mg-1200 mg oral tablet, extended release 1 tab(s), Oral, BID, X 10 days, # 20 tab(s), 0 Refill(s), Start Date: 10/14/15 15:53:41 GIS INSTRUCTOR Start Date: 10/14/15 Stop Date: 10/14/15 Status: Discontinuedmultivitamin 1 tab(s), Oral, Daily, 0 Refill(s), Start Date: 11/27/15 14:20:00 GIS INSTRUCTOR Start Date: 11/27/15 Status: OrderedNorco 5 mg-325 mg oral tablet 1 tab(s), Oral, q4hr, PRN for pain, # 12 tab(s), 0 Refill(s), Start Date: 16:09:00 GIS INSTRUCTOR Start Date: 10/05/16 Stop Date: 10/08/16 Status: CompletedpredniSONE 20 mg oral tablet 2 tab(s), Oral, Daily, # 10 tab(s), 0 Refill(s), Start Date: 09/14/16 12:53:00 GIS INSTRUCTOR Start Date: 09/14/16 Stop Date: 09/27/16 Status: CompletedpredniSONE 20 mg oral tablet 1 tab(s), Oral, Daily, # 5 tab(s), 0 Refill(s), Start Date: 02/03/16 21:18:00 CDT Start Date: 02/03/16 Stop Date: 05/05/16 Status: CompletedpredniSONE 20 mg oral tablet 3 tab(s), Oral, Daily, # 15 tab(s), 0 Refill(s), Start Date: 10/27/16 1:39:00 GIS INSTRUCTOR Start Date: 10/27/16 Stop Date: 11/26/16 Status: CompletedpredniSONE 20 mg oral tablet 1 tab(s), Oral, Daily, # 10 tab(s), 0 Refill(s), Start Date: 10/02/16 15:09:00 GIS INSTRUCTOR Start Date: 10/02/16 Stop Date: 10/23/16 Status: CompletedpredniSONE 50 mg oral tablet 1 tab(s), Oral, Daily, # 5 tab(s), 0 Refill(s), Start Date: 12/26/15 15:42:00 CDT Start Date: 12/26/15 Stop Date: 01/12/16 Status: CompletedpredniSONE 50 mg oral tablet 1 tab(s), Oral, Daily, # 5 tab(s), 0 Refill(s), Start Date: 09/04/15 1:42:00 GIS INSTRUCTOR Start Date: 09/04/15 Stop Date: 09/15/15 Status: CompletedProAir HFA 90 mcg/inh inhalation aerosol 1 puff(s), Inhale, q4hr, PRN as needed for wheezing, # 9 gm, 0 Refill(s), Start Date: 03/15/16 22:22:00 CDT Start Date: 03/15/16 Stop Date: 08/15/16 Status: Completedpromethazine 12.5 mg oral tablet 1 tab(s), Oral, q6hr interval, PRN nausea, 0 Refill(s), Start Date: 08/21/16 15: 26:00 GIS INSTRUCTOR Start Date: 08/21/16 Stop Date: 08/21/16 Status: Discontinuedpromethazine 12.5 mg oral tablet 1 tab(s), Oral, q6hr interval, PRN nausea, # 30 tab(s), 0 Refill(s), Start Date : 08/21/16 15:33:00 GIS INSTRUCTOR Start Date: 08/21/16 Stop Date: 09/14/16 Status: Completedpromethazine 25 mg oral tablet 1 tab(s), Oral, q4hr, PRN cough and congestion, # 30 tab(s), 0 Refill(s), Start Date: 10/10/14 19:03:00 GIS INSTRUCTOR Start Date: 10/10/14 Stop Date: 11/11/14 Status: DiscontinuedPromethazine VC with Codeine 5 mL, Oral, HS, 0 Refill(s), Start Date: 09/06/16 11:46:00 GIS INSTRUCTOR Start Date: 09/06/16 Stop Date: 09/06/16 Status: DiscontinuedPromethazine VC with Codeine oral syrup 5 mL, Oral, q4hr, PRN for cough, X 10 days, # 240 mL, 0 Refill(s), Start Date: 09/14/16 13:07:00 GIS INSTRUCTOR Start Date: 09/14/16 Stop Date: 09/24/16 Status: CompletedPromethazine VC with Codeine oral syrup 5 mL, Oral, HS, # 60 mL, 0 Refill(s), Start Date: 09/06/16 11:46:00 GIS INSTRUCTOR Start Date: 09/06/16 Stop Date: 09/27/16 Status: [...] 210 mL, 0 Refill(s), Start Date: 15:13:00 GIS INSTRUCTOR Start Date: 11/27/15 Stop Date: 12/04/15 Status: CompletedPromethazine with Codeine 6.25 mg-10 mg/5 mL oral syrup 5 mL, Oral, q4hr, X 4 days, # 120 mL, 0 Refill(s), Start Date: 11/19/16 16:24: 00 GIS INSTRUCTOR Start Date: 11/19/16 Stop Date: 11/23/16 Status: CompletedPromethazine with Codeine 6.25 mg-10 mg/5 mL oral syrup 5 mL, Oral, q4hr, PRN for cough, # 180 mL, 0 Refill(s), Start Date: 10/14/15 15: 56:23 GIS INSTRUCTOR Start Date: 10/14/15 Stop Date: 10/28/15 Status: CompletedPromethazine with Codeine 6.25 mg-10 mg/5 mL oral syrup 5 mL, Oral, q4hr, PRN for cough, X 7 days, # 210 mL, 0 Refill(s), Start Date: 17:18:00 GIS INSTRUCTOR Start Date: 10/26/15 Stop Date: 11/02/15 Status: CompletedPromethazine with Codeine 6.25 mg-10 mg/5 mL oral syrup 5 mL, Oral, q4hr, PRN for cough, # 180 mL, 0 Refill(s), Start Date: 11/08/15 10: 00:51 GIS INSTRUCTOR Start Date: 11/08/15 Stop Date: 11/22/15 Status: Completedpromethazine-codeine mL, Oral, q4hr interval, 0 Refill(s), Start Date: 09/28/15 11:22:00 GIS INSTRUCTOR Start Date: 09/28/15 Stop Date: 09/28/15 Status: Discontinuedpromethazine-codeine 6.25 mg-10 mg/5 mL oral syrup 5 mL, Oral, QID, X 14 days, # 180 mL, 0 Refill(s), Start Date: 09/28/15 11:23: 00 GIS INSTRUCTOR Start Date: 09/28/15 Stop Date: 10/12/15 Status: [...] 90 mL, 0 Refill(s), Start Date: 1:39:00 GIS INSTRUCTOR Start Date: 10/27/16 Stop Date: 10/30/16 Status: [...] mL, 0 Refill(s), Start Date: 08/29/16 23:26:00 GIS INSTRUCTOR Start Date: 08/29/16 Stop Date: 09/03/16 Status: CompletedRestoril 15 mg oral capsule 1 cap(s), Oral, HS, # 30 cap(s), 0 Refill(s), Start Date: 10/24/16 15:30:00 GIS INSTRUCTOR , [email or web address] Start Date: 10/24/16 Stop Date: 11/26/16 Status: CompletedRestoril 15 mg oral capsule 1 cap(s), Oral, HS, # 30 cap(s), 1 Refill(s), Start Date: 12/24/16 11:45:42 CDT , [email or web address] Start Date: 12/24/16 Status: OrderedRestoril 15 mg oral capsule 1 cap(s), Oral, HS, # 30 cap(s), 0 Refill(s), Start Date: 11/26/16 13:19:22 GIS INSTRUCTOR , Pharmacy: [facility] Start Date: 11/26/16 Stop Date: 12/24/16 Status: CompletedRoxicodone 5 mg oral tablet 1 tab(s), Oral, q6hr, PRN for pain, # 15 tab(s), 0 Refill(s), Start Date: 8:00:00 GIS INSTRUCTOR, Earliest Fill Date: 09/20/16, Pharmacy: [facility] [place], [place] Start Date: 09/20/16 Stop Date: 09/27/16 Status: CompletedRoxicodone 5 mg oral tablet 1 tab(s), Oral, q6hr, PRN for pain, # 120 tab(s), 0 Refill(s), Start Date: 08/21 15:30:00 GIS INSTRUCTOR Start Date: 08/21/16 Stop Date: 09/18/16 Status: CompletedSkelaxin 800 mg oral tablet 1 tab(s), Oral, BID, # 10 tab(s), 0 Refill(s), Start Date: 09/06/15 13:50:00 GIS INSTRUCTOR , [place] Start Date: 09/06/15 Stop Date: 09/15/15 Status: CompletedTessalon 200 mg oral capsule 1 cap(s), Oral, TID, # 21 cap(s), 0 Refill(s), Start Date: 12/24/15 13:11:00 CDT Start Date: 12/24/15 Stop Date: 01/12/16 Status: CompletedtraMADol 50 mg oral tablet 1 tab(s), Oral, q4hr, PRN for pain, # 4 tab(s), 0 Refill(s), Start Date: 16:25:00 GIS INSTRUCTOR Start Date: 11/19/16 Stop Date: 11/26/16 Status: CompletedTussionex PennKinetic 10 mg-8 mg/5 mL oral suspension, extended release 5 mL, Oral, q12hr, PRN for cold symptoms, # 50 mL, 0 Refill(s), Start Date: 04/21 15:42:00 CDT Start Date: 01/12/16 Stop Date: 01/16/16 Status: Completedwarfarin 5 mg oral tablet 2 tab(s), Oral, Daily, INR DUE, 0 Refill(s), Start Date: 10/26/15 17:13:00 GIS INSTRUCTOR Special Instructions: INR DUE Start Date: 10/26/15 Stop Date: 11/08/15 Status: Discontinuedwarfarin 5 mg oral tablet 2 tab(s), Oral, Daily, # 60 tab(s), 0 Refill(s), Start Date: 11/08/15 9:58:00 GIS INSTRUCTOR, Pharmacy: [id number] Start Date: 11/08/15 Stop Date: 11/27/15 Status: CompletedWellbutrin SR 100 mg/12 hours oral tablet, extended release 1 tab(s), Oral, BID, # 60 tab(s), 0 Refill(s), Start Date: 10/05/16 16:00:00 GIS INSTRUCTOR Start Date: 10/05/16 Stop Date: 10/24/16 Status: DiscontinuedWellbutrin SR 100 mg/12 hours oral tablet, extended release See Instructions, Take 1 tab(s) Oral Qdaily for one week, then one tablet Oral BID, # 60 tab(s), 0 Refill(s), Start Date: 09/27/16 14:51:00 GIS INSTRUCTOR, Pharmacy: [facility] [id number] Special Instructions: Take 1 tab(s) Oral Qdaily for one week, then one tablet Oral BID Start Date: 09/27/16 Stop Date: 10/05/16 Status: CompletedXanax 0.5 mg oral tablet 1 tab(s), Oral, TID, PRN as needed for anxiety, # 90 tab(s), 0 Refill(s), Start Date: 08/21/16 15:36:00 GIS INSTRUCTOR Start Date: 08/21/16 Stop Date: 09/27/16 Status: CompletedZithromax Z-Juan C 250 mg oral tablet 1 packet(s), Oral, Per Package Label, as directed on package labeling, # 6 tab(s ), 0 Refill(s), Start Date: 10/05/16 16:09:00 GIS INSTRUCTOR Special Instructions: as directed on package labeling [...] tab(s), 0 Refill(s), Start Date: 08/21/16 15:29:00 GIS INSTRUCTOR Start Date: 08/21/16 Stop Date: 09/06/16 Status: DiscontinuedZyrTEC-D 5 mg-120 mg oral tablet, extended release 1 tab(s), Oral, BID, X 15 days, # 30 tab(s), 0 Refill(s), Start Date: 11/27/15 15:13:00 GIS INSTRUCTOR Start Date: 11/27/15 Stop Date: 12/12/15 Status: Completed Results Patient Viewable Results Most recent to oldest [Reference Range]: 1 Estimated Creatinine Clearance 112.97 mL/min (01/14/17 8:46 PM) Immunizations No data available for this section Procedures Procedure Date Related Diagnosis Body Site Extraction of wisdom tooth 2009 Surgical procedure1 2008 Tonsillectomy 2002 1left knee surg. due to torn cartilage Social History No data available for this section Assessment and Plan No data available for this section
--- OUTSIDE RECORDS SUMMARY | 2017-05-20 16:11 | XMS REPORT | Summary of Care ---
:1990 Author Organization [facility] Address [address] [place] [address] Care Team Providers Name Role Phone Elkin Anderson Primary Care Physician Physician, Primary Care Primary Care Physician Unavailable Encounter Date(s): 11/02/16 - 11/02/16 [facility] Kamilah Grimaldo, [address] [place], [place] [address] Discharge Diagnosis: Bilateral leg pain Discharge Disposition: 01 Discharged to Home or Self Care Attending Physician: ROXANNA Woodard Referring Physician: ROXANNA Woodard Vital Signs Most recent to oldest [Reference Range]: 1 Peripheral Pulse Rate [60-100 bpm] 78 bpm (11/02/16 2:21 PM) Blood Pressure [90-130/60-90 mmHg] 125/81mmHg (11/02/16 2:21 PM) Mean Arterial Pressure, Cuff 96 mmHg (11/02/16 2:21 PM) Height/Length Measured 155 cm (11/02/16 2:21 PM) Weight Dosing 90.80 kg1 (11/02/16 2:27 PM) Weight Measured 90.8 kg (11/02/16 2:21 PM) BSA Measured 1.89 m2 (11/02/16 2:21 PM) Body Mass Index Measured 37.79 kg/m2 (11/02/16 2:21 PM) 1Result Comment: This result was because the dosing weight was either not entered or it is>30 days old. This result is based off: Weight Measured November 02, 2016 14:21:00 PICKLE MAKER by Smaira Naidu CMA Problem List Condition Effective Dates Status Health [...] EA, 0 Refill(s), Start Date: 09/15/15 10:13:00 PICKLE MAKER Start Date: 09/15/15 Stop Date: 12/24/15 Status: CompletedAfrin 0.05% nasal spray 2 spray(s), Nasal, BID, # 15 mL, 0 Refill(s), Start Date: 08/15/16 11:50:00 PICKLE MAKER Start Date: 08/15/16 Stop Date: 08/16/16 Status: CompletedAfrin 0.05% nasal spray 2 spray(s), Nasal, BID, X 3 days, # 15 mL, 0 Refill(s), Start Date: 09/14/16 12: 50:00 PICKLE MAKER Start Date: 09/14/16 Stop Date: 09/17/16 Status: [...] HFA 0 Refill(s), Start Date: 11/11/14 11:01:00 PICKLE MAKER Start Date: 11/11/14 Stop Date: 09/05/15 Status: DiscontinuedALPRAZolam 1 mg oral tablet 1 tab(s), Oral, TID, PRN for anxiety, # 90 tab(s), 0 Refill(s), Start Date: 10/22 11:45:00 PICKLE MAKER Start Date: 09/06/16 Stop Date: 10/04/16 Status: CompletedALPRAZolam 1 mg oral tablet 1 tab(s), Oral, TID, PRN for anxiety, 0 Refill(s), Start Date: 09/06/16 11:44: 00 PICKLE MAKER Start Date: 09/06/16 Stop Date: 09/06/16 Status: DiscontinuedALPRAZolam 1 mg oral tablet 1 tab(s), Oral, TID, PRN for anxiety, # 90 tab(s), 0 Refill(s), Start Date: 13:28:00 PICKLE MAKER, Pharmacy: [id number] Start Date: 10/25/16 Status: OrderedALPRAZolam 1 mg oral tablet 1 tab(s), Oral, TID, PRN for anxiety, # 90 tab(s), 0 Refill(s), Start Date: 10:33:00 PICKLE MAKER, Pharmacy: [facility] Start Date: 10/04/16 Stop Date: 10/25/16 Status: CompletedAmbien 5 mg oral tablet 1 tab(s), Oral, HS, PRN for sleep, # 30 tab(s), 0 Refill(s), Start Date: 14:50:00 PICKLE MAKER, Pharmacy: [facility] [id number] Start Date: 09/27/16 Stop Date: 10/24/16 Status: Discontinuedamoxicillin 875 mg oral tablet 1 tab(s), Oral, BID, # 20 tab(s), 0 Refill(s), Start Date: 09/28/15 11:23:00 PICKLE MAKER , Pharmacy: [id number] Start Date: 09/28/15 Stop Date: 10/14/15 Status: Discontinuedamoxicillin-clavulanate 875 mg-125 mg oral tablet 1 tab(s), Oral, q12hr interval, X 10 days, # 20 tab(s), 0 Refill(s), Start Date : 08/29/16 23:25:00 PICKLE MAKER Start Date: 08/29/16 Stop Date: 09/06/16 Status: CompletedAtivan 0.5 mg oral tablet 1 tab(s), Oral, HS, # 15 tab(s), 0 Refill(s), Start Date: 09/15/15 11:13:00 PICKLE MAKER Start Date: 09/15/15 Stop Date: 09/23/15 Status: DiscontinuedAtivan 1 mg oral tablet 1 tab(s), Oral, TID, PRN for anxiety, # 15 tab(s), 0 Refill(s), Start Date: 1:43:00 PICKLE MAKER Start Date: 09/04/15 Stop Date: 09/23/15 Status: DiscontinuedAtivan 1 mg oral tablet 1 tab(s), Oral, BID, # 60 tab(s), 2 Refill(s), Start Date: 09/23/15 14:08:00 PICKLE MAKER , Pharmacy: [facility] Start Date: 09/23/15 Stop Date: 01/12/16 Status: CompletedAugmentin 875 mg-125 mg oral tablet 1 tab(s), Oral, q12hr, # 20 tab(s), 0 Refill(s), Start Date: 10/10/14 19:03:00 PICKLE MAKER Start Date: 10/10/14 Stop Date: 11/11/14 Status: CompletedAugmentin 875 mg-125 mg oral tablet 1 tab(s), Oral, q12hr, # 20 tab(s), 0 Refill(s), Start Date: 10/10/14 18:50:00 PICKLE MAKER Start Date: 10/10/14 Stop Date: 11/11/14 Status: [...] tab(s), 0 Refill(s), Start Date: 09/05/15 13:14:00 PICKLE MAKER Start Date: 09/05/15 Stop Date: 09/07/15 Status: CompletedbuPROPion 300 mg/24 hours (XL) oral tablet, extended release 1 tab(s), Oral, Daily, # 30 tab(s), 0 Refill(s), Start Date: 10/24/16 15:29:00 PICKLE MAKER, Pharmacy: [facility] Start Date: 10/24/16 Status: Orderedcefdinir 300 mg oral capsule 1 cap(s), Oral, q12hr, # 20 cap(s), 0 Refill(s), Start Date: 11/08/15 10:04:00 PICKLE MAKER, Pharmacy: [facility] Start Date: 11/08/15 Stop Date: [...] mL, 0 Refill(s), Start Date: 10/05/16 16:12:00 PICKLE MAKER Start Date: 10/05/16 Stop Date: 10/11/16 Status: CompletedCoumadin 5 mg oral tablet 1 tab(s), Oral, Daily, # 60 tab(s), 2 Refill(s), Start Date: 09/22/15 11:43:00 PICKLE MAKER, [facility] Start Date: 09/22/15 Stop Date: 09/27/15 Status: CompletedCoumadin 5 mg oral tablet See Instructions, 3 tabs every Saturday, Saturday, 1.5 tabs every Saturday and 2 tablets every Saturday, , Saturday and Saturday, # 60 tab(s), 2 Refill(s), Start Date: 09/27/15 14:06:08 PICKLE MAKER, Pharmacy: [facility] Start Date: 09/27/15 Stop Date: 10/26/15 Status: CompletedCoumadin 7.5 mg oral tablet 1 tab(s), Oral, Daily, # 30 tab(s), 0 Refill(s), Start Date: 09/15/15 10:14:00 PICKLE MAKER Start Date: 09/15/15 Stop Date: 09/22/15 Status: Discontinueddextromethorphan 15 mg oral capsule 1 cap(s), Oral, q4hr interval, # 180 cap(s), 0 Refill(s), Start Date: 08/29/16 14:44:00 PICKLE MAKER, Pharmacy: [facility], [place], [place] Start Date: 08/29/16 Stop Date: 09/27/16 Status: Completeddibucaine 1% topical ointment 1 mckinley, Topical, QID, PRN for itching, # 30 gm, 0 Refill(s), Start Date: 9:41:00 PICKLE MAKER, Pharmacy: [facility] [id number] Start Date: 09/24/16 Status: OrdereddiphenhydrAMINE 50 mg oral capsule 1 cap(s), Oral, QID, PRN for allergy symptoms, # 40 cap(s), 0 Refill(s), Start Date: 10/10/14 18:50:00 PICKLE MAKER Start Date: 10/10/14 Stop Date: 11/11/14 Status: DiscontinuedFlagyl 500 mg oral tablet 1 tab(s), Oral, q12hr, X 7 days, # 14 tab(s), 0 Refill(s), Start Date: 10/21/15 12:49:00 PICKLE MAKER Start Date: 10/21/15 Stop Date: 10/28/15 Status: [...] reconstitution 0 Refill(s), Start Date: 08/22/16 10:40:00 PICKLE MAKER Start Date: 08/22/16 Status: OrderedhydrOXYzine pamoate 25 mg oral capsule 1 cap(s), Oral, TID, PRN anxiety, # 90 cap(s), 0 Refill(s), Start Date: 15:57:00 PICKLE MAKER, Pharmacy: [facility] Start Date: 10/24/16 Status: Orderedibuprofen 800 mg oral tablet 1 tab(s), Oral, q6hr, # 40 tab(s), 0 Refill(s), Start Date: 08/21/16 13:04:00 PICKLE MAKER Start Date: 08/21/16 Status: Orderedlabetalol 300 mg oral tablet 2 tab(s), BID, 0 Refill(s), Start Date: 08/21/16 13:04:00 PICKLE MAKER Start Date: 08/21/16 Status: OrderedLexapro 10 mg oral tablet 1 tab(s), Oral, Daily, # 30 tab(s), 0 Refill(s), Start Date: 11/03/15 11:16:00 PICKLE MAKER, Pharmacy: [facility] Start Date: 11/03/15 Stop Date: 12/24/15 Status: CompletedLexapro 10 mg oral tablet 1 tab(s), Oral, Daily, # 30 tab(s), 0 Refill(s), Start Date: 09/15/15 10:13:00 PICKLE MAKER Start Date: 09/15/15 Stop Date: 11/03/15 Status: DiscontinuedLexapro 20 mg oral tablet 1 tab(s), Oral, Daily, # 30 tab(s), 0 Refill(s), Start Date: 10/24/16 15:30:09 PICKLE MAKER, Pharmacy: [facility] Start Date: 10/24/16 Status: OrderedLexapro 20 mg oral tablet 1 tab(s), Oral, Daily, # 30 tab(s), 0 Refill(s), Start Date: 09/27/16 14:50:28 PICKLE MAKER, Pharmacy: [facility] [id number] Start Date: 09/27/16 Stop Date: 10/24/16 Status: CompletedLexapro 20 mg oral tablet 1 tab(s), Oral, Daily, # 30 tab(s), 0 Refill(s), Start Date: 09/06/16 11:23:00 PICKLE MAKER, Pharmacy: [facility], [place], [place] Start Date: 09/06/16 Stop Date: 09/27/16 Status: Completedloratadine 10 mg oral tablet 1 tab(s), Oral, Daily, # 30 tab(s), 0 Refill(s), Start Date: 10/14/15 16:32:00 PICKLE MAKER, Pharmacy: [facility] Start Date: 10/14/15 Stop Date: 11/08/15 Status: DiscontinuedLovenox 0 Refill(s), Start Date: 08/21/16 13:05:00 PICKLE MAKER Start Date: 08/21/16 Stop Date: 08/21/16 Status: DiscontinuedLovenox 150 mg/mL injectable solution 1 mL, Subcutaneous, Daily, # 10 syringe(s), 0 Refill(s), Start Date: 08/21/16 13 :06:00 PICKLE MAKER Start Date: 08/21/16 Status: OrderedLovenox 80 mg/0.8 mL injectable solution 0.8 mL, Subcutaneous, q12hr interval, # 8 EA, 0 Refill(s), Start Date: 09/16/15 15:35:00 PICKLE MAKER, Pharmacy: [facility]97 Start Date: 09/16/15 Stop Date: 09/27/15 Status: CompletedLovenox 80 mg/0.8 mL injectable solution 80 mg, Subcutaneous, q12hr interval, 0 Refill(s), Start Date: 09/15/15 10:17:00 PICKLE MAKER Start Date: 09/15/15 Stop Date: 09/16/15 Status: DiscontinuedLovenox 80 mg/0.8 mL injectable solution 0.8 mL, Subcutaneous, q12hr interval, X 5 days, # 8 mL, 0 Refill(s), Start Date : 11/08/15 9:55:57 PICKLE MAKER, Pharmacy: [place] [id number] Start Date: 11/08/15 Stop Date: 11/08/15 Status: CompletedLovenox 80 mg/0.8 mL injectable solution 0.8 mL, Subcutaneous, q12hr interval, # 10 syringe(s), 0 Refill(s), Start Date: 11/08/15 11:24:16 PICKLE MAKER, Pharmacy: [place] [address] Start Date: 11/08/15 Stop Date: 08/15/16 Status: CompletedLovenox 80 mg/0.8 mL injectable solution 0.8 mL, Subcutaneous, q12hr interval, # 14 EA, 0 Refill(s), Start Date: 14:03:25 PICKLE MAKER, Pharmacy: [place] [address] Start Date: 09/27/15 Stop Date: 10/21/15 Status: CompletedMedrol Dosepak 4 mg oral tablet 1 packet(s), Oral, Per Package Label, Take full line each am, # 21 tab(s), 0 Refill(s), Start Date: 09/06/16 11:55:00 PICKLE MAKER, [place] [facility] [place] [place] Start Date: 09/06/16 Stop Date: 09/14/16 Status: Completedmeloxicam 15 mg oral tablet 1 tab(s), Oral, Daily, # 30 tab(s), 1 Refill(s), Start Date: 11/02/16 14:58:00 PICKLE MAKER, Pharmacy: [place] [address] Start Date: 11/02/16 Status: Orderedmetaxalone 800 mg oral tablet 1 tab(s), Oral, TID, # 42 tab(s), 1 Refill(s), Start Date: 09/23/15 14:15:00 PICKLE MAKER , Pharmacy: [facility] 797 Start Date: 09/23/15 Stop Date: 11/27/15 Status: CompletedMucinex DM Maximum Strength 60 mg-1200 mg oral tablet, extended release 1 tab(s), Oral, BID, X 10 days, # 20 tab(s), 0 Refill(s), Start Date: 10/10/14 19:04:00 PICKLE MAKER Start Date: 10/10/14 Stop Date: 10/20/14 Status: CompletedMucinex DM Maximum Strength 60 mg-1200 mg oral tablet, extended release 1 tab(s), Oral, BID, X 10 days, # 20 tab(s), 0 Refill(s), Start Date: 10/10/14 18:50:00 PICKLE MAKER Start Date: 10/10/14 Stop Date: 10/20/14 Status: CompletedMucinex DM Maximum Strength 60 mg-1200 mg oral tablet, extended release 1 tab(s), Oral, BID, X 10 days, # 20 tab(s), 0 Refill(s), Start Date: 10/14/15 15:53:41 PICKLE MAKER Start Date: 10/14/15 Stop Date: 10/14/15 Status: Discontinuedmultivitamin 1 tab(s), Oral, Daily, 0 Refill(s), Start Date: 11/27/15 14:20:00 PICKLE MAKER Start Date: 11/27/15 Status: OrderedNorco 5 mg-325 mg oral tablet 1 tab(s), Oral, q4hr, PRN for pain, # 12 tab(s), 0 Refill(s), Start Date: 16:09:00 PICKLE MAKER Start Date: 10/05/16 Stop Date: 10/08/16 Status: CompletedpredniSONE 20 mg oral tablet 2 tab(s), Oral, Daily, # 10 tab(s), 0 Refill(s), Start Date: 09/14/16 12:53:00 PICKLE MAKER Start Date: 09/14/16 Stop Date: 09/27/16 Status: CompletedpredniSONE 20 mg oral tablet 1 tab(s), Oral, Daily, # 5 tab(s), 0 Refill(s), Start Date: 02/03/16 21:18:00 CDT Start Date: 02/03/16 Stop Date: 05/05/16 Status: CompletedpredniSONE 20 mg oral tablet 3 tab(s), Oral, Daily, # 15 tab(s), 0 Refill(s), Start Date: 10/27/16 1:39:00 PICKLE MAKER Start Date: 10/27/16 Stop Date: 11/01/16 Status: OrderedpredniSONE 20 mg oral tablet 1 tab(s), Oral, Daily, # 10 tab(s), 0 Refill(s), Start Date: 10/02/16 15:09:00 PICKLE MAKER Start Date: 10/02/16 Stop Date: 10/23/16 Status: CompletedpredniSONE 50 mg oral tablet 1 tab(s), Oral, Daily, # 5 tab(s), 0 Refill(s), Start Date: 12/26/15 15:42:00 CDT Start Date: 12/26/15 Stop Date: 01/12/16 Status: CompletedpredniSONE 50 mg oral tablet 1 tab(s), Oral, Daily, # 5 tab(s), 0 Refill(s), Start Date: 09/04/15 1:42:00 PICKLE MAKER Start Date: 09/04/15 Stop Date: 09/15/15 Status: CompletedProAir HFA 90 mcg/inh inhalation aerosol 1 puff(s), Inhale, q4hr, PRN as needed for wheezing, # 9 gm, 0 Refill(s), Start Date: 03/15/16 22:22:00 CDT Start Date: 03/15/16 Stop Date: 08/15/16 Status: Completedpromethazine 12.5 mg oral tablet 1 tab(s), Oral, q6hr interval, PRN nausea, 0 Refill(s), Start Date: 08/21/16 15: 26:00 PICKLE MAKER Start Date: 08/21/16 Stop Date: 08/21/16 Status: Discontinuedpromethazine 12.5 mg oral tablet 1 tab(s), Oral, q6hr interval, PRN nausea, # 30 tab(s), 0 Refill(s), Start Date : 08/21/16 15:33:00 PICKLE MAKER Start Date: 08/21/16 Stop Date: 09/14/16 Status: Completedpromethazine 25 mg oral tablet 1 tab(s), Oral, q4hr, PRN cough and congestion, # 30 tab(s), 0 Refill(s), Start Date: 10/10/14 19:03:00 PICKLE MAKER Start Date: 10/10/14 Stop Date: 11/11/14 Status: DiscontinuedPromethazine VC with Codeine 5 mL, Oral, HS, 0 Refill(s), Start Date: 09/06/16 11:46:00 PICKLE MAKER Start Date: 09/06/16 Stop Date: 09/06/16 Status: DiscontinuedPromethazine VC with Codeine oral syrup 5 mL, Oral, q4hr, PRN for cough, X 10 days, # 240 mL, 0 Refill(s), Start Date: 09/14/16 13:07:00 PICKLE MAKER Start Date: 09/14/16 Stop Date: 09/24/16 Status: CompletedPromethazine VC with Codeine oral syrup 5 mL, Oral, HS, # 60 mL, 0 Refill(s), Start Date: 09/06/16 11:46:00 PICKLE MAKER Start Date: 09/06/16 Stop Date: 09/27/16 Status: [...] 210 mL, 0 Refill(s), Start Date: 15:13:00 PICKLE MAKER Start Date: 11/27/15 Stop Date: 12/04/15 Status: CompletedPromethazine with Codeine 6.25 mg-10 mg/5 mL oral syrup 5 mL, Oral, q4hr, PRN for cough, # 180 mL, 0 Refill(s), Start Date: 10/14/15 15: 56:23 PICKLE MAKER Start Date: 10/14/15 Stop Date: 10/28/15 Status: CompletedPromethazine with Codeine 6.25 mg-10 mg/5 mL oral syrup 5 mL, Oral, q4hr, PRN for cough, X 7 days, # 210 mL, 0 Refill(s), Start Date: 17:18:00 PICKLE MAKER Start Date: 10/26/15 Stop Date: 11/02/15 Status: CompletedPromethazine with Codeine 6.25 mg-10 mg/5 mL oral syrup 5 mL, Oral, q4hr, PRN for cough, # 180 mL, 0 Refill(s), Start Date: 11/08/15 10: 00:51 PICKLE MAKER Start Date: 11/08/15 Stop Date: 11/22/15 Status: Completedpromethazine-codeine mL, Oral, q4hr interval, 0 Refill(s), Start Date: 09/28/15 11:22:00 PICKLE MAKER Start Date: 09/28/15 Stop Date: 09/28/15 Status: Discontinuedpromethazine-codeine 6.25 mg-10 mg/5 mL oral syrup 5 mL, Oral, QID, X 14 days, # 180 mL, 0 Refill(s), Start Date: 09/28/15 11:23: 00 PICKLE MAKER Start Date: 09/28/15 Stop Date: 10/12/15 Status: [...] 90 mL, 0 Refill(s), Start Date: 1:39:00 PICKLE MAKER Start Date: 10/27/16 Stop Date: 10/30/16 Status: [...] mL, 0 Refill(s), Start Date: 08/29/16 23:26:00 PICKLE MAKER Start Date: 08/29/16 Stop Date: 09/03/16 Status: CompletedRestoril 15 mg oral capsule 1 cap(s), Oral, HS, # 30 cap(s), 0 Refill(s), Start Date: 10/24/16 15:30:00 PICKLE MAKER , Pharmacy: [facility] Start Date: 10/24/16 Status: OrderedRoxicodone 5 mg oral tablet 1 tab(s), Oral, q6hr, PRN for pain, # 15 tab(s), 0 Refill(s), Start Date: 8:00:00 PICKLE MAKER, Earliest Fill Date: 09/20/16, Pharmacy: [facility], [place], [place] Start Date: 09/20/16 Stop Date: 09/27/16 Status: CompletedRoxicodone 5 mg oral tablet 1 tab(s), Oral, q6hr, PRN for pain, # 120 tab(s), 0 Refill(s), Start Date: 08/21 15:30:00 PICKLE MAKER Start Date: 08/21/16 Stop Date: 09/18/16 Status: CompletedSkelaxin 800 mg oral tablet 1 tab(s), Oral, BID, # 10 tab(s), 0 Refill(s), Start Date: 09/06/15 13:50:00 PICKLE MAKER , [place] Start Date: 09/06/15 Stop Date: 09/15/15 [...] DUE, 0 Refill(s), Start Date: 10/26/15 17:13:00 PICKLE MAKER Start Date: 10/26/15 Stop Date: 11/08/15 Status: Discontinuedwarfarin 5 mg oral tablet 2 tab(s), Oral, Daily, # 60 tab(s), 0 Refill(s), Start Date: 11/08/15 9:58:00 PICKLE MAKER, Pharmacy: [facility] Start Date: 11/08/15 Stop Date: 11/27/15 Status: CompletedWellbutrin SR 100 mg/12 hours oral tablet, extended release 1 tab(s), Oral, BID, # 60 tab(s), 0 Refill(s), Start Date: 10/05/16 16:00:00 PICKLE MAKER Start Date: 10/05/16 Stop Date: 10/24/16 Status: DiscontinuedWellbutrin SR 100 mg/12 hours oral tablet, extended release See Instructions, Take 1 tab(s) Oral Qdaily for one week, then one tablet Oral BID, # 60 tab(s), 0 Refill(s), Start Date: 09/27/16 14:51:00 PICKLE MAKER, Pharmacy: [facility] [id number] Start Date: 09/27/16 Stop Date: 10/05/16 Status: CompletedXanax 0.5 mg oral tablet 1 tab(s), Oral, TID, PRN as needed for anxiety, # 90 tab(s), 0 Refill(s), Start Date: 08/21/16 15:36:00 PICKLE MAKER Start Date: 08/21/16 Stop Date: 09/27/16 Status: CompletedZithromax Z-Juan C 250 mg oral tablet 1 packet(s), Oral, Per Package Label, as directed on package labeling, # 6 tab(s ), 0 Refill(s), Start Date: 10/05/16 16:09:00 PICKLE MAKER Start Date: 10/05/16 Stop Date: 10/23/16 Status: CompletedZithromax Z-Juan C 250 mg oral tablet 1 packet(s), Oral, Per Package Label, as directed on package labeling, # 6 tab(s ), 0 Refill(s), Start Date: 01/22/16 18:21:00 CDT Start Date: 01/22/16 Stop Date: 05/05/16 Status: CompletedZyPREXA 10 mg oral tablet 1 tab(s), Oral, Daily, # 30 tab(s), 0 Refill(s), Start Date: 08/21/16 15:29:00 PICKLE MAKER Start Date: 08/21/16 Stop Date: 09/06/16 Status: DiscontinuedZyrTEC-D 5 mg-120 mg oral tablet, extended release 1 tab(s), Oral, BID, X 15 days, # 30 tab(s), 0 Refill(s), Start Date: 11/27/15 15:13:00 PICKLE MAKER Start Date: 11/27/15 Stop Date: 12/12/15 Status: [...]
--- OUTSIDE RECORDS SUMMARY | 2017-05-20 16:11 | XMS REPORT | Summary of Care ---
:1990 Author Organization [facility] Care Team Providers Name Role Phone Elkin Anderson Primary Care Physician Physician, Primary Care Primary Care Physician Unavailable Encounter Date(s): 02/13/17 - 02/13/17 [facility] [address] [place], [place] [id number] Discharge Diagnosis: Pleuritic chest pain Discharge Diagnosis: Acute bronchitis Discharge Disposition: 01 Discharged to Home or Self Care Attending Physician: MARGARETH Hayes Admitting Physician: MARGARETH Hayes Vital Signs Most recent to oldest 1 2 3 [Reference Range]: Temperature Temporal Artery 36.8 DegC [36.0-38.0 DegC] (02/13/17 7:42 AM) Heart Rate Monitored [60-100 75 bpm 73 bpm 75 bpm bpm] (02/13/17 10:00 AM) (02/13/17 9:30 AM) (02/13/17 9:00 AM) Respiratory Rate [12-20 18 br/min 18 br/min 18 br/min br/min] (02/13/17 10:00 AM) (02/13/17 9:30 AM) (02/13/17 9:00 AM) SpO2 [90-100 %] 98 % 96 % 99 % (02/13/17 10:00 AM) (02/13/17 9:30 AM) (02/13/17 9:00 AM) Blood Pressure [90-130/60-90 109/70mmHg 131/65mmHg 117/61mmHg mmHg] (02/13/17 10:00 AM) *HI* (02/13/17 9:00 AM) (02/13/17 9:30 AM) Mean Arterial Pressure Monitor 80 mmHg 75 mmHg 72 mmHg Measure (02/13/17 10:00 AM) (02/13/17 9:30 AM) (02/13/17 9:00 AM) Most recent to oldest [Reference Range]: 1 2 3 Weight Estimated 88.63 kg (02/13/17 7:42 AM) Weight Dosing 88.63 kg1 (02/13/17 7:49 AM) 1Result Comment: This result was because the dosing weight was either not entered or it is>30 days old. This result is based off: Weight Estimated February 13, 2017 07:42:00 CDT by Naomi Pineda RN Problem List Condition Effective Dates Status [...] EA, 0 Refill(s), Start Date: 09/15/15 10:13:00 FINAL ASSEMBLY INSPECTOR Start Date: 09/15/15 Stop Date: 12/24/15 Status: CompletedAfrin 0.05% nasal spray 2 spray(s), Nasal, BID, # 15 mL, 0 Refill(s), Start Date: 08/15/16 11:50:00 FINAL ASSEMBLY INSPECTOR Start Date: 08/15/16 Stop Date: 08/16/16 Status: CompletedAfrin 0.05% nasal spray 2 spray(s), Nasal, BID, X 3 days, # 15 mL, 0 Refill(s), Start Date: 09/14/16 12: 50:00 FINAL ASSEMBLY INSPECTOR Start Date: 09/14/16 Stop Date: 09/17/16 Status: [...] HFA 0 Refill(s), Start Date: 11/11/14 11:01:00 FINAL ASSEMBLY INSPECTOR Start Date: 11/11/14 Stop Date: 09/05/15 Status: DiscontinuedALPRAZolam 1 mg oral tablet 1 tab(s), Oral, TID, PRN for anxiety, # 90 tab(s), 1 Refill(s), Start Date: 11:46:18 CDT, Pharmacy: [id number] Start Date: 12/24/16 Status: OrderedALPRAZolam 1 mg oral tablet 1 tab(s), Oral, TID, PRN for anxiety, # 90 tab(s), 0 Refill(s), Start Date: 10/22 11:45:00 FINAL ASSEMBLY INSPECTOR Start Date: 09/06/16 Stop Date: 10/04/16 Status: CompletedALPRAZolam 1 mg oral tablet 1 tab(s), Oral, TID, PRN for anxiety, 0 Refill(s), Start Date: 09/06/16 11:44: 00 FINAL ASSEMBLY INSPECTOR Start Date: 09/06/16 Stop Date: 09/06/16 Status: DiscontinuedALPRAZolam 1 mg oral tablet 1 tab(s), Oral, TID, PRN for anxiety, # 90 tab(s), 0 Refill(s), Start Date: 13:28:00 FINAL ASSEMBLY INSPECTOR, Pharmacy: [id number] Start Date: 10/25/16 Stop Date: 11/26/16 Status: CompletedALPRAZolam 1 mg oral tablet 1 tab(s), Oral, TID, PRN for anxiety, # 90 tab(s), 0 Refill(s), Start Date: 10:33:00 FINAL ASSEMBLY INSPECTOR, Pharmacy: [id number] Start Date: 10/04/16 Stop Date: 10/25/16 Status: CompletedALPRAZolam 1 mg oral tablet 1 tab(s), Oral, TID, PRN for anxiety, # 90 tab(s), 0 Refill(s), Start Date: 13:19:09 FINAL ASSEMBLY INSPECTOR, Pharmacy: [id number] Start Date: 11/26/16 Stop Date: 12/24/16 Status: CompletedAmbien 5 mg oral tablet 1 tab(s), Oral, HS, PRN for sleep, # 30 tab(s), 0 Refill(s), Start Date: 14:50:00 FINAL ASSEMBLY INSPECTOR, Pharmacy: [facility] [id number] Start Date: 09/27/16 Stop Date: 10/24/16 Status: Discontinuedamoxicillin 875 mg oral tablet 1 tab(s), Oral, BID, # 20 tab(s), 0 Refill(s), Start Date: 09/28/15 11:23:00 FINAL ASSEMBLY INSPECTOR , Pharmacy: [id number] Start Date: 09/28/15 Stop Date: 10/14/15 Status: Discontinuedamoxicillin-clavulanate 875 mg-125 mg oral tablet 1 tab(s), Oral, q12hr interval, X 10 days, # 20 tab(s), 0 Refill(s), Start Date : 08/29/16 23:25:00 FINAL ASSEMBLY INSPECTOR Start Date: 08/29/16 Stop Date: 09/06/16 Status: CompletedAtivan 0.5 mg oral tablet 1 tab(s), Oral, HS, # 15 tab(s), 0 Refill(s), Start Date: 09/15/15 11:13:00 FINAL ASSEMBLY INSPECTOR Start Date: 09/15/15 Stop Date: 09/23/15 Status: DiscontinuedAtivan 1 mg oral tablet 1 tab(s), Oral, TID, PRN for anxiety, # 15 tab(s), 0 Refill(s), Start Date: 1:43:00 FINAL ASSEMBLY INSPECTOR Start Date: 09/04/15 Stop Date: 09/23/15 Status: DiscontinuedAtivan 1 mg oral tablet 1 tab(s), Oral, BID, # 60 tab(s), 2 Refill(s), Start Date: 09/23/15 14:08:00 FINAL ASSEMBLY INSPECTOR , Pharmacy: [id number] Start Date: 09/23/15 Stop Date: 01/12/16 Status: CompletedAugmentin 875 mg-125 mg oral tablet 1 tab(s), Oral, q12hr, # 20 tab(s), 0 Refill(s), Start Date: 10/10/14 19:03:00 FINAL ASSEMBLY INSPECTOR Start Date: 10/10/14 Stop Date: 11/11/14 Status: CompletedAugmentin 875 mg-125 mg oral tablet 1 tab(s), Oral, q12hr, # 20 tab(s), 0 Refill(s), Start Date: 10/10/14 18:50:00 FINAL ASSEMBLY INSPECTOR Start Date: 10/10/14 Stop Date: 11/11/14 Status: Completedazithromycin 250 mg oral tablet 1 packet(s), Oral, Daily, # 1 packet(s), 0 Refill(s), Start Date: 11/19/16 16:24 :00 FINAL ASSEMBLY INSPECTOR Start Date: 11/19/16 Stop Date: 11/26/16 Status: [...] tab(s), 0 Refill(s), Start Date: 09/05/15 13:14:00 FINAL ASSEMBLY INSPECTOR Special Instructions: Start taking this medicine tomorrow (09/06/15) Start Date: 09/05/15 Stop Date: 09/07/15 Status: CompletedbuPROPion 300 mg/24 hours (XL) oral tablet, extended release 1 tab(s), Oral, Daily, # 30 tab(s), 0 Refill(s), Start Date: 10/24/16 15:29:00 FINAL ASSEMBLY INSPECTOR, Pharmacy: [facility] Start Date: 10/24/16 Stop Date: 11/26/16 Status: CompletedbuPROPion 300 mg/24 hours (XL) oral tablet, extended release 1 tab(s), Oral, Daily, # 30 tab(s), 1 Refill(s), Start Date: 12/24/16 11:45:32 CDT, Pharmacy: [facility] Start Date: 12/24/16 Status: OrderedbuPROPion 300 mg/24 hours (XL) oral tablet, extended release 1 tab(s), Oral, Daily, # 30 tab(s), 0 Refill(s), Start Date: 11/26/16 13:19:29 FINAL ASSEMBLY INSPECTOR, Pharmacy: [id number] Start Date: 11/26/16 Stop Date: 12/24/16 Status: Completedcefdinir 300 mg oral capsule 1 cap(s), Oral, q12hr, # 20 cap(s), 0 Refill(s), Start Date: 11/08/15 10:04:00 FINAL ASSEMBLY INSPECTOR, Pharmacy: [id number] Start Date: 11/08/15 [...] mL, 0 Refill(s), Start Date: 10/05/16 16:12:00 FINAL ASSEMBLY INSPECTOR Start Date: 10/05/16 Stop Date: 10/11/16 Status: CompletedCoumadin 5 mg oral tablet 1 tab(s), Oral, Daily, # 60 tab(s), 2 Refill(s), Start Date: 09/22/15 11:43:00 FINAL ASSEMBLY INSPECTOR, Pharmacy: [id number] Start Date: 09/22/15 Stop Date: 09/27/15 Status: CompletedCoumadin 5 mg oral tablet See Instructions, 3 tabs every Saturday, Saturday, 1.5 tabs every Saturday and 2 tablets every Saturday, , Saturday and Saturday, # 60 tab(s), 2 Refill(s), Start Date: 09/27/15 14:06:08 FINAL ASSEMBLY INSPECTOR, Pharmacy: [facility] Special Instructions: 3 tabs every Saturday, Saturday, 1.5 tabs every Saturday and 2 tablets every Saturday, , Saturday and Saturday Start Date: 09/27/15 Stop Date: 10/26/15 Status: CompletedCoumadin 7.5 mg oral tablet 1 tab(s), Oral, Daily, # 30 tab(s), 0 Refill(s), Start Date: 09/15/15 10:14:00 FINAL ASSEMBLY INSPECTOR Start Date: 09/15/15 Stop Date: 09/22/15 Status: [...] cap(s), 0 Refill(s), Start Date: 08/29/16 14:44:00 FINAL ASSEMBLY INSPECTOR, [facility] [facility] [place] [place] Start Date: 08/29/16 Stop Date: 09/27/16 Status: Completeddibucaine 1% topical ointment 1 mckinley, Topical, QID, PRN for itching, # 30 gm, 0 Refill(s), Start Date: 9:41:00 FINAL ASSEMBLY INSPECTOR, Pharmacy: [id number] Start Date: 09/24/16 Stop Date: 12/27/16 Status: CompleteddiphenhydrAMINE 50 mg oral capsule 1 cap(s), Oral, QID, PRN for allergy symptoms, # 40 cap(s), 0 Refill(s), Start Date: 10/10/14 18:50:00 FINAL ASSEMBLY INSPECTOR Start Date: 10/10/14 Stop Date: 11/11/14 Status: DiscontinuedFlagyl 500 mg oral tablet 1 tab(s), Oral, q12hr, X 7 days, # 14 tab(s), 0 Refill(s), Start Date: 10/21/15 12:49:00 FINAL ASSEMBLY INSPECTOR Start Date: 10/21/15 Stop Date: 10/28/15 Status: [...] reconstitution 0 Refill(s), Start Date: 08/22/16 10:40:00 FINAL ASSEMBLY INSPECTOR Start Date: 08/22/16 Stop Date: 11/19/16 Status: CompletedHYDROcodone-acetaminophen 5 mg-325 mg oral tablet 1 tab(s), Oral, TID, PRN pain moderate 4-7, 0 Refill(s), Start Date: 02/13/17 8: 50:00 CDT Start Date: 02/13/17 Status: OrderedhydrOXYzine pamoate 25 mg oral capsule 1 cap(s), Oral, TID, PRN anxiety, # 90 cap(s), 0 Refill(s), Start Date: 15:57:00 FINAL ASSEMBLY INSPECTOR, Pharmacy: [facility] Start Date: 10/24/16 Stop Date: 11/26/16 Status: CompletedhydrOXYzine pamoate 25 mg oral capsule 1 cap(s), Oral, QID, PRN anxiety, # 120 cap(s), 1 Refill(s), Start Date: 11:46:45 CDT, Pharmacy: [id number] Start Date: 12/24/16 Status: OrderedhydrOXYzine pamoate 25 mg oral capsule 1 cap(s), Oral, QID, PRN anxiety, # 120 cap(s), 0 Refill(s), Start Date: 13:18:45 FINAL ASSEMBLY INSPECTOR, Pharmacy: [facility] Start Date: 11/26/16 Stop Date: 12/24/16 Status: Completedibuprofen 800 mg oral tablet 1 tab(s), Oral, TID, PRN for pain, # 30 tab(s), 0 Refill(s), Start Date: 16:25:00 FINAL ASSEMBLY INSPECTOR Start Date: 11/19/16 Stop Date: 02/13/17 Status: Completedibuprofen 800 mg oral tablet 1 tab(s), Oral, q6hr, # 40 tab(s), 0 Refill(s), Start Date: 08/21/16 13:04:00 FINAL ASSEMBLY INSPECTOR Start Date: 08/21/16 Stop Date: 11/19/16 Status: Completedlabetalol 300 mg oral tablet 2 tab(s), BID, 0 Refill(s), Start Date: 08/21/16 13:04:00 FINAL ASSEMBLY INSPECTOR Start Date: 08/21/16 Stop Date: 12/27/16 Status: CompletedLexapro 10 mg oral tablet 1 tab(s), Oral, Daily, # 30 tab(s), 0 Refill(s), Start Date: 11/03/15 11:16:00 FINAL ASSEMBLY INSPECTOR, Pharmacy: [id number] Start Date: 11/03/15 Stop Date: 12/24/15 Status: CompletedLexapro 10 mg oral tablet 1 tab(s), Oral, Daily, # 30 tab(s), 0 Refill(s), Start Date: 09/15/15 10:13:00 FINAL ASSEMBLY INSPECTOR Start Date: 09/15/15 Stop Date: 11/03/15 Status: DiscontinuedLexapro 20 mg oral tablet 1 tab(s), Oral, Daily, # 30 tab(s), 0 Refill(s), Start Date: 10/24/16 15:30:09 FINAL ASSEMBLY INSPECTOR, Pharmacy: [id number] Start Date: 10/24/16 Stop Date: 11/26/16 Status: CompletedLexapro 20 mg oral tablet 1 tab(s), Oral, Daily, # 30 tab(s), 0 Refill(s), Start Date: 09/27/16 14:50:28 FINAL ASSEMBLY INSPECTOR, [facility] [id number] Start Date: 09/27/16 Stop Date: 10/24/16 Status: CompletedLexapro 20 mg oral tablet 1 tab(s), Oral, Daily, # 30 tab(s), 0 Refill(s), Start Date: 09/06/16 11:23:00 FINAL ASSEMBLY INSPECTOR, [place] Start Date: 09/06/16 Stop Date: 09/27/16 Status: CompletedLexapro 20 mg oral tablet 1 tab(s), Oral, Daily, # 30 tab(s), 1 Refill(s), Start Date: 12/24/16 11:46:00 CDT, Pharmacy: [id number] Start Date: 12/24/16 Status: OrderedLexapro 20 mg oral tablet 1 tab(s), Oral, Daily, # 30 tab(s), 0 Refill(s), Start Date: 11/26/16 13:19:16 FINAL ASSEMBLY INSPECTOR, Pharmacy: [id number] Start Date: 11/26/16 Stop Date: 12/24/16 Status: Completedloratadine 10 mg oral tablet 1 tab(s), Oral, Daily, # 30 tab(s), 0 Refill(s), Start Date: 10/14/15 16:32:00 FINAL ASSEMBLY INSPECTOR, Pharmacy: [id number] Start Date: 10/14/15 Stop Date: 11/08/15 Status: DiscontinuedLovenox 0 Refill(s), Start Date: 08/21/16 13:05:00 FINAL ASSEMBLY INSPECTOR Start Date: 08/21/16 Stop Date: 08/21/16 Status: DiscontinuedLovenox 150 mg/mL injectable solution 1 mL, Subcutaneous, Daily, # 10 syringe(s), 0 Refill(s), Start Date: 08/21/16 13 :06:00 FINAL ASSEMBLY INSPECTOR Start Date: 08/21/16 Status: OrderedLovenox 80 mg/0.8 mL injectable solution 0.8 mL, Subcutaneous, q12hr interval, # 8 EA, 0 Refill(s), Start Date: 09/16/15 15:35:00 FINAL ASSEMBLY INSPECTOR, Pharmacy: [id number] Start Date: 09/16/15 Stop Date: 09/27/15 Status: CompletedLovenox 80 mg/0.8 mL injectable solution 80 mg, Subcutaneous, q12hr interval, 0 Refill(s), Start Date: 09/15/15 10:17:00 FINAL ASSEMBLY INSPECTOR Start Date: 09/15/15 Stop Date: 09/16/15 Status: DiscontinuedLovenox 80 mg/0.8 mL injectable solution 0.8 mL, Subcutaneous, q12hr interval, X 5 days, # 8 mL, 0 Refill(s), Start Date : 11/08/15 9:55:57 FINAL ASSEMBLY INSPECTOR, Pharmacy: [facility] Start Date: 11/08/15 Stop Date: 11/08/15 Status: CompletedLovenox 80 mg/0.8 mL injectable solution 0.8 mL, Subcutaneous, q12hr interval, # 10 syringe(s), 0 Refill(s), Start Date: 11/08/15 11:24:16 FINAL ASSEMBLY INSPECTOR, Pharmacy: [facility] Start Date: 11/08/15 Stop Date: 08/15/16 Status: CompletedLovenox 80 mg/0.8 mL injectable solution 0.8 mL, Subcutaneous, q12hr interval, # 14 EA, 0 Refill(s), Start Date: 14:03:25 FINAL ASSEMBLY INSPECTOR, Pharmacy: [facility] Start Date: 09/27/15 Stop Date: 10/21/15 Status: CompletedMedrol Dosepak 4 mg oral tablet 1 packet(s), Oral, Per Package Label, Take full line each am, # 21 tab(s), 0 Refill(s), Start Date: 09/06/16 11:55:00 FINAL ASSEMBLY INSPECTOR, Pharmacy: [facility] [place], [place] Special Instructions: Take full line each am Start Date: 09/06/16 Stop Date: 09/14/16 Status: Completedmeloxicam 15 mg oral tablet 1 tab(s), Oral, Daily, # 30 tab(s), 1 Refill(s), Start Date: 11/02/16 14:58:00 FINAL ASSEMBLY INSPECTOR, Pharmacy: [id number] Start Date: 11/02/16 Stop Date: 12/27/16 Status: Completedmetaxalone 800 mg oral tablet 1 tab(s), Oral, TID, # 42 tab(s), 1 Refill(s), Start Date: 09/23/15 14:15:00 FINAL ASSEMBLY INSPECTOR , Pharmacy: [id number] Start Date: 09/23/15 Stop Date: 11/27/15 Status: CompletedMucinex DM Maximum Strength 60 mg-1200 mg oral tablet, extended release 1 tab(s), Oral, BID, X 10 days, # 20 tab(s), 0 Refill(s), Start Date: 10/10/14 19:04:00 FINAL ASSEMBLY INSPECTOR Start Date: 10/10/14 Stop Date: 10/20/14 Status: CompletedMucinex DM Maximum Strength 60 mg-1200 mg oral tablet, extended release 1 tab(s), Oral, BID, X 10 days, # 20 tab(s), 0 Refill(s), Start Date: 10/10/14 18:50:00 FINAL ASSEMBLY INSPECTOR Start Date: 10/10/14 Stop Date: 10/20/14 Status: CompletedMucinex DM Maximum Strength 60 mg-1200 mg oral tablet, extended release 1 tab(s), Oral, BID, X 10 days, # 20 tab(s), 0 Refill(s), Start Date: 10/14/15 15:53:41 FINAL ASSEMBLY INSPECTOR Start Date: 10/14/15 Stop Date: 10/14/15 Status: Discontinuedmultivitamin 1 tab(s), Oral, Daily, 0 Refill(s), Start Date: 11/27/15 14:20:00 FINAL ASSEMBLY INSPECTOR Start Date: 11/27/15 Status: OrderedNorco 5 mg-325 mg oral tablet 1 tab(s), Oral, q4hr, PRN for pain, # 12 tab(s), 0 Refill(s), Start Date: 16:09:00 FINAL ASSEMBLY INSPECTOR Start Date: 10/05/16 Stop Date: 10/08/16 Status: Completedoxycodone-acetaminophen 5mg-325mg oral tablet 1 tab(s), Oral, BID, PRN pain moderate 4-7, 0 Refill(s), Start Date: 02/13/17 8: 51:00 CDT Start Date: 02/13/17 Status: OrderedpredniSONE 20 mg oral tablet 2 tab(s), Oral, Daily, X 5 days, # 10 tab(s), 0 Refill(s), Start Date: 02/13/17 9:43:00 CDT Start Date: 02/13/17 Stop Date: 02/18/17 Status: OrderedpredniSONE 20 mg oral tablet 2 tab(s), Oral, Daily, # 10 tab(s), 0 Refill(s), Start Date: 09/14/16 12:53:00 FINAL ASSEMBLY INSPECTOR Start Date: 09/14/16 Stop Date: 09/27/16 Status: CompletedpredniSONE 20 mg oral tablet 1 tab(s), Oral, Daily, # 5 tab(s), 0 Refill(s), Start Date: 02/03/16 21:18:00 CDT Start Date: 02/03/16 Stop Date: 05/05/16 Status: CompletedpredniSONE 20 mg oral tablet 3 tab(s), Oral, Daily, # 15 tab(s), 0 Refill(s), Start Date: 10/27/16 1:39:00 FINAL ASSEMBLY INSPECTOR Start Date: 10/27/16 Stop Date: 11/26/16 Status: CompletedpredniSONE 20 mg oral tablet 1 tab(s), Oral, Daily, # 10 tab(s), 0 Refill(s), Start Date: 10/02/16 15:09:00 FINAL ASSEMBLY INSPECTOR Start Date: 10/02/16 Stop Date: 10/23/16 Status: CompletedpredniSONE 50 mg oral tablet 1 tab(s), Oral, Daily, # 5 tab(s), 0 Refill(s), Start Date: 12/26/15 15:42:00 CDT Start Date: 12/26/15 Stop Date: 01/12/16 Status: CompletedpredniSONE 50 mg oral tablet 1 tab(s), Oral, Daily, # 5 tab(s), 0 Refill(s), Start Date: 09/04/15 1:42:00 FINAL ASSEMBLY INSPECTOR Start Date: 09/04/15 Stop Date: 09/15/15 Status: CompletedProAir HFA 90 mcg/inh inhalation aerosol 1 puff(s), Inhale, q4hr, PRN as needed for wheezing, # 9 gm, 0 Refill(s), Start Date: 03/15/16 22:22:00 CDT Start Date: 03/15/16 Stop Date: 08/15/16 Status: Completedpromethazine 12.5 mg oral tablet 1 tab(s), Oral, q6hr interval, PRN nausea, 0 Refill(s), Start Date: 08/21/16 15: 26:00 FINAL ASSEMBLY INSPECTOR Start Date: 08/21/16 Stop Date: 08/21/16 Status: Discontinuedpromethazine 12.5 mg oral tablet 1 tab(s), Oral, q6hr interval, PRN nausea, # 30 tab(s), 0 Refill(s), Start Date : 08/21/16 15:33:00 FINAL ASSEMBLY INSPECTOR Start Date: 08/21/16 Stop Date: 09/14/16 Status: Completedpromethazine 25 mg oral tablet 1 tab(s), Oral, q4hr, PRN cough and congestion, # 30 tab(s), 0 Refill(s), Start Date: 10/10/14 19:03:00 FINAL ASSEMBLY INSPECTOR Start Date: 10/10/14 Stop Date: 11/11/14 Status: Discontinuedpromethazine 6.25 mg/5 mL oral syrup 5 mL, Oral, BID, PRN for nausea/vomiting, Start Date: 02/13/17 8:50:00 CDT Start Date: 02/13/17 Status: OrderedPromethazine VC with Codeine 5 mL, Oral, HS, 0 Refill(s), Start Date: 09/06/16 11:46:00 FINAL ASSEMBLY INSPECTOR Start Date: 09/06/16 Stop Date: 09/06/16 Status: DiscontinuedPromethazine VC with Codeine oral syrup 5 mL, Oral, q4hr, PRN for cough, X 10 days, # 240 mL, 0 Refill(s), Start Date: 09/14/16 13:07:00 FINAL ASSEMBLY INSPECTOR Start Date: 09/14/16 Stop Date: 09/24/16 Status: CompletedPromethazine VC with Codeine oral syrup 5 mL, Oral, HS, # 60 mL, 0 Refill(s), Start Date: 09/06/16 11:46:00 FINAL ASSEMBLY INSPECTOR Start Date: 09/06/16 Stop Date: 09/27/16 Status: [...] 210 mL, 0 Refill(s), Start Date: 15:13:00 FINAL ASSEMBLY INSPECTOR Start Date: 11/27/15 Stop Date: 12/04/15 Status: CompletedPromethazine with Codeine 6.25 mg-10 mg/5 mL oral syrup 5 mL, Oral, q4hr, PRN for cough, X 3 days, # 60 mL, 0 Refill(s), Start Date: 07/23 9:56:00 CDT Start Date: 02/13/17 Stop Date: 02/16/17 Status: OrderedPromethazine with Codeine 6.25 mg-10 mg/5 mL oral syrup 5 mL, Oral, q4hr, X 4 days, # 120 mL, 0 Refill(s), Start Date: 11/19/16 16:24: 00 FINAL ASSEMBLY INSPECTOR Start Date: 11/19/16 Stop Date: 11/23/16 Status: CompletedPromethazine with Codeine 6.25 mg-10 mg/5 mL oral syrup 5 mL, Oral, q4hr, PRN for cough, # 180 mL, 0 Refill(s), Start Date: 10/14/15 15: 56:23 FINAL ASSEMBLY INSPECTOR Start Date: 10/14/15 Stop Date: 10/28/15 Status: CompletedPromethazine with Codeine 6.25 mg-10 mg/5 mL oral syrup 5 mL, Oral, q4hr, PRN for cough, X 7 days, # 210 mL, 0 Refill(s), Start Date: 17:18:00 FINAL ASSEMBLY INSPECTOR Start Date: 10/26/15 Stop Date: 11/02/15 Status: CompletedPromethazine with Codeine 6.25 mg-10 mg/5 mL oral syrup 5 mL, Oral, q4hr, PRN for cough, # 180 mL, 0 Refill(s), Start Date: 11/08/15 10: 00:51 FINAL ASSEMBLY INSPECTOR Start Date: 11/08/15 Stop Date: 11/22/15 Status: Completedpromethazine-codeine mL, Oral, q4hr interval, 0 Refill(s), Start Date: 09/28/15 11:22:00 FINAL ASSEMBLY INSPECTOR Start Date: 09/28/15 Stop Date: 09/28/15 Status: Discontinuedpromethazine-codeine 6.25 mg-10 mg/5 mL oral syrup 5 mL, Oral, QID, X 14 days, # 180 mL, 0 Refill(s), Start Date: 09/28/15 11:23: 00 FINAL ASSEMBLY INSPECTOR Start Date: 09/28/15 Stop Date: 10/12/15 Status: [...] 90 mL, 0 Refill(s), Start Date: 1:39:00 FINAL ASSEMBLY INSPECTOR Start Date: 10/27/16 Stop Date: 10/30/16 Status: [...] mL, 0 Refill(s), Start Date: 08/29/16 23:26:00 FINAL ASSEMBLY INSPECTOR Start Date: 08/29/16 Stop Date: 09/03/16 Status: CompletedRestoril 15 mg oral capsule 1 cap(s), Oral, HS, # 30 cap(s), 0 Refill(s), Start Date: 10/24/16 15:30:00 FINAL ASSEMBLY INSPECTOR , Pharmacy: [id number] Start Date: 10/24/16 Stop Date: 11/26/16 Status: CompletedRestoril 15 mg oral capsule 1 cap(s), Oral, HS, # 30 cap(s), 1 Refill(s), Start Date: 12/24/16 11:45:42 CDT , Pharmacy: [id number] Start Date: 12/24/16 Status: OrderedRestoril 15 mg oral capsule 1 cap(s), Oral, HS, # 30 cap(s), 0 Refill(s), Start Date: 11/26/16 13:19:22 FINAL ASSEMBLY INSPECTOR , Pharmacy: [id number] Start Date: 11/26/16 Stop Date: 12/24/16 Status: CompletedRoxicodone 5 mg oral tablet 1 tab(s), Oral, q6hr, PRN for pain, # 15 tab(s), 0 Refill(s), Start Date: 8:00:00 FINAL ASSEMBLY INSPECTOR, Earliest Fill Date: 09/20/16, Pharmacy: [facility], [place], [place] Start Date: 09/20/16 Stop Date: 09/27/16 Status: CompletedRoxicodone 5 mg oral tablet 1 tab(s), Oral, q6hr, PRN for pain, # 120 tab(s), 0 Refill(s), Start Date: 08/21 15:30:00 FINAL ASSEMBLY INSPECTOR Start Date: 08/21/16 Stop Date: 09/18/16 Status: CompletedSkelaxin 800 mg oral tablet 1 tab(s), Oral, BID, # 10 tab(s), 0 Refill(s), Start Date: 09/06/15 13:50:00 FINAL ASSEMBLY INSPECTOR , [place] Start Date: 09/06/15 Stop Date: 09/15/15 Status: CompletedTessalon 200 mg oral capsule 1 cap(s), Oral, TID, # 21 cap(s), 0 Refill(s), Start Date: 12/24/15 13:11:00 CDT Start Date: 12/24/15 Stop Date: 01/12/16 Status: CompletedtraMADol 50 mg oral tablet 1 tab(s), Oral, q4hr, PRN for pain, # 4 tab(s), 0 Refill(s), Start Date: 16:25:00 FINAL ASSEMBLY INSPECTOR Start Date: 11/19/16 Stop Date: 11/26/16 Status: CompletedTussionex PennKinetic 10 mg-8 mg/5 mL oral suspension, extended release 5 mL, Oral, q12hr, PRN for cold symptoms, # 50 mL, 0 Refill(s), Start Date: 04/21 15:42:00 CDT Start Date: 01/12/16 Stop Date: 01/16/16 Status: Completedwarfarin 5 mg oral tablet 2 tab(s), Oral, Daily, INR DUE, 0 Refill(s), Start Date: 10/26/15 17:13:00 FINAL ASSEMBLY INSPECTOR Special Instructions: INR DUE Start Date: 10/26/15 Stop Date: 11/08/15 Status: Discontinuedwarfarin 5 mg oral tablet 2 tab(s), Oral, Daily, # 60 tab(s), 0 Refill(s), Start Date: 11/08/15 9:58:00 [employer], Pharmacy: [id number] Start Date: 11/08/15 Stop Date: 11/27/15 Status: CompletedWellbutrin SR 100 mg/12 hours oral tablet, extended release 1 tab(s), Oral, BID, # 60 tab(s), 0 Refill(s), Start Date: 10/05/16 16:00:00 [employer] Start Date: 10/05/16 Stop Date: 10/24/16 Status: DiscontinuedWellbutrin SR 100 mg/12 hours oral tablet, extended release See Instructions, Take 1 tab(s) Oral Qdaily for one week, then one tablet Oral BID, # 60 tab(s), 0 Refill(s), Start Date: 09/27/16 14:51:00 [employer], Pharmacy: [facility] [id number] Special Instructions: Take 1 tab(s) Oral Qdaily for one week, then one tablet Oral BID Start Date: 09/27/16 Stop Date: 10/05/16 Status: CompletedXanax 0.5 mg oral tablet 1 tab(s), Oral, TID, PRN as needed for anxiety, # 90 tab(s), 0 Refill(s), Start Date: 08/21/16 15:36:00 [employer] Start Date: 08/21/16 Stop Date: 09/27/16 Status: CompletedZithromax Z-Juan C 250 mg oral tablet 1 packet(s), Oral, Per Package Label, as directed on package labeling, # 6 tab(s ), 0 Refill(s), Start Date: 10/05/16 16:09:00 [employer] INS[employer] Special Instructions: as directed on package labeling [...] tab(s), 0 Refill(s), Start Date: 08/21/16 15:29:00 [employer] Start Date: 08/21/16 Stop Date: 09/06/16 Status: DiscontinuedZyrTEC-D 5 mg-120 mg oral tablet, extended release 1 tab(s), Oral, BID, X 15 days, # 30 tab(s), 0 Refill(s), Start Date: 11/27/15 15:13:00 [employer] Start Date: 11/27/15 Stop Date: 12/12/15 Status: Completed Results Patient Viewable Results Most recent to oldest [Reference Range]: 1 2 WBC [4.8-10.8 thou/mm3] 4.8 thou/mm3 (02/13/17 8:08 AM) RBC [4.20-5.40 Mil/mm3] 4.27 Mil/mm3 (02/13/17 8:08 AM) Hgb [12.0-16.0 g/dL] 11.3 g/dL *LOW* (02/13/17 8:08 AM) Hct [37.0-47.0 %] 35.1 % *LOW* (02/13/17 8:08 AM) MCV [80.0-94.0 fL] 82.2 fL (02/13/17 8:08 AM) MCH [25.0-38.0 pg/cell] 26.5 pg/cell (02/13/17 8:08 AM) MCHC [31.0-37.0 g/dL] 32.2 g/dL (02/13/17 8:08 AM) RDW [1.0-48.0 fL] 40.1 fL (02/13/17 8:08 AM) Platelet [130-400 thou/mm3] 217 thou/mm3 (02/13/17 8:08 AM) Neutrophils % Auto [50.0-75.0 %] 54.7 % (02/13/17 8:08 AM) Immature Granulocyte Auto [0.1-2.0 %] 0.2 % (02/13/17 8:08 AM) Lymphocytes % Auto [15.0-41.0 %] 35.9 % (02/13/17 8:08 AM) Monocytes % Auto [2.0-10.0 %] 6.7 % (02/13/17 8:08 AM) Eosinophils % Auto [0.0-6.0 %] 2.1 % (02/13/17:08 AM) Basophil % Auto [0.0-1.0 %] 0.4 % (02/13/17:08 AM) Neutrophils Absolute [1.5-5.9 thou/mm3] 2.6 thou/mm3 (02/13/17 8:08 AM) Immature Gran Absolute [0.01-0.03 thou/mm3] 0.01 thou/mm3 (02/13/17:08 AM) Lymphocytes Absolute [1.5-4.0 thou/mm3] 1.7 thou/mm3 (02/13/17:08 AM) Monocytes Absolute [0.0-0.9 thou/mm3] 0.3 thou/mm3 (02/13/17 8:08 AM) Eosinophil Absolute [0.0-0.7 thou/mm3] 0.1 thou/mm3 (02/13/17 8:08 AM) Basophil Absolute [0.0-0.2 thou/mm3] 0.0 thou/mm3 (02/13/17 8:08 AM) INR [0.9-1.1 INR] 1.0 INR (02/13/17:08 AM) PTT [22.7-35.2 seconds] 28.6 seconds (02/13/17 8:08 AM) D-Dimer [0.00-0.49 mcgFEU/mL] 0.46 mcgFEU/mL1 (02/13/17 8:08 AM) Sodium Lvl [135-144 mEq/L] 143 mEq/L (02/13/17 8:08 AM) Potassium Lvl [3.3-4.8 mEq/L] 3.5 mEq/L (02/13/17 8:08 AM) Chloride Lvl [98-107 mEq/L] 106 mEq/L (02/13/17 8:08 AM) Bicarbonate Lvl [22-30 mmol/L] 25 mmol/L (02/13/17 8:08 AM) Anion Gap [10.0-20.0] 15.5 (02/13/17 8:08 AM) Glucose Lvl [70-108 mg/dL] 96 mg/dL (02/13/17 8:08 AM) BUN [7-21 mg/dL] 9 mg/dL (02/13/17 8:08 AM) Creatinine Lvl [0.50-1.20 mg/dL] 0.52 mg/dL (02/13/17 8:08 AM) BUN/Creat Ratio 17.3 *NA* (02/13/17 8:08 AM) eGFR AA [>=60] >60 (02/13/17 8:08 AM) eGFR ALIS [>=60] >60 (02/13/17:08 AM) Calcium Lvl [8.6-10.2 mg/dL] 8.9 mg/dL (02/13/17 8:08 AM) Total Protein [6.4-8.3 g/dL] 6.9 g/dL (02/13/17 8:08 AM) Albumin Lvl [3.5-5.2 g/dL] 4.4 g/dL (02/13/17 8:08 AM) Globulin 2.5 *NA* (02/13/17 8:08 AM) A/G Ratio [0.9-1.8] 1.8 (02/13/17 8:08 AM) Bilirubin Total [0.1-1.0 mg/dL] 0.5 mg/dL (02/13/17 8:08 AM) Alkaline Phosphatase [39-129 unit/L] 103 unit/L (02/13/17 8:08 AM) AST [0-39 unit/L] 13 unit/L (02/13/17 8:08 AM) ALT [0-40 unit/L] 9 unit/L (02/13/17 8:08 AM) Troponin-I [0.00-0.04 ng/mL] <0.01 ng/mL (02/13/17 8:08 AM) Estimated Creatinine Clearance 167.44 mL/min 114.56 mL/min (02/13/17 8:35 AM) (02/13/17 7:49 AM) 1Result Comment: In low risk patients, normal D-Dimer test results (< 0.50 ug FEU/mL) indicate a low probability for deep venous thrombosis/pulmonary embolism. Immunizations No data available for this section Procedures Procedure Date Related Diagnosis Body Site Extraction of wisdom tooth 2009 Surgical procedure1 2008 Tonsillectomy 2002 1left knee surg. due to torn cartilage Social History No data available for this section Assessment and Plan No data available for this section
--- OUTSIDE RECORDS SUMMARY | 2017-05-20 16:12 | XMS REPORT | Summary of Care ---
:1990 Author Organization [facility] Care Team Providers Name Role Phone Elkin Anderson Primary Care Physician Physician, Primary Care Primary Care Physician Unavailable Encounter Date(s): 03/20/17 - 03/20/[address] [id number] Discharge Diagnosis: Allergic rhinitis Discharge Disposition: 01 Discharged to Home or Self Care Attending Physician: ROXANNA Campbell Admitting Physician: ROXANNA Campbell Vital Signs Most recent to oldest [Reference Range]: 1 Temperature Temporal Artery [36.0-38.0 DegC] 36.6 DegC (03/20/17 10:32 AM) Heart Rate Monitored [60-100 bpm] 82 bpm (03/20/17 10:32 AM) Respiratory Rate [12-20 br/min] 20 br/min (03/20/17 10:32 AM) SpO2 [90-100 %] 98 % (03/20/17 10:32 AM) Blood Pressure [90-130/60-90 mmHg] 120/70mmHg (03/20/17 10:32 AM) Most recent to oldest [Reference Range]: 1 Weight Estimated 88.63 kg (03/20/17 10:32 AM) Weight Dosing 88.63 kg1 (03/20/17 10:36 AM) 1Result Comment: This result was because the dosing weight was either not entered or it is>30 days old. This result is based off: Weight Estimated March 20, 2017 10:32:00 CDT by Naomi Pineda RN Problem List [...] EA, 0 Refill(s), Start Date: 09/15/15 10:13:00 MANAGER DOCUMENTATION Start Date: 09/15/15 Stop Date: 12/24/15 Status: CompletedAfrin 0.05% nasal spray 2 spray(s), Nasal, BID, # 15 mL, 0 Refill(s), Start Date: 08/15/16 11:50:00 MANAGER DOCUMENTATION Start Date: 08/15/16 Stop Date: 08/16/16 Status: CompletedAfrin 0.05% nasal spray 2 spray(s), Nasal, BID, X 3 days, # 15 mL, 0 Refill(s), Start Date: 09/14/16 12: 50:00 MANAGER DOCUMENTATION Start Date: 09/14/16 Stop Date: 09/17/16 Status: [...] 02:00 CDT Start Date: 05/05/16 Stop Date: 8/4/16 Status: Completedalbuterol 90 mcg/inh inhalation aerosol 2 puff(s), Inhale, q4hr, PRN for wheezing, X 14 days, # 18 gm, 0 Refill(s), Start Date: 02/13/17 9:43:00 CDT Start Date: 02/13/17 Stop Date: 02/27/17 Status: Completedalbuterol 90 mcg/inh inhalation powder 2 puff(s), Inhale, q4hr interval, # 1 cartridge(s), 0 Refill(s), Start Date: 13:03:00 CDT Start Date: 07/30/15 Status: Orderedalbuterol HFA 0 Refill(s), Start Date: 11/11/14 11:01:00 MANAGER DOCUMENTATION Start Date: 11/11/14 Stop Date: 09/05/15 Status: DiscontinuedALPRAZolam 1 mg oral tablet 1 tab(s), Oral, TID, PRN for anxiety, # 90 tab(s), 1 Refill(s), Start Date: 11:46:18 CDT, Pharmacy: [id number] Start Date: 12/24/16 Stop Date: 02/25/17 Status: CompletedALPRAZolam 1 mg oral tablet 1 tab(s), Oral, TID, PRN for anxiety, # 90 tab(s), 0 Refill(s), Start Date: 10/22 11:45:00 MANAGER DOCUMENTATION Start Date: 09/06/16 Stop Date: 10/04/16 Status: CompletedALPRAZolam 1 mg oral tablet 1 tab(s), Oral, TID, PRN for anxiety, 0 Refill(s), Start Date: 09/06/16 11:44: 00 MANAGER DOCUMENTATION Start Date: 09/06/16 Stop Date: 09/06/16 Status: DiscontinuedALPRAZolam 1 mg oral tablet 1 tab(s), Oral, TID, PRN for anxiety, # 90 tab(s), 0 Refill(s), Start Date: 13:28:00 MANAGER DOCUMENTATION, Pharmacy: [id number] Start Date: 10/25/16 Stop Date: 11/26/16 Status: CompletedALPRAZolam 1 mg oral tablet 1 tab(s), Oral, TID, PRN for anxiety, # 90 tab(s), 0 Refill(s), Start Date: 10:33:00 MANAGER DOCUMENTATION, Pharmacy: [facility] Start Date: 10/04/16 Stop Date: 10/25/16 Status: CompletedALPRAZolam 1 mg oral tablet 1 tab(s), Oral, TID, PRN for anxiety, # 90 tab(s), 0 Refill(s), Start Date: 15:10:00 CDT, Pharmacy: [place] [id number] Start Date: 02/25/17 Status: OrderedALPRAZolam 1 mg oral tablet 1 tab(s), Oral, TID, PRN for anxiety, # 90 tab(s), 0 Refill(s), Start Date: 13:19:09 MANAGER DOCUMENTATION, Pharmacy: [place] [id number] Start Date: 11/26/16 Stop Date: 12/24/16 Status: CompletedAmbien 5 mg oral tablet 1 tab(s), Oral, HS, PRN for sleep, # 30 tab(s), 0 Refill(s), Start Date: 14:50:00 MANAGER DOCUMENTATION, Pharmacy: [facility] [id number] Start Date: 09/27/16 Stop Date: 10/24/16 Status: Discontinuedamoxicillin 875 mg oral tablet 1 tab(s), Oral, BID, # 20 tab(s), 0 Refill(s), Start Date: 09/28/15 11:23:00 MANAGER DOCUMENTATION , Pharmacy: [id number] Start Date: 09/28/15 Stop Date: 10/14/15 Status: Discontinuedamoxicillin-clavulanate 875 mg-125 mg oral tablet 1 tab(s), Oral, q12hr interval, X 10 days, # 20 tab(s), 0 Refill(s), Start Date : 08/29/16 23:25:00 MANAGER DOCUMENTATION Start Date: 08/29/16 Stop Date: 09/06/16 Status: CompletedAtivan 0.5 mg oral tablet 1 tab(s), Oral, HS, # 15 tab(s), 0 Refill(s), Start Date: 09/15/15 11:13:00 MANAGER DOCUMENTATION Start Date: 09/15/15 Stop Date: 09/23/15 Status: DiscontinuedAtivan 1 mg oral tablet 1 tab(s), Oral, TID, PRN for anxiety, # 15 tab(s), 0 Refill(s), Start Date: 1:43:00 MANAGER DOCUMENTATION Start Date: 09/04/15 Stop Date: 09/23/15 Status: DiscontinuedAtivan 1 mg oral tablet 1 tab(s), Oral, BID, # 60 tab(s), 2 Refill(s), Start Date: 09/23/15 14:08:00 MANAGER DOCUMENTATION , Pharmacy: [id number] Start Date: 09/23/15 Stop Date: 01/12/16 Status: CompletedAugmentin 875 mg-125 mg oral tablet 1 tab(s), Oral, q12hr, # 20 tab(s), 0 Refill(s), Start Date: 10/10/14 19:03:00 MANAGER DOCUMENTATION Start Date: 10/10/14 Stop Date: 11/11/14 Status: CompletedAugmentin 875 mg-125 mg oral tablet 1 tab(s), Oral, q12hr, # 20 tab(s), 0 Refill(s), Start Date: 10/10/14 18:50:00 MANAGER DOCUMENTATION Start Date: 10/10/14 Stop Date: 11/11/14 Status: Completedazithromycin 250 mg oral tablet 1 packet(s), Oral, Daily, # 1 packet(s), 0 Refill(s), Start Date: 11/19/16 16:24 :00 MANAGER DOCUMENTATION Start Date: 11/19/16 Stop Date: 11/26/16 Status: [...] tab(s), 0 Refill(s), Start Date: 09/05/15 13:14:00 MANAGER DOCUMENTATION Special Instructions: Start taking this medicine tomorrow (09/06/15) Start Date: 09/05/15 Stop Date: 09/07/15 Status: CompletedbuPROPion 300 mg/24 hours (XL) oral tablet, extended release 1 tab(s), Oral, Daily, # 30 tab(s), 0 Refill(s), Start Date: 10/24/16 15:29:00 MANAGER DOCUMENTATION, Pharmacy: [place] [id number] Start Date: 10/24/16 Stop Date: 11/26/16 Status: CompletedbuPROPion 300 mg/24 hours (XL) oral tablet, extended release 1 tab(s), Oral, Daily, # 30 tab(s), 1 Refill(s), Start Date: 12/24/16 11:45:32 CDT, Pharmacy: [place] [id number] Start Date: 12/24/16 Stop Date: 02/25/17 Status: CompletedbuPROPion 300 mg/24 hours (XL) oral tablet, extended release 1 tab(s), Oral, Daily, # 30 tab(s), 0 Refill(s), Start Date: 02/25/17 15:10:00 CDT, Pharmacy: [place] [id number] Start Date: 02/25/17 Status: OrderedbuPROPion 300 mg/24 hours (XL) oral tablet, extended release 1 tab(s), Oral, Daily, # 30 tab(s), 0 Refill(s), Start Date: 11/26/16 13:19:29 MANAGER DOCUMENTATION, Pharmacy: [place] [id number] Start Date: 11/26/16 Stop Date: 12/24/16 Status: Completedcefdinir 300 mg oral capsule 1 cap(s), Oral, q12hr, # 20 cap(s), 0 Refill(s), Start Date: 11/08/15 10:04:00 MANAGER DOCUMENTATION, Pharmacy: [facility] Start Date: 11/08/15 Stop Date: [...] mL, 0 Refill(s), Start Date: 10/05/16 16:12:00 MANAGER DOCUMENTATION Start Date: 10/05/16 Stop Date: 10/11/16 Status: CompletedCoumadin 5 mg oral tablet 1 tab(s), Oral, Daily, # 60 tab(s), 2 Refill(s), Start Date: 09/22/15 11:43:00 MANAGER DOCUMENTATION, Pharmacy: [facility] Start Date: 09/22/15 Stop Date: 09/27/15 Status: CompletedCoumadin 5 mg oral tablet See Instructions, 3 tabs every Saturday, Saturday, 1.5 tabs every Saturday and 2 tablets every Saturday, , Saturday and Saturday, # 60 tab(s), 2 Refill(s), Start Date: 09/27/15 14:06:08 MANAGER DOCUMENTATION, [facility] Special Instructions: 3 tabs every Saturday, Saturday, 1.5 tabs every Saturday and 2 tablets every Saturday, , Saturday and Saturday Start Date: 09/27/15 Stop Date: 10/26/15 Status: CompletedCoumadin 7.5 mg oral tablet 1 tab(s), Oral, Daily, # 30 tab(s), 0 Refill(s), Start Date: 09/15/15 10:14:00 MANAGER DOCUMENTATION Start Date: 09/15/15 Stop Date: 09/22/15 Status: [...] cap(s), 0 Refill(s), Start Date: 08/29/16 14:44:00 MANAGER DOCUMENTATION, Pharmacy: [facility] [place], [place] Start Date: 08/29/16 Stop Date: 09/27/16 Status: Completeddibucaine 1% topical ointment 1 mckinley, Topical, QID, PRN for itching, # 30 gm, 0 Refill(s), Start Date: 9:41:00 MANAGER DOCUMENTATION, Pharmacy: [facility] [id number] Start Date: 09/24/16 Stop Date: 12/27/16 Status: CompleteddiphenhydrAMINE 50 mg oral capsule 1 cap(s), Oral, QID, PRN for allergy symptoms, # 40 cap(s), 0 Refill(s), Start Date: 10/10/14 18:50:00 MANAGER DOCUMENTATION Start Date: 10/10/14 Stop Date: 11/11/14 Status: DiscontinuedFlagyl 500 mg oral tablet 1 tab(s), Oral, q12hr, X 7 days, # 14 tab(s), 0 Refill(s), Start Date: 10/21/15 12:49:00 MANAGER DOCUMENTATION Start Date: 10/21/15 Stop Date: 10/28/15 Status: [...] reconstitution 0 Refill(s), Start Date: 08/22/16 10:40:00 MANAGER DOCUMENTATION Start Date: 08/22/16 Stop Date: 11/19/16 Status: CompletedHYDROcodone-acetaminophen 5 mg-325 mg oral tablet 1 tab(s), Oral, TID, PRN pain moderate 4-7, 0 Refill(s), Start Date: 02/13/17 8: 50:00 CDT Start Date: 02/13/17 Status: OrderedhydrOXYzine pamoate 25 mg oral capsule 1 cap(s), Oral, TID, PRN anxiety, # 90 cap(s), 0 Refill(s), Start Date: 15:57:00 MANAGER DOCUMENTATION, [facility] Start Date: 10/24/16 Stop Date: 11/26/16 Status: CompletedhydrOXYzine pamoate 25 mg oral capsule 1 cap(s), Oral, QID, PRN anxiety, # 120 cap(s), 1 Refill(s), Start Date: 11:46:45 CDT, [facility] Start Date: 12/24/16 Status: OrderedhydrOXYzine pamoate 25 mg oral capsule 1 cap(s), Oral, QID, PRN anxiety, # 120 cap(s), 0 Refill(s), Start Date: 13:18:45 MANAGER DOCUMENTATION, Pharmacy: [id number] Start Date: 11/26/16 Stop Date: 12/24/16 Status: Completedibuprofen 800 mg oral tablet 1 tab(s), Oral, TID, PRN for pain, # 30 tab(s), 0 Refill(s), Start Date: 16:25:00 MANAGER DOCUMENTATION Start Date: 11/19/16 Stop Date: 02/13/17 Status: Completedibuprofen 800 mg oral tablet 1 tab(s), Oral, q6hr, # 40 tab(s), 0 Refill(s), Start Date: 08/21/16 13:04:00 MANAGER DOCUMENTATION Start Date: 08/21/16 Stop Date: 11/19/16 Status: Completedlabetalol 300 mg oral tablet 2 tab(s), BID, 0 Refill(s), Start Date: 08/21/16 13:04:00 MANAGER DOCUMENTATION Start Date: 08/21/16 Stop Date: 12/27/16 Status: CompletedLexapro 10 mg oral tablet 1 tab(s), Oral, Daily, # 30 tab(s), 0 Refill(s), Start Date: 11/03/15 11:16:00 MANAGER DOCUMENTATION, Pharmacy: [facility] Start Date: 11/03/15 Stop Date: 12/24/15 Status: CompletedLexapro 10 mg oral tablet 1 tab(s), Oral, Daily, # 30 tab(s), 0 Refill(s), Start Date: 09/15/15 10:13:00 MANAGER DOCUMENTATION Start Date: 09/15/15 Stop Date: 11/03/15 Status: DiscontinuedLexapro 20 mg oral tablet 1 tab(s), Oral, Daily, # 30 tab(s), 0 Refill(s), Start Date: 10/24/16 15:30:09 MANAGER DOCUMENTATION, Pharmacy: [facility] Start Date: 10/24/16 Stop Date: 11/26/16 Status: CompletedLexapro 20 mg oral tablet 1 tab(s), Oral, Daily, # 30 tab(s), 0 Refill(s), Start Date: 09/27/16 14:50:28 MANAGER DOCUMENTATION, Pharmacy: [facility] [id number] Start Date: 09/27/16 Stop Date: 10/24/16 Status: CompletedLexapro 20 mg oral tablet 1 tab(s), Oral, Daily, # 30 tab(s), 0 Refill(s), Start Date: 09/06/16 11:23:00 MANAGER DOCUMENTATION, [place] [facility] [place] Start Date: 09/06/16 Stop Date: 09/27/16 Status: CompletedLexapro 20 mg oral tablet 1 tab(s), Oral, Daily, # 30 tab(s), 1 Refill(s), Start Date: 12/24/16 11:46:00 CDT, Pharmacy: [place] [id number] Start Date: 12/24/16 Stop Date: 02/25/17 Status: CompletedLexapro 20 mg oral tablet 1 tab(s), Oral, Daily, # 30 tab(s), 0 Refill(s), Start Date: 02/25/17 15:10:00 CDT, Pharmacy: [place] [id number] Start Date: 02/25/17 Status: OrderedLexapro 20 mg oral tablet 1 tab(s), Oral, Daily, # 30 tab(s), 0 Refill(s), Start Date: 11/26/16 13:19:16 MANAGER DOCUMENTATION, Pharmacy: [place] [id number] Start Date: 11/26/16 Stop Date: 12/24/16 Status: Completedloratadine 10 mg oral tablet 1 tab(s), Oral, Daily, # 30 tab(s), 0 Refill(s), Start Date: 10/14/15 16:32:00 MANAGER DOCUMENTATION, Pharmacy: [facility] Start Date: 10/14/15 Stop Date: 11/08/15 Status: DiscontinuedLovenox 0 Refill(s), Start Date: 08/21/16 13:05:00 MANAGER DOCUMENTATION Start Date: 08/21/16 Stop Date: 08/21/16 Status: DiscontinuedLovenox 150 mg/mL injectable solution 1 mL, Subcutaneous, Daily, # 10 syringe(s), 0 Refill(s), Start Date: 08/21/16 13 :06:00 MANAGER DOCUMENTATION Start Date: 08/21/16 Status: OrderedLovenox 80 mg/0.8 mL injectable solution 0.8 mL, Subcutaneous, q12hr interval, # 8 EA, 0 Refill(s), Start Date: 09/16/15 15:35:00 MANAGER DOCUMENTATION, Pharmacy: [place] [id number] Start Date: 09/16/15 Stop Date: 09/27/15 Status: CompletedLovenox 80 mg/0.8 mL injectable solution 80 mg, Subcutaneous, q12hr interval, 0 Refill(s), Start Date: 09/15/15 10:17:00 MANAGER DOCUMENTATION Start Date: 09/15/15 Stop Date: 09/16/15 Status: DiscontinuedLovenox 80 mg/0.8 mL injectable solution 0.8 mL, Subcutaneous, q12hr interval, X 5 days, # 8 mL, 0 Refill(s), Start Date : 11/08/15 9:55:57 MANAGER DOCUMENTATION, Pharmacy: [facility] Start Date: 11/08/15 Stop Date: 11/08/15 Status: CompletedLovenox 80 mg/0.8 mL injectable solution 0.8 mL, Subcutaneous, q12hr interval, # 10 syringe(s), 0 Refill(s), Start Date: 11/08/15 11:24:16 MANAGER DOCUMENTATION, Pharmacy: [facility] Start Date: 11/08/15 Stop Date: 08/15/16 Status: CompletedLovenox 80 mg/0.8 mL injectable solution 0.8 mL, Subcutaneous, q12hr interval, # 14 EA, 0 Refill(s), Start Date: 14:03:25 MANAGER DOCUMENTATION, Pharmacy: [facility] Start Date: 09/27/15 Stop Date: 10/21/15 Status: CompletedMedrol Dosepak 4 mg oral tablet 1 packet(s), Oral, Per Package Label, Take full line each am, # 21 tab(s), 0 Refill(s), Start Date: 09/06/16 11:55:00 MANAGER DOCUMENTATION, Pharmacy: [facility] Special Instructions: Take full line each am Start Date: 09/06/16 Stop Date: 09/14/16 Status: CompletedMedrol Dosepak 4 mg oral tablet 1 packet(s), Oral, Per Package Label, as directed on package labeling, X 6 days , # 21 tab(s), 0 Refill(s), Start Date: 03/20/17 11:26:00 CDT Special Instructions: as directed on package labeling Start Date: 03/20/17 Stop Date: 03/26/17 Status: Orderedmeloxicam 15 mg oral tablet 1 tab(s), Oral, Daily, # 30 tab(s), 1 Refill(s), Start Date: 11/02/16 14:58:00 MANAGER DOCUMENTATION, Pharmacy: [facility] Start Date: 11/02/16 Stop Date: 12/27/16 Status: Completedmetaxalone 800 mg oral tablet 1 tab(s), Oral, TID, # 42 tab(s), 1 Refill(s), Start Date: 09/23/15 14:15:00 MANAGER DOCUMENTATION , Pharmacy: [facility] Start Date: 09/23/15 Stop Date: 11/27/15 Status: CompletedMucinex DM Maximum Strength 60 mg-1200 mg oral tablet, extended release 1 tab(s), Oral, BID, X 10 days, # 20 tab(s), 0 Refill(s), Start Date: 10/10/14 19:04:00 MANAGER DOCUMENTATION Start Date: 10/10/14 Stop Date: 10/20/14 Status: CompletedMucinex DM Maximum Strength 60 mg-1200 mg oral tablet, extended release 1 tab(s), Oral, BID, X 10 days, # 20 tab(s), 0 Refill(s), Start Date: 10/10/14 18:50:00 MANAGER DOCUMENTATION Start Date: 10/10/14 Stop Date: 10/20/14 Status: CompletedMucinex DM Maximum Strength 60 mg-1200 mg oral tablet, extended release 1 tab(s), Oral, BID, X 10 days, # 20 tab(s), 0 Refill(s), Start Date: 10/14/15 15:53:41 MANAGER DOCUMENTATION Start Date: 10/14/15 Stop Date: 10/14/15 Status: Discontinuedmultivitamin 1 tab(s), Oral, Daily, 0 Refill(s), Start Date: 11/27/15 14:20:00 MANAGER DOCUMENTATION Start Date: 11/27/15 Status: OrderedNasacort Allergy 24HR 55 mcg/inh nasal spray 2 spray(s), Nasal, Daily, X 30 days, # 1 EA, 0 Refill(s), Start Date: 03/20/17 11:26:00 CDT Start Date: 03/20/17 Stop Date: 04/19/17 Status: OrderedNorco 5 mg-325 mg oral tablet 1 tab(s), Oral, q4hr, PRN for pain, # 12 tab(s), 0 Refill(s), Start Date: 16:09:00 MANAGER DOCUMENTATION Start Date: 10/05/16 Stop Date: 10/08/16 Status: [...] tab(s), 0 Refill(s), Start Date: 09/14/16 12:53:00 MANAGER DOCUMENTATION Start Date: 09/14/16 Stop Date: 09/27/16 Status: CompletedpredniSONE 20 mg oral tablet 1 tab(s), Oral, Daily, # 5 tab(s), 0 Refill(s), Start Date: 02/03/16 21:18:00 CDT Start Date: 02/03/16 Stop Date: 05/05/16 Status: CompletedpredniSONE 20 mg oral tablet 3 tab(s), Oral, Daily, # 15 tab(s), 0 Refill(s), Start Date: 10/27/16 1:39:00 MANAGER DOCUMENTATION Start Date: 10/27/16 Stop Date: 11/26/16 Status: CompletedpredniSONE 20 mg oral tablet 1 tab(s), Oral, Daily, # 10 tab(s), 0 Refill(s), Start Date: 10/02/16 15:09:00 MANAGER DOCUMENTATION Start Date: 10/02/16 Stop Date: 10/23/16 Status: CompletedpredniSONE 50 mg oral tablet 1 tab(s), Oral, Daily, # 5 tab(s), 0 Refill(s), Start Date: 12/26/15 15:42:00 CDT Start Date: 12/26/15 Stop Date: 01/12/16 Status: CompletedpredniSONE 50 mg oral tablet 1 tab(s), Oral, Daily, # 5 tab(s), 0 Refill(s), Start Date: 09/04/15 1:42:00 MANAGER DOCUMENTATION Start Date: 09/04/15 Stop Date: 09/15/15 Status: CompletedProAir HFA 90 mcg/inh inhalation aerosol 1 puff(s), Inhale, q4hr, PRN as needed for wheezing, # 9 gm, 0 Refill(s), Start Date: 03/15/16 22:22:00 CDT Start Date: 03/15/16 Stop Date: 08/15/16 Status: Completedpromethazine 12.5 mg oral tablet 1 tab(s), Oral, q6hr interval, PRN nausea, 0 Refill(s), Start Date: 08/21/16 15: 26:00 MANAGER DOCUMENTATION Start Date: 08/21/16 Stop Date: 08/21/16 Status: Discontinuedpromethazine 12.5 mg oral tablet 1 tab(s), Oral, q6hr interval, PRN nausea, # 30 tab(s), 0 Refill(s), Start Date : 08/21/16 15:33:00 MANAGER DOCUMENTATION Start Date: 08/21/16 Stop Date: 09/14/16 Status: Completedpromethazine 25 mg oral tablet 1 tab(s), Oral, q4hr, PRN cough and congestion, # 30 tab(s), 0 Refill(s), Start Date: 10/10/14 19:03:00 MANAGER DOCUMENTATION Start Date: 10/10/14 Stop Date: 11/11/14 Status: Discontinuedpromethazine 6.25 mg/5 mL oral syrup 5 mL, Oral, BID, PRN for nausea/vomiting, Start Date: 02/13/17 8:50:00 CDT Start Date: 02/13/17 Status: OrderedPromethazine VC with Codeine 5 mL, Oral, HS, 0 Refill(s), Start Date: 09/06/16 11:46:00 MANAGER DOCUMENTATION Start Date: 09/06/16 Stop Date: 09/06/16 Status: DiscontinuedPromethazine VC with Codeine oral syrup 5 mL, Oral, q4hr, PRN for cough, X 10 days, # 240 mL, 0 Refill(s), Start Date: 09/14/16 13:07:00 MANAGER DOCUMENTATION Start Date: 09/14/16 Stop Date: 09/24/16 Status: CompletedPromethazine VC with Codeine oral syrup 5 mL, Oral, HS, # 60 mL, 0 Refill(s), Start Date: 09/06/16 11:46:00 MANAGER DOCUMENTATION Start Date: 09/06/16 Stop Date: 09/27/16 Status: [...] 210 mL, 0 Refill(s), Start Date: 15:13:00 MANAGER DOCUMENTATION Start Date: 11/27/15 Stop Date: 12/04/15 Status: [...] 0 Refill(s), Start Date: 11/19/16 16:24: 00 MANAGER DOCUMENTATION Start Date: 11/19/16 Stop Date: 11/23/16 Status: CompletedPromethazine with Codeine 6.25 mg-10 mg/5 mL oral syrup 5 mL, Oral, q4hr, PRN for cough, # 180 mL, 0 Refill(s), Start Date: 10/14/15 15: 56:23 MANAGER DOCUMENTATION Start Date: 10/14/15 Stop Date: 10/28/15 Status: CompletedPromethazine with Codeine 6.25 mg-10 mg/5 mL oral syrup 5 mL, Oral, q4hr, PRN for cough, X 7 days, # 210 mL, 0 Refill(s), Start Date: 17:18:00 MANAGER DOCUMENTATION Start Date: 10/26/15 Stop Date: 11/02/15 Status: CompletedPromethazine with Codeine 6.25 mg-10 mg/5 mL oral syrup 5 mL, Oral, q4hr, PRN for cough, # 180 mL, 0 Refill(s), Start Date: 11/08/15 10: 00:51 MANAGER DOCUMENTATION Start Date: 11/08/15 Stop Date: 11/22/15 Status: Completedpromethazine-codeine mL, Oral, q4hr interval, 0 Refill(s), Start Date: 09/28/15 11:22:00 MANAGER DOCUMENTATION Start Date: 09/28/15 Stop Date: 09/28/15 Status: Discontinuedpromethazine-codeine 6.25 mg-10 mg/5 mL oral syrup 5 mL, Oral, QID, X 14 days, # 180 mL, 0 Refill(s), Start Date: 09/28/15 11:23: 00 MANAGER DOCUMENTATION Start Date: 09/28/15 Stop Date: 10/12/15 Status: Completedpromethazine-codeine 6.25 mg-10 mg/5 mL oral syrup 5 mL, Oral, q4hr, Do not work or drive with this medication, X 7 days, # 90 mL, 0 Refill(s), Start Date: 02/20/17 19:05:00 CDT Special Instructions: Do not work or drive with this medication Start Date: 02/20/17 Stop Date: 02/27/17 Status: Completedpromethazine-codeine 6.25 mg-10 mg/5 mL oral [...] 90 mL, 0 Refill(s), Start Date: 1:39:00 MANAGER DOCUMENTATION Start Date: 10/27/16 Stop Date: 10/30/16 Status: [...] mL, 0 Refill(s), Start Date: 08/29/16 23:26:00 MANAGER DOCUMENTATION Start Date: 08/29/16 Stop Date: 09/03/16 Status: CompletedRestoril 15 mg oral capsule 1 cap(s), Oral, HS, # 30 cap(s), 0 Refill(s), Start Date: 10/24/16 15:30:00 MANAGER DOCUMENTATION , Pharmacy: [place] [id number] Start Date: 10/24/16 Stop Date: 11/26/16 Status: CompletedRestoril 15 mg oral capsule 1 cap(s), Oral, HS, # 30 cap(s), 1 Refill(s), Start Date: 12/24/16 11:45:42 CDT , Pharmacy: [place] [id number] Start Date: 12/24/16 Stop Date: 02/25/17 Status: CompletedRestoril 15 mg oral capsule 1 cap(s), Oral, HS, # 30 cap(s), 1 Refill(s), Start Date: 02/25/17 15:10:00 CDT , Pharmacy: [facility] Start Date: 02/25/17 Status: OrderedRestoril 15 mg oral capsule 1 cap(s), Oral, HS, # 30 cap(s), 0 Refill(s), Start Date: 11/26/16 13:19:22 MANAGER DOCUMENTATION , Pharmacy: [facility] Start Date: 11/26/16 Stop Date: 12/24/16 Status: CompletedRoxicodone 5 mg oral tablet 1 tab(s), Oral, q6hr, PRN for pain, # 15 tab(s), 0 Refill(s), Start Date: 8:00:00 MANAGER DOCUMENTATION, Earliest Fill Date: 09/20/16, Pharmacy: [facility] [place] Start Date: 09/20/16 Stop Date: 09/27/16 Status: CompletedRoxicodone 5 mg oral tablet 1 tab(s), Oral, q6hr, PRN for pain, # 120 tab(s), 0 Refill(s), Start Date: 08/21 15:30:00 MANAGER DOCUMENTATION Start Date: 08/21/16 Stop Date: 09/18/16 Status: CompletedSkelaxin 800 mg oral tablet 1 tab(s), Oral, BID, # 10 tab(s), 0 Refill(s), Start Date: 09/06/15 13:50:00 MANAGER DOCUMENTATION , [place] Start Date: 09/06/15 Stop Date: 09/15/15 Status: CompletedTessalon 200 mg oral capsule 1 cap(s), Oral, TID, # 21 cap(s), 0 Refill(s), Start Date: 12/24/15 13:11:00 CDT Start Date: 12/24/15 Stop Date: 01/12/16 Status: CompletedtraMADol 50 mg oral tablet 1 tab(s), Oral, q4hr, PRN for pain, # 4 tab(s), 0 Refill(s), Start Date: 16:25:00 MANAGER DOCUMENTATION Start Date: 11/19/16 Stop Date: 11/26/16 Status: CompletedTussionex PennKinetic 10 mg-8 mg/5 mL oral suspension, extended release 5 mL, Oral, q12hr, PRN for cold symptoms, # 50 mL, 0 Refill(s), Start Date: 04/21 15:42:00 CDT Start Date: 01/12/16 Stop Date: 01/16/16 Status: Completedwarfarin 5 mg oral tablet 2 tab(s), Oral, Daily, INR DUE, 0 Refill(s), Start Date: 10/26/15 17:13:00 MANAGER DOCUMENTATION Special Instructions: INR DUE Start Date: 10/26/15 Stop Date: 11/08/15 Status: Discontinuedwarfarin 5 mg oral tablet 2 tab(s), Oral, Daily, # 60 tab(s), 0 Refill(s), Start Date: 11/08/15 9:58:00 MANAGER DOCUMENTATION, Pharmacy: [id number] Start Date: 11/08/15 Stop Date: 11/27/15 Status: CompletedWellbutrin SR 100 mg/12 hours oral tablet, extended release 1 tab(s), Oral, BID, # 60 tab(s), 0 Refill(s), Start Date: 10/05/16 16:00:00 MANAGER DOCUMENTATION Start Date: 10/05/16 Stop Date: 10/24/16 Status: DiscontinuedWellbutrin SR 100 mg/12 hours oral tablet, extended release See Instructions, Take 1 tab(s) Oral Qdaily for one week, then one tablet Oral BID, # 60 tab(s), 0 Refill(s), Start Date: 09/27/16 14:51:00 MANAGER DOCUMENTATION, Pharmacy: [facility] [id number] Special Instructions: Take 1 tab(s) Oral Qdaily for one week, then one tablet Oral BID Start Date: 09/27/16 Stop Date: 10/05/16 Status: CompletedXanax 0.5 mg oral tablet 1 tab(s), Oral, TID, PRN as needed for anxiety, # 90 tab(s), 0 Refill(s), Start Date: 08/21/16 15:36:00 MANAGER DOCUMENTATION Start Date: 08/21/16 Stop Date: 09/27/16 Status: CompletedZithromax Z-Juan C 250 mg oral tablet 1 packet(s), Oral, Per Package Label, as directed on package labeling, # 6 tab(s ), 0 Refill(s), Start Date: 10/05/16 16:09:00 MANAGER DOCUMENTATION Special Instructions: as directed on package labeling [...] tab(s), 0 Refill(s), Start Date: 08/21/16 15:29:00 MANAGER DOCUMENTATION Start Date: 08/21/16 Stop Date: 09/06/16 Status: DiscontinuedZyrTEC 10 mg oral tablet 1 tab(s), Oral, Daily, X 30 days, # 30 tab(s), 0 Refill(s), Start Date: 11:25:00 CDT Start Date: 03/20/17 Stop Date: 04/19/17 Status: OrderedZyrTEC-D 5 mg-120 mg oral tablet, extended release 1 tab(s), Oral, BID, X 15 days, # 30 tab(s), 0 Refill(s), Start Date: 11/27/15 15:13:00 MANAGER DOCUMENTATION Start Date: 11/27/15 Stop Date: 12/12/15 Status: Completed Results Patient Viewable Results Most recent to oldest [Reference Range]: 1 Estimated Creatinine Clearance 167.44 mL/min (03/20/17 10:36 AM) InfluA EIA Naso [Negative] Negative1 (03/20/17 10:56 AM) InfluB EIA Naso [Negative] Negative2 (03/20/17 10:56 AM) Rapid Strep Screen [Negative] Negative (03/20/17 10:56 AM) 1Result Comment: Presumptive Negative for Influenza "A" protein antigen. Infection due to Influenza "A" cannot be ruled out. Influenza "A" antigen in the sample may be below the detection limit of thetest.2Result Comment: Presumptive Negative for Influenza "B" protein antigen. Infection due to Influenza "B" cannot be ruled out. Influenza "B" antigen in the sample may be below the detection limit of thetest. Immunizations No data available for this section Procedures Procedure Date Related Diagnosis Body Site Extraction of wisdom tooth 2009 Surgical procedure1 2008 Tonsillectomy 2002 1left knee surg. due to torn cartilage Social History No data available for this section Assessment and Plan No data available for this section
--- OUTSIDE RECORDS SUMMARY | 2017-05-20 16:12 | XMS REPORT | Summary of Care ---
:1990 Author Organization [facility] Address [facility] [place] [address]- Care Team Providers Name Role Phone Elkin Anderson Primary Care Physician Physician, Primary Care Primary Care Physician Unavailable Encounter Date(s): 11/19/16 - 11/19/[address] [id number]- [facility] Discharge Diagnosis: Acute maxillary sinusitis Discharge Disposition: Discharged to Home or Self Care Attending Physician: MARGARETH Joyce Admitting Physician: MARGARETH Joyce Vital Signs Most recent to oldest [Reference Range]: 1 Temperature Temporal Artery [36.0-38.0 DegC] 37.1 DegC (11/19/16 3:51 PM) Heart Rate Monitored [60-100 bpm] 76 bpm (11/19/16 3:51 PM) Respiratory Rate [12-20 br/min] 16 br/min (11/19/16 3:51 PM) SpO2 100 % (11/19/16 3:51 PM) Blood Pressure [90-130/60-90 mmHg] 133/77mmHg *HI* (11/19/16 3:51 PM) Most recent to oldest [Reference Range]: 1 Weight Estimated 86 kg (11/19/16 3:51 PM) Weight Dosing 86.00 kg1 (11/19/16 3:53 PM) 1Result Comment: This result was because the dosing weight was either not entered or it is>30 days old. This result is based off: Weight Estimated November 19, 2016 15:51:00 MEAT STOCK CLERK by Christa Iraheta RN Problem List Condition [...] EA, 0 Refill(s), Start Date: 09/15/15 10:13:00 MEAT STOCK CLERK Start Date: 09/15/15 Stop Date: 12/24/15 Status: CompletedAfrin 0.05% nasal spray 2 spray(s), Nasal, BID, # 15 mL, 0 Refill(s), Start Date: 08/15/16 11:50:00 MEAT STOCK CLERK Start Date: 08/15/16 Stop Date: 08/16/16 Status: CompletedAfrin 0.05% nasal spray 2 spray(s), Nasal, BID, X 3 days, # 15 mL, 0 Refill(s), Start Date: 09/14/16 12: 50:00 MEAT STOCK CLERK Start Date: 09/14/16 Stop Date: 09/17/16 Status: [...] Refill(s), Start Date: 13:03:00 CDT Start Date: 10/24/15 Status: Orderedalbuterol HFA 0 Refill(s), Start Date: 11/11/14 11:01:00 MEAT STOCK CLERK Start Date: 11/11/14 Stop Date: 09/05/15 Status: DiscontinuedALPRAZolam 1 mg oral tablet 1 tab(s), Oral, TID, PRN for anxiety, # 90 tab(s), 0 Refill(s), Start Date: 10/22 11:45:00 MEAT STOCK CLERK Start Date: 09/06/16 Stop Date: 10/04/16 Status: CompletedALPRAZolam 1 mg oral tablet 1 tab(s), Oral, TID, PRN for anxiety, 0 Refill(s), Start Date: 09/06/16 11:44: 00 MEAT STOCK CLERK Start Date: 09/06/16 Stop Date: 09/06/16 Status: DiscontinuedALPRAZolam 1 mg oral tablet 1 tab(s), Oral, TID, PRN for anxiety, # 90 tab(s), 0 Refill(s), Start Date: 13:28:00 MEAT STOCK CLERK, Pharmacy: [id number] Start Date: 10/25/16 Status: OrderedALPRAZolam 1 mg oral tablet 1 tab(s), Oral, TID, PRN for anxiety, # 90 tab(s), 0 Refill(s), Start Date: 10:33:00 MEAT STOCK CLERK, Pharmacy: [id number] Start Date: 10/04/16 Stop Date: 10/25/16 Status: CompletedAmbien 5 mg oral tablet 1 tab(s), Oral, HS, PRN for sleep, # 30 tab(s), 0 Refill(s), Start Date: 14:50:00 MEAT STOCK CLERK, Pharmacy: [facility] [id number] Start Date: 09/27/16 Stop Date: 10/24/16 Status: Discontinuedamoxicillin 875 mg oral tablet 1 tab(s), Oral, BID, # 20 tab(s), 0 Refill(s), Start Date: 09/28/15 11:23:00 MEAT STOCK CLERK , Pharmacy: [id number] Start Date: 09/28/15 Stop Date: 10/14/15 Status: Discontinuedamoxicillin-clavulanate 875 mg-125 mg oral tablet 1 tab(s), Oral, q12hr interval, X 10 days, # 20 tab(s), 0 Refill(s), Start Date : 08/29/16 23:25:00 MEAT STOCK CLERK Start Date: 08/29/16 Stop Date: 09/06/16 Status: CompletedAtivan 0.5 mg oral tablet 1 tab(s), Oral, HS, # 15 tab(s), 0 Refill(s), Start Date: 09/15/15 11:13:00 MEAT STOCK CLERK Start Date: 09/15/15 Stop Date: 09/23/15 Status: DiscontinuedAtivan 1 mg oral tablet 1 tab(s), Oral, TID, PRN for anxiety, # 15 tab(s), 0 Refill(s), Start Date: 1:43:00 MEAT STOCK CLERK Start Date: 09/04/15 Stop Date: 09/23/15 Status: DiscontinuedAtivan 1 mg oral tablet 1 tab(s), Oral, BID, # 60 tab(s), 2 Refill(s), Start Date: 09/23/15 14:08:00 MEAT STOCK CLERK , Pharmacy: [id number] Start Date: 09/23/15 Stop Date: 01/12/16 Status: CompletedAugmentin 875 mg-125 mg oral tablet 1 tab(s), Oral, q12hr, # 20 tab(s), 0 Refill(s), Start Date: 10/10/14 19:03:00 MEAT STOCK CLERK Start Date: 10/10/14 Stop Date: 11/11/14 Status: CompletedAugmentin 875 mg-125 mg oral tablet 1 tab(s), Oral, q12hr, # 20 tab(s), 0 Refill(s), Start Date: 10/10/14 18:50:00 MEAT STOCK CLERK Start Date: 10/10/14 Stop Date: 11/11/14 Status: Completedazithromycin 250 mg oral tablet 1 packet(s), Oral, Daily, # 1 packet(s), 0 Refill(s), Start Date: 11/19/16 16:24 :00 MEAT STOCK CLERK Start Date: 11/19/16 Stop Date: 11/24/16 Status: OrderedAzithromycin 5 Day Dose Pack 250 mg oral [...] tab(s), 0 Refill(s), Start Date: 09/05/15 13:14:00 MEAT STOCK CLERK Special Instructions: Start taking this medicine tomorrow (09/06/15) Start Date: 09/05/15 Stop Date: 09/07/15 Status: CompletedbuPROPion 300 mg/24 hours (XL) oral tablet, extended release 1 tab(s), Oral, Daily, # 30 tab(s), 0 Refill(s), Start Date: 10/24/16 15:29:00 MEAT STOCK CLERK, Pharmacy: [id number] Start Date: 10/24/16 Status: Orderedcefdinir 300 mg oral capsule 1 cap(s), Oral, q12hr, # 20 cap(s), 0 Refill(s), Start Date: 11/08/15 10:04:00 MEAT STOCK CLERK, Pharmacy: [id number] Start Date: 11/08/15 Stop Date: [...] mL, 0 Refill(s), Start Date: 10/05/16 16:12:00 MEAT STOCK CLERK Start Date: 10/05/16 Stop Date: 10/11/16 Status: CompletedCoumadin 5 mg oral tablet 1 tab(s), Oral, Daily, # 60 tab(s), 2 Refill(s), Start Date: 09/22/15 11:43:00 MEAT STOCK CLERK, Pharmacy: [id number] Start Date: 09/22/15 Stop Date: 09/27/15 Status: CompletedCoumadin 5 mg oral tablet See Instructions, 3 tabs every Saturday, Saturday, 1.5 tabs every Saturday and 2 tablets every Saturday, , Saturday and Saturday, # 60 tab(s), 2 Refill(s), Start Date: 09/27/15 14:06:08 MEAT STOCK CLERK, Pharmacy: [facility] Special Instructions: 3 tabs every Saturday, Saturday, 1.5 tabs every Saturday and 2 tablets every Saturday, , Saturday and Saturday Start Date: 09/27/15 Stop Date: 10/26/15 Status: CompletedCoumadin 7.5 mg oral tablet 1 tab(s), Oral, Daily, # 30 tab(s), 0 Refill(s), Start Date: 09/15/15 10:14:00 MEAT STOCK CLERK Start Date: 09/15/15 Stop Date: 09/22/15 Status: Discontinueddextromethorphan 15 mg oral capsule 1 cap(s), Oral, q4hr interval, # 180 cap(s), 0 Refill(s), Start Date: 08/29/16 14:44:00 MEAT STOCK CLERK, Pharmacy: [facility], [place], [place] Start Date: 08/29/16 Stop Date: 09/27/16 Status: Completeddibucaine 1% topical ointment 1 mckinley, Topical, QID, PRN for itching, # 30 gm, 0 Refill(s), Start Date: 9:41:00 MEAT STOCK CLERK, Pharmacy: [id number] Start Date: 09/24/16 Status: OrdereddiphenhydrAMINE 50 mg oral capsule 1 cap(s), Oral, QID, PRN for allergy symptoms, # 40 cap(s), 0 Refill(s), Start Date: 10/10/14 18:50:00 MEAT STOCK CLERK Start Date: 10/10/14 Stop Date: 11/11/14 Status: DiscontinuedFlagyl 500 mg oral tablet 1 tab(s), Oral, q12hr, X 7 days, # 14 tab(s), 0 Refill(s), Start Date: 10/21/15 12:49:00 MEAT STOCK CLERK Start Date: 10/21/15 Stop Date: 10/28/15 Status: [...] reconstitution 0 Refill(s), Start Date: 08/22/16 10:40:00 MEAT STOCK CLERK Start Date: 08/22/16 Stop Date: 11/19/16 Status: CompletedhydrOXYzine pamoate 25 mg oral capsule 1 cap(s), Oral, TID, PRN anxiety, # 90 cap(s), 0 Refill(s), Start Date: 15:57:00 MEAT STOCK CLERK, Pharmacy: [facility] Start Date: 10/24/16 Status: Orderedibuprofen 800 mg oral tablet 1 tab(s), Oral, TID, PRN for pain, # 30 tab(s), 0 Refill(s), Start Date: 16:25:00 MEAT STOCK CLERK Start Date: 11/19/16 Status: Orderedibuprofen 800 mg oral tablet 1 tab(s), Oral, q6hr, # 40 tab(s), 0 Refill(s), Start Date: 08/21/16 13:04:00 MEAT STOCK CLERK Start Date: 08/21/16 Stop Date: 11/19/16 Status: Completedlabetalol 300 mg oral tablet 2 tab(s), BID, 0 Refill(s), Start Date: 08/21/16 13:04:00 MEAT STOCK CLERK Start Date: 08/21/16 Status: OrderedLexapro 10 mg oral tablet 1 tab(s), Oral, Daily, # 30 tab(s), 0 Refill(s), Start Date: 11/03/15 11:16:00 MEAT STOCK CLERK, Pharmacy: [id number] Start Date: 11/03/15 Stop Date: 12/24/15 Status: CompletedLexapro 10 mg oral tablet 1 tab(s), Oral, Daily, # 30 tab(s), 0 Refill(s), Start Date: 09/15/15 10:13:00 MEAT STOCK CLERK Start Date: 09/15/15 Stop Date: 11/03/15 Status: DiscontinuedLexapro 20 mg oral tablet 1 tab(s), Oral, Daily, # 30 tab(s), 0 Refill(s), Start Date: 10/24/16 15:30:09 MEAT STOCK CLERK, Pharmacy: [id number] Start Date: 10/24/16 Status: OrderedLexapro 20 mg oral tablet 1 tab(s), Oral, Daily, # 30 tab(s), 0 Refill(s), Start Date: 09/27/16 14:50:28 MEAT STOCK CLERK, Pharmacy: [facility] [id number] Start Date: 09/27/16 Stop Date: 10/24/16 Status: CompletedLexapro 20 mg oral tablet 1 tab(s), Oral, Daily, # 30 tab(s), 0 Refill(s), Start Date: 09/06/16 11:23:00 MEAT STOCK CLERK, Pharmacy: [facility] [place] Start Date: 09/06/16 Stop Date: 09/27/16 Status: Completedloratadine 10 mg oral tablet 1 tab(s), Oral, Daily, # 30 tab(s), 0 Refill(s), Start Date: 10/14/15 16:32:00 MEAT STOCK CLERK, Pharmacy: [id number] Start Date: 10/14/15 Stop Date: 11/08/15 Status: DiscontinuedLovenox 0 Refill(s), Start Date: 08/21/16 13:05:00 MEAT STOCK CLERK Start Date: 08/21/16 Stop Date: 08/21/16 Status: DiscontinuedLovenox 150 mg/mL injectable solution 1 mL, Subcutaneous, Daily, # 10 syringe(s), 0 Refill(s), Start Date: 08/21/16 13 :06:00 MEAT STOCK CLERK Start Date: 08/21/16 Status: OrderedLovenox 80 mg/0.8 mL injectable solution 0.8 mL, Subcutaneous, q12hr interval, # 8 EA, 0 Refill(s), Start Date: 09/16/15 15:35:00 MEAT STOCK CLERK, Pharmacy: [id number] Start Date: 09/16/15 Stop Date: 09/27/15 Status: CompletedLovenox 80 mg/0.8 mL injectable solution 80 mg, Subcutaneous, q12hr interval, 0 Refill(s), Start Date: 09/15/15 10:17:00 MEAT STOCK CLERK Start Date: 09/15/15 Stop Date: 09/16/15 Status: DiscontinuedLovenox 80 mg/0.8 mL injectable solution 0.8 mL, Subcutaneous, q12hr interval, X 5 days, # 8 mL, 0 Refill(s), Start Date : 11/08/15 9:55:57 MEAT STOCK CLERK, Pharmacy: [id number] Start Date: 11/08/15 Stop Date: 11/08/15 Status: CompletedLovenox 80 mg/0.8 mL injectable solution 0.8 mL, Subcutaneous, q12hr interval, # 10 syringe(s), 0 Refill(s), Start Date: 11/08/15 11:24:16 MEAT STOCK CLERK, Pharmacy: [facility] Start Date: 11/08/15 Stop Date: 08/15/16 Status: CompletedLovenox 80 mg/0.8 mL injectable solution 0.8 mL, Subcutaneous, q12hr interval, # 14 EA, 0 Refill(s), Start Date: 14:03:25 MEAT STOCK CLERK, Pharmacy: [facility] Start Date: 09/27/15 Stop Date: 10/21/15 Status: CompletedMedrol Dosepak 4 mg oral tablet 1 packet(s), Oral, Per Package Label, Take full line each am, # 21 tab(s), 0 Refill(s), Start Date: 09/06/16 11:55:00 MEAT STOCK CLERK, Pharmacy: [facility] [place] Special Instructions: Take full line each am Start Date: 09/06/16 Stop Date: 09/14/16 Status: Completedmeloxicam 15 mg oral tablet 1 tab(s), Oral, Daily, # 30 tab(s), 1 Refill(s), Start Date: 11/02/16 14:58:00 MEAT STOCK CLERK, Pharmacy: [facility] Start Date: 11/02/16 Status: Orderedmetaxalone 800 mg oral tablet 1 tab(s), Oral, TID, # 42 tab(s), 1 Refill(s), Start Date: 09/23/15 14:15:00 MEAT STOCK CLERK , Pharmacy: [id number] Start Date: 09/23/15 Stop Date: 11/27/15 Status: CompletedMucinex DM Maximum Strength 60 mg-1200 mg oral tablet, extended release 1 tab(s), Oral, BID, X 10 days, # 20 tab(s), 0 Refill(s), Start Date: 10/10/14 19:04:00 MEAT STOCK CLERK Start Date: 10/10/14 Stop Date: 10/20/14 Status: CompletedMucinex DM Maximum Strength 60 mg-1200 mg oral tablet, extended release 1 tab(s), Oral, BID, X 10 days, # 20 tab(s), 0 Refill(s), Start Date: 10/10/14 18:50:00 MEAT STOCK CLERK Start Date: 10/10/14 Stop Date: 10/20/14 Status: CompletedMucinex DM Maximum Strength 60 mg-1200 mg oral tablet, extended release 1 tab(s), Oral, BID, X 10 days, # 20 tab(s), 0 Refill(s), Start Date: 10/14/15 15:53:41 MEAT STOCK CLERK Start Date: 10/14/15 Stop Date: 10/14/15 Status: Discontinuedmultivitamin 1 tab(s), Oral, Daily, 0 Refill(s), Start Date: 11/27/15 14:20:00 MEAT STOCK CLERK Start Date: 11/27/15 Status: OrderedNorco 5 mg-325 mg oral tablet 1 tab(s), Oral, q4hr, PRN for pain, # 12 tab(s), 0 Refill(s), Start Date: 16:09:00 MEAT STOCK CLERK Start Date: 10/05/16 Stop Date: 10/08/16 Status: CompletedpredniSONE 20 mg oral tablet 2 tab(s), Oral, Daily, # 10 tab(s), 0 Refill(s), Start Date: 09/14/16 12:53:00 MEAT STOCK CLERK Start Date: 09/14/16 Stop Date: 09/27/16 Status: CompletedpredniSONE 20 mg oral tablet 1 tab(s), Oral, Daily, # 5 tab(s), 0 Refill(s), Start Date: 02/03/16 21:18:00 CDT Start Date: 02/03/16 Stop Date: 05/05/16 Status: CompletedpredniSONE 20 mg oral tablet 3 tab(s), Oral, Daily, # 15 tab(s), 0 Refill(s), Start Date: 10/27/16 1:39:00 MEAT STOCK CLERK Start Date: 10/27/16 Stop Date: 11/01/16 Status: OrderedpredniSONE 20 mg oral tablet 1 tab(s), Oral, Daily, # 10 tab(s), 0 Refill(s), Start Date: 10/02/16 15:09:00 MEAT STOCK CLERK Start Date: 10/02/16 Stop Date: 10/23/16 Status: CompletedpredniSONE 50 mg oral tablet 1 tab(s), Oral, Daily, # 5 tab(s), 0 Refill(s), Start Date: 12/26/15 15:42:00 CDT Start Date: 12/26/15 Stop Date: 01/12/16 Status: CompletedpredniSONE 50 mg oral tablet 1 tab(s), Oral, Daily, # 5 tab(s), 0 Refill(s), Start Date: 09/04/15 1:42:00 MEAT STOCK CLERK Start Date: 09/04/15 Stop Date: 09/15/15 Status: CompletedProAir HFA 90 mcg/inh inhalation aerosol 1 puff(s), Inhale, q4hr, PRN as needed for wheezing, # 9 gm, 0 Refill(s), Start Date: 03/15/16 22:22:00 CDT Start Date: 03/15/16 Stop Date: 08/15/16 Status: Completedpromethazine 12.5 mg oral tablet 1 tab(s), Oral, q6hr interval, PRN nausea, 0 Refill(s), Start Date: 08/21/16 15: 26:00 MEAT STOCK CLERK Start Date: 08/21/16 Stop Date: 08/21/16 Status: Discontinuedpromethazine 12.5 mg oral tablet 1 tab(s), Oral, q6hr interval, PRN nausea, # 30 tab(s), 0 Refill(s), Start Date : 08/21/16 15:33:00 MEAT STOCK CLERK Start Date: 08/21/16 Stop Date: 09/14/16 Status: Completedpromethazine 25 mg oral tablet 1 tab(s), Oral, q4hr, PRN cough and congestion, # 30 tab(s), 0 Refill(s), Start Date: 10/10/14 19:03:00 MEAT STOCK CLERK Start Date: 10/10/14 Stop Date: 11/11/14 Status: DiscontinuedPromethazine VC with Codeine 5 mL, Oral, HS, 0 Refill(s), Start Date: 09/06/16 11:46:00 MEAT STOCK CLERK Start Date: 09/06/16 Stop Date: 09/06/16 Status: DiscontinuedPromethazine VC with Codeine oral syrup 5 mL, Oral, q4hr, PRN for cough, X 10 days, # 240 mL, 0 Refill(s), Start Date: 09/14/16 13:07:00 MEAT STOCK CLERK Start Date: 09/14/16 Stop Date: 09/24/16 Status: CompletedPromethazine VC with Codeine oral syrup 5 mL, Oral, HS, # 60 mL, 0 Refill(s), Start Date: 09/06/16 11:46:00 MEAT STOCK CLERK Start Date: 09/06/16 Stop Date: 09/27/16 Status: [...] 210 mL, 0 Refill(s), Start Date: 15:13:00 MEAT STOCK CLERK Start Date: 11/27/15 Stop Date: 12/04/15 Status: CompletedPromethazine with Codeine 6.25 mg-10 mg/5 mL oral syrup 5 mL, Oral, q4hr, X 4 days, # 120 mL, 0 Refill(s), Start Date: 11/19/16 16:24: 00 MEAT STOCK CLERK Start Date: 11/19/16 Stop Date: 11/23/16 Status: OrderedPromethazine with Codeine 6.25 mg-10 mg/5 mL oral syrup 5 mL, Oral, q4hr, PRN for cough, # 180 mL, 0 Refill(s), Start Date: 10/14/15 15: 56:23 MEAT STOCK CLERK Start Date: 10/14/15 Stop Date: 10/28/15 Status: CompletedPromethazine with Codeine 6.25 mg-10 mg/5 mL oral syrup 5 mL, Oral, q4hr, PRN for cough, X 7 days, # 210 mL, 0 Refill(s), Start Date: 17:18:00 MEAT STOCK CLERK Start Date: 10/26/15 Stop Date: 11/02/15 Status: CompletedPromethazine with Codeine 6.25 mg-10 mg/5 mL oral syrup 5 mL, Oral, q4hr, PRN for cough, # 180 mL, 0 Refill(s), Start Date: 11/08/15 10: 00:51 MEAT STOCK CLERK Start Date: 11/08/15 Stop Date: 11/22/15 Status: Completedpromethazine-codeine mL, Oral, q4hr interval, 0 Refill(s), Start Date: 09/28/15 11:22:00 MEAT STOCK CLERK Start Date: 09/28/15 Stop Date: 09/28/15 Status: Discontinuedpromethazine-codeine 6.25 mg-10 mg/5 mL oral syrup 5 mL, Oral, QID, X 14 days, # 180 mL, 0 Refill(s), Start Date: 09/28/15 11:23: 00 MEAT STOCK CLERK Start Date: 09/28/15 Stop Date: 10/12/15 Status: [...] 90 mL, 0 Refill(s), Start Date: 1:39:00 MEAT STOCK CLERK Start Date: 10/27/16 Stop Date: 10/30/16 Status: [...] mL, 0 Refill(s), Start Date: 08/29/16 23:26:00 MEAT STOCK CLERK Start Date: 08/29/16 Stop Date: 09/03/16 Status: CompletedRestoril 15 mg oral capsule 1 cap(s), Oral, HS, # 30 cap(s), 0 Refill(s), Start Date: 10/24/16 15:30:00 MEAT STOCK CLERK , Pharmacy: [id number] Start Date: 10/24/16 Status: OrderedRoxicodone 5 mg oral tablet 1 tab(s), Oral, q6hr, PRN for pain, # 15 tab(s), 0 Refill(s), Start Date: 8:00:00 MEAT STOCK CLERK, Earliest Fill Date: 09/20/16, Pharmacy: [facility] [place] Start Date: 09/20/16 Stop Date: 09/27/16 Status: CompletedRoxicodone 5 mg oral tablet 1 tab(s), Oral, q6hr, PRN for pain, # 120 tab(s), 0 Refill(s), Start Date: 08/21 15:30:00 MEAT STOCK CLERK Start Date: 08/21/16 Stop Date: 09/18/16 Status: CompletedSkelaxin 800 mg oral tablet 1 tab(s), Oral, BID, # 10 tab(s), 0 Refill(s), Start Date: 09/06/15 13:50:00 MEAT STOCK CLERK , [place] [facility] [place] Start Date: 09/06/15 Stop Date: 09/15/15 Status: CompletedTessalon 200 mg oral capsule 1 cap(s), Oral, TID, # 21 cap(s), 0 Refill(s), Start Date: 12/24/15 13:11:00 CDT Start Date: 12/24/15 Stop Date: 01/12/16 Status: CompletedtraMADol 50 mg oral tablet 1 tab(s), Oral, q4hr, PRN for pain, # 4 tab(s), 0 Refill(s), Start Date: 16:25:00 MEAT STOCK CLERK Start Date: 11/19/16 Status: OrderedTussionex PennKinetic 10 mg-8 mg/5 mL oral suspension, extended release 5 mL, Oral, q12hr, PRN for cold symptoms, # 50 mL, 0 Refill(s), Start Date: 04/21 15:42:00 CDT Start Date: 01/12/16 Stop Date: 01/16/16 Status: Completedwarfarin 5 mg oral tablet 2 tab(s), Oral, Daily, INR DUE, 0 Refill(s), Start Date: 10/26/15 17:13:00 MEAT STOCK CLERK Special Instructions: INR DUE Start Date: 10/26/15 Stop Date: 11/08/15 Status: Discontinuedwarfarin 5 mg oral tablet 2 tab(s), Oral, Daily, # 60 tab(s), 0 Refill(s), Start Date: 11/08/15 9:58:00 MEAT STOCK CLERK, Pharmacy: [id number] Start Date: 11/08/15 Stop Date: 11/27/15 Status: CompletedWellbutrin SR 100 mg/12 hours oral tablet, extended release 1 tab(s), Oral, BID, # 60 tab(s), 0 Refill(s), Start Date: 10/05/16 16:00:00 MEAT STOCK CLERK Start Date: 10/05/16 Stop Date: 10/24/16 Status: DiscontinuedWellbutrin SR 100 mg/12 hours oral tablet, extended release See Instructions, Take 1 tab(s) Oral Qdaily for one week, then one tablet Oral BID, # 60 tab(s), 0 Refill(s), Start Date: 09/27/16 14:51:00 MEAT STOCK CLERK, Pharmacy: [facility] [id number] Special Instructions: Take 1 tab(s) Oral Qdaily for one week, then one tablet Oral BID Start Date: 09/27/16 Stop Date: 10/05/16 Status: CompletedXanax 0.5 mg oral tablet 1 tab(s), Oral, TID, PRN as needed for anxiety, # 90 tab(s), 0 Refill(s), Start Date: 08/21/16 15:36:00 MEAT STOCK CLERK Start Date: 08/21/16 Stop Date: 09/27/16 Status: CompletedZithromax Z-Juan C 250 mg oral tablet 1 packet(s), Oral, Per Package Label, as directed on package labeling, # 6 tab(s ), 0 Refill(s), Start Date: 10/05/16 16:09:00 MEAT STOCK CLERK Special Instructions: as directed on package labeling [...] tab(s), 0 Refill(s), Start Date: 08/21/16 15:29:00 MEAT STOCK CLERK Start Date: 08/21/16 Stop Date: 09/06/16 Status: DiscontinuedZyrTEC-D 5 mg-120 mg oral tablet, extended release 1 tab(s), Oral, BID, X 15 days, # 30 tab(s), 0 Refill(s), Start Date: 11/27/15 15:13:00 MEAT STOCK CLERK Start Date: 11/27/15 Stop Date: 12/12/15 Status: Completed Results Patient Viewable Results Most recent to oldest [Reference Range]: 1 Estimated Creatinine Clearance 112.74 mL/min (11/19/16 3:53 PM) Immunizations No data available for this section Procedures Procedure Date Related Diagnosis Body Site Extraction of wisdom tooth 2009 Surgical procedure1 2008 Tonsillectomy 2002 1left knee surg. due to torn cartilage Social History No data available for this section Assessment and Plan No data available for this section
--- OUTSIDE RECORDS SUMMARY | 2017-05-20 16:12 | XMS REPORT | Summary of Care ---
:1990 Author Organization [facility] Address [address] [place] [address] Care Team Providers Name Role Phone Elkin Anderson Primary Care Physician Physician, Primary Care Primary Care Physician Unavailable Encounter Date(s): 10/19/16 - 10/19/16 [facility], [address] [place] [address]- [facility] Discharge Disposition: 01 Discharged to Home or Self Care Vital Signs No data available for this [...] EA, 0 Refill(s), Start Date: 09/15/15 10:13:00 DEVELOPMENT PROFESSIONAL Start Date: 09/15/15 Stop Date: 12/24/15 Status: CompletedAfrin 0.05% nasal spray 2 spray(s), Nasal, BID, # 15 mL, 0 Refill(s), Start Date: 08/15/16 11:50:00 DEVELOPMENT PROFESSIONAL Start Date: 08/15/16 Stop Date: 08/16/16 Status: CompletedAfrin 0.05% nasal spray 2 spray(s), Nasal, BID, X 3 days, # 15 mL, 0 Refill(s), Start Date: 09/14/16 12: 50:00 DEVELOPMENT PROFESSIONAL Start Date: 09/14/16 Stop Date: 09/17/16 [...] HFA 0 Refill(s), Start Date: 11/11/14 11:01:00 DEVELOPMENT PROFESSIONAL Start Date: 11/11/14 Stop Date: 09/05/15 Status: DiscontinuedALPRAZolam 1 mg oral tablet 1 tab(s), Oral, TID, PRN for anxiety, # 90 tab(s), 0 Refill(s), Start Date: 10/22 11:45:00 DEVELOPMENT PROFESSIONAL Start Date: 09/06/16 Stop Date: 10/04/16 Status: CompletedALPRAZolam 1 mg oral tablet 1 tab(s), Oral, TID, PRN for anxiety, 0 Refill(s), Start Date: 09/06/16 11:44: 00 DEVELOPMENT PROFESSIONAL Start Date: 09/06/16 Stop Date: 09/06/16 Status: DiscontinuedALPRAZolam 1 mg oral tablet 1 tab(s), Oral, TID, PRN for anxiety, # 90 tab(s), 0 Refill(s), Start Date: 10:33:00 DEVELOPMENT PROFESSIONAL, Pharmacy: [id number] Start Date: 10/04/16 Status: OrderedAmbien 5 mg oral tablet 1 tab(s), Oral, HS, PRN for sleep, # 30 tab(s), 0 Refill(s), Start Date: 14:50:00 DEVELOPMENT PROFESSIONAL, Pharmacy: [facility] [id number] Start Date: 09/27/16 Status: Orderedamoxicillin 875 mg oral tablet 1 tab(s), Oral, BID, # 20 tab(s), 0 Refill(s), Start Date: 09/28/15 11:23:00 DEVELOPMENT PROFESSIONAL , Pharmacy: [id number] Start Date: 09/28/15 Stop Date: 10/14/15 Status: Discontinuedamoxicillin-clavulanate 875 mg-125 mg oral tablet 1 tab(s), Oral, q12hr interval, X 10 days, # 20 tab(s), 0 Refill(s), Start Date : 08/29/16 23:25:00 DEVELOPMENT PROFESSIONAL Start Date: 08/29/16 Stop Date: 09/06/16 Status: CompletedAtivan 0.5 mg oral tablet 1 tab(s), Oral, HS, # 15 tab(s), 0 Refill(s), Start Date: 09/15/15 11:13:00 DEVELOPMENT PROFESSIONAL Start Date: 09/15/15 Stop Date: 09/23/15 Status: DiscontinuedAtivan 1 mg oral tablet 1 tab(s), Oral, TID, PRN for anxiety, # 15 tab(s), 0 Refill(s), Start Date: 1:43:00 DEVELOPMENT PROFESSIONAL Start Date: 09/04/15 Stop Date: 09/23/15 Status: DiscontinuedAtivan 1 mg oral tablet 1 tab(s), Oral, BID, # 60 tab(s), 2 Refill(s), Start Date: 09/23/15 14:08:00 DEVELOPMENT PROFESSIONAL , Pharmacy: [id number] Start Date: 09/23/15 Stop Date: 01/12/16 Status: CompletedAugmentin 875 mg-125 mg oral tablet 1 tab(s), Oral, q12hr, # 20 tab(s), 0 Refill(s), Start Date: 10/10/14 19:03:00 DEVELOPMENT PROFESSIONAL Start Date: 10/10/14 Stop Date: 11/11/14 Status: CompletedAugmentin 875 mg-125 mg oral tablet 1 tab(s), Oral, q12hr, # 20 tab(s), 0 Refill(s), Start Date: 10/10/14 18:50:00 DEVELOPMENT PROFESSIONAL Start Date: 10/10/14 Stop Date: 11/11/14 [...] tab(s), 0 Refill(s), Start Date: 09/05/15 13:14:00 DEVELOPMENT PROFESSIONAL Start Date: 09/05/15 Stop Date: 09/07/15 Status: Completedcefdinir 300 mg oral capsule 1 cap(s), Oral, q12hr, # 20 cap(s), 0 Refill(s), Start Date: 11/08/15 10:04:00 DEVELOPMENT PROFESSIONAL, Pharmacy: [id number] Start Date: [...] mL, 0 Refill(s), Start Date: 10/05/16 16:12:00 DEVELOPMENT PROFESSIONAL Start Date: 10/05/16 Stop Date: 10/11/16 Status: CompletedCoumadin 5 mg oral tablet 1 tab(s), Oral, Daily, # 60 tab(s), 2 Refill(s), Start Date: 09/22/15 11:43:00 DEVELOPMENT PROFESSIONAL, Pharmacy: [facility] Start Date: 09/22/15 Stop Date: 09/27/15 Status: CompletedCoumadin 5 mg oral tablet See Instructions, 3 tabs every Saturday, Saturday, 1.5 tabs every Saturday and 2 tablets every Saturday, , Saturday and Saturday, # 60 tab(s), 2 Refill(s), Start Date: 09/27/15 14:06:08 DEVELOPMENT PROFESSIONAL, Pharmacy: [facility] Start Date: 09/27/15 Stop Date: 10/26/15 Status: CompletedCoumadin 7.5 mg oral tablet 1 tab(s), Oral, Daily, # 30 tab(s), 0 Refill(s), Start Date: 09/15/15 10:14:00 DEVELOPMENT PROFESSIONAL Start Date: 09/15/15 Stop Date: 09/22/15 Status: Discontinueddextromethorphan 15 mg oral capsule 1 cap(s), Oral, q4hr interval, # 180 cap(s), 0 Refill(s), Start Date: 08/29/16 14:44:00 DEVELOPMENT PROFESSIONAL, Pharmacy: [facility] [place], [place] Start Date: 08/29/16 Stop Date: 09/27/16 Status: Completeddibucaine 1% topical ointment 1 mckinley, Topical, QID, PRN for itching, # 30 gm, 0 Refill(s), Start Date: 9:41:00 DEVELOPMENT PROFESSIONAL, Pharmacy: [facility] [id number] Start Date: 09/24/16 Status: OrdereddiphenhydrAMINE 50 mg oral capsule 1 cap(s), Oral, QID, PRN for allergy symptoms, # 40 cap(s), 0 Refill(s), Start Date: 10/10/14 18:50:00 DEVELOPMENT PROFESSIONAL Start Date: 10/10/14 Stop Date: 11/11/14 Status: DiscontinuedFlagyl 500 mg oral tablet 1 tab(s), Oral, q12hr, X 7 days, # 14 tab(s), 0 Refill(s), Start Date: 10/21/15 12:49:00 DEVELOPMENT PROFESSIONAL Start Date: 10/21/15 Stop Date: 10/28/15 [...] reconstitution 0 Refill(s), Start Date: 08/22/16 10:40:00 DEVELOPMENT PROFESSIONAL Start Date: 08/22/16 Status: Orderedibuprofen 800 mg oral tablet 1 tab(s), Oral, q6hr, # 40 tab(s), 0 Refill(s), Start Date: 08/21/16 13:04:00 DEVELOPMENT PROFESSIONAL Start Date: 08/21/16 Status: Orderedlabetalol 300 mg oral tablet 2 tab(s), BID, 0 Refill(s), Start Date: 08/21/16 13:04:00 DEVELOPMENT PROFESSIONAL Start Date: 08/21/16 Status: OrderedLexapro 10 mg oral tablet 1 tab(s), Oral, Daily, # 30 tab(s), 0 Refill(s), Start Date: 11/03/15 11:16:00 DEVELOPMENT PROFESSIONAL, Pharmacy: [id number] Start Date: 11/03/15 Stop Date: 12/24/15 Status: CompletedLexapro 10 mg oral tablet 1 tab(s), Oral, Daily, # 30 tab(s), 0 Refill(s), Start Date: 09/15/15 10:13:00 DEVELOPMENT PROFESSIONAL Start Date: 09/15/15 Stop Date: 11/03/15 Status: DiscontinuedLexapro 20 mg oral tablet 1 tab(s), Oral, Daily, # 30 tab(s), 0 Refill(s), Start Date: 09/27/16 14:50:28 DEVELOPMENT PROFESSIONAL, Pharmacy: [facility] [id number] Start Date: 09/27/16 Status: OrderedLexapro 20 mg oral tablet 1 tab(s), Oral, Daily, # 30 tab(s), 0 Refill(s), Start Date: 09/06/16 11:23:00 DEVELOPMENT PROFESSIONAL, Pharmacy: [facility] [place] Start Date: 09/06/16 Stop Date: 09/27/16 Status: Completedloratadine 10 mg oral tablet 1 tab(s), Oral, Daily, # 30 tab(s), 0 Refill(s), Start Date: 10/14/15 16:32:00 DEVELOPMENT PROFESSIONAL, Pharmacy: [id number] Start Date: 10/14/15 Stop Date: 11/08/15 Status: DiscontinuedLovenox 0 Refill(s), Start Date: 08/21/16 13:05:00 DEVELOPMENT PROFESSIONAL Start Date: 08/21/16 Stop Date: 08/21/16 Status: DiscontinuedLovenox 150 mg/mL injectable solution 1 mL, Subcutaneous, Daily, # 10 syringe(s), 0 Refill(s), Start Date: 08/21/16 13 :06:00 DEVELOPMENT PROFESSIONAL Start Date: 08/21/16 Status: OrderedLovenox 80 mg/0.8 mL injectable solution 0.8 mL, Subcutaneous, q12hr interval, # 8 EA, 0 Refill(s), Start Date: 09/16/15 15:35:00 DEVELOPMENT PROFESSIONAL, Pharmacy: [id number] Start Date: 09/16/15 Stop Date: 09/27/15 Status: CompletedLovenox 80 mg/0.8 mL injectable solution 80 mg, Subcutaneous, q12hr interval, 0 Refill(s), Start Date: 09/15/15 10:17:00 DEVELOPMENT PROFESSIONAL Start Date: 09/15/15 Stop Date: 09/16/15 Status: DiscontinuedLovenox 80 mg/0.8 mL injectable solution 0.8 mL, Subcutaneous, q12hr interval, X 5 days, # 8 mL, 0 Refill(s), Start Date : 11/08/15 9:55:57 DEVELOPMENT PROFESSIONAL, Pharmacy: [id number] Start Date: 11/08/15 Stop Date: 11/08/15 Status: CompletedLovenox 80 mg/0.8 mL injectable solution 0.8 mL, Subcutaneous, q12hr interval, # 10 syringe(s), 0 Refill(s), Start Date: 11/08/15 11:24:16 DEVELOPMENT PROFESSIONAL, Pharmacy: [id number] Start Date: 11/08/15 Stop Date: 08/15/16 Status: CompletedLovenox 80 mg/0.8 mL injectable solution 0.8 mL, Subcutaneous, q12hr interval, # 14 EA, 0 Refill(s), Start Date: 14:03:25 DEVELOPMENT PROFESSIONAL, [facility]acy: [facility] Start Date: 09/27/15 Stop Date: 10/21/15 Status: CompletedMedrol Dosepak 4 mg oral tablet 1 packet(s), Oral, Per Package Label, Take full line each am, # 21 tab(s), 0 Refill(s), Start Date: 09/06/16 11:55:00 DEVELOPMENT PROFESSIONAL, Pharmacy: [facility], [place], [place] Start Date: 09/06/16 Stop Date: 09/14/16 Status: Completedmetaxalone 800 mg oral tablet 1 tab(s), Oral, TID, # 42 tab(s), 1 Refill(s), Start Date: 09/23/15 14:15:00 DEVELOPMENT PROFESSIONAL , Pharmacy: [id number] Start Date: 09/23/15 Stop Date: 11/27/15 Status: CompletedMucinex DM Maximum Strength 60 mg-1200 mg oral tablet, extended release 1 tab(s), Oral, BID, X 10 days, # 20 tab(s), 0 Refill(s), Start Date: 10/10/14 19:04:00 DEVELOPMENT PROFESSIONAL Start Date: 10/10/14 Stop Date: 10/20/14 Status: CompletedMucinex DM Maximum Strength 60 mg-1200 mg oral tablet, extended release 1 tab(s), Oral, BID, X 10 days, # 20 tab(s), 0 Refill(s), Start Date: 10/10/14 18:50:00 DEVELOPMENT PROFESSIONAL Start Date: 10/10/14 Stop Date: 10/20/14 Status: CompletedMucinex DM Maximum Strength 60 mg-1200 mg oral tablet, extended release 1 tab(s), Oral, BID, X 10 days, # 20 tab(s), 0 Refill(s), Start Date: 10/14/15 15:53:41 DEVELOPMENT PROFESSIONAL Start Date: 10/14/15 Stop Date: 10/14/15 Status: Discontinuedmultivitamin 1 tab(s), Oral, Daily, 0 Refill(s), Start Date: 11/27/15 14:20:00 DEVELOPMENT PROFESSIONAL Start Date: 11/27/15 Status: OrderedNorco 5 mg-325 mg oral tablet 1 tab(s), Oral, q4hr, PRN for pain, # 12 tab(s), 0 Refill(s), Start Date: 16:09:00 DEVELOPMENT PROFESSIONAL Start Date: 10/05/16 Stop Date: 10/08/16 Status: CompletedpredniSONE 20 mg oral tablet 2 tab(s), Oral, Daily, # 10 tab(s), 0 Refill(s), Start Date: 09/14/16 12:53:00 DEVELOPMENT PROFESSIONAL Start Date: 09/14/16 Stop Date: 09/27/16 Status: CompletedpredniSONE 20 mg oral tablet 1 tab(s), Oral, Daily, # 5 tab(s), 0 Refill(s), Start Date: 02/03/16 21:18:00 CDT Start Date: 02/03/16 Stop Date: 05/05/16 Status: CompletedpredniSONE 20 mg oral tablet 1 tab(s), Oral, Daily, # 10 tab(s), 0 Refill(s), Start Date: 10/02/16 15:09:00 DEVELOPMENT PROFESSIONAL Start Date: 10/02/16 Stop Date: 10/07/16 Status: OrderedpredniSONE 50 mg oral tablet 1 tab(s), Oral, Daily, # 5 tab(s), 0 Refill(s), Start Date: 12/26/15 15:42:00 CDT Start Date: 12/26/15 Stop Date: 01/12/16 Status: CompletedpredniSONE 50 mg oral tablet 1 tab(s), Oral, Daily, # 5 tab(s), 0 Refill(s), Start Date: 09/04/15 1:42:00 DEVELOPMENT PROFESSIONAL Start Date: 09/04/15 Stop Date: 09/15/15 Status: CompletedProAir HFA 90 mcg/inh inhalation aerosol 1 puff(s), Inhale, q4hr, PRN as needed for wheezing, # 9 gm, 0 Refill(s), Start Date: 03/15/16 22:22:00 CDT Start Date: 03/15/16 Stop Date: 08/15/16 Status: Completedpromethazine 12.5 mg oral tablet 1 tab(s), Oral, q6hr interval, PRN nausea, 0 Refill(s), Start Date: 08/21/16 15: 26:00 DEVELOPMENT PROFESSIONAL Start Date: 08/21/16 Stop Date: 08/21/16 Status: Discontinuedpromethazine 12.5 mg oral tablet 1 tab(s), Oral, q6hr interval, PRN nausea, # 30 tab(s), 0 Refill(s), Start Date : 08/21/16 15:33:00 DEVELOPMENT PROFESSIONAL Start Date: 08/21/16 Stop Date: 09/14/16 Status: Completedpromethazine 25 mg oral tablet 1 tab(s), Oral, q4hr, PRN cough and congestion, # 30 tab(s), 0 Refill(s), Start Date: 10/10/14 19:03:00 DEVELOPMENT PROFESSIONAL Start Date: 10/10/14 Stop Date: 11/11/14 Status: DiscontinuedPromethazine VC with Codeine 5 mL, Oral, HS, 0 Refill(s), Start Date: 09/06/16 11:46:00 DEVELOPMENT PROFESSIONAL Start Date: 09/06/16 Stop Date: 09/06/16 Status: DiscontinuedPromethazine VC with Codeine oral syrup 5 mL, Oral, q4hr, PRN for cough, X 10 days, # 240 mL, 0 Refill(s), Start Date: 09/14/16 13:07:00 DEVELOPMENT PROFESSIONAL Start Date: 09/14/16 Stop Date: 09/24/16 Status: CompletedPromethazine VC with Codeine oral syrup 5 mL, Oral, HS, # 60 mL, 0 Refill(s), Start Date: 09/06/16 11:46:00 DEVELOPMENT PROFESSIONAL Start Date: 09/06/16 Stop Date: 09/27/16 [...] 210 mL, 0 Refill(s), Start Date: 15:13:00 DEVELOPMENT PROFESSIONAL Start Date: 11/27/15 Stop Date: 12/04/15 Status: CompletedPromethazine with Codeine 6.25 mg-10 mg/5 mL oral syrup 5 mL, Oral, q4hr, PRN for cough, # 180 mL, 0 Refill(s), Start Date: 10/14/15 15: 56:23 DEVELOPMENT PROFESSIONAL Start Date: 10/14/15 Stop Date: 10/28/15 Status: CompletedPromethazine with Codeine 6.25 mg-10 mg/5 mL oral syrup 5 mL, Oral, q4hr, PRN for cough, X 7 days, # 210 mL, 0 Refill(s), Start Date: 17:18:00 DEVELOPMENT PROFESSIONAL Start Date: 10/26/15 Stop Date: 11/02/15 Status: CompletedPromethazine with Codeine 6.25 mg-10 mg/5 mL oral syrup 5 mL, Oral, q4hr, PRN for cough, # 180 mL, 0 Refill(s), Start Date: 11/08/15 10: 00:51 DEVELOPMENT PROFESSIONAL Start Date: 11/08/15 Stop Date: 11/22/15 Status: Completedpromethazine-codeine mL, Oral, q4hr interval, 0 Refill(s), Start Date: 09/28/15 11:22:00 DEVELOPMENT PROFESSIONAL Start Date: 09/28/15 Stop Date: 09/28/15 Status: Discontinuedpromethazine-codeine 6.25 mg-10 mg/5 mL oral syrup 5 mL, Oral, QID, X 14 days, # 180 mL, 0 Refill(s), Start Date: 09/28/15 11:23: 00 DEVELOPMENT PROFESSIONAL Start Date: 09/28/15 Stop Date: 10/12/15 [...] mL, 0 Refill(s), Start Date: 08/29/16 23:26:00 DEVELOPMENT PROFESSIONAL Start Date: 08/29/16 Stop Date: 09/03/16 Status: CompletedRoxicodone 5 mg oral tablet 1 tab(s), Oral, q6hr, PRN for pain, # 15 tab(s), 0 Refill(s), Start Date: 8:00:00 DEVELOPMENT PROFESSIONAL, Earliest Fill Date: 09/20/16, Pharmacy: [facility] [place], [place] Start Date: 09/20/16 Stop Date: 09/27/16 Status: CompletedRoxicodone 5 mg oral tablet 1 tab(s), Oral, q6hr, PRN for pain, # 120 tab(s), 0 Refill(s), Start Date: 08/21 15:30:00 DEVELOPMENT PROFESSIONAL Start Date: 08/21/16 Stop Date: 09/18/16 Status: CompletedSkelaxin 800 mg oral tablet 1 tab(s), Oral, BID, # 10 tab(s), 0 Refill(s), Start Date: 09/06/15 13:50:00 DEVELOPMENT PROFESSIONAL , [place] [place] Start Date: 09/06/15 Stop Date: 09/15/15 [...] DUE, 0 Refill(s), Start Date: 10/26/15 17:13:00 DEVELOPMENT PROFESSIONAL Start Date: 10/26/15 Stop Date: 11/08/15 Status: Discontinuedwarfarin 5 mg oral tablet 2 tab(s), Oral, Daily, # 60 tab(s), 0 Refill(s), Start Date: 11/08/15 9:58:00 DEVELOPMENT PROFESSIONAL, Pharmacy: [id number] Start Date: 11/08/15 Stop Date: 11/27/15 Status: CompletedWellbutrin SR 100 mg/12 hours oral tablet, extended release 1 tab(s), Oral, BID, # 60 tab(s), 0 Refill(s), Start Date: 10/05/16 16:00:00 DEVELOPMENT PROFESSIONAL Start Date: 10/05/16 Status: OrderedWellbutrin SR 100 mg/12 hours oral tablet, extended release See Instructions, Take 1 tab(s) Oral Qdaily for one week, then one tablet Oral BID, # 60 tab(s), 0 Refill(s), Start Date: 09/27/16 14:51:00 DEVELOPMENT PROFESSIONAL, Pharmacy: [facility] [id number] Start Date: 09/27/16 Stop Date: 10/05/16 Status: CompletedXanax 0.5 mg oral tablet 1 tab(s), Oral, TID, PRN as needed for anxiety, # 90 tab(s), 0 Refill(s), Start Date: 08/21/16 15:36:00 DEVELOPMENT PROFESSIONAL Start Date: 08/21/16 Stop Date: 09/27/16 Status: CompletedZithromax Z-Juan C 250 mg oral tablet 1 packet(s), Oral, Per Package Label, as directed on package labeling, # 6 tab(s ), 0 Refill(s), Start Date: 10/05/16 16:09:00 DEVELOPMENT PROFESSIONAL Start Date: 10/05/16 Stop Date: 10/10/16 Status: OrderedZithromax Z-Juan C 250 mg oral tablet 1 packet(s), Oral, Per Package Label, as directed on package labeling, # 6 tab(s ), 0 Refill(s), Start Date: 01/22/16 18:21:00 CDT Start Date: 01/22/16 Stop Date: 05/05/16 Status: CompletedZyPREXA 10 mg oral tablet 1 tab(s), Oral, Daily, # 30 tab(s), 0 Refill(s), Start Date: 08/21/16 15:29:00 DEVELOPMENT PROFESSIONAL Start Date: 08/21/16 Stop Date: 09/06/16 Status: DiscontinuedZyrTEC-D 5 mg-120 mg oral tablet, extended release 1 tab(s), Oral, BID, X 15 days, # 30 tab(s), 0 Refill(s), Start Date: 11/27/15 15:13:00 DEVELOPMENT PROFESSIONAL Start Date: 11/27/15 Stop Date: 12/12/15 [...]
--- OUTSIDE RECORDS SUMMARY | 2017-05-20 16:12 | XMS REPORT | Summary of Care ---
:[address] [facility] Address [facility] [place] [address]- Care Team Providers Name Role Phone Elkin Anderson Primary Care Physician Physician, Primary Care Primary Care Physician Unavailable Encounter Date(s): 03/15/16 - 03/15/[address] [address]- [facility] Discharge Diagnosis: Acute URI Final: Acute upper respiratory infection, unspecified Discharge Disposition: 01 Discharged to Home or Self Care Attending Physician: MARGARETH Landaverde Admitting Physician: MARGARETH Landaverde Vital Signs Most recent to oldest [Reference Range]: 1 2 Temperature Temporal Artery [36.0-38.0 DegC] 36.5 DegC (03/15/16 9:25 PM) Heart Rate Monitored [60-100 bpm] 94 bpm 93 bpm (03/15/16 9:52 PM) (03/15/16 9:25 PM) Respiratory Rate [12-20 br/min] 16 br/min 18 br/min (03/15/16 9:52 PM) (03/15/16 9:25 PM) SpO2 100 % (03/15/16 9:25 PM) Blood Pressure [90-130/60-90 mmHg] 100/67mmHg (03/15/16 9:25 PM) Most recent to oldest [Reference Range]: 1 2 Weight Dosing 92.00 kg1 (03/15/16 9:28 PM) Weight Measured 92.0 kg (03/15/16 9:25 PM) 1Result Comment: This result was because the dosing weight was either not entered or it is>30 days old. This result is based off: Weight Measured March 15, 2016 21:25:00 CDT by Ashleigh Beck RN Problem List Condition Effective Dates Status Health Status Informant Anxiety(Confirmed) Active CHEST PAIN(Confirmed) Active Bipolar disorder NOS(Confirmed) Active Rhinitis NOS(Confirmed) Active Depressive disorder NEC(Confirmed) Active ASTHMA(Confirmed) Active Pulmonary embolism(Confirmed)1 Active 1while on nuva ring Allergies, Adverse Reactions, Alerts Substance Reaction Severity Status guaiFENesin hives Active Latex Active Tessalon Perles itching Active Medications Advair Diskus 250 mcg-50 mcg inhalation powder 1 puff(s), Inhale, BID, # 28 EA, 0 Refill(s), Start Date: 09/15/15 10:13:00 [employer]OP[employer] SPECIALIST MANAGER Start Date: 09/15/15 Stop Date: 12/24/15 Status: CompletedAfrin 0.05% nasal spray 2 spray(s), Nasal, BID, # 15 mL, 0 Refill(s), Start Date: 12/24/15 13:11:00 CDT Start Date: 12/24/15 Stop Date: 12/25/15 Status: Completedalbuterol 90 mcg/inh inhalation powder 2 puff(s), Inhale, q4hr interval, # 1 cartridge(s), 0 Refill(s), Start Date: 13:03:00 CDT Start Date: 07/30/15 Status: Orderedalbuterol HFA 0 Refill(s), Start Date: 11/11/14 11:01:00 [employer]POWER DEVELOPMENT SPECIALIST MANAGER Start Date: 11/11/14 Stop Date: 09/05/15 Status: Discontinuedamoxicillin 875 mg oral tablet 1 tab(s), Oral, BID, # 20 tab(s), 0 Refill(s), Start Date: 09/28/15 11:23:00 MANPOWER DEVELOPMENT SPECIALIST MANAGER , Pharmacy: [facility] Start Date: 09/28/15 Stop Date: 10/14/15 Status: DiscontinuedAtivan 0.5 mg oral tablet 1 tab(s), Oral, HS, # 15 tab(s), 0 Refill(s), Start Date: 09/15/15 11:13:00 [employer]POWER DEVELOPMENT SPECIALIST MANAGER Start Date: 09/15/15 Stop Date: 09/23/15 Status: DiscontinuedAtivan 1 mg oral tablet 1 tab(s), Oral, TID, PRN for anxiety, # 15 tab(s), 0 Refill(s), Start Date: 1:43:00 [employer]POWER DEVELOPMENT SPECIALIST MANAGER Start Date: 09/04/15 Stop Date: 09/23/15 Status: DiscontinuedAtivan 1 mg oral tablet 1 tab(s), Oral, BID, # 60 tab(s), 2 Refill(s), Start Date: 09/23/15 14:08:00 MANPOWER DEVELOPMENT SPECIALIST MANAGER , Pharmacy: [facility] Start Date: 09/23/15 Stop Date: 01/12/16 Status: CompletedAugmentin 875 mg-125 mg oral tablet 1 tab(s), Oral, q12hr, # 20 tab(s), 0 Refill(s), Start Date: 10/10/14 19:03:00 [employer] DEVELOPMENT SPECIALIST MANAGER Start Date: 10/10/14 Stop Date: 11/11/14 Status: CompletedAugmentin 875 mg-125 mg oral tablet 1 tab(s), Oral, q12hr, # 20 tab(s), 0 Refill(s), Start Date: 10/10/14 18:50:00 [employer]POWER DEVELOPMENT SPECIALIST MANAGER Start Date: 10/10/14 Stop Date: 11/11/14 Status: [...] package labeling Start Date: 02/03/16 Stop Date: 02/08/16 Status: Orderedazithromycin 500 mg oral tablet 1 tab(s), Oral, Daily, Start taking this medicine tomorrow (09/06/15), X 2 days, # 2 tab(s), 0 Refill(s), Start Date: 09/05/15 13:14:00 [employer] DEVELOPMENT SPECIALIST MANAGER Special Instructions: Start taking this medicine tomorrow (15) Start Date: 09/05/15 Stop Date: 09/07/15 Status: Completedcefdinir 300 mg oral capsule 1 cap(s), Oral, q12hr, # 20 cap(s), 0 Refill(s), Start Date: 11/08/15 10:04:00 [employer]POWER DEVELOPMENT SPECIALIST MANAGER, Pharmacy: [facility] Start Date: 11/08/15 Stop Date: 11/27/15 Status: CompletedCodeine Phosphate-Promethazine HCl 10 mg-6.25 mg/5 mL oral syrup 5 mL, Oral, q4hr, PRN for cough, X 5 days, # 150 mL, 0 Refill(s), Start Date: 15:43:00 CDT Start Date: 12/26/15 Stop Date: 12/31/15 Status: CompletedCoumadin 5 mg oral tablet 1 tab(s), Oral, Daily, # 60 tab(s), 2 Refill(s), Start Date: 09/22/15 11:43:00 [employer]POWER DEVELOPMENT SPECIALIST MANAGER, Pharmacy: [facility] Start Date: 09/22/15 Stop Date: 09/27/15 Status: CompletedCoumadin 5 mg oral tablet See Instructions, 3 tabs every Saturday, Saturday, 1.5 tabs every Saturday and 2 tablets every Saturday, , Saturday and Saturday, # 60 tab(s), 2 Refill(s), Start Date: 09/27/15 14:06:08 [employer]POWER DEVELOPMENT SPECIALIST MANAGER, Pharmacy: [facility] Special Instructions: 3 tabs every Saturday, Saturday, 1.5 tabs every Saturday and 2 tablets every Saturday, , Saturday and Saturday Start Date: 09/27/15 Stop Date: 10/26/15 Status: CompletedCoumadin 7.5 mg oral tablet 1 tab(s), Oral, Daily, # 30 tab(s), 0 Refill(s), Start Date: 09/15/15 10:14:00 MANPOWER DEVELOPMENT SPECIALIST MANAGER Start Date: 09/15/15 Stop Date: 09/22/15 Status: DiscontinueddiphenhydrAMINE 50 mg oral capsule 1 cap(s), Oral, QID, PRN for allergy symptoms, # 40 cap(s), 0 Refill(s), Start Date: 10/10/14 18:50:00 MANPOWER DEVELOPMENT SPECIALIST MANAGER Start Date: 10/10/14 Stop Date: 11/11/14 Status: DiscontinuedFlagyl 500 mg oral tablet 1 tab(s), Oral, q12hr, X 7 days, # 14 tab(s), 0 Refill(s), Start Date: 10/21/15 12:49:00 MANPOWER DEVELOPMENT SPECIALIST MANAGER Start Date: 10/21/15 Stop Date: 10/28/15 Status: CompletedLexapro 10 mg oral tablet 1 tab(s), Oral, Daily, # 30 tab(s), 0 Refill(s), Start Date: 11/03/15 11:16:00 MANPOWER DEVELOPMENT SPECIALIST MANAGER, Pharmacy: [facility] Start Date: 11/03/15 Stop Date: 12/24/15 Status: CompletedLexapro 10 mg oral tablet 1 tab(s), Oral, Daily, # 30 tab(s), 0 Refill(s), Start Date: 09/15/15 10:13:00 MANPOWER DEVELOPMENT SPECIALIST MANAGER Start Date: 09/15/15 Stop Date: 11/03/15 Status: Discontinuedloratadine 10 mg oral tablet 1 tab(s), Oral, Daily, # 30 tab(s), 0 Refill(s), Start Date: 10/14/15 16:32:00 MANPOWER DEVELOPMENT SPECIALIST MANAGER, Pharmacy: [facility] Start Date: 10/14/15 Stop Date: 11/08/15 Status: DiscontinuedLovenox 80 mg/0.8 mL injectable solution 0.8 mL, Subcutaneous, q12hr interval, # 8 EA, 0 Refill(s), Start Date: 09/16/15 15:35:00 MANPOWER DEVELOPMENT SPECIALIST MANAGER, Pharmacy: [facility] Start Date: 09/16/15 Stop Date: 09/27/15 Status: CompletedLovenox 80 mg/0.8 mL injectable solution 80 mg, Subcutaneous, q12hr interval, 0 Refill(s), Start Date: 09/15/15 10:17:00 MANPOWER DEVELOPMENT SPECIALIST MANAGER Start Date: 09/15/15 Stop Date: 09/16/15 Status: DiscontinuedLovenox 80 mg/0.8 mL injectable solution 0.8 mL, Subcutaneous, q12hr interval, X 5 days, # 8 mL, 0 Refill(s), Start Date : 11/08/15 9:55:57 MANPOWER DEVELOPMENT SPECIALIST MANAGER, Pharmacy: [facility] Start Date: 11/08/15 Stop Date: 11/08/15 Status: CompletedLovenox 80 mg/0.8 mL injectable solution 0.8 mL, Subcutaneous, q12hr interval, # 10 syringe(s), 0 Refill(s), Start Date: 11/08/15 11:24:16 MANPOWER DEVELOPMENT SPECIALIST MANAGER, Pharmacy: [facility] Start Date: 11/08/15 Stop Date: 11/13/15 Status: OrderedLovenox 80 mg/0.8 mL injectable solution 0.8 mL, Subcutaneous, q12hr interval, # 14 EA, 0 Refill(s), Start Date: 14:03:25 MANPOWER DEVELOPMENT SPECIALIST MANAGER, Pharmacy: [facility] Start Date: 09/27/15 Stop Date: 10/21/15 Status: Completedmetaxalone 800 mg oral tablet 1 tab(s), Oral, TID, # 42 tab(s), 1 Refill(s), Start Date: 09/23/15 14:15:00 MANPOWER DEVELOPMENT SPECIALIST MANAGER , Pharmacy: [facility] Start Date: 09/23/15 Stop Date: 11/27/15 Status: CompletedMucinex DM Maximum Strength 60 mg-1200 mg oral tablet, extended release 1 tab(s), Oral, BID, X 10 days, # 20 tab(s), 0 Refill(s), Start Date: 10/10/14 19:04:00 MANPOWER DEVELOPMENT SPECIALIST MANAGER Start Date: 10/10/14 Stop Date: 10/20/14 Status: CompletedMucinex DM Maximum Strength 60 mg-1200 mg oral tablet, extended release 1 tab(s), Oral, BID, X 10 days, # 20 tab(s), 0 Refill(s), Start Date: 10/10/14 18:50:00 MANPOWER DEVELOPMENT SPECIALIST MANAGER Start Date: 10/10/14 Stop Date: 10/20/14 Status: CompletedMucinex DM Maximum Strength 60 mg-1200 mg oral tablet, extended release 1 tab(s), Oral, BID, X 10 days, # 20 tab(s), 0 Refill(s), Start Date: 10/14/15 15:53:41 MANPOWER DEVELOPMENT SPECIALIST MANAGER Start Date: 10/14/15 Stop Date: 10/14/15 Status: Discontinuedmultivitamin 1 tab(s), Oral, Daily, 0 Refill(s), Start Date: 11/27/15 14:20:00 MANPOWER DEVELOPMENT SPECIALIST MANAGER Start Date: 11/27/15 Status: OrderedpredniSONE 20 mg oral tablet 1 tab(s), Oral, Daily, # 5 tab(s), 0 Refill(s), Start Date: 02/03/16 21:18:00 CDT Start Date: 02/03/16 Stop Date: 02/08/16 Status: OrderedpredniSONE 50 mg oral tablet 1 tab(s), Oral, Daily, # 5 tab(s), 0 Refill(s), Start Date: 12/26/15 15:42:00 CDT Start Date: 12/26/15 Stop Date: 01/12/16 Status: CompletedpredniSONE 50 mg oral tablet 1 tab(s), Oral, Daily, # 5 tab(s), 0 Refill(s), Start Date: 09/04/15 1:42:00 MANPOWER DEVELOPMENT SPECIALIST MANAGER Start Date: 09/04/15 Stop Date: 09/15/15 Status: CompletedProAir HFA 90 mcg/inh inhalation aerosol 1 puff(s), Inhale, q4hr, PRN as needed for wheezing, # 9 gm, 0 Refill(s), Start Date: 03/15/16 22:22:00 CDT Start Date: 03/15/16 Status: Orderedpromethazine 25 mg oral tablet 1 tab(s), Oral, q4hr, PRN cough and congestion, # 30 tab(s), 0 Refill(s), Start Date: 10/10/14 19:03:00 MANPOWER DEVELOPMENT SPECIALIST MANAGER Start Date: 10/10/14 Stop Date: 11/11/14 Status: DiscontinuedPromethazine with Codeine 6.25 mg-10 mg/5 mL oral syrup 5 mL, Oral, q4hr, PRN for cough, X 5 days, # 150 mL, 0 Refill(s), Start Date: 13:03:00 CDT Start Date: 07/30/15 Stop Date: 08/04/15 Status: CompletedPromethazine with Codeine 6.25 mg-10 mg/5 mL oral syrup 5 mL, Oral, q4hr, PRN for cough, X 7 days, # 210 mL, 0 Refill(s), Start Date: 15:13:00 MANPOWER DEVELOPMENT SPECIALIST MANAGER Start Date: 11/27/15 Stop Date: 12/04/15 Status: CompletedPromethazine with Codeine 6.25 mg-10 mg/5 mL oral syrup 5 mL, Oral, q4hr, PRN for cough, # 180 mL, 0 Refill(s), Start Date: 10/14/15 15: 56:23 MANPOWER DEVELOPMENT SPECIALIST MANAGER Start Date: 10/14/15 Stop Date: 10/28/15 Status: CompletedPromethazine with Codeine 6.25 mg-10 mg/5 mL oral syrup 5 mL, Oral, q4hr, PRN for cough, X 7 days, # 210 mL, 0 Refill(s), Start Date: 17:18:00 MANPOWER DEVELOPMENT SPECIALIST MANAGER Start Date: 10/26/15 Stop Date: 11/02/15 Status: CompletedPromethazine with Codeine 6.25 mg-10 mg/5 mL oral syrup 5 mL, Oral, q4hr, PRN for cough, # 180 mL, 0 Refill(s), Start Date: 11/08/15 10: 00:51 MANPOWER DEVELOPMENT SPECIALIST MANAGER Start Date: 11/08/15 Stop Date: 11/22/15 Status: Completedpromethazine-codeine mL, Oral, q4hr interval, 0 Refill(s), Start Date: 09/28/15 11:22:00 MANPOWER DEVELOPMENT SPECIALIST MANAGER Start Date: 09/28/15 Stop Date: 09/28/15 Status: Discontinuedpromethazine-codeine 6.25 mg-10 mg/5 mL oral syrup 5 mL, Oral, QID, X 14 days, # 180 mL, 0 Refill(s), Start Date: 09/28/15 11:23: 00 MANPOWER DEVELOPMENT SPECIALIST MANAGER Start Date: 09/28/15 Stop Date: 10/12/15 Status: [...] Start Date: 01/22/16 Stop Date: 01/29/16 Status: CompletedSkelaxin 800 mg oral tablet 1 tab(s), Oral, BID, # 10 tab(s), 0 Refill(s), Start Date: 09/06/15 13:50:00 MANPOWER DEVELOPMENT SPECIALIST MANAGER , [facility] [place] Start Date: 09/06/15 Stop Date: 09/15/15 [...] DUE, 0 Refill(s), Start Date: 10/26/15 17:13:00 MANPOWER DEVELOPMENT SPECIALIST MANAGER Special Instructions: INR DUE Start Date: 10/26/15 Stop Date: 11/08/15 Status: Discontinuedwarfarin 5 mg oral tablet 2 tab(s), Oral, Daily, # 60 tab(s), 0 Refill(s), Start Date: 11/08/15 9:58:00 MANPOWER DEVELOPMENT SPECIALIST MANAGER, Pharmacy: [facility]84 Start Date: 11/08/15 Stop Date: 11/27/15 Status: CompletedZithromax Z-Juan C 250 mg oral tablet 1 packet(s), Oral, Per Package Label, as directed on package labeling, # 6 tab(s ), 0 Refill(s), Start Date: 01/22/16 18:21:00 CDT Special Instructions: as directed on package labeling Start Date: 01/22/16 Stop Date: 01/27/16 Status: OrderedZyrTEC-D 5 mg-120 mg oral tablet, extended release 1 tab(s), Oral, BID, X 15 days, # 30 tab(s), 0 Refill(s), Start Date: 11/27/15 15:13:00 MANPOWER DEVELOPMENT SPECIALIST MANAGER Start Date: 11/27/15 Stop Date: 12/12/15 Status: [...]
--- OUTSIDE RECORDS SUMMARY | 2017-05-20 16:13 | XMS REPORT | CCD ---
:1990 Author Name RENATO KENNY Address [address] [facility] [place] [address] Care Team Providers Name Role Phone ENZO ARIZA Attending Physician Unavailable Allergies Allergy Code Allergy Type Reaction Status TECHNETIUM TC 99M BESILESOMAB 0 Drug allergy Active LATEX 0 Allergy to substance Active GUAFENESIN 0 Drug allergy RASH Active Active Medications Medication Code Dose Units Frequency Route Modification Start Date/Time Advair Diskus 634807 1 PUFF TWICE INHALED 09/12/2015 250/50 DAILY-RESPIRAT 09:18 0.25MG-0.05MG/1I NH Inhalation Disk Prescription Detail 1 PUFF INHALED TWICE DAILY-RESPIRAT Coumadin 5MG Oral 454193 7.5 MILLIGRAMS DAILY COUMADIN BY MOUTH 2014 09:18 Tablet Prescription Detail TAKE 7.5 MILLIGRAMS BY MOUTH DAILY COUMADIN Lexapro 10MG Oral Tablet 561694 10 MILLIGRAMS DAILY BY MOUTH 2014 09:18 Prescription Detail TAKE 10 MILLIGRAMS BY MOUTH DAILY LORazepam 0.5MG 925950 0.5 MILLIGRAMS 2 x a day, as BY MOUTH 2014 09:18 Oral Tablet needed Prescription Detail TAKE 0.5 MILLIGRAMS BY MOUTH 2 x a day, as needed for anxiety Lovenox 100MG/ML 722896 80 MILLIGRAMS EVERY 12 SUBCUTANEOUSLY 2014 09:18 Injection HOURS Solution Prescription Detail INJECT 80 MILLIGRAMS SUBCUTANEOUSLY EVERY 12 HOURS. DX: Pulmonary embolism Naproxen 250MG 19791009 250 MILLIGRAMS 2 x a day, as BY MOUTH For pain 04/2015 09:18 Oral Tablet needed Prescription Detail TAKE 250 MILLIGRAMS BY MOUTH 2 x a day, as needed For pain ProAir HFA 0.09MG/1 INH 851546 1 EACH NEEDED INHALATION 09/12/2015 09:18 Inhalation Aerosol Powder Prescription Detail 1 EACH INHALATION NEEDED Slow Fe 160 MG Oral 778470 1 TABLET DAILY WITH FOOD BY MOUTH 2014 09:18 Tablet, Extended Release Prescription Detail TAKE 1 TABLET BY MOUTH DAILY WITH FOOD traMADol HCl 260934 50-100 MILLIGRAMS Every 6hr as BY MOUTH For pain 04/2015 09:18 50MG Oral needed Tablet Prescription Detail TAKE 50-100 MILLIGRAMS BY MOUTH Every 6hr as needed For pain Problems Problem Code Start Date Resolved Date Status BRONCHITIS 16806055 01/19/2012 Active HEADACHE 20800961 01/19/2012 Active PERS HX OF PULMONARY EMBOLISM V1255 02/23/2012 Active VIRAL INFECTION 11848371 03/15/2012 Active ASTHMA 254034882 03/15/2012 Active COUGH 90141429 11/11/2012 Active ASTHMA WITH EXACERBATION 672045286 02/13/2013 Active VAGINITIS 15972734 05/24/2013 Active LUMP OR MASS IN BREAST 37680148 05/28/2013 Active SOLITARY CYST OF BREAST 753276380 05/28/2013 Active Procedures Unknown or Not Available. Results Unknown or Not Available. Encounters Encounter Diagnosis Diagnosis Code Start Date Acute pharyngitis 559991367 05/09/2017 Function Status Unknown or Not Available. History of Immunizations Immunization Code Date DTP 1991 DTP 01 1991 DTP 01 1991 DTP 01 12/15/1992 OPV 02 04/26/1995 OPV 02 12/15/1992 OPV 02 1991 OPV 02 1991 MMR 03 04/26/1995 MMR 03 08/10/1992 Td (adult), adsorbed 09 08/02/2005 Hep B, unspecified formulation 45 08/02/2005 Hep B, unspecified formulation 45 05/13/2003 Hib (HbOC) 47 08/10/1992 Hib (HbOC) 47 1991 Hib (HbOC) 47 1991 Hib (HbOC) 47 1991 DTaP, unspecified formulation 107 04/26/1995 Tdap 115 04/13/2014 no vaccine administered 998 1991 Plan of Treatment Diagnostic Test Pending Plan of Care Pending Diagnostic Test CULTURE ANTIGEN BACKUP, [LOINC: 585-0], 05/09/2017 Social History Smoking Status Code Start Date End Date Never smoker 260974912 Vital Signs Unknown or Not Available. Function Status Unknown or Not Available. Goals Unknown or Not Available. ASSESSMENTS Unknown or Not Available. Health Concerns Section Unknown or Not Available.
--- OUTSIDE RECORDS SUMMARY | 2017-05-20 16:13 | XMS REPORT | CCD ---
:1990 Author Name RENATO KENNY Address [address] [facility] [place] [place] [address] Care Team Providers Name Role Phone JHONY SY Attending Physician Unavailable Allergies Allergy Code Allergy Type Reaction Status TECHNETIUM TC 99M BESILESOMAB 0 Drug allergy Active LATEX 0 Allergy to substance Active GUAFENESIN 0 Drug allergy RASH Active Active Medications Medication Code Dose Units Frequency Route Modification Start Date/Time Advair Diskus 896896 1 PUFF TWICE INHALED 09/12/2015 250/50 DAILY-RESPIRAT 09:18 0.25MG-0.05MG/1I NH Inhalation Disk Prescription Detail 1 PUFF INHALED TWICE DAILY-RESPIRAT Coumadin 5MG Oral 694987 7.5 MILLIGRAMS DAILY COUMADIN BY MOUTH 2014 09:18 Tablet Prescription Detail TAKE 7.5 MILLIGRAMS BY MOUTH DAILY COUMADIN Lexapro 10MG Oral Tablet 571862 10 MILLIGRAMS DAILY BY MOUTH 2014 09:18 Prescription Detail TAKE 10 MILLIGRAMS BY MOUTH DAILY LORazepam 0.5MG 528831 0.5 MILLIGRAMS 2 x a day, as BY MOUTH 2014 09:18 Oral Tablet needed Prescription Detail TAKE 0.5 MILLIGRAMS BY MOUTH 2 x a day, as needed for anxiety Lovenox 100MG/ML 998574 80 MILLIGRAMS EVERY 12 SUBCUTANEOUSLY 2014 09:18 Injection HOURS Solution Prescription Detail INJECT 80 MILLIGRAMS SUBCUTANEOUSLY EVERY 12 HOURS. DX: Pulmonary embolism Naproxen 250MG 266392 250 MILLIGRAMS 2 x a day, as BY MOUTH For pain 04/2015 09:18 Oral Tablet needed Prescription Detail TAKE 250 MILLIGRAMS BY MOUTH 2 x a day, as needed For pain ProAir HFA 0.09MG/1 INH 860063 1 EACH NEEDED INHALATION 09/12/2015 09:18 Inhalation Aerosol Powder Prescription Detail 1 EACH INHALATION NEEDED Slow Fe 160 MG Oral 385094 1 TABLET DAILY WITH FOOD BY MOUTH 2014 09:18 Tablet, Extended Release Prescription Detail TAKE 1 TABLET BY MOUTH DAILY WITH FOOD traMADol HCl 741132 50-100 MILLIGRAMS Every 6hr as BY MOUTH For pain 04/2015 09:18 50MG Oral needed Tablet Prescription Detail TAKE 50-100 MILLIGRAMS BY MOUTH Every 6hr as needed For pain Problems Problem Code Start Date Resolved Date Status BRONCHITIS 44190921 01/19/2012 Active HEADACHE 40229939 01/19/2012 Active PERS HX OF PULMONARY EMBOLISM V1255 02/23/2012 Active VIRAL INFECTION 56279800 03/15/2012 Active ASTHMA 792947832 03/15/2012 Active COUGH 62929381 11/11/2012 Active ASTHMA WITH EXACERBATION 613512426 02/13/2013 Active VAGINITIS 37909735 05/24/2013 Active LUMP OR MASS IN BREAST 80837652 05/28/2013 Active SOLITARY CYST OF BREAST 843976126 05/28/2013 Active Procedures Procedure Code Procedure Type Date MRI-LOWER EXT-JOINT W/O RT [id number] SNOMED CT 04/30/2017 Results Unknown or Not Available. 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 History of Immunizations Immunization Code Date DTP 1991 DTP 1991 DTP 1991 DTP 01 12/15/1992 OPV 02 04/26/1995 [...] vaccine administered 998 1991 Plan of Treatment Unknown or Not Available. Social History Smoking Status Code Start Date End Date Never smoker 891340805 Vital Signs Unknown or Not Available. Function Status Unknown or Not Available. Goals Unknown or Not Available. ASSESSMENTS Unknown or Not Available. Health Concerns Section Unknown or Not Available.
== END 2017-05-20 16:12 | disposition home or self-care (01) ==
LOC: ER 15:24
DX: J06.9 Acute upper respiratory infection, unspecified (principal); Z76.5 Malingerer [conscious simulation]

== ENCOUNTER 2020-01-15 00:12 | Inpatient (IN) ==
[2020-01-15] MEDS ORDERED: RINGER'S SOLUTION,LACTATED 1,000 ML IV PRN (01:38)
[2020-01-15] MEDS ORDERED: ONDANSETRON 4 MG TAB.RAPDIS PO PRN (01:38)
[2020-01-15] MEDS ORDERED: LIDOCAINE HCL 50 ML VIAL PERI PRN (01:38)
[2020-01-15] MEDS ORDERED: RINGER'S SOLUTION,LACTATED 1,000 ML IV ONE (01:38)
[2020-01-15] MEDS ORDERED: MISOPROSTOL 100 MCG TABLET VG PRN (01:38)
[2020-01-15] MEDS ORDERED: BUTORPHANOL TARTRATE 2 MG/ML VIAL IV PRN ×2 (01:38)
[2020-01-15] MEDS ORDERED: OXYTOCIN/DEXTROSE 5%-WATER 30 UNITS/500 ML BAG IV ONE (01:38)
[2020-01-15 02:38] LABS: Cocaine Ur Negative (NEGATIVE); Urine Barbiturate Negative (NEGATIVE); Urine Benzodiazepines Negative (NEGATIVE); Urine Opiates Negative (NEGATIVE); Urine PCP Negative (NEGATIVE); Urine THC Negative (NEGATIVE)
--- NOTE | 2020-01-15 08:30 | HP ---
Chief Complaint - Chief Complaint Date of Service: 01/15/20 Time of Service: 08:22 Chief Complaint: Induction History of Present Illness: 29 year old at 39w 0d who presents to L&D for an elective IOL. She reports contractions. She denies vb or lof. Fetus is active. Medical History (Last Reviewed 01/15/20 @ 08:25 by Luisa Hogan MD) Anxiety Bipolar 1 disorder Obesity Tobacco abuse Asthma Anemia Ovarian cyst Pulmonary embolism Onset Date: ~2014 Rathke's cleft cyst Surgical History: Surgical History (Last Reviewed 01/15/20 @ 08:25 by Luisa Hogan MD) History of wisdom tooth extraction Onset Date: ~2009 Hx of knee surgery Onset Date: ~2016 left x2 Hx of tonsillectomy Onset Date: ~2002 Family History: Family History (Last Reviewed 01/15/20 @ 08:25 by Luisa Hogan MD) Grandfather COPD (chronic obstructive pulmonary disease) Cancer Thyroid disease Grandmother Diabetes Father Myocardial infarction Mother Hyperlipemia Other No pertinent family history Social History: (Last Reviewed 01/15/20 @ 08:25 by Luisa Hogan MD) Social History: adopted: No Marital status: Single household members: children, family number of children: 2 current occupational status: unemployed Highest education level completed: some college, no degree Sexually Active: Yes Service: No Tobacco: Smoking Status: Never smoker Alcohol: alcohol intake: former Substance Use: substance use type: does not use Dietary Habits: caffeine: Yes caffeine comment: 1 daily Type: coffee Personal Safety: do you feel safe at home: Yes Review Of Systems (GEN) - Review of Systems Generalized/Overall Review: Present: No Symptoms Reported EENTM: Present: No Symptoms Reported Respiratory: Present: No Symptoms Reported Cardiac: Present: No Symptoms Reported Abdominal: Present: No Symptoms Reported Genitourinary: Present: Burning, Itching, Dysuria Musculoskeletal: Present: No Symptoms Reported Neurological: Present: No Symptoms Reported Skin: Present: No Symptoms Reported Endocrine: Present: No Symptoms Reported Immunizations: IMMUNIZATION HX Immunizations Up to Date Yes History of Influenza Vaccine Yes Hx Pneumococcal Vaccination Yes Allergies/Adverse Reactions: Allergies Allergy/AdvReac Type Severity Reaction Status Date / Time benzonatate Allergy Hives Verified 01/15/20 01:38 [From Mercedez Sharma] latex Allergy Hives Verified 01/15/20 01:38 adhesive AdvReac itching Verified 01/15/20 01:38 guaifenesin AdvReac Hives Verified 01/15/20 01:38 nitrofurantoin AdvReac nausea Verified 01/15/20 01:38 [From Macrobid] Home Medications: HOME MEDICATIONS Acetaminophen 1,000 mg PO PRN PRN 01/13/20 [Last Taken Unknown] Exam - Exam Vital Signs: Vital Signs - Last Taken Temp 37 C 01/15/20 01:42 Pulse 84 01/15/20 01:42 Resp 16 01/15/20 01:42 BP 101/53 01/15/20 01:42 Pulse Ox 99 01/15/20 01:42 Constitutional: Present: Alert, Oriented x3, Cooperative, No distress ENT Exam: Present: hearing grossly normal Back Exam: Present: normal inspection, no CVA tenderness Respiratory: Present: lungs clear, normal breath sounds, no respiratory distress Cardiovascular/Chest: Present: regular rate, rhythm Abdomen: Present: soft, nontender, nondistended /Rectal: Present: Other - Attempted to check patient but she did not tolerate the exam so exam was aborted Extremity: Present: non-tender, no calf tenderness Skin Exam: Present: normal color, warm/dry, no cyanosis Neurologic: Present: alert, normal mood/affect, oriented x 3 Appearance: Present: appropriate appearance, appropriate insight Eye contact: Present: cooperative, good eye contact, normal speech Thoughts: Present: normal thought pattern Diagnostic Studies: Laboratory Results Urine Opiates Screen Negative (NEGATIVE) 01/15/20 01:46 Barbiturate Screen Negative (NEGATIVE) 01/15/20 01:46 Ur Phencyclidine Scrn Negative (NEGATIVE) 01/15/20 01:46 Urine Amphetamine Negative (NEGATIVE) 01/15/20 01:46 U Benzodiazepines Scrn Negative (NEGATIVE) 01/15/20 01:46 Urine Cocaine Screen Negative (NEGATIVE) 01/15/20 01:46 Urine Marijuana (THC) Negative (NEGATIVE) 01/15/20 01:46 Blood Type B Positive 01/15/20 01:45 Antibody Screen Negative 01/15/20 01:45 Assessment/Plan - Narrative Narrative: 29 year old at 39w 0d 1. Elective IOL: The patient received one dose of misoprostol and is patrick every 1-2 minutes. The patient did not tolerate a cervical exam and thus will give the patient an epidural prior to checking her cervix. 2. Dysuria and vaginal irritation: UC ordered, will collect wet prep once epidural is in place 3. GBS negative: prophylaxis not indicated FHT cat 1
[2020-01-15] MEDS ORDERED: NALOXONE HCL 1 MG/1 ML SYRG IV PRN (08:32)
[2020-01-15] MEDS ORDERED: ONDANSETRON HCL/PF 2 MG/ML VIAL IV PRN ×2 (08:32→20:39)
[2020-01-15] MEDS ORDERED: BUPIVACAINE HCL/0.9 % NACL/PF 250 ML EP PRN (08:32)
[2020-01-15] MEDS ORDERED: fentaNYL CITRATE/PF 50 MCG/ML AMPUL IT SCH (08:45)
--- NOTE | 2020-01-15 09:01 | ANES ---
Anesthesia Pre Procedure Eval Vitals/Labs: Last Vital Signs Temp 37 C 01/15/20 01:42 Pulse 84 01/15/20 01:42 Resp 16 01/15/20 01:42 BP 101/53 01/15/20 01:42 Pulse Ox 99 01/15/20 01:42 HOME MEDICATIONS Acetaminophen 1,000 mg PO PRN PRN 01/13/20 [Last Taken Unknown] Allergies/Adverse Reactions: Allergies Allergy/AdvReac Type Severity Reaction Status Date / Time benzonatate Allergy Hives Verified 01/15/20 01:38 [From Tessalon Perlkaushal] latex Allergy Hives Verified 01/15/20 01:38 adhesive AdvReac itching Verified 01/15/20 01:38 guaifenesin AdvReac Hives Verified 01/15/20 01:38 nitrofurantoin AdvReac nausea Verified 01/15/20 01:38 [From Macrobid] - Planned Procedure Planned Procedure: ELECTIVE INDUCTION 39 WEEKS Medication List Reviewed:: Yes Allergies Verified: Yes Medical History (Last Reviewed 01/15/20 @ 08:59 by Que Hewitt CRNA) Anxiety Bipolar 1 disorder Obesity Tobacco abuse Asthma Anemia Ovarian cyst Pulmonary embolism Onset Date: ~2014 Rathke's cleft cyst Surgical History (Last Reviewed 01/15/20 @ 08:59 by Que Hewitt CRNA) History of wisdom tooth extraction Onset Date: ~2009 Hx of knee surgery Onset Date: ~2016 left x2 Hx of tonsillectomy Onset Date: ~2002 Family History (Last Reviewed 01/15/20 @ 08:59 by Que Hewitt CRNA) Grandfather COPD (chronic obstructive pulmonary disease) Cancer Thyroid disease Grandmother Diabetes Father Myocardial infarction Mother Hyperlipemia Other No pertinent family history - Family Anesthesia History Family History:: no untoward family reactions to anesthesia, no familial bleeding tendencies, no family history of clotting disorders, no family history of premature - Airway/Neck/Teeth Within Normal Limits:: Yes Mallampatti Score: 2 Thyromental (T-M) distance: > 6 cm Mandibulo Hyoid distance: > 3 cm - Respiratory Respiratory History: asthma Respiratory Physical: rhonchi Smoking Status: Current every day smoker Sleep Apnea currently treated: No Sleep Apnea by current assessment: No - Cardiovascular Tolerate Activity: Fair Heart Sounds: S1 & S2, Regular - Gastrointestinal NPO since: 2400 - Anesthesia Assessment and Plan ASA Class: PS, II, E Anesthesia Type Plan: Epidural - CSE For labor analgesia
--- NOTE | 2020-01-15 09:19 | ANES ---
Post Anesthesia Discharge - Transfer of Care Transfer of Care handoff given to nurse: Yes - Discharge from PACU Discharge from PACU when meets criteria: Yes - Comfortable post CSE
--- NOTE | 2020-01-15 09:22 | ANES ---
Anesthesia Procedure Note Procedure Note: ANESTHESIA PROCEDURE NOTE Date of Procedure: [January 15, 2020 Time of procedure: 9 AM. Performed by: KAREN Silveira CRNA, MSN [employer] Sales Consultant: Liza Hearn RN Preprocedure diagnosis: Active labor, labor pain. Post procedure diagnosis: Same. Procedure:Epidural for labor analgesia L3-4. Indications: Labor pain. Findings: See below. Details of the procedure: The patient was placed on the side of the bed in sitting positionand prepped with DuraPrep then draped in a sterile fashion. Lidocaine 1% was infiltrated to the skin and subcutaneous tissues at the level of the L3-4 interspace. An 18-gauge Touhy needle was used to approach the epidural space with loss of resistance technique. Once loss of resistance was achieved a 27-gauge spinal needle was passed through the epidural needle and CSF was contacted. After CSF returned, 20 mcg of fentanyl was injected in the spinal needle was removed the epidural catheter was then threaded approximately 4 cm in the epidural needle was removed. The catheter was taped in place and after careful aspiration 3 mL of 1.5% lidocaine with 1-200,000 epinephrine was injected without change in maternal heart rate or sensorium. . EBL: Minimal. Fluids: N/A. Specimen: N/A. Post procedure condition: The patient tolerated the procedure well with good relief. No complications were noted. Thank you for this consultation. Que Hewitt CRNA, KAREN, MSN
--- NOTE | 2020-01-15 09:38 | ANES ---
Post Anesthesia Assessment - Vital Signs Vitals: Last Vital Signs Temp 37 C 01/15/20 01:42 Pulse 84 01/15/20 01:42 Resp 16 01/15/20 01:42 BP 101/53 01/15/20 01:42 Pulse Ox 99 01/15/20 01:42 Airway Patency: Normal - Mental Status Level Of Consciousness: Awake, Alert, Appropriate - Pain Level Pain Score: 0 - N/V Assessment Nausea/Vomiting Presence: None Dehydration:: No
--- NOTE | 2020-01-15 09:51 | PN ---
Josué Note - Interim Date: 01/15/20 Time: 09:50 Narrative: 01/15/20 09:50 Patient comfortable with epidural cvx /-4 AROM for clear fluid FHT cat 1
[2020-01-15] MEDS ORDERED: diphenhydrAMINE HCL 50 MG CAPSULE PO ONE (10:36)
[2020-01-15] MEDS ORDERED: TERBUTALINE SULFATE 1 MG/ML VIAL ONE (14:03)
--- NOTE | 2020-01-15 14:30 | PN ---
Progess Note - Interim Date: 01/15/20 Time: 14:26 Narrative: 01/15/20 14:26 Patient comfortable with epidural cvx I was called by RN to evaluate the patient due to a variable deceleration. I gave a verbal order for terbutaline Tracing has recovered upon my arrival to a category 1 tracing Attempt to start pitocin when able to
--- NOTE | 2020-01-15 16:05 | PN ---
Josué Note - Interim Date: 01/15/20 Time: 16:03 Narrative: 01/15/20 16:03 Patient comfortable with epidural cvx FHT cat 2 due to recurrent variable decelerations but the variability remains moderate and thus overall a reassuring FHT Pitocin turned off Anticipate
[2020-01-15] MEDS ORDERED: ACETAMINOPHEN 500 MG TABLET PO PRN (16:40)
[2020-01-15] MEDS ORDERED: ceFAZolin SODIUM 2 GM in DEXTROSE 5 % IN WATER 50 ML IV PRN ×2 (19:55)
[2020-01-15] MEDS ORDERED: BISACODYL 10 MG SUPP.RECT RC PRN (20:39)
[2020-01-15] MEDS ORDERED: diphenhydrAMINE HCL 25 MG CAPSULE PO PRN (20:39)
[2020-01-15] MEDS ORDERED: SIMETHICONE 80 MG TAB.CHEW PO PRN (20:39)
[2020-01-15] MEDS ORDERED: SENNOSIDES 8.6 MG TABLET PO PRN (20:39)
[2020-01-15] MEDS ORDERED: HYDROcodone/ACETAMINOPHEN 1 EACH TABLET PO PRN (20:39)
--- NOTE | 2020-01-15 20:39 | OR ---
Operative Report - Dictated Report Narrative: Date of delivery: 01/15/2020 Time of delivery: 1923 Gender: male weight: 3715 grams APGARS: 8/9 Preoperative diagnosis: IUP at 39 weeks, attempted vacuum delivery, nonreassuring heart tracing leading to STAT delivery Postoperative diagnosis: same Procedure: primary delivery Surgeon: Dr. Hogan Anesthesia: epidural, local Anesthesiologist: Seven Liriano TREE PRUNER Description of the procedure: The patient had an attempted vacuum delivery which did not result in delivery of the fetus. There were two pop offs after which attempts a vacuum extraction were abandoned. The heart rate could not be determined for a few seconds but was as low as 30-40s in the patient's room. The heart rate was recorded in the operating room and initially it was in the 160s and then began decelerating to the 90s. For this reason a STAT delivery prior to the arrival of the anesthesia provider. A total of 40 mL of local anesthesia was injected subcutaneously prior to incision. The skin was cleansed with betadine. A Pfannestiel skin incision was made. The incision was carried through the subcutaneous tissue. The fascia was incised in the midline and spread bluntly. The peritoneum was entered bluntly after visualizing the bladder as a Oscar catheter was not in place at the time of delivery. A Fallon retractor was placed superiorly and a bladder bladder blade inferiorly. The uterus was incised in a low transverse fashion paying close attention to the location of the bladder. The uterine incision was extented bluntly. The head was delivered from the pelvis and into the incision. The rest of the was delivered atraumatically. The cord was clamped and cut and the was handed off to the attending pediatric staff. At this point I waited until anesthesia redosed the patient's epidural prior to proceeding. Cord blood was collected. A large Adama retractor was placed. The placenta was delivered by expression and appeared intact. The uterus was cleared of all clots and debris. The uterine incision was closed with 2 layers of 0- vicryl. The second layer was an imbricating layer. Additional hemostasis was obtained with figure of eight sutures using 0-vicryl. Once hemostasis was confirmed the Adama retractor was removed from the abdomen. The fascia was inspected and made hemostatic. The subfascial tissues and the rectus muscles were also inspected and made hemostatic. Hemostasis was adequate. The fascia was closed with 1-0 vicryl. The subcutaneous tissue was made hemostatic and irrigated. The subcutaneous tissue's space was closed with 2-0 vicryl. The skin incision was closed with 3-0 monocryl on a Roscoe needle. [place] sampson was placed over the incision. A pressure dressing was applied. An X-ray was performed given no counts prior to starting. All sponge, lap, and needle counts were correct. The patient tolerated the procedure well. She was transferred to the recovery room in stable condition. EBL: 1000 mL Complications: none Specimens: placenta to pathology History for MU Definition: * The number of deliveries resulting in a live the patient experienced prior to current hospitalization * The previous delivery of live twins or any live multiple gestation is considered one live event. *If primagravida or nulliparous is documented select zero for the number of previous live births. Live Events: 2
--- NOTE | 2020-01-15 20:45 | ANES ---
Anesthesia Pre Procedure Eval Vitals/Labs: Last Vital Signs Temp 37 C 01/15/20 01:42 Pulse 84 01/15/20 01:42 Resp 16 01/15/20 01:42 BP 101/53 01/15/20 01:42 Pulse Ox 99 01/15/20 01:42 HOME MEDICATIONS Acetaminophen 1,000 mg PO PRN PRN 01/13/20 [Last Taken Unknown] Allergies/Adverse Reactions: Allergies Allergy/AdvReac Type Severity Reaction Status Date / Time benzonatate Allergy Hives Verified 01/15/20 01:38 [From Tessalon Perlkaushal] latex Allergy Hives Verified 01/15/20 01:38 adhesive AdvReac itching Verified 01/15/20 01:38 guaifenesin AdvReac Hives Verified 01/15/20 01:38 nitrofurantoin AdvReac nausea Verified 01/15/20 01:38 [From Macrobid] - Planned Procedure Planned Procedure: Stat C/S Medical History (Last Reviewed 01/15/20 @ 08:59 by Que Hewitt CRNA) Anxiety Bipolar 1 disorder Obesity Tobacco abuse Asthma Anemia Ovarian cyst Pulmonary embolism Onset Date: ~2014 Rathke's cleft cyst Surgical History (Last Reviewed 01/15/20 @ 08:59 by Que Hewitt CRNA) History of wisdom tooth extraction Onset Date: ~2009 Hx of knee surgery Onset Date: ~2016 left x2 Hx of tonsillectomy Onset Date: ~2002 Family History (Last Reviewed 01/15/20 @ 08:59 by Que Hewitt CRNA) Grandfather COPD (chronic obstructive pulmonary disease) Cancer Thyroid disease Grandmother Diabetes Father Myocardial infarction Mother Hyperlipemia Other No pertinent family history - Airway/Neck/Teeth Teeth Condition: intact Mallampatti Score: 2 Thyromental (T-M) distance: > 6 cm Mandibulo Hyoid distance: > 3 cm - Respiratory Respiratory Physical: lungs clear - Cardiovascular Tolerate Activity: Good Heart Sounds: S1 & S2, Regular - Anesthesia Assessment and Plan ASA Class: PS, II, E Anesthesia Type Plan: Epidural
--- NOTE | 2020-01-15 20:46 | ANES ---
Post Anesthesia Discharge - Transfer of Care Transfer of Care handoff given to nurse: Yes - Discharge from PACU Discharge from PACU when meets criteria: Yes - Discharge to ASU Discharge to ASU-no complications/pt stable: Yes
[2020-01-15] MEDS ORDERED: fentaNYL CITRATE/PF 50 MCG/ML AMPUL ONE (20:51)
[2020-01-15] MEDS ORDERED: OXYTOCIN 20 UNITS in RINGER'S SOLUTION,LACTATED 1,000 ML IV ONE (21:04)
[2020-01-15] MEDS: DOCUSATE SODIUM 100 MG CAPSULE PO SCH (22:00)
[2020-01-15] MEDS: KETOROLAC TROMETHAMINE 30 MG/ML VIAL IV PRN (22:00)
[2020-01-15] MEDS: HYDROcodone/ACETAMINOPHEN 1 EACH TABLET PO PRN (22:00)
[2020-01-16] MEDS: HYDROcodone/ACETAMINOPHEN 1 EACH TABLET PO PRN ×2 (01:09→05:15)
[2020-01-16] MEDS: KETOROLAC TROMETHAMINE 30 MG/ML VIAL IV PRN ×3 (03:59→16:48)
[2020-01-16] MEDS ORDERED: ceFAZolin SODIUM/DEXTROSE,ISO 2 GM/50 ML BAG IV SCH (06:15)
[2020-01-16 06:32] LABS: Mean Cell Volume 79.8 fl (78-100); Mean Corpuscular Hemoglobin 25.2 pg (27-31); Mean Corpuscular Hgb Conc 31.6 g/dl (32-36); Mean Platelet Volume 10.4 fl (8-12.5); Neutrophil # 13.1 K/mm3 (1.3-6.0); Neutrophil % 83.6 % (42-75.0); Platelet Count 257 K/mm3 (150-450); Red Blood Count 2.82 M/mm3 (4.2-5.4); Red Cell Distribution Width 13.8 % (11.5-14.0); White Blood Count 15.7 K/mm3 (4.0-10.5)
[2020-01-16 06:38] LABS: Hematocrit 22.5 % (37.0-47.0); Hemoglobin 7.1 gm/dL (12.5-16.0)
--- NOTE | 2020-01-16 08:29 | PN ---
Subjective - Date and Time Seen Date: 01/16/20 Time: 08:23 Subjective Narrative: Patient without complaints Objective Objective Narrative: See vital signs - Review of Systems Generalized/Overall Review: Reports: No Symptoms Reported EENTM: Reports: No Symptoms Reported Respiratory: Reports: No Symptoms Reported Cardiac: Reports: No Symptoms Reported Abdominal: Reports: Abdominal Pain Genitourinary Symptoms: Reports: No Symptoms Reported Musculoskeletal Complaints: Reports: No Symptoms Reported Neurological: Reports: No Symptoms Reported Skin: Reports: No Symptoms Reported Endocrine: Reports: No Symptoms Reported - Vitals Vitals: Last Vital Signs Temp 35.9 C L 01/16/20 02:45 Pulse 102 H 01/16/20 02:45 Resp 20 01/16/20 02:45 BP 117/57 01/16/20 02:45 Pulse Ox 98 01/16/20 02:45 - Abnormal Lab Findings Abnormal Lab Findings: Abnormal Lab Results 01/16/20 Range/Units 06:00 WBC 15.7 H (4.0-10.5) K/mm3 RBC 2.82 L (4.2-5.4) M/mm3 Hgb 7.1 L* D (12.5-16.0) gm/dL Hct 22.5 L* (37.0-47.0) % MCH 25.2 L (27-31) pg MCHC 31.6 L (32-36) g/dl Immature Gran % (Auto) 0.60 H (0.001-0.429) % Immature Gran # (Auto) 0.10 H (0.000-0.0310) K/mm3 Neutrophils % 83.6 H (42-75.0) % Lymphocytes % 8.8 L (20-51) % Neutrophils # 13.1 H (1.3-6.0) K/mm3 Lymphocytes # 1.39 L (1.5-3.5) k/mm3 Monocytes # 1.1 H (0.0-1.0) k/mm3 - Exam Constitutional: Present: Alert, Oriented x3, Cooperative, No distress ENT Exam: Present: hearing grossly normal Respiratory: Present: lungs clear, normal breath sounds Cardiovascular/Chest: Present: regular rate, rhythm Abdomen: Present: soft, nontender, nondistended - dressing c/d/i /Rectal: Present: Exam deferred Extremity: Present: non-tender, no calf tenderness Skin Exam: Present: normal color, warm/dry, no cyanosis Appearance: Present: appropriate appearance, appropriate insight Eye contact: Present: cooperative, good eye contact, normal speech Thoughts: Present: normal thought pattern Cauti Physician Documentation - Urinary Catheter Management Urethral (Oscar) Urethral Indwelling: No Date of Insertion: 01/15/20 Time of Insertion: 10:30 Assessment/Plan Plan Narrative: POD 1 s/p STAT delivery Doing well Pain not controlled so will switch to percocet. Will also send percocet Rx today for postoperative pain control BV: treat with flagyl 500 mg PO BID for 7 days. Will do 3 days in the hospital and 4 days of outpatient treatment. Will send Rx today as well Acute blood loss anemia: proceed with iron infusion and repeat iron infusion in 7 days. The patient is asymptomatic from her anemia. Repeat CBC tomorrow morning to determine need for blood transfusion. The patient has received prior blood transfusion in a previous Hold lovenox due to acute blood loss anemia Patient counseled on Tdap and she declines Discharge POD 3
[2020-01-16] MEDS ORDERED: FERUMOXYTOL 510 MG in NORMAL SALINE 100 ML IV SCH (09:00)
[2020-01-16] MEDS: metroNIDAZOLE 500 MG TABLET PO SCH ×2 (09:02→21:39)
[2020-01-16] MEDS: DOCUSATE SODIUM 100 MG CAPSULE PO SCH ×2 (09:03→21:39)
[2020-01-16] MEDS: oxyCODONE HCL/ACETAMINOPHEN 1 TAB TABLET PO PRN ×3 (09:54→21:39)
[2020-01-16] MEDS: IBUPROFEN 800 MG TABLET PO PRN (21:39)
[2020-01-17] MEDS: oxyCODONE HCL/ACETAMINOPHEN 1 TAB TABLET PO PRN ×6 (01:35→23:29)
[2020-01-17] MEDS: IBUPROFEN 800 MG TABLET PO PRN ×3 (04:35→21:13)
[2020-01-17 08:02] LABS: Mean Cell Volume 80.8 fl (78-100); Mean Corpuscular Hgb Conc 30.9 g/dl (32-36); Mean Platelet Volume 9.3 fl (8-12.5); Neutrophil # 9.5 K/mm3 (1.3-6.0); Neutrophil % 73.2 % (42-75.0); Platelet Count 218 K/mm3 (150-450); Red Cell Distribution Width 14.3 % (11.5-14.0)
[2020-01-17 08:08] LABS: Hematocrit 19.4 % (37.0-47.0)
[2020-01-17] MEDS: metroNIDAZOLE 500 MG TABLET PO SCH ×2 (08:35→21:13)
[2020-01-17] MEDS: DOCUSATE SODIUM 100 MG CAPSULE PO SCH ×2 (08:36→21:13)
[2020-01-17 09:34] LABS: Mean Cell Volume 80.3 fl (78-100); Mean Corpuscular Hgb Conc 31.1 g/dl (32-36); Mean Platelet Volume 9.3 fl (8-12.5); Neutrophil % 75.2 % (42-75.0); Platelet Count 221 K/mm3 (150-450); Red Blood Count 2.44 M/mm3 (4.2-5.4); Red Cell Distribution Width 14.1 % (11.5-14.0); White Blood Count 13.2 K/mm3 (4.0-10.5)
--- NOTE | 2020-01-17 09:34 | PN ---
Subjective - Date and Time Seen Date: 01/17/20 Time: 09:27 Subjective Narrative: Patient without complaints Objective Objective Narrative: See vital signs - Review of Systems Generalized/Overall Review: Reports: No Symptoms Reported Misc: All systems neg except as marked - Vitals Vitals: Last Vital Signs Temp 36.6 C 01/17/20 07:18 Pulse 91 01/17/20 07:18 Resp 18 01/17/20 07:18 BP 114/59 01/17/20 07:18 Pulse Ox 99 01/17/20 07:18 - Abnormal Lab Findings Abnormal Lab Findings: Abnormal Lab Results 01/17/20 Range/Units 07:58 WBC 13.0 H (4.0-10.5) K/mm3 RBC 2.40 L (4.2-5.4) M/mm3 Hgb 6.0 L* (12.5-16.0) gm/dL Hct 19.4 L* (37.0-47.0) % MCH 25.0 L (27-31) pg MCHC 30.9 L (32-36) g/dl RDW 14.3 H (11.5-14.0) % Immature Gran % (Auto) 1.80 H (0.001-0.429) % Immature Gran # (Auto) 0.23 H (0.000-0.0310) K/mm3 Lymphocytes % 18.3 L (20-51) % Neutrophils # 9.5 H (1.3-6.0) K/mm3 - Exam Constitutional: Present: Alert, Oriented x3, Cooperative, No distress Abdomen: Present: soft, nontender, nondistended - incision c/d/i /Rectal: Present: Exam deferred Extremity: Present: non-tender, no calf tenderness Skin Exam: Present: normal color, warm/dry, no cyanosis Appearance: Present: appropriate appearance, appropriate insight Eye contact: Present: cooperative, good eye contact, normal speech Thoughts: Present: normal thought pattern Cauti Physician Documentation - Urinary Catheter Management Urethral (Oscar) Urethral Indwelling: No Date of Insertion: 01/15/20 Time of Insertion: 10:30 Date of Removal: 01/16/20 Time of Removal: 07:25 Assessment/Plan Plan Narrative: POD 2 s/p repeat delivery Doing well Acute blood loss anemia: Hemoglobin is 6 this morning but the patient is asymptomatic and she is not tachycardic. Will recheck now to confirm hemoglobin and if still 6 will transfuse one unit of PRBCs given postoperative period and low hemoglobin Continue treatment for BV Will not do lovenox given significant acute blood loss anemia and no history of prior pulmonary embolism Discharge tomorrow if clinically stable
[2020-01-17 09:36] LABS: Hematocrit 19.6 % (37.0-47.0); Hemoglobin 6.1 gm/dL (12.5-16.0)
[2020-01-17] MEDS ORDERED: NORMAL SALINE 1,000 ML IV PRN (10:00)
--- NOTE | 2020-01-17 10:02 | PN ---
Progess Note - Interim Date: 01/17/20 Time: 10: Narrative: 01/17/20 10:01 Repeat hemoglobin is 6 and thus will proceed with transfusion of 1 unit of packed red blood cells.
[2020-01-18] MEDS: IBUPROFEN 800 MG TABLET PO PRN ×2 (04:34→11:59)
[2020-01-18] MEDS: oxyCODONE HCL/ACETAMINOPHEN 1 TAB TABLET PO PRN ×4 (04:34→16:21)
[2020-01-18 07:17] LABS: Mean Cell Volume 81.5 fl (78-100); Mean Corpuscular Hemoglobin 25.2 pg (27-31); Mean Corpuscular Hgb Conc 30.9 g/dl (32-36); Mean Platelet Volume 9.8 fl (8-12.5); Platelet Count 242 K/mm3 (150-450); Red Cell Distribution Width 14.6 % (11.5-14.0); White Blood Count 11.9 K/mm3 (4.0-10.5)
[2020-01-18 07:25] LABS: Hemoglobin 6.8 gm/dL (12.5-16.0)
[2020-01-18 07:26] LABS: Total Cells Counted 100
[2020-01-18 07:45] LABS: Eosinophil 2 % (0-3); Lymphocyte 23 % (20-51); Monocyte 3 % (0-9); Neutrophil 72 % (42-75); Neutrophil # 8.6 K/mm3 (1.3-6.0)
--- NOTE | 2020-01-18 09:02 | PN ---
Subjective - Date and Time Seen Date: 01/18/20 Time: 08:59 Subjective Narrative: Patient without complaints Objective Objective Narrative: See vital signs - Review of Systems Generalized/Overall Review: Reports: No Symptoms Reported Cardiac: Reports: Chest Pain Misc: All systems neg except as marked - Vitals Vitals: Last Vital Signs Temp 36.4 C 01/18/20 07:00 Pulse 98 01/18/20 07:00 Resp 18 01/18/20 07:00 BP 110/53 01/18/20 07:00 Pulse Ox 97 01/18/20 07:00 - Abnormal Lab Findings Abnormal Lab Findings: Abnormal Lab Results 01/15/20 01/17/20 01/18/20 Range/Units 01:45 09:30 07:05 WBC 13.2 H 11.9 H (4.0-10.5) K/mm3 RBC 2.44 L 2.70 L (4.2-5.4) M/mm3 Hgb 6.1 L* 6.8 L* (12.5-16.0) gm/dL Hct 19.6 L* 22.0 L* (37.0-47.0) % MCH 25.0 L 25.2 L (27-31) pg MCHC 31.1 L 30.9 L (32-36) g/dl RDW 14.1 H 14.6 H (11.5-14.0) % Immature Gran % (Auto) 2.20 H (0.001-0.429) % Immature Gran # (Auto) 0.29 H (0.000-0.0310) K/mm3 Neutrophils % 75.2 H (42-75.0) % Lymphocytes % 15.6 L (20-51) % Neutrophils # 10.0 H (1.3-6.0) K/mm3 Neutrophils # (Manual) 8.6 H (1.3-6.0) K/mm3 Crossmatch See Detail 01/18/20 Range/Units 08:15 WBC (4.0-10.5) K/mm3 RBC (4.2-5.4) M/mm3 Hgb (12.5-16.0) gm/dL Hct (37.0-47.0) % MCH (27-31) pg MCHC (32-36) g/dl RDW (11.5-14.0) % Immature Gran % (Auto) (0.001-0.429) % Immature Gran # (Auto) (0.000-0.0310) K/mm3 Neutrophils % (42-75.0) % Lymphocytes % (20-51) % Neutrophils # (1.3-6.0) K/mm3 Neutrophils # (Manual) (1.3-6.0) K/mm3 Crossmatch See Detail - Exam Constitutional: Present: Alert, Oriented x3, Cooperative, No distress Abdomen: Present: soft, nontender, nondistended - incision c/d/i /Rectal: Present: Exam deferred Extremity: Present: non-tender, no calf tenderness Skin Exam: Present: normal color, warm/dry, no cyanosis Appearance: Present: appropriate appearance, appropriate insight Eye contact: Present: cooperative, good eye contact, normal speech Thoughts: Present: normal thought pattern Cauti Physician Documentation - Urinary Catheter Management Urethral (Oscar) Urethral Indwelling: No Date of Insertion: 01/15/20 Time of Insertion: 10:30 Date of Removal: 01/16/20 Time of Removal: 07:25 Assessment/Plan Plan Narrative: POD 3 s/p repeat delivery Doing well Reports chest pain: will consult internal medicine Acute blood loss anemia: appropriate rise in H/H but hemoglobin is 6.8 so will transfuse another unit of PRBC prior to discharge Discharge later today if clinically stable Follow-up in 1 week for an incision check
[2020-01-18 11:55] VITALS: BP 105/59
[2020-01-18] MEDS: metroNIDAZOLE 500 MG TABLET PO SCH (11:58)
[2020-01-18] MEDS: DOCUSATE SODIUM 100 MG CAPSULE PO SCH (11:58)
--- NOTE | 2020-01-18 12:36 | CONS ---
[facility] - General Date of Service: 01/18/20 Source: patient - History of Present Illness Initial Comments: Chest pain x1 day Timing/Duration: intermittent Associated Symptoms: chest pain, diaphoresis Allergies/Adverse Reactions: Allergies benzonatate [From Tessalraul Perlkaushal] Allergy (Verified 01/15/20 01:38) Hives latex Allergy (Verified 01/15/20 01:38) Hives adhesive Adverse Reaction (Verified 01/15/20 01:38) itching guaifenesin Adverse Reaction (Verified 01/15/20 01:38) Hives nitrofurantoin [From Macrobid] Adverse Reaction (Verified 01/15/20 01:38) nausea Home Medications: Home Medications Medication Instructions Recorded Last Taken metroNIDAZOLE [Flagyl] 500 mg PO BID 4 Days #8 tab 01/16/20 Unknown oxyCODONE HCL/ACETAMINOPHEN 2 tab PO Q4H PRN #14 tab 01/16/20 Unknown [Percocet 5 MG/325 MG] oxycodone-acetaminophen 5 mg-325 1 tab PO Q6H PRN #14 tab 01/16/20 Unknown mg tablet Medications - Medications Current Medications: Current Medications Acetaminophen (Tylenol) 1,000 mg PO Q8H PRN PRN Reason: Mild pain (pain scale 1-3) Stop: 02/14/20 16:41 Last Admin: 01/15/20 16:47 Dose: 1,000 mg Documented by: Diphenhydramine HCl (Benadryl) 25 mg PO HS PRN PRN Reason: Sleep Stop: 02/14/20 20:40 Last Admin: 01/16/20 18:06 Dose: 25 mg Documented by: Docusate Sodium (Colace) 100 mg PO BID FLO Stop: 02/14/20 21:01 Last Admin: 01/18/20 11:58 Dose: 100 mg Documented by: Lactated Ringer's (Lactated Ringers) 1,000 mls @ 125 mls/hr IV .Q8H PRN PRN Reason: HYDRATION Stop: 02/14/20 01:39 Last Infusion: 01/16/20 17:32 Dose: Infused Documented by: Oxytocin/Dextrose (Pitocin 30 Units/D5w 500 Ml) 30 units in 500 mls @ 2 mls/hr IV PRN ONE; Protocol Stop: 01/25/20 11:37 Last Infusion: 01/16/20 06:30 Dose: Infused Documented by: Bupivacaine HCl/Sodium Chloride (Bupivacaine 0.125% In Ns 0.9% Cassette) 250 mls @ 0 mls/hr EP Q24H PRN; Protocol PRN Reason: LABOR PAIN Stop: 02/14/20 08:33 Last Admin: 01/15/20 09:34 Dose: 10 mls/hr Documented by: Cefazolin Sodium 2 gm/ (Dextrose/Water) 50 mls @ 100 mls/hr IV PREOP PRN; Protocol PRN Reason: antibiotic stewarship Stop: 02/14/20 19:56 Last Infusion: 01/15/20 19:37 Dose: Infused Documented by: Ferumoxytol 510 mg/ Sodium (Chloride) 117 mls @ 200 mls/hr IV Q7D@0900 [facility] Stop: 01/23/20 09:36 Last Infusion: 01/16/20 09:47 Dose: Infused Documented by: Sodium Chloride (Sodium Chloride 0.9%) 1,000 mls @ 125 mls/hr IV .Q8H PRN PRN Reason: HYDRATION Stop: 02/16/20 10:01 Last Infusion: 01/17/20 14:56 Dose: Infused Documented by: Ibuprofen (Motrin) 800 mg PO Q6H PRN PRN Reason: Mild pain (pain scale 1-3) Stop: 02/14/20 20:40 Last Admin: 01/18/20 11:59 Dose: 800 mg Documented by: Ketorolac Tromethamine (Toradol) 30 mg IV Q6H PRN PRN Reason: Severe Pain (pain scale 7-10) Stop: 01/20/20 20:40 Last Admin: 01/16/20 16:48 Dose: 30 mg Documented by: Metronidazole (Flagyl) 500 mg PO BID [facility]; Protocol Stop: 02/15/20 09:01 Last Admin: 01/18/20 11:58 Dose: 500 mg Documented by: Oxycodone/Acetaminophen (Percocet 5 Mg/325 Mg) 2 tab PO Q4H PRN PRN Reason: Moderate Pain (pain scale 4-6) Stop: 02/15/20 08:36 Last Admin: 01/16/20 16:47 Dose: 2 tab Documented by: Oxycodone/Acetaminophen (Percocet 5 Mg/325 Mg) 1 tab PO Q3H PRN PRN Reason: Pain Stop: 02/15/20 20:26 Last Admin: 01/18/20 11:59 Dose: 1 tab Documented by: Review of Systems - Review of Systems Generalized/Overall Review: Present: Diaphoresis. Absent: Fever Respiratory: Absent: Shortness of Breath Cardiac: Present: Chest Pain Abdominal: Present: Abdominal Pain. Absent: Nausea, Vomiting Misc: All systems neg except as marked Physical Examination - Exam Vital Signs: Vital Signs - Last Taken Temp 36.7 C 01/18/20 11:50 Pulse 81 01/18/20 11:50 Resp 18 01/18/20 11:50 BP 105/59 01/18/20 11:50 Pulse Ox 100 01/18/20 11:50 O2 Oxygen Delivery Method Room Air Constitutional: Present: Alert, Cooperative, Well developed, Well nourished, No distress, Young, Obese ENT Exam: Present: hearing grossly normal Eye Exam: bilateral eye: normal inspection Neck: Absent: lymphadenopathy (R), lymphadenopathy (L) Respiratory: Present: lungs clear Cardiovascular/Chest: Present: regular rate, rhythm Peripheral Pulses: dorsalis-pedis (R): 1+, dorsalis-pedis (L): 1+ Abdomen: Present: Normal bowel sounds, soft Extremity: Present: no pedal edema Skin Exam: Present: normal color, warm/dry Neurologic: Present: alert, normal mood/affect Eye contact: Present: cooperative Thoughts: Present: normal mood /affect - Results and Findings: Narrative: 29-year-old female with a past medical history of recurrent pulmonary embolism, obesity, anxiety, bipolar 1 disorder, asthma, anemia, tobacco abuse presents with chest pain that began yesterday. She is postop day 3 status post a C- section. She states her pain is sharp and achy and is not able to localize it any particular area of the chest. She states the pain is not as bad as her C- section scar pain but it has woken her up from sleep. She denies radiation of the pain, shortness of breath, nausea or vomiting. She has had some palpitations associated with the pain and some diaphoresis which she is not sure which from the chest pain or just because she just had a baby. She does not is not able to pinpoint any alleviating or provocative factors with her pain. She states Percocet did not help her pain when she got it last night. Overall she has had about 2 or 3 episodes of the chest pain which have self resolved on their own. Pain has occurred without any exertion while she is in the bed. She states she has had multiple PEs between 2008 and 2014. She was told she needed lifelong anticoagulation but her doctors were not able to pinpoint the etiology of her PEs. Since they could not give her a reason she kept having them she decided she does not want to be on the anticoagulation and has not been on it. In general she states she does not like to take medications. Plan #[address] a [address] angio to rule out pulmonary embolism due to her extensive history and her well score of 6. #2 I will rule out acute coronary syndrome and obtain an EKG as well as a troponin. CT angiography was negative for pulmonary embolism. Troponin was less than 0.017 and EKG did not show any signs of acute coronary syndrome. The chest pain is likely secondary to anxiety. From my perspective, she is stable to be discharged home. Lab/Microbiology results last 24 hrs: Abnormal/Pending Laboratory Last 24 HRS 01/18/20 01/18/20 01/15/20 08:15 07:05 01:45 WBC 11.9 H RBC 2.70 L Hgb 6.8 L* Hct 22.0 L* MCH 25.2 L MCHC 30.9 L RDW 14.6 H Neutrophils # (Manual) 8.6 H Crossmatch See Detail See Detail - Assessments/Findings (1) Chest pain Problem: Acute (2) History of pulmonary embolus (PE) Problem: Acute (3) Anxiety Problem: Acute (4) History of pulmonary embolism Problem: Acute
[2020-01-18 13:08] LABS: Hematocrit 25.3 % (37.0-47.0); Mean Cell Volume 80.3 fl (78-100); Mean Corpuscular Hemoglobin 25.4 pg (27-31); Mean Corpuscular Hgb Conc 31.6 g/dl (32-36); Mean Platelet Volume 9.8 fl (8-12.5); Platelet Count 255 K/mm3 (150-450); Red Blood Count 3.15 M/mm3 (4.2-5.4); Red Cell Distribution Width 14.7 % (11.5-14.0); White Blood Count 11.1 K/mm3 (4.0-10.5)
[2020-01-18 13:11] LABS: Total Cells Counted 100
[2020-01-18 13:25] LABS: Troponin I Less than 0.017 ng/mL (0.00-0.10)
[2020-01-18 13:38] LABS: Anisocytosis 1+; Basophil 1 % (0-1); Hypochromia 2+; Lymphocyte 19 % (20-51); Monocyte 5 % (0-9); Neutrophil 75 % (42-75); Neutrophil # 8.3 K/mm3 (1.3-6.0); Platelet Estimate Normal (NORMAL)
== END 2020-01-18 17:40 | disposition home or self-care (01) | DRG 786 ==
LOC: OB 00:12
PROVIDERS: ADMIT Obstetrics & Gynecology; ATTEND Obstetrics & Gynecology
DX: O99.213 Obesity complicating pregnancy, third trimester; O77.8 Labor and delivery complicated by other evidence of fetal stress; Z37.0 Single live birth; Z3A.39 39 weeks gestation of pregnancy; O36.8330 Maternal care for abnormalities of the fetal heart rate or rhythm, third trimester, not applicable or unspecified; B96.89 Other specified bacterial agents as the cause of diseases classified elsewhere; D62 Acute posthemorrhagic anemia; R07.9 Chest pain, unspecified; O75.3 Other infection during labor; F41.9 Anxiety disorder, unspecified; O99.343 Other mental disorders complicating pregnancy, third trimester
CPT/HCPCS: 36415; 59025; 71275; 74000; 74018; 80307; 82565; 84484; 85007; 85025; 86850; 87086; 87210; 88307; 88888; 93005; P9016; Q0138; Q9967